=== PATIENT | male | born 1965 | race Hispanic/Latino ===

== ENCOUNTER 2020-02-18 09:20 | Inpatient (IN) | payer OTHER ==
[~2020-02-18] VITALS: Ht 165.1 cm; Wt 83.5 kg
[2020-02-18] MEDS ORDERED: CEFTRIAXONE SOD 1 GM/NS 50 ML 50 ML IV ONE (10:30)
[2020-02-18 10:40] LABS: BASOPHILS % 0.2 % (0.0-1.0); HEMATOCRIT 40.9 % (38.2-49.6); HEMOGLOBIN 13.7 g/dL (14.0-18.0); LYMPHOCYTES # (AUTO) 1.1 (1.0-3.2); LYMPHOCYTES % 6.4 % (18.0-39.1); MEAN CORPUSCULAR HGB CONC 33.5 g/dL (31-35); MEAN CORPUSCULAR VOLUME 89.5 fL (81-99); MONOCYTES # (AUTO) 0.8 (0.2-0.8); MONOCYTES % 4.9 % (4.4-11.3); NEUTROPHILS # (AUTO) 14.4 (2.1-6.9); NEUTROPHILS % 87.4 % (38.7-80.0); PLATELET COUNT 267 x10e3/uL (140-360); RED BLOOD COUNT 4.57 x10e6/uL (4.3-5.7); RED CELL DISTRIBUTION WIDTH 11.9 % (11.7-14.4)
[2020-02-18] MEDS ORDERED: AZITHROMYCIN 500MG/NS 250 ML 250 ML IV STA (10:42)
[2020-02-18 11:40] LABS: ALANINE AMINOTRANSFERASE 56 IU/L (0-55); ALBUMIN 3.5 g/dL (3.5-5.0); ALBUMIN/GLOBULIN RATIO 0.9 (0.8-2.0); ALKALINE PHOSPHATASE 77 IU/L (40-150); ANION GAP 16.3 mmol/L (8-16); BLOOD UREA NITROGEN 17 mg/dL (7-26); BUN/CREATININE RATIO 20 (6-25); CALCIUM 9.1 mg/dL (8.4-10.2); CARBON DIOXIDE 25 mmol/L (22-29); CHLORIDE 100 mmol/L (98-107); CREATINE KINASE 46 IU/L (30-200); CREATININE, SERUM 0.86 mg/dL (0.72-1.25); EST GLOMERULAR FILTRATION RATE > 60 ML/MIN (60-); GLUCOSE 116 mg/dL (74-118); POTASSIUM 4.3 mmol/L (3.5-5.1); SODIUM 137 mmol/L (136-145)
[2020-02-18 11:49] LABS: CREATINE KINASE MB < 1.00 ng/mL (0-4.3)
--- NOTE | 2020-02-18 13:10 | Emergency Department Note ---
History of Present Illnes History of Present Illness Chief Complaint: COVID PUI History of Present Illness This is a 54 year old male arrived to the ED with complaints of cough shortness of breath, states he tested positive for Covid 19. Chief Complaint Comment PATIENT IN FROM HOME WITH COMPLAINTS OF COUGH, SHORTNESS OF BREATH, CHEST PAIN, FEVER, AND CHILLS X 1 WEEK; PATIENT TACHYPNEIC, FEBRILE, HYPOXIC, AND ONLY ABLE TO SPEAK IN ONE WORD ANSWERS. PATIENT IMMEDIATELY MOVED TO ROOM 10 Historian: Patient Arrival Mode: Car Onset (how long ago): day(s) Severity: mild Onset quality: gradual Duration (how long): day(s) Timing of current episode: constant Progression: worsening Chronicity: new Context: Reports recent illness Past Medical/Family History Physician Review I have reviewed the patient's past medical and family history. Any updates have been documented here. Past Medical History Recent Fever: Yes Clinical Suspicion of Infectio: Yes New/Unexplained Change in Ment: No Past Medical History: Hyperlipedemia Other Surgery: UNABLE TO ASSESS Social History Smoking Cessation: Never Smoker Counseling Performed: No Alcohol Use: Occasional Any Illegal Drug Use: No TB Exposure/Symptoms: No Physically hurt or threatened: No Family History Family history of heart diseas: No Other Last Tetanus: UNKNOWN Any Pre-Existing Lines (PICC,: No Is patient up to date on immun: Yes Last Flu: last year Last Pneumovax: none Review of Systems Review of Systems Constitutional: Reports as per HPI, Reports chills, Reports fever, Reports malaise EENTM: Reports no symptoms Cardiovascular: Reports no symptoms Respiratory: Reports no symptoms, Reports as per HPI, Reports chest congestion, Reports cough, Reports pain with cough, Reports dyspnea, Reports dyspnea on exertion Gastrointestinal: Reports no symptoms Genitourinary: Reports no symptoms Musculoskeletal: Reports no symptoms Integumentary: Reports no symptoms Neurological: Reports no symptoms Psychological: Reports no symptoms Endocrine: Reports no symptoms Hematological/Lymphatic: Reports no symptoms Review of other systems: All other systems negative Physical Exam Related Data Allergies: Coded Allergies: No Known Allergies (Unverified , 02/18/20) Triage Vital Signs Vital Signs Date Time Temp Pulse Resp B/P (MAP) Pulse Ox O2 Delivery O2 Flow Rate FiO2 02/18/20 09:20 99.5 103 40 147/92 83 02/18/20 09:20 4.0 Vital signs reviewed: Yes Physical Exam CONSTITUTIONAL Constitutional: Present well-nourished, Present ill appearing HENT HENT: Present normocephalic, Present atraumatic, Present oropharynx clear/moist, Present nose normal HENT L/R: Present left ext ear normal, Present right ext ear normal EYES Eyes: Reports PERRL, Reports conjunctivae normal NECK Neck: Present ROM normal PULMONARY Pulmonary: Present respiratory distress CARDIOVASCULAR Cardiovascular: Present regular rhythm, Present heart sounds normal, Present capillary refill normal, Present normal rate GASTROINTESTINAL Abdominal: Present soft, Present nontender, Present bowel sounds normal GENITOURINARY Genitourinary: Present exam deferred SKIN Skin: Present warm, Present dry MUSCULOSKELETAL Musculoskeletal: Present ROM normal NEUROLOGICAL Neurological: Present alert, Present oriented x 3, Present no gross motor or sensory deficits PSYCHOLOGICAL Psychological: Present mood/affect normal, Present judgement normal Results Laboratory Result Diagram: 02/18/20 0951 02/18/20 0951 Laboratory Laboratory Tests Test 02/18/20 09:51 White Blood Count 16.45 x10e3/uL (4.8-10.8) Red Blood Count 4.57 x10e6/uL (4.3-5.7) Hemoglobin 13.7 g/dL (14.0-18.0) Hematocrit 40.9 % (38.2-49.6) Mean Corpuscular Volume 89.5 fL (81-99) Mean Corpuscular Hemoglobin 30.0 pg (28-32) Mean Corpuscular Hemoglobin Concent 33.5 g/dL (31-35) Red Cell Distribution Width 11.9 % (11.7-14.4) Platelet Count 267 x10e3/uL (140-360) Neutrophils (%) (Auto) 87.4 % (38.7-80.0) Lymphocytes (%) (Auto) 6.4 % (18.0-39.1) Monocytes (%) (Auto) 4.9 % (4.4-11.3) Eosinophils (%) (Auto) 0.0 % (0.0-6.0) Basophils (%) (Auto) 0.2 % (0.0-1.0) Neutrophils # (Auto) 14.4 (2.1-6.9) Lymphocytes # (Auto) 1.1 (1.0-3.2) Monocytes # (Auto) 0.8 (0.2-0.8) Eosinophils # (Auto) 0.0 (0.0-0.4) Basophils # (Auto) 0.0 (0.0-0.1) Absolute Immature Granulocyte (auto 0.18 x10e3/uL (0-0.1) Sodium Level 137 mmol/L (136-145) Potassium Level 4.3 mmol/L (3.5-5.1) Chloride Level 100 mmol/L (98-107) Carbon Dioxide Level 25 mmol/L (22-29) Anion Gap 16.3 mmol/L (8-16) Blood Urea Nitrogen 17 mg/dL (7-26) Creatinine 0.86 mg/dL (0.72-1.25) Estimat Glomerular Filtration Rate > 60 ML/MIN (60-) BUN/Creatinine Ratio 20 (6-25) Glucose Level 116 mg/dL (74-118) Lactic Acid Level 3.5 mmol/L (0.5-2.0) Calcium Level 9.1 mg/dL (8.4-10.2) Total Bilirubin 0.4 mg/dL (0.2-1.2) Aspartate Amino Transf (AST/SGOT) 24 IU/L (5-34) Alanine Aminotransferase (ALT/SGPT) 56 IU/L (0-55) Alkaline Phosphatase 77 IU/L (40-150) Creatine Kinase 46 IU/L (30-200) Creatine Kinase MB < 1.00 ng/mL (0-4.3) Troponin I < 0.05 ng/mL (0.0-0.40) Total Protein 7.6 g/dL (6.5-8.1) Albumin 3.5 g/dL (3.5-5.0) Globulin 4.1 g/dL (2.3-3.5) Albumin/Globulin Ratio 0.9 (0.8-2.0) Lab results reviewed: Yes Imaging Imaging results reviewed: Yes Impressions IMPRESSION: Patchy bilateral lower lung predominant airspace and interstitial opacities concerning for multifocal pneumonia. Critical Care Time Total Critical Care Time (min): 65 Critical care time exclusive o: separately billable procedures Critcal care necessary due to: respiratory failure Assessment & Plan Medical Decision Making MDM 54-year-old arrived to the ED with complaints of shortness of breath and cough, patient in no acute distress on arrival ill-appearing. Oxygen saturation 80% with marked shortness of breath on exertion, speaking only words. Patient placed on supplemental O2, high risk of decompensation given initial presentation. P atient clinically appears to be positive for Covid 19. Patient high risk of morbidity and mortality, spoke to patient's family length and informed them of findings. Patient's acute tachypnea on arrival he required immediate intervention, patient stabilized by myself, placed on supplemental O2 given his marked hypoxia, frequent re-evaluations done in the setting of his tachypnea Assessment & Plan Final Impression: (1) Acute respiratory disease due to COVID-19 virus Depart Disposition: ADMITTED Last Vital Signs Date Time Temp Pulse Resp B/P (MAP) Pulse Ox O2 Delivery O2 Flow Rate FiO2 02/18/20 10:37 72 25 147/93 100 02/18/20 09:20 4.0 02/18/20 09:20 99.5 Medications in the ED Ceftriaxone Sodium 50 ml @ 100 mls/hr ONCE ONCE IV Last administered on 02/18/20at 10:53; Admin Dose 100 MLS/HR; Start 02/18/20 at 10:30; Stop 02/18/20 at 10:59; Status DC Azithromycin 250 ml @ 250 mls/hr NOW STAT IV Last administered on 02/18/20at 10:53; Admin Dose 250 MLS/HR; Start 02/18/20 at 10:42; Stop 02/18/20 at 11:42; Status DC JAMIE DE LA ROSA DO Feb 18, 2020 13:10
--- NOTE | 2020-02-18 14:00 | Diagnostic Imaging Report ---
EXAMINATION: CHEST SINGLE (PORTABLE) INDICATION: Cough, shortness of breath, fever COMPARISON: None FINDINGS: LINES/TUBES:EKG leads overlie the chest. LUNGS:The lungs are moderately inflated. Patchy bilateral lower lung predominant airspace and interstitial opacities. PLEURA:No pleural effusion or pneumothorax. MEDIASTINUM:The cardiomediastinal silhouette appears normal in size and shape. BONES/SOFT TISSUES:No acute osseous injury. ABDOMEN:No free air under the diaphragm. IMPRESSION: Patchy bilateral lower lung predominant airspace and interstitial opacities concerning for multifocal pneumonia. Signed by: Katia Lo MD on 02/18/2020 1:57 PM
[2020-02-18] MEDS ORDERED: ONDANSETRON HCL INJ 2MG/ML 2ML 2 MG/ML VIAL IV PRN (17:00)
[2020-02-18] MEDS ORDERED: SODIUM CHLORIDE 0.9% 1000ML 1,000 ML IV ONE (17:00)
[2020-02-18] MEDS: DEXAMETHASONE SOD PHOS 10 MG/1 ML VIAL IV SCH (17:09)
[2020-02-18] MEDS: VANCOMYCIN 1GM/NS 250 ML 250 ML IV SCH (17:13)
[2020-02-18] MEDS: CEFEPIME 1GM/NS 0.9% 50 ML 50 ML IV SCH (18:16)
--- NOTE | 2020-02-18 18:31 | Consultation ---
DATE OF CONSULTATION: Pulmonary Critical Care Consultation CHIEF COMPLAINT: Worsening dyspnea and fevers. HISTORY OF PRESENT ILLNESS: The patient is a 54-year-old man. He reports testing positive for COVID twice at work. Once 11 days ago and once 5 or 6 days ago. He did have some malaise and fatigue, but suddenly started becoming worse about 3 days ago. He noticed worsening cough as well as worsening dyspnea and fevers. He subsequently came to the emergency department and was found to have an elevated white blood cell count as well as a temperature of 99.5. PAST MEDICAL HISTORY: 1. No prior asthma or COPD. 2. No prior heart disease. 3. No prior history of diabetes or kidney disease. ALLERGIES: THERE ARE NO KNOWN DRUG ALLERGIES. SOCIAL HISTORY: The patient is non-smoker or drinker. 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 FAMILY HISTORY: Noncontributory. REVIEW OF SYSTEMS: The patient notes malaise and fatigue for a week and a half to 2 weeks. He has fevers and worsening dyspnea for the past several days. He does not complain of headache. He has no neck pain. He is not having any chest pain. He does note a cough. He is not having any abdominal pain. He denies any nausea or vomiting. He has no leg edema. PHYSICAL EXAMINATION: VITAL SIGNS: The blood pressure is 147/93 and saturation is 100%, but occasionally drops into the low 90s, on 4 L nasal cannula. His respiratory rate is 30. HEENT: Shows no facial swelling or erythema. The oropharynx is normal. LYMPHATIC: Shows no submandibular, cervical, or supraclavicular adenopathy. CARDIAC: Reveals regular rate and rhythm with normal S1 and S2. LUNGS: Auscultation of lungs reveals rhonchi and crackles in the bases. There is no wheezing. ABDOMEN: Soft and nontender. There is no rebound or guarding. EXTREMITIES: Shows no leg edema or calf tenderness. There is no cyanosis or clubbing. SKIN: Shows no rashes. NEUROLOGICAL: Shows no focal abnormalities. RADIOGRAPHIC DATA: Shows bilateral patchy airspace disease, concerning for multifocal pneumonia. LABORATORY DATA: White blood cell count is 16.4 and the hemoglobin is 13.7. There is 87.4% neutrophils. Platelet count is 267. BUN to creatinine ratio is normal. The other electrolytes are within normal limits. The lactic acid is 3.5. Liver function tests are normal. IMPRESSION: 1. Bacterial pneumonia, superimposed on COVID-19 infection. 2. Viral pneumonia and COVID-19. 3. Dehydration. 4. Sepsis, present on admission. PLAN: 1. The patient should receive IV fluids for sepsis. 2. Begin vancomycin and cefepime for probable bacterial superinfection of COVID-19. 3. Dexamethasone. 4. Lovenox for DVT prophylaxis. 5. Oxygen. 6. Tylenol as needed. 7. ABG. Drew Everett MD [facility]/MODL /[id number]
--- NOTE | 2020-02-18 19:07 | NUR ---
Patient arrived to unit from ER via wheelchair in stable condition, no s/s of distress. Currently on 2L O2 NC. Oriented to room. Bed locked and in lowest position, side rails up x3, call light placed within reach. Will continue to monitor.
--- NOTE | 2020-02-18 19:40 | NUR ---
Called and obtained list of current medications.
[2020-02-18] MEDS ORDERED: DEXAMETHASONE4 MG PO (19:41)
[2020-02-18] MEDS ORDERED: AZITHROMYCIN500 MG PO (19:41)
[2020-02-18] MEDS ORDERED: HYDROXYCHLOROQ200 MG PO (19:41)
[2020-02-18] MEDS ORDERED: IVERMECTIN3 MG PO (19:41)
[2020-02-18] MEDS ORDERED: IBUPROFEN600 MG PO (19:41)
[2020-02-18] MEDS ORDERED: ZINC SULFATE220 M1 PO (19:41)
[2020-02-18 20:00] VITALS: BP 109/76
[2020-02-18] MEDS: ENOXAPARIN SOD INJ 60 MG/0.6 ML SYR SC SCH (20:26)
[2020-02-18] MEDS ORDERED: ENOXAPARIN SOD INJ 40 MG/0.4 ML SYR SC SCH (21:00)
[2020-02-18 21:29] VITALS: BP 109/76
[2020-02-18 21:35] VITALS: BP 109/76
--- NOTE | 2020-02-18 23:02 | NUR ---
Dr. Piper here to see patient. No new orders received at this time. Patient encouraged to increase PO fluid intake.
[2020-02-18] MEDS ORDERED: DEXTROSE 50% SYRINGE 50 ML IV PRN (23:15)
[2020-02-18] MEDS ORDERED: LOPERAMIDE HCL 2 MG CAP PO PRN ×2 (23:15)
[2020-02-18] MEDS ORDERED: HYDROCODONE/APAP 5MG-325MG TAB PO PRN (23:15)
--- NOTE | 2020-02-18 23:46 | History and Physical ---
CHIEF COMPLAINT: Cough, congestion and fever. HISTORY OF PRESENT ILLNESS: A 54-year-old male with no past medical history, presents to the ED with complaints of cough, congestion, and fever ongoing for the last one week. The patient reports he recently traveled to [place] for work, believes that he has picked up the antony virus there. Due to worsening shortness of breath and dyspnea on exertion the patient came into the ED here at [facility], found to be COVID-19 positive. The patient is currently doing well. He is on nasal cannula. He is has some mild cough. Denies any chest pain, palpitation, nausea, or vomiting. The patient is seen and evaluated at bedside in the COVID Unit. Currently, he is doing well with no other issues at this time. REVIEW OF SYSTEMS: Pertinent positive for cough, congestion and fever. The rest of 14-point review of systems have been reviewed with the patient and are negative. ALLERGIES: NO KNOWN DRUG ALLERGIES. HOME MEDICATIONS: He had dexamethasone, hydroxychloroquine, ibuprofen, ivermectin and zinc sulfate. He also had azithromycin. PAST MEDICAL HISTORY: Reports none. FAMILY HISTORY: Hypertension and diabetes. PAST SURGICAL HISTORY: Reports none. SOCIAL HISTORY: No drugs and no alcohol, does not smoke. He is . He works. PHYSICAL EXAMINATION: VITAL SIGNS: Temperature is 97.8, pulse 67, respiratory rate is 20, blood pressure 109/76, pulse ox 95%, he is on 2 L nasal cannula. LABORATORY DATA: Labs show white count 16, hemoglobin 13.7, hematocrit 41, platelets of 267,000. Chemistry sodium 137, potassium 4.3, chloride 100, bicarb 25, anion gap of 16, BUN 17, creatinine 0.86, glucose is 116. Lactic acid was 2. Calcium is 9.1. LFTs within normal range. Troponins were negative. CK was 46, albumin 3.5. Serologies; coronavirus PCR was positive. Microbiology, blood cultures no growth today. IMAGING STUDIES: Chest x-ray shows patchy bilateral lower lung predominant airspace interstitial opacities concerning for multifocal pneumonia. GENERAL: Not in acute distress, alert and oriented x3. Cooperative on examination. PULMONARY: Clear to auscultation bilaterally. No wheezing, rales, or rhonchi. No crackles appreciated. CARDIOVASCULAR: Positive S1, S2. No murmurs, rubs, or gallops. ABDOMEN: Soft, nondistended, nontender to palpation. Bowel sounds present. MUSCULOSKELETAL: Strength is 5/5 throughout. No evidence of muscle deficits on examination. No weakness appreciated. SKIN: Intact. Warm to touch. Good cap refill. PSYCHIATRIC: Normal affect and mood. EXTREMITIES: No edema. Good range of motion throughout. IMPRESSION: 1. COVID pneumonia. 2. Concerns for bacterial pneumonia superimposed with COVID-19 infection. 3. Dehydration. 4. Sepsis with leukocytosis likely secondary COVID-19 pneumonia. PLAN: At this time, I will try to minimize IV fluids. We encouraged oral hydration. I discussed this with the patient and the nursing staff to avoid worsening shortness of breath. We will continue with symptomatic treatment with oxygen. He has already received azithromycin at home. We will go ahead and just put him on IV antibiotics with cefepime and vancomycin. He is also on dexamethasone. Full-dose Lovenox initiated. Pulmonary and ID has been consulted. He is going to be on a heart healthy diet. I will also add insulin sliding scale for elevated glucose levels while on steroids. MD BOB Burleson/MODL /[id number]
[2020-02-19] VITALS (8 sets, daily range): BP systolic 121–141; BP diastolic 71–86
[2020-02-19] MEDS: GUAIFENESIN/CODEINE 10 ML CUP PO PRN (00:31)
--- NOTE | 2020-02-19 00:33 | NUR ---
Patient SOB upon ambulating to restroom. O2 increased, currently 93% on 4L. Urinal provided at bedside. Will continue to monitor.
[2020-02-19] MEDS ORDERED: SODIUM CHLORIDE 0.9% 250ML 250 ML ONE (03:47)
[2020-02-19] MEDS: CEFEPIME 1GM/NS 0.9% 50 ML 50 ML IV SCH ×2 (05:04→16:00)
[2020-02-19 05:32] LABS: BASOPHILS % 0.2 % (0.0-1.0); HEMATOCRIT 40.9 % (38.2-49.6); HEMOGLOBIN 13.3 g/dL (14.0-18.0); LYMPHOCYTES # (AUTO) 0.8 (1.0-3.2); LYMPHOCYTES % 8.1 % (18.0-39.1); MEAN CORPUSCULAR HGB CONC 32.5 g/dL (31-35); MEAN CORPUSCULAR VOLUME 92.3 fL (81-99); MONOCYTES # (AUTO) 0.5 (0.2-0.8); MONOCYTES % 4.8 % (4.4-11.3); NEUTROPHILS # (AUTO) 8.6 (2.1-6.9); NEUTROPHILS % 85.8 % (38.7-80.0); PLATELET COUNT 210 x10e3/uL (140-360); RED BLOOD COUNT 4.43 x10e6/uL (4.3-5.7)
[2020-02-19] MEDS: VANCOMYCIN 1GM/NS 250 ML 250 ML IV SCH ×2 (05:36→17:18)
[2020-02-19 05:54] LABS: ALANINE AMINOTRANSFERASE 139 IU/L (0-55); ALBUMIN/GLOBULIN RATIO 0.8 (0.8-2.0); ALKALINE PHOSPHATASE 82 IU/L (40-150); ANION GAP 13.5 mmol/L (8-16); BLOOD UREA NITROGEN 19 mg/dL (7-26); BUN/CREATININE RATIO 26 (6-25); CARBON DIOXIDE 24 mmol/L (22-29); CHLORIDE 101 mmol/L (98-107); CREATININE, SERUM 0.73 mg/dL (0.72-1.25); EST GLOMERULAR FILTRATION RATE > 60 ML/MIN (60-); GLUCOSE 134 mg/dL (74-118); POTASSIUM 4.5 mmol/L (3.5-5.1); SODIUM 134 mmol/L (136-145)
--- NOTE | 2020-02-19 07:51 | Diagnostic Imaging Report ---
Examination: Single AP view of the chest. COMPARISON: Portable chest 02/18/2020 INDICATION: Respiratory failure IMPRESSION: 1. Lines and Tubes: None 2. Lungs are well-inflated. Slight interval improvement in bilateral lower lobe and left midlung interstitial and airspace opacities. No consolidation or effusion. 3. Cardiomediastinal silhouette is normal. Pulmonary vasculature is normal. 4. No acute bony abnormalities. Signed by: Dr. Luis Lai M.D. on 02/19/2020 7:48 AM
--- NOTE | 2020-02-19 07:56 | NUR ---
PATIENT IS AWAKE, ALERT, AND IN STABLE CONDITION WITH NO S/S OF RESPIRATORY DISTRESS. NO PAIN VOICED. O2 APPLIED AT 3L NC. TELEMETRY APPLIED. CALL LIGHT IS WITHIN REACH, PATIENT INSTRUCTED TO CALL FOR ASSISTANCE NEEDED.
[2020-02-19] MEDS: ENOXAPARIN SOD INJ 60 MG/0.6 ML SYR SC SCH (08:57)
[2020-02-19] MEDS: DEXAMETHASONE SOD PHOS 10 MG/1 ML VIAL IV SCH (09:35)
[2020-02-19] MEDS ORDERED: REMDESIVIR 200MG/NS 100ML 200 MG IV ONE (14:00)
--- NOTE | 2020-02-19 17:56 | Progress Note ---
DATE: SUBJECTIVE: The patient still has some dyspnea. He has some tachypnea, but is saturating well on 4 L of oxygen. Saturations are in the low 90s. PHYSICAL EXAMINATION: VITAL SIGNS: Blood pressure is 125/77 and his pulse is 71. His respiratory rate is 24, but when he walks to the bathroom he becomes tachypneic. He is not having any fevers. HEENT: No facial swelling or erythema. CARDIAC: Regular rate and rhythm with normal S1 and S2. LUNGS: Auscultation of the lungs shows crackles in both lung chavarria. ABDOMEN: Soft, nontender. There is no rebound or guarding. EXTREMITIES: No leg edema or calf tenderness. There is no cyanosis or clubbing. SKIN: No rashes. NEUROLOGICAL: No focal abnormalities. LABORATORY DATA: White blood cell count is 10 and hemoglobin is 13.3. The platelet count is 210,000. The BUN to creatinine ratio is normal. The other electrolytes within normal limits. Albumin is 3. RADIOGRAPHIC DATA: Chest x-ray shows bilateral lower lobe in infiltrates as well as left midlung interstitial opacities. IMPRESSION: 1. COVID-19 and viral pneumonia. 2. Superimposed bacterial pneumonia. 3. Dehydration. 4. Sepsis present on admission. PLAN: 1. Continue current antibiotics. 2. Dexamethasone. 3. Oxygen. 4. Lovenox. 5. Tylenol as needed. Drew Everett MD [facility]/MODL /[id number]
--- NOTE | 2020-02-19 19:04 | NUR ---
PATIENT IS IN STABLE CONDITION WITH NO S/S OF RESPIRATORY DISTRESS. NO PAIN VOICED. O2 APPLIED AT 4L NC. TELEMETRY APPLIED. CALL LIGHT IS WITHIN REACH, PATIENT INSTRUCTED TO CALL FOR ASSISTANCE NEEDED. SHIFT REPORT GIVEN TO ONCOMING NURSE.
--- NOTE | 2020-02-19 19:46 | Consultation ---
DATE OF CONSULTATION: REASON FOR CONSULTATION: Pneumonia and COVID-19. HISTORY OF PRESENT ILLNESS: This patient, who is a 54-year-old male, apparently has been sick for 2 weeks. He was first diagnosed at work about he was sick for few days, went to work, was diagnosed with COVID-19. He was given Ivermectin, and he was also given azithromycin. He was tested again. Apparently, his family is also sick. The patient was okay, but he has shortness of breath and cough and fever for the last 4 days, so he came here. PAST MEDICAL HISTORY: He denies. PAST SURGICAL HISTORY: He denies. ALLERGIES: NKA. SOCIAL HISTORY: There is no smoking, drug abuse, or alcohol abuse. PHYSICAL EXAMINATION: He is currently alert and oriented. While I saw him, he is on 3 L, but he was still short of breath, we have to up more. I spoke with Dr. Everett. He was apparently more short of breath yesterday, but he got better today. LABORATORY DATA: Reviewed. His white count yesterday was 16.4, hemoglobin 13, and hematocrit 40. His sodium 137, potassium 4.3, creatinine 0.86. Lactic acid 3.5. His blood cultures are still pending. His chest x-ray showed bilateral lower lobe infiltrate with airspace opacity. PHYSICAL EXAMINATION: GENERAL: He is currently alert, short of breath. VITAL SIGNS: Stable. Afebrile. HEENT: He is not icteric. NECK: Supple. CHEST: Few crackles bilateral. COR: S1, S2. ABDOMEN: Soft. IMPRESSION: COVID-19. He has been sick for more than 14 days, it is too late to use remdesivir. He was getting better, now is getting worse, I am concerned that is superimposed bacterial pneumonia. Agree with cefepime, agree with vancomycin. Concerned about component of congestive heart failure. Agree with oxygen. Agree with steroid. At present time, he is probably in the phase process. Vitamin C, vitamin D, on zinc supplement, Lovenox 40 mg subcu q.12 hours. Obtain echocardiogram and BNP. We will follow. MD JAKY Osman/HARPAL /[id number]
[2020-02-19] MEDS: BENZONATATE 100 MG CAP PO PRN (22:00)
[2020-02-20] VITALS (8 sets, daily range): BP systolic 125–162; BP diastolic 80–99
[2020-02-20] MEDS: ZOLPIDEM TARTRATE 5 MG TAB PO PRN (00:30)
--- NOTE | 2020-02-20 00:57 | Progress Note ---
DATE: 02/19/2020 Medicine Progress Note SUBJECTIVE: The patient is requiring increased oxygen today. No overnight events. He stated he is doing well. He does get short of breath with ambulation. PHYSICAL EXAMINATION: VITAL SIGNS: Temperature is 98.9, pulse 72, respiratory rate 24, blood pressure 135/78, and pulse ox 98%. He is on 3 L nasal cannula. GENERAL: In no acute distress. Alert and oriented x3. Cooperative on examination. PULMONARY: Clear to auscultation bilaterally. No wheezing, rales, or rhonchi. No crackles appreciated. CARDIOVASCULAR: Positive S1 and S2. No murmurs, rubs, or gallops. GI: Abdomen is soft nondistended and nontender palpation. Bowel sounds present. MUSCULOSKELETAL: Strength is 5/5 throughout. No evidence of any muscle deficits on examination. SKIN: Intact, warm to touch. Good cap refill. PSYCHIATRIC: Normal affect and mood. EXTREMITIES: No edema. Good range of motion throughout. LABORATORY DATA: Show CBC stable. Chemistry was stable. MICROBIOLOGY: Blood culture, no growth. IMAGING STUDIES: Chest x-ray this morning shows bilateral lower lobe and left midlung interstitial airspace opacities. IMPRESSION: 1. COVID pneumonia. 2. Concerns for bacterial pneumonia superimposed with acute COVID-19 infection. 3. Dehydration. 4. Sepsis with leukocytosis secondary COVID-19 pneumonia. PLAN: At this time, I will encourage oral hydration and avoid IV fluids. Continue with IV antibiotic therapy. Symptomatic treatment with oxygen. Pain control. He is on dexamethasone as well. He is on full-dose Lovenox. ID and Pulmonary are following. He is currently on nasal cannula and is very short of breath with ambulation. The patient will be here several days until he improves. MD BOB Burleson/MODL /[id number]
[2020-02-20] MEDS: ACETAMINOPHEN 325 MG TAB PO PRN ×2 (05:00→21:30)
[2020-02-20] MEDS: CEFEPIME 1GM/NS 0.9% 50 ML 50 ML IV SCH ×2 (05:00→17:40)
[2020-02-20] MEDS: BENZONATATE 100 MG CAP PO PRN ×3 (05:00→21:30)
[2020-02-20 06:23] LABS: BASOPHILS % 0.2 % (0.0-1.0); EOSINOPHILS % 0.1 % (0.0-6.0); HEMATOCRIT 43.2 % (38.2-49.6); HEMOGLOBIN 14.4 g/dL (14.0-18.0); LYMPHOCYTES # (AUTO) 2.1 (1.0-3.2); MEAN CORPUSCULAR HEMOGLOBIN 30.3 pg (28-32); MEAN CORPUSCULAR HGB CONC 33.3 g/dL (31-35); MEAN CORPUSCULAR VOLUME 90.9 fL (81-99); MONOCYTES # (AUTO) 0.6 (0.2-0.8); MONOCYTES % 4.8 % (4.4-11.3); NEUTROPHILS # (AUTO) 10.4 (2.1-6.9); PLATELET COUNT 225 x10e3/uL (140-360); RED BLOOD COUNT 4.75 x10e6/uL (4.3-5.7); RED CELL DISTRIBUTION WIDTH 11.9 % (11.7-14.4)
[2020-02-20 06:52] LABS: ALANINE AMINOTRANSFERASE 221 IU/L (0-55); ALBUMIN 3.1 g/dL (3.5-5.0); ALBUMIN/GLOBULIN RATIO 0.7 (0.8-2.0); ALKALINE PHOSPHATASE 98 IU/L (40-150); ANION GAP 14.3 mmol/L (8-16); BLOOD UREA NITROGEN 18 mg/dL (7-26); BUN/CREATININE RATIO 24 (6-25); CALCIUM 9.3 mg/dL (8.4-10.2); CARBON DIOXIDE 24 mmol/L (22-29); CHLORIDE 100 mmol/L (98-107); CREATININE, SERUM 0.76 mg/dL (0.72-1.25); EST GLOMERULAR FILTRATION RATE > 60 ML/MIN (60-); GLUCOSE 79 mg/dL (74-118); POTASSIUM 4.3 mmol/L (3.5-5.1); SODIUM 134 mmol/L (136-145)
--- NOTE | 2020-02-20 07:41 | Diagnostic Imaging Report ---
EXAMINATION: CHEST SINGLE (PORTABLE) INDICATION: pneumonia COMPARISON: 02/19/2020. FINDINGS: LINES/TUBES:EKG leads overlie the chest. LUNGS:The lungs are moderately inflated. Worsened patchy bilateral lower lung predominant airspace and interstitial opacities. PLEURA:No pleural effusion or pneumothorax. MEDIASTINUM:The cardiomediastinal silhouette appears normal in size and shape. BONES/SOFT TISSUES:No acute osseous injury. ABDOMEN:No free air under the diaphragm. IMPRESSION: Worsened patchy bilateral lower lung predominant airspace and interstitial opacities concerning for multifocal pneumonia. Signed by: Celestine Trujillo MD on 02/20/2020 7:37 AM
--- NOTE | 2020-02-20 07:55 | NUR ---
ASSUMED CARE. AAOX3. ACYANOTIC. RESTING IN BED. NO DISTRESS NOTED. BED LOW AND LOCKED. CALL LIGHT IN REACH. SIDE RAILS UP X2.
[2020-02-20] MEDS: DEXAMETHASONE PHOS 4MG/ML 5ML MULTIDOSE VIAL IV SCH (08:49)
[2020-02-20] MEDS: ENOXAPARIN SOD INJ 40 MG/0.4 ML SYR SC SCH (08:49)
[2020-02-20] MEDS: VANCOMYCIN 1GM/NS 250 ML 250 ML IV SCH (08:49)
--- NOTE | 2020-02-20 12:35 | Progress Note ---
DATE: Pulmonary Critical Care Progress Note SUBJECTIVE: The patient reports some improvement. He remains on 4 L and is saturating in the high 90s. With some movements or walking, his respiratory rate climbs into the 30-40 range. He is not complaining of chest pain. He has no nausea or vomiting. PHYSICAL EXAMINATION: VITAL SIGNS: The blood pressure is 125/80 and saturation is 97%. HEENT: Shows no facial swelling or erythema. CARDIAC: Reveals regular rate and rhythm with a normal S1 and S2. LUNGS: Auscultation of lungs reveals crackles at the bases. There is no wheezing. ABDOMEN: Soft and nontender. There is no rebound or guarding. EXTREMITIES: Shows no leg edema or calf tenderness. There is no cyanosis or clubbing. SKIN: Shows no rashes. NEUROLOGICAL: Shows no focal abnormalities. LABORATORY DATA: White blood cell count is 13.2 and the hemoglobin is 14.4. The platelet count is 225. BUN to creatinine ratio is normal. The other electrolytes within normal limits. Albumin is 3.1. RADIOGRAPHIC DATA: The patient has some worsening bilateral infiltrates. IMPRESSION: 1. Acute respiratory failure. 2. Viral pneumonia and COVID-19. 3. Superimposed bacterial pneumonia. 4. Sepsis, present on admission. PLAN: 1. Continue current antibiotics. 2. Continue dexamethasone. 3. Repeat laboratory values tomorrow. 4. Continue oxygen. Drwe Everett MD [facility]/MODL /[id number]
[2020-02-20] MEDS ORDERED: REMDESIVIR 100MG/NS 100ML 100 MG IV SCH (14:00)
[2020-02-20] MEDS: VANCOMYCIN HCL 1.25 GM in SODIUM CHLORIDE 0.9% 250ML 250 ML IV SCH (15:19)
[2020-02-20] MEDS: GUAIFENESIN/CODEINE 10 ML CUP PO PRN ×2 (15:36→21:30)
--- NOTE | 2020-02-20 18:21 | Progress Note ---
DATE: 02/20/2020 Medicine Progress Note SUBJECTIVE: The patient is still short of breath. He is requiring 4 L nasal cannula. The patient is short of breath with talking. He does get shortness of breath with ambulation as well. PHYSICAL EXAMINATION: VITAL SIGNS: Temperature is 98.1, pulse 82, respiratory rate is 19, blood pressure 131/84, and pulse ox 92% on 4 L nasal cannula. GENERAL: Not in acute distress. Alert and oriented x3. Cooperative on examination. PULMONARY: Clear to auscultation bilaterally. He is on 4 L nasal cannula. Mild crackles appreciated. CARDIOVASCULAR: Positive S1 and S2. No murmurs, rubs, or gallops appreciated. ABDOMEN: Soft, nondistended, and nontender to palpation. Bowel sounds present. MUSCULOSKELETAL: He is moving all extremities well. NEUROLOGIC: Alert and oriented x3. SKIN: Intact. Warm to touch. Good cap refill. PSYCHIATRIC: Normal affect and mood. EXTREMITIES: No edema. Good range of motion throughout. LABORATORY FINDINGS: Show white count 13, hemoglobin 14, hematocrit is 43, and platelets of 225. Chemistry; sodium 134, potassium 4.3, chloride 100, bicarb 24, anion gap of 14, BUN is 18, and creatinine is 0.76. AST 111, ALT 221, and alkaline phosphatase 98. Albumin 3.1. MICROBIOLOGY: Blood cultures, no growth to date. IMAGING: Chest x-ray still shows worsening patchy bilateral lower lung predominant airspace and interstitial opacities, concerning for multifocal pneumonia. IMPRESSION: 1. COVID pneumonia with underlying shortness of breath. 2. Concerns for bacterial pneumonia, superimposed with acute COVID-19 infection. 3. Dehydration. 4. Sepsis with leukocytosis secondary to COVID-19 pneumonia. PLAN: At this time, his labs seemed to be stable. Still encouraged oral hydration and avoid IV fluids. He is on increased oxygen at 4 L nasal cannula. Continue with IV antibiotics. He is on full dose Lovenox. Continue with dexamethasone daily. We will continue to monitor closely. Discussed plan of care with nursing staff and Infectious Disease physician. MD BOB Burleson/MODL /[id number]
[2020-02-21] VITALS (15 sets, daily range): BP systolic 106–173; BP diastolic 62–100
[2020-02-21] MEDS: ZOLPIDEM TARTRATE 5 MG TAB PO PRN (00:27)
[2020-02-21] MEDS: VANCOMYCIN HCL 1.25 GM in SODIUM CHLORIDE 0.9% 250ML 250 ML IV SCH ×2 (01:38→13:04)
[2020-02-21] MEDS: GUAIFENESIN/CODEINE 10 ML CUP PO PRN (01:39)
[2020-02-21] MEDS: CEFEPIME 1GM/NS 0.9% 50 ML 50 ML IV SCH ×2 (05:00→16:42)
[2020-02-21 05:52] LABS: BASOPHILS % 0.1 % (0.0-1.0); EOSINOPHILS % 0.2 % (0.0-6.0); HEMATOCRIT 40.1 % (38.2-49.6); HEMOGLOBIN 13.4 g/dL (14.0-18.0); LYMPHOCYTES # (AUTO) 1.6 (1.0-3.2); LYMPHOCYTES % 10.9 % (18.0-39.1); MEAN CORPUSCULAR HEMOGLOBIN 30.1 pg (28-32); MEAN CORPUSCULAR HGB CONC 33.4 g/dL (31-35); MEAN CORPUSCULAR VOLUME 90.1 fL (81-99); MONOCYTES # (AUTO) 0.6 (0.2-0.8); NEUTROPHILS # (AUTO) 12.5 (2.1-6.9); NEUTROPHILS % 83.7 % (38.7-80.0); PLATELET COUNT 262 x10e3/uL (140-360); RED BLOOD COUNT 4.45 x10e6/uL (4.3-5.7); RED CELL DISTRIBUTION WIDTH 11.9 % (11.7-14.4)
[2020-02-21] MEDS: BENZONATATE 100 MG CAP PO PRN ×2 (05:54→08:07)
--- NOTE | 2020-02-21 06:24 | NUR ---
Pt asleep in bed, easily aroused. SOB with activity noted, No other s/sx of distress noted. Bed low and locked personal items in reach. Will report off to on coming shift nurse
[2020-02-21 06:35] LABS: ALANINE AMINOTRANSFERASE 310 IU/L (0-55); ALBUMIN 2.8 g/dL (3.5-5.0); ALBUMIN/GLOBULIN RATIO 0.7 (0.8-2.0); ALKALINE PHOSPHATASE 133 IU/L (40-150); ANION GAP 12.3 mmol/L (8-16); BLOOD UREA NITROGEN 17 mg/dL (7-26); BUN/CREATININE RATIO 22 (6-25); CALCIUM 8.8 mg/dL (8.4-10.2); CARBON DIOXIDE 24 mmol/L (22-29); CHLORIDE 103 mmol/L (98-107); CREATININE, SERUM 0.76 mg/dL (0.72-1.25); EST GLOMERULAR FILTRATION RATE > 60 ML/MIN (60-); GLUCOSE 91 mg/dL (74-118); POTASSIUM 4.3 mmol/L (3.5-5.1); SODIUM 135 mmol/L (136-145)
[2020-02-21] MEDS: DEXAMETHASONE PHOS 4MG/ML 5ML MULTIDOSE VIAL IV SCH (08:07)
[2020-02-21] MEDS: ENOXAPARIN SOD INJ 40 MG/0.4 ML SYR SC SCH ×2 (08:07→21:52)
--- NOTE | 2020-02-21 09:05 | NUR ---
RESPIRATORY THERAPIST CURRENTLY AT BEDSIDE PREPARING TO INITIATE HIGH FLOW NASAL CANNULA.
--- NOTE | 2020-02-21 09:22 | NUR ---
PATIENT CURRENTLY ON 15L HIGH FLOW NASAL CANNULA WITH O2 SAT AT 93 PERCENT. HOB ELEVATED TO HIGH BAJWA'S POSITION. DR. SANCHEZ NOTIFIED AND CAME TO BEDSIDE OF PATIENT. DR. SANCHEZ ORDERED FOR PATIENT TRANSFER TO ICU. ROPEMAN NOTIFIED.
--- NOTE | 2020-02-21 10:08 | Progress Note ---
DATE: Pulmonary Critical Care Progress Note SUBJECTIVE: The patient had more desaturations early this morning. They are decreased to 98% and had to be switched to a high-flow nasal cannula. His respiratory rate has increased as has his heart rate. PHYSICAL EXAMINATION: VITAL SIGNS: The blood pressure is 126/80 and the saturation is 80% on 4 L. The pulse is 110. HEENT: Shows no facial swelling or erythema. CARDIAC: Reveals regular rate and rhythm with normal S1 and S2. LUNGS: Auscultation of lungs reveals crackles in both lung chavarria. ABDOMEN: Soft and nontender. There is no rebound or guarding. EXTREMITIES: Shows no leg edema or calf tenderness. There is no cyanosis or clubbing. SKIN: Shows no rashes. NEUROLOGICAL: Shows no focal abnormalities. LABORATORY DATA: The BUN to creatinine ratio is normal. The other electrolytes within normal limits. AST is 310 and the ALT is 105. Albumin is 2.8. IMPRESSION: 1. Acute respiratory failure with worsening tachypnea and decreasing oxygen saturations. 2. Viral pneumonia and COVID-19 infection. 3. Bacterial pneumonia with sepsis, present on admission. PLAN: 1. Place the patient on high-flow oxygen and transfer to intensive care unit. 2. Continue dexamethasone. 3. Continue Lovenox at 0.5 mg/kg twice daily. 4. Continue current antibiotics. 5. Judicious use of IV fluids. 6. Case discussed with Respiratory, nursing, administration, and the patient. Greater than 35 minutes in direct critical care time. Drew Everett MD [facility]/MODL /[id number]
--- NOTE | 2020-02-21 10:27 | NUR ---
FAMILY, RAJAT (DAUGHTER) NOTIFIED OF PENDING TRANSFER TO ICU.
--- NOTE | 2020-02-21 10:33 | NUR ---
REPORT RECEIVED BY ANDREW Rivera RN (ICU NURSE)
[2020-02-21] MEDS ORDERED: DEXTROSE 50% SYRINGE 50 ML IV PRN ×2 (13:30→13:45)
[2020-02-21] MEDS ORDERED: DEXMEDETOMIDINE HCL 200 MCG in SODIUM CHLORIDE 0.9% 50ML 48 ML IV PRN (14:00)
[2020-02-21] MEDS ORDERED: DEXMEDETOMIDINE 200MCG/NS 50ML 50 ML IV PRN (14:00)
--- NOTE | 2020-02-21 14:19 | Progress Note ---
DATE: 02/21/2020 Medicine Progress Note SUBJECTIVE: The patient is requiring a significant amount of oxygen. He is very tachypneic and short of breath. Transferred to the ICU. Pulmonary Critical Care and ID notified and involved. PHYSICAL EXAMINATION: VITAL SIGNS: Temperature is 100.5, pulse is 99, respiratory rate is 35, blood pressure 140/84, and pulse ox is on 92% on high-flow oxygen 40 L. GENERAL: He is tachypneic on examination, on high-flow oxygen. Alert, awake, and oriented. CARDIOVASCULAR: Positive S1 and S2. No murmurs, rubs, or gallops appreciated. PULMONARY: He is tachypneic on exam. There are some crackles appreciated. ABDOMEN: Soft, nondistended, and nontender to palpation. Bowel sounds present. MUSCULOSKELETAL: Strength is 5/5 throughout. NEUROLOGIC: Alert, awake, and oriented on examination. SKIN: Intact. Warm to touch. Good cap refill. PSYCHIATRIC: Normal affect and mood. EXTREMITIES: No edema. Good range of motion throughout. LABORATORY DATA: White count 14, hemoglobin 13, hematocrit is 40, and platelets of 262. Chemistry; sodium 135, potassium 4.3, chloride 103, bicarb 24, anion gap of 12, BUN is 17, creatinine is 0.76, glucose is 162, and calcium 8.8. Total bilirubin 0.5, AST 105, ALT 310, and alkaline phosphatase 133. Blood cultures, no growth to date. IMAGING STUDIES: Chest x-ray shows worsening patchy bilateral lower lung predominant airspace and interstitial opacity, concerning for multifocal pneumonia. IMPRESSION: 1. COVID pneumonia with underlying shortness of breath. 2. Concerns for bacterial pneumonia superimposed with acute COVID-19 infection. 3. Dehydration. 4. Sepsis with leukocytosis secondary to COVID-19 pneumonia. 5. Elevated transaminases. PLAN: At this time, the patient is very tachypneic on examination, transferred to the ICU. He is currently on high-flow oxygen. Discussed with the consultants. For now, we are going to continue with dexamethasone. I will leave it up to ID about the remdesivir or the plasma. Continue with full dose Lovenox. We will continue to monitor the patient very closely in the ICU. I will add an insulin sliding scale. I discussed the plan of care with the ICU and the consultants. As for his LFTs, I am going to get repeat labs in the morning. He is currently just receiving Tylenol, but NSAIDs are contraindicated in coronavirus. I will have to just monitor his LFTs very closely. MD BOB Burleson/HARPAL /[id number]
--- NOTE | 2020-02-21 14:40 | NUR ---
patient transferred to icu for continued monitoring. initiated vapatherm therapy with good results. starting precedex gtt with current therapy as well. educated patient to stay in bed to conserve energy/oxygen demand as much as possible. pt verbalized understanding. may need continued reminder
[2020-02-21] MEDS ORDERED: SODIUM CHLORIDE 0.9% 250ML 250 ML ONE (16:43)
[2020-02-21 16:48] LABS: ABG HCO3 24 mmol/L (22-26); ABG PCO2 33 mmHg (35-45); ABG PH 7.47 (7.35-7.45); ABG PO2 60 mmHg (80-105)
--- NOTE | 2020-02-21 17:09 | Diagnostic Imaging Report ---
EXAMINATION: CHEST SINGLE (PORTABLE) INDICATION: Viral pneumonia. COMPARISON: Chest radiograph 02/20/2020. FINDINGS: TUBES and LINES: None. LUNGS: Hypoinflated lungs. Slightly increased bilateral interstitial and consolidative opacities. PLEURA: No pleural effusion or pneumothorax. HEART AND MEDIASTINUM: The cardiomediastinal silhouette is unremarkable. BONES AND SOFT TISSUES: No acute osseous lesion. Soft tissues are unremarkable. UPPER ABDOMEN: No free air under the diaphragm. IMPRESSION: Slightly increased bilateral interstitial and airspace opacities, compatible with multifocal pneumonia, possibly with superimposed pulmonary edema. Signed by: Dr. Papo Montanez MD on 02/21/2020 5:06 PM
[2020-02-21] MEDS: INSULIN REGULAR, HUMAN 100 UNIT/1 ML 3ML VIAL SQ SCH ×2 (17:23→21:00)
[2020-02-21] MEDS: DEXMEDETOMIDINE 200MCG/NS 50ML 50 ML IV PRN (21:50)
[2020-02-22] VITALS (22 sets, daily range): BP systolic 104–166; BP diastolic 66–90
[2020-02-22] MEDS: VANCOMYCIN HCL 1.25 GM in SODIUM CHLORIDE 0.9% 250ML 250 ML IV SCH ×2 (00:41→14:28)
[2020-02-22] MEDS: CEFEPIME 1GM/NS 0.9% 50 ML 50 ML IV SCH ×2 (04:13→17:05)
--- NOTE | 2020-02-22 04:57 | NUR ---
Patient remained hemodynamically stable throughout the night. Was able to rest comfortably with Precedex at 0.4 mcg/kg/hr. Proned at 02/20. Significant improvement in work of breathing, oxygenation and respiratory rate when proned. Changed position every two hours (sat up to drink fluids, use urinal). Vapatherm at 40L, 100% FiO2. SR, BP stable. 2 PIVS Broad spectrum antibiotics. Skin intact.
[2020-02-22 05:07] LABS: BASOPHILS % 0.2 % (0.0-1.0); EOSINOPHILS # (AUTO) 0.1 (0.0-0.4); EOSINOPHILS % 0.4 % (0.0-6.0); HEMATOCRIT 38.1 % (38.2-49.6); HEMOGLOBIN 12.9 g/dL (14.0-18.0); LYMPHOCYTES # (AUTO) 1.1 (1.0-3.2); LYMPHOCYTES % 9.1 % (18.0-39.1); MEAN CORPUSCULAR HEMOGLOBIN 30.4 pg (28-32); MEAN CORPUSCULAR HGB CONC 33.9 g/dL (31-35); MEAN CORPUSCULAR VOLUME 89.9 fL (81-99); MONOCYTES # (AUTO) 0.4 (0.2-0.8); MONOCYTES % 3.5 % (4.4-11.3); NEUTROPHILS # (AUTO) 10.7 (2.1-6.9); NEUTROPHILS % 85.8 % (38.7-80.0); PLATELET COUNT 282 x10e3/uL (140-360); RED BLOOD COUNT 4.24 x10e6/uL (4.3-5.7); RED CELL DISTRIBUTION WIDTH 11.7 % (11.7-14.4)
[2020-02-22 05:29] LABS: ALANINE AMINOTRANSFERASE 192 IU/L (0-55); ALBUMIN 2.6 g/dL (3.5-5.0); ALBUMIN/GLOBULIN RATIO 0.6 (0.8-2.0); ALKALINE PHOSPHATASE 104 IU/L (40-150); ANION GAP 11.9 mmol/L (8-16); BLOOD UREA NITROGEN 19 mg/dL (7-26); BUN/CREATININE RATIO 26 (6-25); CALCIUM 8.6 mg/dL (8.4-10.2); CARBON DIOXIDE 23 mmol/L (22-29); CHLORIDE 101 mmol/L (98-107); CREATININE, SERUM 0.73 mg/dL (0.72-1.25); EST GLOMERULAR FILTRATION RATE > 60 ML/MIN (60-); GLUCOSE 165 mg/dL (74-118); POTASSIUM 3.9 mmol/L (3.5-5.1); SODIUM 132 mmol/L (136-145)
[2020-02-22] MEDS: DEXAMETHASONE PHOS 4MG/ML 5ML MULTIDOSE VIAL IV SCH (07:56)
[2020-02-22] MEDS: INSULIN REGULAR, HUMAN 100 UNIT/1 ML 3ML VIAL SQ SCH ×5 (07:56→19:49)
[2020-02-22] MEDS: ENOXAPARIN SOD INJ 40 MG/0.4 ML SYR SC SCH ×2 (07:56→19:49)
[2020-02-22] MEDS: DEXMEDETOMIDINE 200MCG/NS 50ML 50 ML IV PRN ×3 (10:28→23:07)
[2020-02-22] MEDS ORDERED: SODIUM CHLORIDE 0.9% 250ML 250 ML ONE (14:28)
--- NOTE | 2020-02-22 15:23 | Progress Note ---
DATE: 02/22/2020 Medicine Progress Note SUBJECTIVE: The patient is on high-flow oxygen 100%, 40 L. He does get short of breath upon movement. He is stable. He is still in the ICU. Discussed plan of care with nursing staff. PHYSICAL EXAMINATION: VITAL SIGNS: Temperature is 98.9, pulse 84, respiratory rate is 24, blood pressure is 131/76, and pulse ox 99% on 40 L of FiO2. GENERAL: In no acute distress, alert and oriented x3, cooperative on examination. HEENT: Head is normocephalic, atraumatic. Eyes, pupils are equal, round, and reactive to light bilaterally. Extraocular movements are intact bilaterally. Throat; no evidence of erythema or exudates in the posterior pharynx. Has poor dentition. NECK: Supple. Good range of motion throughout. PULMONARY: Clear to auscultation bilaterally. No wheezing, rales, or rhonchi. No crackles appreciated. CARDIOVASCULAR: Positive S1, S2. No murmurs, rubs, or gallops. ABDOMEN: Soft, nondistended, nontender to palpation. Bowel sounds present. MUSCULOSKELETAL: Strength is 5/5 throughout. No evidence of any muscle deficits on examination. No evidence of any muscle deficits on examination. No weakness appreciated. NEUROLOGIC: Cranial nerves II through XII are grossly intact. No evidence of any neurological deficits on exam. SKIN: Intact. Warm to touch. Good cap refill. PSYCHIATRIC: Normal affect and mood. EXTREMITIES: No edema. Good range of motion throughout. LABORATORY DATA: Labs show white count 12, hemoglobin 12.9, hematocrit 38, and platelets of 282. Chemistry, sodium 132, potassium 3.9, chloride 101, bicarb 23, anion gap of 11, BUN is 19, creatinine 0.73, and glucose 165. AST 41, ALT 192, calcium 8.6, alkaline phosphatase 104, albumin is 2.6. Microbiology and blood cultures, no growth. IMAGING STUDIES: None today. We will get a chest x-ray in the morning. IMPRESSION: 1. COVID pneumonia with underlying shortness of breath, now on high-flow oxygen. 2. Concerns for superimposed bacterial pneumonia. 3. Dehydration. 4. Sepsis with leukocytosis and COVID-19 pneumonia. 5. Elevated transaminases, improved. PLAN: At this time, he is currently in the ICU. He is on high-flow oxygen. He is still on steroids, dexamethasone. In terms of remdesivir that is up to ID including plasma. He is on full-dose Lovenox. He is still also on IV antibiotics. LFTs down trending. An ICU attending also available on this case. We will continue to monitor very closely in ICU. Discussed plan of care with nursing staff. MD BOB Burleson/HARPAL /[id number]
--- NOTE | 2020-02-22 17:03 | Progress Note ---
DATE: SUBJECTIVE: This is a 54-year-old gentleman. The patient is in intensive care unit, on oxygen, hemodynamically stable. Precedex 0.4 mcg/kg/h, prone. He is still on Vapotherm at 40 L 100%. Not on the ventilator, seems to be comfortable, but weak. LABORATORY DATA: His white count 12.4 and hemoglobin 12.9. Sodium 132, potassium 3.9, and creatinine 0.73. CURRENT MEDICATIONS: He is currently on insulin, dexamethasone, Lovenox, cefepime, and vancomycin. PHYSICAL EXAMINATION: GENERAL: Alert, comfortable. VITAL SIGNS: Stable as mentioned above. This is day #4 . Urmila Encarnacion MD [facility]/MODL /[id number]
--- NOTE | 2020-02-22 18:44 | Progress Note ---
DATE: SUBJECTIVE: The patient the remains on Vapotherm with 40 L and 100%. He appears more comfortable and his respiratory rate is in the high 20s. He is saturating 99%. PHYSICAL EXAMINATION: VITAL SIGNS: The patient is afebrile. The blood pressure is 131/76 and saturation is 99%. HEENT: No facial swelling or erythema. CARDIAC: Regular rate and rhythm with normal S1, S2. LUNGS: Auscultation of lungs reveals crackles at the bases. There is no wheezing. ABDOMEN: Soft, nontender. There is no rebound or guarding. EXTREMITIES: No leg edema or calf tenderness. There is no cyanosis or clubbing. SKIN: No rashes. NEUROLOGICAL: No focal abnormalities. LABORATORY DATA: The white blood cell count is 12.4 and hemoglobin is 12.9. The platelet count is 282. The BUN to creatinine ratio is normal. The other electrolytes are within normal limits. RADIOGRAPHIC DATA: Chest x-ray shows bilateral infiltrates. IMPRESSION: 1. Acute respiratory failure. 2. Viral pneumonia and coronavirus disease-19 infection. PLAN: 1. Continue Vapotherm for now. 2. Continue antibiotics and dexamethasone. 3. Repeat chest x-ray and blood test tomorrow. Drew Everett MD [facility]/HARPAL /[id number]
[2020-02-23] VITALS (24 sets, daily range): BP systolic 102–153; BP diastolic 58–96
[2020-02-23 01:04] LABS: ALANINE AMINOTRANSFERASE 188 IU/L (0-55); ALBUMIN 2.5 g/dL (3.5-5.0); ALBUMIN/GLOBULIN RATIO 0.5 (0.8-2.0); ALKALINE PHOSPHATASE 120 IU/L (40-150); ANION GAP 16.3 mmol/L (8-16); BLOOD UREA NITROGEN 20 mg/dL (7-26); BUN/CREATININE RATIO 25 (6-25); CALCIUM 8.1 mg/dL (8.4-10.2); CARBON DIOXIDE 18 mmol/L (22-29); CHLORIDE 103 mmol/L (98-107); EST GLOMERULAR FILTRATION RATE > 60 ML/MIN (60-); GLUCOSE 124 mg/dL (74-118); SODIUM 131 mmol/L (136-145)
[2020-02-23 01:20] LABS: POTASSIUM 6.3 mmol/L (3.5-5.1)
[2020-02-23] MEDS: VANCOMYCIN HCL 1.25 GM in SODIUM CHLORIDE 0.9% 250ML 250 ML IV SCH ×3 (01:54→23:09)
[2020-02-23] MEDS: DEXMEDETOMIDINE 200MCG/NS 50ML 50 ML IV PRN ×3 (03:39→16:48)
[2020-02-23] MEDS: CEFEPIME 1GM/NS 0.9% 50 ML 50 ML IV SCH ×2 (04:09→16:52)
[2020-02-23] MEDS: BENZONATATE 100 MG CAP PO PRN (04:14)
[2020-02-23] MEDS: GUAIFENESIN/CODEINE 10 ML CUP PO PRN (04:36)
[2020-02-23 04:58] LABS: BASOPHILS % 0.1 % (0.0-1.0); EOSINOPHILS # (AUTO) 0.1 (0.0-0.4); EOSINOPHILS % 0.5 % (0.0-6.0); HEMATOCRIT 37.8 % (38.2-49.6); HEMOGLOBIN 12.8 g/dL (14.0-18.0); LYMPHOCYTES # (AUTO) 0.9 (1.0-3.2); LYMPHOCYTES % 6.6 % (18.0-39.1); MEAN CORPUSCULAR HEMOGLOBIN 30.6 pg (28-32); MEAN CORPUSCULAR HGB CONC 33.9 g/dL (31-35); MEAN CORPUSCULAR VOLUME 90.4 fL (81-99); MONOCYTES # (AUTO) 0.3 (0.2-0.8); MONOCYTES % 2.4 % (4.4-11.3); NEUTROPHILS # (AUTO) 12.2 (2.1-6.9); NEUTROPHILS % 89.6 % (38.7-80.0); PLATELET COUNT 272 x10e3/uL (140-360); RED BLOOD COUNT 4.18 x10e6/uL (4.3-5.7)
[2020-02-23 05:15] LABS: ANION GAP 13.2 mmol/L (8-16); BLOOD UREA NITROGEN 17 mg/dL (7-26); BUN/CREATININE RATIO 22 (6-25); CALCIUM 8.6 mg/dL (8.4-10.2); CARBON DIOXIDE 22 mmol/L (22-29); CHLORIDE 101 mmol/L (98-107); CREATININE, SERUM 0.76 mg/dL (0.72-1.25); EST GLOMERULAR FILTRATION RATE > 60 ML/MIN (60-); GLUCOSE 103 mg/dL (74-118); SODIUM 132 mmol/L (136-145)
[2020-02-23 05:16] LABS: POTASSIUM 4.2 mmol/L (3.5-5.1)
--- NOTE | 2020-02-23 06:12 | NUR ---
Patient started to desaturate (SpO2 75%, RR 40s) around 1999 on 02/21. Positional changes and deep breathing did not help much. Patient was proned at 2029. He quickly went back up to SpO2 >96, RR 20-30. He remained in that position the entire night, off loading pressure, sitting up every 1-2 hrs. He persistently dropped sats every time while not proned. SR, BP stable. 40L/100% Vapatherm. Coughing bothering him tonight. meds administered. Fluids encouraged, voiding. CHG bath done. Lines: 2PIVs
[2020-02-23] MEDS: INSULIN REGULAR, HUMAN 100 UNIT/1 ML 3ML VIAL SQ SCH ×4 (07:30→21:00)
[2020-02-23] MEDS: ENOXAPARIN SOD INJ 40 MG/0.4 ML SYR SC SCH ×2 (08:15→20:11)
[2020-02-23] MEDS: DEXAMETHASONE PHOS 4MG/ML 5ML MULTIDOSE VIAL IV SCH (08:22)
[2020-02-23] MEDS ORDERED: DEXAMETHASONE SOD PHOS INJ 4 MG/ML VIAL ONE (08:23)
[2020-02-23] MEDS: ACETAMINOPHEN 325 MG TAB PO PRN (11:54)
--- NOTE | 2020-02-23 11:54 | Progress Note ---
DATE: SUBJECTIVE: The patient is seen and evaluated. Available labs and notes reviewed. Discussed with Dr. Encarnacion. Discussed with the nurse. The patient seems to be alert and oriented x3, remains with some shortness of breath on exertion and T-max of a 100, ate a little bit, remains off pressors. No diarrhea. On non-rebreather. LABORATORY STUDIES: White count of 13.65, hemoglobin 12.8, and platelet 272. Sodium 132, potassium 4.2, and creatinine 0.76. Vancomycin trough 10.1. Serology: Coronavirus disease-19 detected on 02/18/2020. MICROBIOLOGY: Blood culture negative. RADIOLOGY STUDIES: No new radiology studies available. MEDICATION LIST: The patient remains on dexamethasone, cefepime, and vancomycin IV. PHYSICAL EXAMINATION: VITAL SIGNS: Temperature, T-max of 100, pulse 74, respirations 26, and blood pressure 144/81. GENERAL: Alert and oriented, no acute distress, on non-rebreather. LUNGS: Decreased breath sounds. ABDOMEN: Soft, nontender. HEENT: Moist. No pale. No JVD. ASSESSMENT AND PLAN: 1. Coronavirus disease-19 positive. 2. Respiratory failure-resolved, extubated. 3. Temperature maximum of 100-continue to monitor. 4. Diabetes. Continue with vancomycin IV, cefepime, and dexamethasone as planned. Vancomycin trough as mentioned above. Please refer to chart for more information. Dictated by Celestine Elizondo PA-C (Al) Urmila Encarnacion MD /MODL /[id number]
--- NOTE | 2020-02-23 15:01 | NUR ---
Nutrition Screen Note RD Recommendation for Physician: - Continue current diet Plan of Care: RD following, monitoring for tolerance and adequacy Nutrition reason for involvement: Early LOS Primary Diagnose(s): acute respiratory distress due to COVID-19 PMH: no pertinent hx Ht: 65 in Wt: 167 lb BMI: 27.8 kg/m2 IBW: [address] Assessment: (02/22) 54 YOM admitted for acute respiratory distress due to COVID-19. Pt evaluated today for LOS. Unable to enter pt's room due to current isolation precautions. No poor intake or wt loss reported per admit notes. Pt with 100% intake per chart. LBM 02/17, no GI distress reported by RN. Skin intact. Chart reviewed. Labs and meds reviewed. Will continue to monitor. Current Diet: Cardiac Malnutrition Evaluation (02/23/20) The patient does not meet criteria for a specified degree of malnutrition at this time. Will re-evaluate at follow-up as appropriate. Unable to assess per current isolation precautions. Diet Education Needs Assessment: Diet education not indicated. Diet tolerance: tolerating po Nutrition Care Level: low Signed: Trish Barclay RD, LD, [facility]
--- NOTE | 2020-02-23 15:14 | Diagnostic Imaging Report ---
EXAM: CHEST SINGLE (PORTABLE) DATE: 02/23/2020 2:39 PM INDICATION: Respiratory distress COMPARISON: 02/21/2020 FINDINGS: The trachea is midline. The lungs are moderately inflated. Again identified are diffusely increased interstitial and airspace opacities bilaterally which appear slightly more prominent than the prior examination. There is no evidence for pneumothorax or significant pleural effusion. The cardiomediastinal silhouette is stable in appearance. No acute osseous abnormalities identified. IMPRESSION: Diffusely increased interstitial and airspace opacities identified bilaterally, slightly more prominent than the prior examination concerning for a multifocal infectious process. Signed by: Dr. Isidoro Tracy MD on 02/23/2020 3:11 PM
--- NOTE | 2020-02-23 17:15 | Progress Note ---
DATE: 02/23/2020 Medicine Progress Note SUBJECTIVE: The patient is still in ICU. Still requiring significant amount of oxygen. He is on a non-rebreather. He is stable. He did have some underlying atypical chest pain. PHYSICAL EXAMINATION: VITAL SIGNS: Temperature is 100, pulse 83, respiratory rate is 24, blood pressure 139/74, and pulse ox 97% on non-rebreather. GENERAL: Not in acute distress. Alert and oriented x3. Cooperative on examination. HEENT: Head is normocephalic and atraumatic. Eyes; pupils are equal, round, and reactive to light bilaterally. Extraocular movements are intact bilaterally. Throat; no evidence of erythema or exudates in the posterior pharynx. Has poor dentition. NECK: Supple. Good range of motion throughout. PULMONARY: Clear to auscultation bilaterally. No wheezing, no rales, no rhonchi, no crackles appreciated. CARDIOVASCULAR: Positive S1 and S2. No murmurs, rubs, or gallops appreciated. ABDOMEN: Soft, nondistended, and nontender to palpation. Bowel sounds present. MUSCULOSKELETAL: Strength is 5/5 throughout. No evidence of muscle deficits on examination with compression. NEUROLOGIC: Cranial nerves II through XII grossly intact. No evidence of any neurological deficits on exam. SKIN: Intact. Warm to touch. Good capillary refill. PSYCHIATRIC: Normal affect and mood. EXTREMITIES: No edema. Good range of motion throughout. LABORATORY DATA: White count 13, hemoglobin 12, hematocrit 35 and platelets of 272. Chemistry; sodium 132, potassium 4.2, chloride 101, bicarb 27, BUN 17, creatinine is 0.76, glucose 103, and calcium is 8.6. Blood cultures, no growth to date. IMAGING STUDIES: None. IMPRESSION: 1. Coronavirus disease pneumonia, resolving shortness of breath, now on high-flow non-rebreather, concerning superimposed bacterial pneumonia. 2. Dehydration. 3. Sepsis with leukocytosis secondary to coronavirus disease-19 pneumonia. 4. Elevated transaminases, improved. 5. Atypical chest pain. PLAN: At this time, trend troponins. Monitor very closely. Chest pain likely to be atypical in nature due to . Discussed with nursing staff. In the event, he has any other issues, please call me, I am on cellphone. We can discuss this case in terms of his chest pain as well as other issues. He verbalized understanding. Continue with steroids and dexamethasone. We will get a.m. labs. He is on full-dose Lovenox. Continue to monitor very closely. MD BOB Burleson/MODSyed /[id number]
--- NOTE | 2020-02-23 19:11 | Progress Note ---
DATE: SUBJECTIVE: The patient is still having fevers to 100.8. He is on a Vapotherm with a non-rebreather, superimposed on it. He is now saturating 96% and his respiratory rate is high 20s. He has no lymphadenopathy. OBJECTIVE: CARDIAC: Reveals regular rate and rhythm with normal S1 and S2. LUNGS: Auscultation of lungs reveals crackles at the bases. There is no wheezing. ABDOMEN: Soft and nontender. There is no rebound or guarding. EXTREMITIES: Shows no leg edema or calf tenderness. There is no cyanosis or clubbing. SKIN: Shows no rashes. NEUROLOGICAL: Shows no focal abnormalities. IMPRESSION: 1. Acute respiratory failure. 2. Viral pneumonia and COVID-19 infection. PLAN: 1. Continue Vapotherm. 2. Place in the prone position. 3. Continue dexamethasone and antibiotics. 4. Continue to monitor blood tests. MD TEDOORA Newton/HARPAL /[id number]
[2020-02-24] VITALS (22 sets, daily range): BP systolic 92–174; BP diastolic 53–96
[2020-02-24] MEDS: GUAIFENESIN/CODEINE 10 ML CUP PO PRN ×3 (00:59→21:00)
[2020-02-24] MEDS: DEXMEDETOMIDINE 200MCG/NS 50ML 50 ML IV PRN ×5 (01:22→19:58)
[2020-02-24] MEDS: CEFEPIME 1GM/NS 0.9% 50 ML 50 ML IV SCH ×2 (04:11→16:32)
[2020-02-24] MEDS: ACETAMINOPHEN 325 MG TAB PO PRN ×2 (04:11→16:31)
[2020-02-24 05:40] LABS: BASOPHILS % 0.1 % (0.0-1.0); EOSINOPHILS # (AUTO) 0.1 (0.0-0.4); EOSINOPHILS % 0.5 % (0.0-6.0); HEMATOCRIT 41.3 % (38.2-49.6); HEMOGLOBIN 13.6 g/dL (14.0-18.0); LYMPHOCYTES # (AUTO) 1.3 (1.0-3.2); LYMPHOCYTES % 8.6 % (18.0-39.1); MEAN CORPUSCULAR HEMOGLOBIN 30.2 pg (28-32); MEAN CORPUSCULAR HGB CONC 32.9 g/dL (31-35); MEAN CORPUSCULAR VOLUME 91.8 fL (81-99); MONOCYTES # (AUTO) 0.3 (0.2-0.8); MONOCYTES % 1.8 % (4.4-11.3); NEUTROPHILS # (AUTO) 12.9 (2.1-6.9); NEUTROPHILS % 88.3 % (38.7-80.0); PLATELET COUNT 320 x10e3/uL (140-360); RED CELL DISTRIBUTION WIDTH 11.8 % (11.7-14.4)
--- NOTE | 2020-02-24 06:04 | NUR ---
Patient proned on non-rebreather and vapatherm at 1999 on 02/22. RR 23-30 and excellent oxygen saturation in this position. He, however, has little reserve, becomes hypoxic and tachypneic to 40-50 RR. with any position changes and/or when non-rebreather is removed. T max 102.7. Came down with Tylenol and cool bed bath. NSR, BP ok, no chest pain, 2 troponins negative protein shakes X2 given. BG WNL. Voids spontaneously. Vanc and Cefepime on board. 2 20G PIVs. Skin is intact. CHG bath, repositioned at least every two hours, no skin breakdown.
[2020-02-24 06:16] LABS: ALANINE AMINOTRANSFERASE 141 IU/L (0-55); ALBUMIN 2.5 g/dL (3.5-5.0); ALBUMIN/GLOBULIN RATIO 0.5 (0.8-2.0); ALKALINE PHOSPHATASE 127 IU/L (40-150); ANION GAP 16.7 mmol/L (8-16); CALCIUM 9.5 mg/dL (8.4-10.2); CARBON DIOXIDE 23 mmol/L (22-29); CHLORIDE 101 mmol/L (98-107); CREATININE, SERUM 0.84 mg/dL (0.72-1.25); EST GLOMERULAR FILTRATION RATE > 60 ML/MIN (60-); GLUCOSE 127 mg/dL (74-118); POTASSIUM 4.7 mmol/L (3.5-5.1); SODIUM 136 mmol/L (136-145)
[2020-02-24 06:28] LABS: BLOOD UREA NITROGEN 18 mg/dL (7-26); BUN/CREATININE RATIO 21 (6-25)
[2020-02-24] MEDS: INSULIN REGULAR, HUMAN 100 UNIT/1 ML 3ML VIAL SQ SCH ×4 (07:30→21:00)
--- NOTE | 2020-02-24 08:36 | Diagnostic Imaging Report ---
EXAMINATION: CHEST SINGLE (PORTABLE) INDICATION: ^resp failure ^[id number] ^[id number]. COMPARISON: 02/23/2020 FINDINGS: AP view TUBES and LINES: None. LUNGS: Diffuse bilateral consolidative opacities are not significantly changed. PLEURA: No significant pleural effusion or pneumothorax. HEART AND MEDIASTINUM: The cardiomediastinal silhouette is stable. There is pneumomediastinum. There BONES AND SOFT TISSUES: No acute osseous lesion. Soft tissues are unremarkable. UPPER ABDOMEN: No free air under the diaphragm. IMPRESSION: No interval change of multifocal pneumonia. Pneumomediastinum. Signed by: Franco Lowery MD on 02/24/2020 8:33 AM
[2020-02-24] MEDS: DEXAMETHASONE PHOS 4MG/ML 5ML MULTIDOSE VIAL IV SCH (09:32)
[2020-02-24] MEDS: ENOXAPARIN SOD INJ 40 MG/0.4 ML SYR SC SCH ×2 (09:32→19:55)
[2020-02-24] MEDS ORDERED: FUROSEMIDE INJ 10 MG/ML 4 ML VIAL ONE (10:54)
[2020-02-24] MEDS ORDERED: ALBUMIN 25% 12.5GM 0.25 GM/ML BTL IV SCH (11:00)
[2020-02-24] MEDS ORDERED: FUROSEMIDE INJ 10 MG/ML 2 ML VIAL IV SCH (11:00)
--- NOTE | 2020-02-24 11:53 | Progress Note ---
DATE: Pulmonary Critical Care progress Note SUBJECTIVE: The patient remains on a Vapotherm at 40 L with 100% FiO2. When he is prone, his sats are in the high 90s. When he is supine, his saturations fall in to the low 90s. He has intermittently used a non-rebreather over the Vapotherm. He reports that his symptoms are similar. He still has some visible tachypnea. He has some cough. PHYSICAL EXAMINATION: VITAL SIGNS: The patient is afebrile. The blood pressure is 198/63, saturation is 94%, and the pulse is 92. HEENT: Shows no facial swelling or erythema. CARDIAC: Reveals regular rate and rhythm with normal S1, S2. LUNGS: Auscultation of lungs reveals crackles at the bases. There is no wheezing. ABDOMEN: Soft and nontender. There is no rebound or guarding. EXTREMITIES: Shows no leg edema or calf tenderness. There is no cyanosis or clubbing. LABORATORY DATA: White blood cell count is 14.6 and the hemoglobin is 13.6. The platelet count is 320. The BUN to creatinine ratio is 18 to 0.84. The other electrolytes within normal limits. Albumin is 2.4. RADIOGRAPHIC DATA: Chest x-ray shows small area along the heart border on the left side, which may represent a small pneumothorax versus pneumomediastinum. IMPRESSION: 1. Acute respiratory failure. 2. Viral pneumonia and COVID-19 infection. 3. Small left pneumothorax. PLAN: 1. Continue Vapotherm. If the patient worsens, he will require mechanical ventilation. 2. Repeat chest x-ray later this afternoon to follow the small pneumothorax. 3. Continue dexamethasone and antibiotics. 4. Continue to monitor blood tests. 5. Low-dose Lasix. 6. Case was discussed with daughter, the patient, nursing staff, Respiratory, Infectious Disease, and administration. Greater than 35 minutes in direct critical care time apart from any procedures performed. Drew Everett MD [facility]/HARPAL /[id number]
[2020-02-24] MEDS ORDERED: SODIUM CHLORIDE 0.9% 250ML 250 ML ONE (13:29)
[2020-02-24] MEDS: VANCOMYCIN HCL 1.25 GM in SODIUM CHLORIDE 0.9% 250ML 250 ML IV SCH (14:23)
--- NOTE | 2020-02-24 14:44 | Progress Note ---
DATE: SUBJECTIVE: The patient is seen and evaluated. Available labs and notes reviewed. Discussed with the nurse. REVIEW OF SYSTEMS: The patient states that he is doing better. Clinically remains with shortness of breath. No diarrhea. Appetite seems to be okay. He is trying to eat lunch. OBJECTIVE: VITAL SIGNS: Temperature 99.7, pulse 87, respiration 34, blood pressure 98/65. GENERAL: Alert and oriented. He seems to be short of breath on non-rebreather and a high-flow. The patient is able to take off a nonrebreather and takes small bites for lunch, but get short of breath easily. CV: S1 and S2. CHEST: Equal expansion. Decreased breath sounds. ABDOMEN: Soft, nontender. HEENT: Moist. No pallor. No JVD. EXTREMITIES: No significant edema. Very weak. MEDICATIONS: Medication list reviewed. From ID point of view, patient is on vancomycin IV, cefepime, dexamethasone, Lovenox. LABORATORY STUDIES: White count of 14.64, hemoglobin 13.6, platelet 320. Sodium 136, potassium 4.7, creatinine 0.84. Toxicology; vancomycin trough was 10.1. SEROLOGIES: Coronavirus PCR detected on 02/18/2020. MICROBIOLOGY: Blood culture negative for 5 days on 02/18/2020. RADIOLOGY STUDIES: Chest x-ray from today showed pneumomediastinum with no interval change and multifocal pneumonia. ASSESSMENT AND PLAN: 1. Coronavirus disease - 19, positive. 2. Respiratory failure. The patient is extubated. Correction to the notes from yesterday, the patient was never intubated. The patient remains on high-flow and non-rebreather. Pulmonology note reviewed. The patient has a small left pneumothorax. Plan to follow up with a chest x-ray again later on today to follow up on that small pneumothorax. Continue with antibiotics and dexamethasone, small dose of Lasix was given by Pulmonology at 20 mg. Continue to monitor the patient clinically and follow with the labs. Dictated by Celestine Elizondo PA-C (Al) Urmila Encarnacion MD /MODL /[id number]
--- NOTE | 2020-02-24 15:06 | Diagnostic Imaging Report ---
EXAMINATION: CHEST SINGLE (PORTABLE) INDICATION: ^left pneumothorax ^[id number] ^1440. COMPARISON: 02/23/2020 FINDINGS: AP view TUBES and LINES: None. LUNGS: Diffuse bilateral consolidative opacities are not significantly changed. PLEURA: No significant pleural effusion or pneumothorax. HEART AND MEDIASTINUM: The cardiomediastinal silhouette is stable. Improvement of pneumomediastinum BONES AND SOFT TISSUES: No acute osseous lesion. Soft tissues are unremarkable. UPPER ABDOMEN: No free air under the diaphragm. IMPRESSION: Interval improvement of pneumomediastinum. Unchanged bilateral consolidative airspace opacities compatible with pneumonia. Signed by: Katia Lo MD on 02/24/2020 3:03 PM
--- NOTE | 2020-02-24 15:39 | Progress Note ---
DATE: 02/24/2020 Medicine Progress Note SUBJECTIVE: The patient is on non-rebreather, still in the ICU. He does desaturate with movement, but he is doing well and he is with no other issues. PHYSICAL EXAMINATION: VITAL SIGNS: Temperature 99.7, pulse 87, respiratory rate is 34, blood pressure is 98/65, pulse ox 92% on 40 L FiO2 with a non-rebreather and nasal cannula. GENERAL: Not in acute distress. He is on non-rebreather high-flow oxygen. CARDIOVASCULAR: Positive S1 and S2. No murmurs, rubs, or gallops appreciated. ABDOMEN: Soft, nondistended, and nontender to palpation. Bowel sounds present. MUSCULOSKELETAL: Strength is 5/5 throughout. SKIN: Intact. Warm to touch. Good cap refill. PSYCHIATRIC: Normal affect and mood. EXTREMITIES: No edema. Good range of motion throughout. LABORATORY DATA: White count 14, hemoglobin 13, hematocrit 41, and platelets of 320. Chemistry; sodium 136, potassium 4.7, chloride 101, bicarb 23, anion gap of 16, BUN is 18, creatinine 0.84, glucose 127, total bilirubin 0.7, AST 41, ALT 141, alkaline phosphatase 127. Troponins were negative. Albumin was 2.7. IMAGING STUDIES: Chest x-ray shows no interval change of the multifocal pneumonia. IMPRESSION: 1. Coronavirus pneumonia, now on a non-rebreather on high-flow oxygen. 2. Small left apical pneumothorax ? 3. Sepsis with leukocytosis, secondary to COVID-19 pneumonia. 4. Atypical chest pain. PLAN: Continue with non-rebreather and high-flow oxygen. At some point, he may need intubation if he does not improve. As for the left apical pneumothorax, Pulmonary is aware of this. Repeat chest x-ray from later this afternoon. Continue with steroids, full-dose Lovenox, antibiotics. Continue following with Pulmonary and ID services. I greatly appreciate them. We will continue same plan of care and monitor closely. MD BOB Burleson/HARPAL /[id number]
[2020-02-24] MEDS: BENZONATATE 100 MG CAP PO PRN (21:00)
[2020-02-25] VITALS (24 sets, daily range): BP systolic 93–159; BP diastolic 58–93
[2020-02-25] MEDS: VANCOMYCIN HCL 1.25 GM in SODIUM CHLORIDE 0.9% 250ML 250 ML IV SCH ×2 (00:49→13:25)
[2020-02-25] MEDS: DEXMEDETOMIDINE 200MCG/NS 50ML 50 ML IV PRN ×5 (00:50→20:56)
--- NOTE | 2020-02-25 04:10 | NUR ---
03:45 patient's O2Sat dropped to low 80% (good waveform) after repositioning on 100% Vapotherm. After about 5 minutes of sats not coming back up, a non-rebreather was added. .
[2020-02-25] MEDS: CEFEPIME 1GM/NS 0.9% 50 ML 50 ML IV SCH ×2 (04:32→17:20)
[2020-02-25 05:06] LABS: BASOPHILS % 0.1 % (0.0-1.0); EOSINOPHILS % 0.1 % (0.0-6.0); HEMATOCRIT 39.9 % (38.2-49.6); LYMPHOCYTES # (AUTO) 1.2 (1.0-3.2); LYMPHOCYTES % 8.6 % (18.0-39.1); MEAN CORPUSCULAR HEMOGLOBIN 29.8 pg (28-32); MEAN CORPUSCULAR HGB CONC 32.6 g/dL (31-35); MEAN CORPUSCULAR VOLUME 91.5 fL (81-99); MONOCYTES # (AUTO) 0.2 (0.2-0.8); MONOCYTES % 1.2 % (4.4-11.3); NEUTROPHILS # (AUTO) 12.4 (2.1-6.9); NEUTROPHILS % 89.4 % (38.7-80.0); PLATELET COUNT 304 x10e3/uL (140-360); RED BLOOD COUNT 4.36 x10e6/uL (4.3-5.7); RED CELL DISTRIBUTION WIDTH 11.8 % (11.7-14.4)
[2020-02-25 05:31] LABS: ALANINE AMINOTRANSFERASE 97 IU/L (0-55); ALBUMIN 2.7 g/dL (3.5-5.0); ALBUMIN/GLOBULIN RATIO 0.5 (0.8-2.0); ALKALINE PHOSPHATASE 122 IU/L (40-150); ANION GAP 16.1 mmol/L (8-16); BLOOD UREA NITROGEN 17 mg/dL (7-26); BUN/CREATININE RATIO 22 (6-25); CALCIUM 9.8 mg/dL (8.4-10.2); CARBON DIOXIDE 23 mmol/L (22-29); CHLORIDE 102 mmol/L (98-107); CREATININE, SERUM 0.79 mg/dL (0.72-1.25); EST GLOMERULAR FILTRATION RATE > 60 ML/MIN (60-); GLUCOSE 109 mg/dL (74-118); POTASSIUM 4.1 mmol/L (3.5-5.1); SODIUM 137 mmol/L (136-145)
[2020-02-25] MEDS: DEXAMETHASONE PHOS 4MG/ML 5ML MULTIDOSE VIAL IV SCH (08:29)
--- NOTE | 2020-02-25 08:43 | Progress Note ---
DATE: Pulmonary Critical Care Progress Note SUBJECTIVE: The patient has been prone most of the night. His respiratory rate is decreased and his oxygenation has improved in the prone position. He is now 100% on a Vapotherm at 40 L with 100% FiO2. His respiratory rate is decreased to 26. The patient also complains of being thirsty. PHYSICAL EXAMINATION: VITAL SIGNS: The patient is afebrile. T-max yesterday was 100.8. The blood pressure is 138/91, saturation is 100%. He is on Vapotherm as noted above. HEENT: Shows no facial swelling or erythema. CARDIAC: Reveals regular rate and rhythm with normal S1 and S2. LUNGS: Auscultation of lungs reveals rhonchorous breath sounds bilaterally. There is no wheezing. ABDOMEN: Soft and nontender. There is no rebound or guarding. EXTREMITIES: Shows no leg edema or calf tenderness. There is no cyanosis or clubbing. SKIN: Shows no rashes. NEUROLOGICAL: Shows no focal abnormalities. LABORATORY DATA: White blood cell count is 13.9, hemoglobin is 13 and the platelet count is 304. BUN to creatinine ratio is normal. Other electrolytes are within normal limits. Total protein is 7.8 and albumin is 2.7. RADIOGRAPHIC DATA: Chest x-ray shows bilateral airspace opacities. IMPRESSION: 1. Acute respiratory failure. 2. Viral pneumonia and COVID-19 infection. PLAN: 1. Continue Vapotherm. 2. Continue Lovenox. 3. Continue current antibiotics. 4. Complete the course of Decadron. 5. Daughter is scheduled to visit today. 6. Case discussed with nursing, Respiratory, administration, Infectious Disease, and family. Greater than 35 minutes in direct critical care time. Drew Everett MD [facility]/MODL /[id number]
[2020-02-25] MEDS: INSULIN REGULAR, HUMAN 100 UNIT/1 ML 3ML VIAL SQ SCH ×4 (09:11→19:15)
[2020-02-25] MEDS: ENOXAPARIN SOD INJ 40 MG/0.4 ML SYR SC SCH ×2 (09:16→20:21)
--- NOTE | 2020-02-25 10:34 | Diagnostic Imaging Report ---
EXAMINATION: CHEST SINGLE (PORTABLE) INDICATION: ^viral pneumonia. COMPARISON: Chest radiograph 02/24/2020 FINDINGS: AP view TUBES and LINES: None. LUNGS: Diffuse bilateral consolidative opacities are not significantly changed. PLEURA: No significant pleural effusion or pneumothorax. HEART AND MEDIASTINUM: The cardiomediastinal silhouette is stable. BONES AND SOFT TISSUES: No acute osseous lesion. Soft tissues are unremarkable. UPPER ABDOMEN: No free air under the diaphragm. IMPRESSION: Unchanged bilateral consolidative airspace opacities compatible with pneumonia. Signed by: Katia Lo MD on 02/25/2020 10:31 AM
[2020-02-25] MEDS: ACETAMINOPHEN 325 MG TAB PO PRN (12:41)
--- NOTE | 2020-02-25 15:49 | Progress Note ---
DATE: 02/25/2020 Medicine Progress Note BODY AFTER ALLERGIES: SUBJECTIVE: The patient is on Vapotherm 100%. He is also on a non-rebreather. He is having difficulty swallowing today. Speech therapy has been consulted. He is not on any fluids, looks dehydrated, but he is requiring significant amount of oxygen. We will try to minimize intubation in this patient if we can, but he is doing a little better today compared to yesterday. PHYSICAL EXAMINATION: VITAL SIGNS: Temperature is 98, pulse 100, respiratory rate is 25, blood pressure 129/72, pulse ox 94%. He is on Vapotherm as well as non-rebreather. GENERAL: He is awake, alert, and oriented on examination, looks clinically dehydrated. PULMONARY: He is on a Vapotherm non-rebreather. He is tachypneic on exam, but he is doing well. CARDIOVASCULAR: Positive S1 and S2. No murmurs, rubs, or gallops appreciated. ABDOMEN: Soft, nondistended, and nontender to palpation. Bowel sounds present. MUSCULOSKELETAL: Strength is 5/5 throughout. No evidence of any muscle deficits on examination. No weakness appreciated. NEUROLOGICAL: Cranial nerves 2 through 12 grossly intact. No evidence of any neurological deficits on exam. SKIN: Intact. Warm to touch. Good cap refill. PSYCHIATRIC: Normal affect and mood. EXTREMITIES: No edema. Good range of motion throughout. LABORATORY DATA: Labs show white count 13.9, hemoglobin 13, hematocrit 39, platelets of 304. Chemistry; sodium 137, potassium 4.1, chloride 102, bicarb 23, anion gap of 16, BUN 17, creatinine 0.79, point of care glucose 126, albumin 2.7. MICROBIOLOGY: Negative. IMAGING STUDIES: Chest x-ray, unchanged bilateral consolidative airspace opacities compatible with pneumonia. IMPRESSION: 1. Coronavirus pneumonia on Vapotherm and non-rebreather. 2. Left apical pneumothorax-not present on recent chest x-ray. 3. Sepsis with leukocytosis secondary to COVID-19 pneumonia. 4. Atypical chest pain. PLAN: At this time, he is on Vapotherm, non-rebreather. He is doing well at the current moment and we were trying to minimize intubation if needs so. The apical pneumothorax, now resolved. Pulmonary is following and aware of this issue. As per his nutrition, speech therapy has been consulted. He has been having difficulty swallowing. We are going to have evaluation of his swallowing. Discuss with Pulmonary Critical Care about IV PPN. Continue with steroids, full-dose Lovenox and antibiotics. Pulmonary and ID are following. We will continue same plan of care and monitor very closely. Discussed plan of care with nursing staff. MD BOB Burleson/HARPAL /[id number]
[2020-02-25] MEDS ORDERED: MAGNESIUM HYDROXIDE 30 ML UDC PO ONE (18:58)
--- NOTE | 2020-02-25 19:19 | NUR ---
Pt on vapotherm 40L 100%. Pt coughing and desaturating while sipping on water. Dr. Syed melendrez informed of s/s of aspiration swallow study ordered, npo diet and holman catheter. Pt failed swallow study. Orders given for consent for picc line and TPN to start tonight once picc line placed and verified.
[2020-02-25] MEDS ORDERED: CENTRAL TPN FORMULA 1 BAG IV SCH (20:00)
--- NOTE | 2020-02-25 21:27 | Diagnostic Imaging Report ---
EXAMINATION: CHEST XRAY LINE PLACEMENT INDICATION: RUE PICC line placement COMPARISON: Chest radiograph 02/25/2020 FINDINGS: AP view TUBES and LINES: Interval placement of right upper extremity PICC with distal tip projected on the cavoatrial junction. LUNGS: Redemonstration of diffuse bilateral consolidative opacities are not significantly changed. PLEURA: No significant pleural effusion or pneumothorax. HEART AND MEDIASTINUM: The cardiomediastinal silhouette is stable. BONES AND SOFT TISSUES: No acute osseous lesion. Soft tissues are unremarkable. UPPER ABDOMEN: No free air under the diaphragm. Hyperdensity projected on the left upper quadrant suggestive of contrast. IMPRESSION: Interval placement of right upper extremity PICC with distal tip projected on the cavoatrial junction. Otherwise no significant change. Signed by: Dr. Raymundo Hutchison M.D. on 02/25/2020 9:23 PM
--- NOTE | 2020-02-25 21:36 | Progress Note ---
DATE: SUBJECTIVE: Mr. Smith remains in intensive care unit. He is on Vapotherm 100% non-rebreather, difficulty swallowing today and probably aspirated, remained n.p.o. TPN is going to be started. PHYSICAL EXAMINATION: GENERAL: He is still in the intensive care unit. VITAL SIGNS: Stable. HEENT: Not icteric. NECK: Supple. CHEST: Few crackles bilateral. COR: S1 and S2. ABDOMEN: Soft. Speech Therapy evaluated the patient, he is aspirating. His chest x-ray showed bilateral airspace opacities. IMPRESSION: COVID-19, upper respiratory failure, concerned about aspiration. He is currently on vancomycin, dexamethasone, insulin, Lovenox, cefepime. PLAN: To continue antibiotic for 5 days. Follow vancomycin level. Aspiration precaution. We will follow. MD JAKY Osman/MODL /[id number]
[2020-02-26] VITALS (24 sets, daily range): BP systolic 106–147; BP diastolic 58–80
[2020-02-26] MEDS: DEXMEDETOMIDINE 200MCG/NS 50ML 50 ML IV PRN ×3 (02:03→10:18)
[2020-02-26] MEDS: ACETAMINOPHEN 325 MG SUPP PR PRN ×5 (02:05→11:18)
[2020-02-26] MEDS: VANCOMYCIN HCL 1.25 GM in SODIUM CHLORIDE 0.9% 250ML 250 ML IV SCH ×2 (03:27→14:07)
--- NOTE | 2020-02-26 04:26 | NUR ---
Pt had PICC placed to [facility], Xray performed and placement verified. Per Dr. Everett, ok to use. TPN started this shift as ordered. Directly after PICC placement, pt desaturated to 78%, pt recovered to 88% with reports of SOB. RT and MD notified. Per Dr. Everett, pt to be proned. MD states he would like to avoid intubation if pt tolerates. Pt proned and O2 improved. Pt educated regarding positioning. Pt able to turn self with minimal assistance. Pt remains NPO at this time. Pt febrile, Tmax 101.9. Rectal acetaminophen administered and ice packs applied. Current temp 101.1. Will continue to monitor and note all changes.
[2020-02-26] MEDS: CEFEPIME 1GM/NS 0.9% 50 ML 50 ML IV SCH ×2 (05:25→18:41)
[2020-02-26 05:42] LABS: BASOPHILS % 0.1 % (0.0-1.0); EOSINOPHILS % 0.3 % (0.0-6.0); HEMOGLOBIN 11.8 g/dL (14.0-18.0); LYMPHOCYTES # (AUTO) 0.7 (1.0-3.2); LYMPHOCYTES % 4.8 % (18.0-39.1); MEAN CORPUSCULAR HEMOGLOBIN 30.6 pg (28-32); MEAN CORPUSCULAR HGB CONC 33.7 g/dL (31-35); MEAN CORPUSCULAR VOLUME 90.7 fL (81-99); MONOCYTES # (AUTO) 0.1 (0.2-0.8); MONOCYTES % 0.8 % (4.4-11.3); NEUTROPHILS # (AUTO) 13.1 (2.1-6.9); NEUTROPHILS % 93.5 % (38.7-80.0); PLATELET COUNT 301 x10e3/uL (140-360); RED BLOOD COUNT 3.86 x10e6/uL (4.3-5.7); RED CELL DISTRIBUTION WIDTH 11.9 % (11.7-14.4)
[2020-02-26] MEDS: INSULIN REGULAR, HUMAN 100 UNIT/1 ML 3ML VIAL SQ SCH ×4 (06:00→18:42)
[2020-02-26 06:06] LABS: ALANINE AMINOTRANSFERASE 59 IU/L (0-55); ALBUMIN 2.2 g/dL (3.5-5.0); ALBUMIN/GLOBULIN RATIO 0.5 (0.8-2.0); ALKALINE PHOSPHATASE 98 IU/L (40-150); ANION GAP 13.3 mmol/L (8-16); BLOOD UREA NITROGEN 20 mg/dL (7-26); BUN/CREATININE RATIO 27 (6-25); CARBON DIOXIDE 25 mmol/L (22-29); CHLORIDE 103 mmol/L (98-107); CREATININE, SERUM 0.73 mg/dL (0.72-1.25); EST GLOMERULAR FILTRATION RATE > 60 ML/MIN (60-); GLUCOSE 135 mg/dL (74-118); POTASSIUM 4.3 mmol/L (3.5-5.1); SODIUM 137 mmol/L (136-145)
[2020-02-26] MEDS: ENOXAPARIN SOD INJ 40 MG/0.4 ML SYR SC SCH ×2 (08:11→20:17)
[2020-02-26] MEDS ORDERED: ACETAMINOPHEN 650 MG SUPP PR PRN (12:45)
--- NOTE | 2020-02-26 12:51 | NUR ---
ST Note: EMR reviewed. Discussed case with YUKI Briceño. Per report and notes, pt with O2 sats low 90's and at risk for re-intubation at this time. Will defer dysphagia therapy for today and will f/u as indicated.
--- NOTE | 2020-02-26 13:18 | NUR ---
Pt intubated by Syed Everett without complications. Total of 8mg versed was given along with etomidate 20mg, succinylcholine 120mg, versed drip started.
--- NOTE | 2020-02-26 13:24 | Progress Note ---
DATE: 02/26/2020 Medicine Progress Note SUBJECTIVE: The patient was very tachypneic, short of breath and was desatting in the low 80s when I came to evaluate him. The patient is doing better after we proned the patient. His oxygen saturation was in the low 90s. He is still very tachypneic on exam. I spoke with the RT and the nursing staff. I have also spoke with the patient's daughter, Brian and updated her about the current findings. He may at some point need to be intubated if he continues at this route. She understands that she will pass this information to her mother. PHYSICAL EXAMINATION: CURRENT VITAL SIGNS: Temperature is 101.9, pulse 89, respiratory rate was in the 30s. He was saturating low 90s right now. He is on a non-rebreather and a Vapotherm, oxygen flow was 40 L, FiO2 of 100%. GENERAL: He is tachypneic. He is awake and alert. He is oriented. He is now proned. PULMONARY: Tachypneic. Crackles appreciated. He is working to breath. No wheezing. CARDIOVASCULAR: Positive S1 and S2. No murmurs, rubs, or gallops appreciated. ABDOMEN: Soft, nondistended, and nontender to palpation. Bowel sounds present. MUSCULOSKELETAL: The patient is very weak on examination. NEUROLOGIC: He is alert, awake, and he is oriented on exam. SKIN: Intact. Warm to touch. Good cap refill. PSYCHIATRIC: Normal affect and mood. EXTREMITIES: No edema appreciated. LABORATORY DATA: White count 14, hemoglobin 11, hematocrit is 35, and platelets of 301. Chemistry; sodium 137, potassium 4.3, chloride 103, bicarb 25, anion gap of 13, BUN is 20, creatinine is 0.73, glucose 135, and calcium 9. Total bilirubin 0.6. LFTs; AST 25, ALT 59, and alkaline phosphatase 98. Total protein is 7. IMPRESSION: 1. Coronavirus pneumonia, on Vapotherm and non-rebreather. 2. Left apical pneumothorax, not present on recent chest x-ray. 3. Sepsis with leukocytosis secondary to COVID-19 pneumonia. 4. Fever, concerns for aspiration and also COVID-19. 5. Atypical chest pain. PLAN: At this time, the patient was saturating in the low 80s when I came to evaluate him. Discussed this with the nursing staff. The patient is now proned. He is still on non-rebreather and Vapotherm, and he is now saturating in the low 90s. He is still very tachypneic though on examination. I talked to the daughterBrian by phone and I told her that at some point if it continues at the same route, he will likely need to be intubated. As for his fever, he is still on IV antibiotics in the event if he was aspiration, but it could be all secondary to the COVID-19 pneumonia. He is given rectal Tylenol at this moment. He did fail his swallow evaluation yesterday. He is on IV TPN for nutrition. Full dose Lovenox as well. Once again, I updated the daughter, Brian and we will continue to update her throughout the day in the event he does get intubated. Overall, prognosis is very guarded at this moment. He will continue in ICU and monitor him very closely. Discussed plan of care with nursing staff. MD BOB Burleson/HARPAL /[id number]
[2020-02-26] MEDS ORDERED: VECURONIUM BROMIDE FOR INJ 20 MG VIAL ONE (13:35)
[2020-02-26] MEDS ORDERED: MIDAZOLAM HCL 5MG/ML 10ML VIAL 100 ML IV ONE (13:36)
--- NOTE | 2020-02-26 14:04 | Operative Report ---
DATE OF PROCEDURE: SURGEON: Drew Everett MD PROCEDURE: Endotracheal intubation with GlideScope. PREOPERATIVE DIAGNOSIS: Respiratory failure. POSTOPERATIVE DIAGNOSIS: Respiratory failure. CONSENT: Consent was obtained from the patient. MEDICATIONS: Versed 2 mg, etomidate 20 mg, and succinylcholine 120 mg. DESCRIPTION OF PROCEDURE: The patient was placed in a supine position. He was desaturating on a Vapotherm into the height to mid 80s. An Ambu bag was used with an oral airway and a PEEP valve to ventilate him. We were able to bring his saturations into the high 80s. A 4-0 Mac blade was then used to visualize the glottis. An 8.0 tube was passed on the first attempt. There were equal breath sounds bilaterally. There was good CO2 return. The patient desaturated shortly after being intubated into the high 70s. An Ambu bag was used to ventilate him and improve the saturations into the low 90s. He was placed on a ventilator. COMPLICATIONS: None. ESTIMATED BLOOD LOSS: None. Drew Everett MD [facility]/MODL /[id number]
[2020-02-26] MEDS: DEXAMETHASONE PHOS 4MG/ML 5ML MULTIDOSE VIAL IV SCH (14:06)
[2020-02-26] MEDS ORDERED: ACETAMINOPHEN 1000 MG/100 ML IV SCH (14:15)
[2020-02-26 14:33] LABS: ABG HCO3 26 mmol/L (22-26); ABG PCO2 70 mmHg (35-45); ABG PH 7.18 (7.35-7.45); ABG PO2 125 mmHg (80-105)
--- NOTE | 2020-02-26 14:41 | Diagnostic Imaging Report ---
EXAMINATION: CHEST SINGLE (PORTABLE) INDICATION: ^resp failure ^[id number] ^1020 COMPARISON: Chest radiograph 02/25/2020 FINDINGS: AP view TUBES and LINES: Interval intubation with endotracheal tube 2 cm above the briseida at the level of the lower trachea. Right PICC with tip overlying the cavoatrial junction, unchanged. Infradiaphragmatic NG/OG tube, new since prior exam. LUNGS: Lungs are well inflated. Persistent bilateral multifocal consolidations. PLEURA: No pleural effusion or pneumothorax. HEART AND MEDIASTINUM: The cardiomediastinal silhouette is unremarkable.. BONES AND SOFT TISSUES: No acute osseous lesion. Soft tissues are unremarkable. UPPER ABDOMEN: No free air under the diaphragm. IMPRESSION: Interval intubation with endotracheal tube 2 cm above the briseida. New infradiaphragmatic NG/OG tube. Unchanged bilateral multifocal pneumonia. Signed by: Dr. Vickie Wolff M.D. on 02/26/2020 2:38 PM
--- NOTE | 2020-02-26 14:53 | Diagnostic Imaging Report ---
EXAM: Abdomen 1 Views INDICATION: ^TUBE PLACEMENT ^[id number] ^1353 COMPARISON: Chest radiograph 02/25/2020 FINDINGS: Lines/tubes: NG/OG tube with tip overlying the distal gastric body Retained contrast within the ascending colon. of stool in the colon. No dilated loops of small bowel. No renal calculi. No abnormal soft tissue masses. Mild degenerative changes in the lumbar spine and pelvis. Partially visualized multifocal consolidations in the lung bases. IMPRESSION: NG/OG tube with tip overlying the distal gastric body near the duodenum. Signed by: Dr. Vickie Wolff M.D. on 02/26/2020 2:50 PM
[2020-02-26] MEDS: ALBUTEROL/IPRATROPIUM 3 ML NEB NEB PRN (15:00)
[2020-02-26 17:21] LABS: ABG HCO3 26 mmol/L (22-26); ABG PCO2 65 mmHg (35-45); ABG PH 7.21 (7.35-7.45); ABG PO2 81 mmHg (80-105)
[2020-02-26] MEDS ORDERED: SODIUM CHLORIDE 0.9% 1000ML 1,000 ML ONE (17:24)
[2020-02-26] MEDS: ROCURONIUM BROMIDE 250 MG in SODIUM CHLORIDE 0.9% 250ML 225 ML IV SCH (18:41)
[2020-02-26] MEDS ORDERED: CENTRAL TPN FORMULA 1 BAG IV SCH (20:00)
--- NOTE | 2020-02-26 20:05 | Operative Report ---
DATE OF PROCEDURE: SURGEON: Drew Everett MD PROCEDURE: Arterial line placement under ultrasound guidance. PREOPERATIVE DIAGNOSIS: Viral pneumonia. POSTOPERATIVE DIAGNOSIS: Viral pneumonia. CONSENT: Consent was obtained from the daughter. ANESTHESIA: A 1% lidocaine for local anesthesia. The patient was on a Versed drip. DESCRIPTION OF PROCEDURE: The left wrist was prepped sterilely. The ultrasound machine was then used to locate the radial artery. The radial artery was cannulated under direct visualization with a 20-gauge needle. A wire was passed through the needle and a 20-gauge catheter was passed over the wire by this by the Seldinger technique. There was a good arterial waveform. COMPLICATIONS: None. ESTIMATED BLOOD LOSS: None. Drew Everett MD H/MODL /[id number]
--- NOTE | 2020-02-26 20:11 | Progress Note ---
DATE: Pulmonary Critical Care progress Note SUBJECTIVE: The patient had worsening desaturations, on Vapotherm today. He was increased tachypnea. He required intubation with subsequent mechanical ventilation. He is currently on a PRVC mode of ventilation. He is on 10 mg of Versed and will be starting rocuronium. PHYSICAL EXAMINATION: VITAL SIGNS: The patient is febrile to 102. Blood pressure is 160/60 and the heart rate is 110. HEENT: Shows no facial swelling or erythema. There is an oral endotracheal tube as well as an orogastric tube. There is a PICC line in place. The patient also has a left radial arterial line. CARDIAC: Reveals regular rate and rhythm with normal S1, S2. LUNGS: Auscultation of lungs reveals crackles at the bases. There is no wheezing. ABDOMEN: Soft, nontender. There is no rebound or guarding. EXTREMITIES: Shows no leg edema or calf tenderness. There is no cyanosis or clubbing. SKIN: Shows no rashes. NEUROLOGICAL: Shows the patient to be sedated. LABORATORY DATA: White blood cell count is 14 and hemoglobin is 11.8. The platelet count is 301. BUN to creatinine ratio is 20 to 0.73, and the other electrolytes are within normal limits. The albumin is 2.2. RADIOGRAPHIC DATA: Chest x-ray shows bilateral pulmonary infiltrates. IMPRESSION: 1. COVID-19 and viral pneumonia. 2. Respiratory failure. 3. Recurrent aspiration pneumonitis. 4. Moderate protein-calorie malnutrition. PLAN: 1. Continue PRVC of mode of ventilation and repeat ABG. 2. Continue Versed and rocuronium. 3. Enteral feedings. 4. Lovenox. 5. Continue Decadron. 6. Continue current antibiotics. Case was discussed with daughter, Dr. Piper, Dr. Encarnacion, nursing, and Respiratory. Drew Everett MD [facility]/MODL /[id number]
[2020-02-26 20:18] LABS: ABG PH 7.15 (7.35-7.45)
[2020-02-26 20:19] LABS: ABG HCO3 27 mmol/L (22-26); ABG PCO2 78 mmHg (35-45); ABG PO2 117 mmHg (80-105)
[2020-02-26 23:24] LABS: ABG PCO2 69 mmHg (35-45); ABG PH 7.18 (7.35-7.45)
[2020-02-26 23:27] LABS: ABG HCO3 26 mmol/L (22-26); ABG PO2 108 mmHg (80-105)
[2020-02-27] VITALS (15 sets, daily range): BP systolic 113–137; BP diastolic 59–72
[2020-02-27] MEDS: INSULIN REGULAR, HUMAN 100 UNIT/1 ML 3ML VIAL SQ SCH ×6 (00:12→23:38)
[2020-02-27] MEDS: MIDAZOLAM HCL 5MG/ML 10ML VIAL 100 ML IV PRN ×4 (00:48→20:04)
[2020-02-27] MEDS: VANCOMYCIN HCL 1.25 GM in SODIUM CHLORIDE 0.9% 250ML 250 ML IV SCH ×2 (01:15→14:18)
[2020-02-27] MEDS: ROCURONIUM BROMIDE 250 MG in SODIUM CHLORIDE 0.9% 250ML 225 ML IV SCH (03:00)
[2020-02-27 03:52] LABS: ABG HCO3 27 mmol/L (22-26); ABG PCO2 61 mmHg (35-45); ABG PH 7.27 (7.35-7.45); ABG PO2 106 mmHg (80-105)
[2020-02-27] MEDS: CEFEPIME 1GM/NS 0.9% 50 ML 50 ML IV SCH ×2 (05:08→16:52)
[2020-02-27 06:43] LABS: ALANINE AMINOTRANSFERASE 58 IU/L (0-55); ALBUMIN 1.8 g/dL (3.5-5.0); ALBUMIN/GLOBULIN RATIO 0.4 (0.8-2.0); ALKALINE PHOSPHATASE 114 IU/L (40-150); ANION GAP 11.5 mmol/L (8-16); BLOOD UREA NITROGEN 16 mg/dL (7-26); BUN/CREATININE RATIO 24 (6-25); CALCIUM 8.4 mg/dL (8.4-10.2); CARBON DIOXIDE 25 mmol/L (22-29); CHLORIDE 106 mmol/L (98-107); CREATININE, SERUM 0.67 mg/dL (0.72-1.25); EST GLOMERULAR FILTRATION RATE > 60 ML/MIN (60-); GLUCOSE 174 mg/dL (74-118); POTASSIUM 4.5 mmol/L (3.5-5.1); SODIUM 138 mmol/L (136-145)
[2020-02-27 07:24] LABS: ABG HCO3 28 mmol/L (22-26); ABG PCO2 60 mmHg (35-45); ABG PH 7.28 (7.35-7.45); ABG PO2 85 mmHg (80-105)
[2020-02-27] MEDS ORDERED: CENTRAL TPN FORMULA 1 BAG IV SCH ×2 (09:00→20:00)
--- NOTE | 2020-02-27 09:13 | Progress Note ---
DATE: SUBJECTIVE: The patient required endotracheal intubation yesterday. He had some initial hypercapnia that has improved with an increase in the minute ventilation. He remains on PRVC at a rate of 32 with a tidal volume of 400 and a PEEP of 12. His FiO2 is set at 85%. His peak airway pressure is 33 and his mean airway pressure is 20. His saturations are 96%. The patient is still on low dose rocuronium as well as Versed 8 mg. He is now receiving enteral feedings and he is being weaned from TPN. PHYSICAL EXAMINATION: VITAL SIGNS: The patient's T-max is 100.2. The blood pressure is 130/61 and saturation is 96% on the above settings. GENERAL: He is on Versed at 8 mg as well as low dose rocuronium. He is receiving enteral feedings, but is still on low dose TPN as well, which is being weaned. There is an oral endotracheal tube. He has a left arterial A-line as well as a PICC line. He is not having any nausea or vomiting. He has an arterial line in the left radial artery as well as a PICC line. CARDIAC: Reveals regular rate and rhythm with normal S1 and S2. LUNGS: Auscultation of lungs reveals crackles at the bases. There is no wheezing. ABDOMEN: Soft and nontender. There is no rebound or guarding. EXTREMITIES: Shows minimal leg edema. There is no calf tenderness. NEUROLOGIC: Shows the patient to be sedated. LABORATORY DATA: The BUN to creatinine ratio is 20 to 0.73. Glucose is 135. The albumin is 2.2. White blood cell count is 14.03 and the hemoglobin is 11.8. The platelet count is 301. Last blood gas is 7.28, 60, 85, and 28. RADIOGRAPHIC DATA: Chest x-ray shows continued bilateral infiltrates. IMPRESSION: 1. Acute respiratory failure. 2. COVID-19 and viral pneumonia. 3. Recurrent aspiration pneumonia. 4. Moderate protein-calorie malnutrition. PLAN: 1. Continue current ventilation and repeat ABG. 2. Continue Versed and rocuronium. 3. Advance enteral feedings and wean TPN. 4. Continue Lovenox. 5. Complete current antibiotics. 6. Continue Decadron. 7. Discussed with Dr. Buckley and Dr. Verduzco regarding the patient's potential for transfer to [facility] and possible ECMO. 8. Case discussed with Dr. Encarnacion and Dr. Piper as well as nursing and Respiratory. Case also discussed with family. Greater than 35 minutes in direct critical care time apart from any procedures performed. MD TEODORA Newton/HARPAL /[id number]
[2020-02-27] MEDS: DEXAMETHASONE PHOS 4MG/ML 5ML MULTIDOSE VIAL IV SCH (09:23)
[2020-02-27] MEDS: ENOXAPARIN SOD INJ 40 MG/0.4 ML SYR SC SCH ×2 (09:24→20:00)
[2020-02-27] MEDS: ALBUTEROL/IPRATROPIUM 3 ML NEB NEB PRN (11:50)
--- NOTE | 2020-02-27 15:54 | Progress Note ---
DATE: 02/27/2020 Medicine Progress Note SUBJECTIVE: The patient got intubated yesterday. He is on a mechanical ventilator. His oxygen requirement is increased. His blood pressure is stable. Discussed plan of care with nursing staff. PHYSICAL EXAMINATION: VITAL SIGNS: Temperature is 101.1, pulse 109, respiratory rate is 32, his blood pressure is 133/61, and he is 94% on a mechanical ventilator. GENERAL: Intubated and sedated. PULMONARY: Intubated and sedated. CARDIOVASCULAR: Positive S1 and S2. No murmurs, rubs, or gallops appreciated. ABDOMEN: Soft, nondistended, and nontender to palpation. Bowel sounds present. MUSCULOSKELETAL: Unable to assess. He is sedated. NEUROLOGIC: Sedated. SKIN: Intact. Warm to touch. Good cap refill. EXTREMITIES: Very trace edema appreciated. LABORATORY DATA: Show white count 14, hemoglobin 11, hematocrit is 35, and platelets of 301. Chemistry; sodium 138, potassium 4.5, chloride 106, bicarb 25, anion gap of 11, BUN is 16, and creatinine is 0.67. Blood cultures, no growth to date. IMAGING STUDIES: Abdominal x-ray shows the NG tube overlying the distal gastric body near the duodenum. Chest x-ray pending. IMPRESSION: 1. Acute respiratory failure, now intubated and sedated secondary to COVID-19 pneumonia. 2. Small left apical pneumothorax-seems to be resolved. 3. Sepsis with leukocytosis secondary to COVID-19 pneumonia. 4. Fevers, concern for aspiration, possible COVID-19. 5. Atypical chest pain. PLAN: At this time, he is intubated and sedated. He is being managed by Pulmonary Critical Care. Get a.m. labs. We are going to wean off TPN and start OG tube feeds. He is on full dose anticoagulation. Continue with antibiotics. Follow with ID recommendations as well as Pulmonary Critical Care. I discussed the plan of care with the ICU nurse. His overall prognosis is very guarded at this time. He is very sick individual in critical condition. MD BOB Burleson/HARPAL /[id number]
[2020-02-27 16:48] LABS: ABG HCO3 26 mmol/L (22-26); ABG PCO2 52 mmHg (35-45); ABG PH 7.32 (7.35-7.45); ABG PO2 83 mmHg (80-105)
[2020-02-27] MEDS: ASCORBIC ACID 500 MG TAB PO SCH (16:52)
--- NOTE | 2020-02-27 18:00 | Consultation ---
DATE OF CONSULTATION: 02/26/2020 REASON FOR CONSULTATION: Respiratory insufficiency, COVID-19; requested by Dr. Raymundo Everett. HISTORY OF PRESENT ILLNESS: I saw and evaluated the patient on February 26, 2020. He is a 54-year-old man, who has been in the hospital since February 17. He became short of breath and sick at work and came to the emergency room. He was admitted to the hospital, where he has been observed for several weeks. Initially, his chest x-ray had bilateral infiltrates. These have progressed to nearly whiteout of the lungs. He has not had a chest CT scan. He was initially given ivermectin and azithromycin. Despite treatment, his pulmonary status deteriorated. He is now intubated in the ICU. His FiO2 is at 100% and his O2 saturation 93%. Chest x-ray shows diffuse infiltrates bilaterally of both lungs. He has a low-grade fever of 101. He is on Lovenox subcu. There is no prior history of smoke. No diabetes. PAST MEDICAL HISTORY: Negative. PAST SURGICAL HISTORY: Negative. ALLERGIES: NONE KNOWN. MEDICATIONS: See MAR. SOCIAL HISTORY: Negative for smoking, alcohol, or drug use. He was employed prior to this event. FAMILY HISTORY: Negative for pulmonary disease or early CAD. REVIEW OF SYSTEMS: Unobtainable because of pulmonary status and intubation. PHYSICAL EXAMINATION: GENERAL: Well-developed, well-nourished man, who was in the ICU, intubated and sedated. VITAL SIGNS: Temperature is 101. Pulse is 105. Blood pressure is 130/70. NECK: Supple. Nontender. No JVD. CARDIAC: Shows a tachycardiac, regular rhythm. No rub or murmur. LUNGS: Have coarse ventilator sounds bilaterally. ABDOMEN: Hypoactive bowel sounds. No palpable masses. No fluid wave. BACK: No CVA tenderness. No muscular spasm. EXTREMITIES: No cyanosis, clubbing, or edema. VASCULAR: Carotids, radials, and femorals 2+/2+ bilaterally. SKIN: No rashes or nonhealing ulcers. MUSCULOSKELETAL: Full range of motion at all joints. No joint swelling. NEUROLOGIC: Cranial nerves II through XII intact. Sensation intact to light touch and pinprick bilaterally. Strength 5/5 in all expanding extremities. LYMPHATIC: Negative for cervical, clavicular, femoral adenopathy. LABORATORY: Chest x-ray as above. White count 14.3, hemoglobin 11.8, hematocrit 35.0, and platelet count 301,000. Sodium 138, potassium 4.5, BUN 16, creatinine 0.67. Liver function tests are normal. ABG; shows pH 7.27, pCO2 of 61, and PO2 of 106. IMPRESSION: Severe pulmonary insufficiency, secondary to COVID-19. We will discuss with other teams. ECMO to be considered. Missael Buckley MD [facility]/MODL /[id number]
[2020-02-28] VITALS (18 sets, daily range): BP systolic 110–175; BP diastolic 57–74
[2020-02-28] MEDS ORDERED: VANCOMYCIN 1GM/NS 250 ML 250 ML IV SCH (02:00)
[2020-02-28] MEDS: VANCOMYCIN HCL 1.25 GM in SODIUM CHLORIDE 0.9% 250ML 250 ML IV SCH ×2 (02:34→14:02)
[2020-02-28] MEDS: FENTANYL 2000MCG/NS 250 250 ML IV PRN ×2 (02:41→10:41)
[2020-02-28] MEDS: CEFEPIME 1GM/NS 0.9% 50 ML 50 ML IV SCH ×2 (05:00→17:45)
[2020-02-28] MEDS: INSULIN REGULAR, HUMAN 100 UNIT/1 ML 3ML VIAL SQ SCH ×3 (06:00→17:46)
[2020-02-28 06:20] LABS: BASOPHILS % 0.2 % (0.0-1.0); EOSINOPHILS % 0.1 % (0.0-6.0); HEMATOCRIT 34.8 % (38.2-49.6); HEMOGLOBIN 10.8 g/dL (14.0-18.0); LYMPHOCYTES # (AUTO) 0.5 (1.0-3.2); LYMPHOCYTES % 3.7 % (18.0-39.1); MEAN CORPUSCULAR HEMOGLOBIN 29.8 pg (28-32); MEAN CORPUSCULAR VOLUME 95.9 fL (81-99); MONOCYTES # (AUTO) 0.2 (0.2-0.8); MONOCYTES % 1.6 % (4.4-11.3); NEUTROPHILS # (AUTO) 11.9 (2.1-6.9); NEUTROPHILS % 93.4 % (38.7-80.0); PLATELET COUNT 260 x10e3/uL (140-360); RED BLOOD COUNT 3.63 x10e6/uL (4.3-5.7); RED CELL DISTRIBUTION WIDTH 12.1 % (11.7-14.4)
[2020-02-28 06:31] LABS: ALANINE AMINOTRANSFERASE 166 IU/L (0-55); ALBUMIN 1.7 g/dL (3.5-5.0); ALBUMIN/GLOBULIN RATIO 0.4 (0.8-2.0); ALKALINE PHOSPHATASE 115 IU/L (40-150); ANION GAP 9.6 mmol/L (8-16); BLOOD UREA NITROGEN 16 mg/dL (7-26); BUN/CREATININE RATIO 26 (6-25); CALCIUM 8.2 mg/dL (8.4-10.2); CARBON DIOXIDE 31 mmol/L (22-29); CHLORIDE 105 mmol/L (98-107); CREATININE, SERUM 0.61 mg/dL (0.72-1.25); EST GLOMERULAR FILTRATION RATE > 60 ML/MIN (60-); GLUCOSE 122 mg/dL (74-118); POTASSIUM 4.6 mmol/L (3.5-5.1); SODIUM 141 mmol/L (136-145)
[2020-02-28] MEDS ORDERED: SODIUM CHLORIDE 0.9% 250ML 250 ML ONE (06:35)
[2020-02-28] MEDS ORDERED: ROCURONIUM BROMIDE IV ONE (06:35)
--- NOTE | 2020-02-28 06:43 | NUR ---
Pt proned per Dr. Everett. Pt noted with Hypertension (Systolic 160-170's) MD notified. Per MD, fentanyl gtt to be initiated. Fentanyl gtt started as ordered. Titrated to comfort. No s/s of pain or discomfort at this time. Pt continues to be proned without complications. WIll continue to monitor and note all changes.
[2020-02-28] MEDS: MIDAZOLAM HCL 5MG/ML 10ML VIAL 100 ML IV PRN (08:05)
[2020-02-28 08:08] LABS: ABG HCO3 35 mmol/L (22-26); ABG PCO2 78 mmHg (35-45); ABG PH 7.26 (7.35-7.45); ABG PO2 110 mmHg (80-105)
[2020-02-28] MEDS: DEXAMETHASONE PHOS 4MG/ML 5ML MULTIDOSE VIAL IV SCH (09:32)
[2020-02-28] MEDS: ASCORBIC ACID 500 MG TAB PO SCH ×2 (09:33→17:45)
[2020-02-28 10:15] LABS: LYMPHOCYTES % (MANUAL) 4 % (19-48); MONOCYTES % (MANUAL) 1 % (3.4-9.0); NEUTROPHILS % (MANUAL) 95 % (40-74); PLATELET ESTIMATE ADEQUATE; PLATELET MORPHOLOGY COMMENT NORMAL; RBC MORPHOLOGY COMMENT NORMAL
[2020-02-28 10:41] LABS: ABG HCO3 33 mmol/L (22-26); ABG PCO2 63 mmHg (35-45); ABG PH 7.33 (7.35-7.45); ABG PO2 114 mmHg (80-105)
[2020-02-28] MEDS: ROCURONIUM BROMIDE 250 MG in SODIUM CHLORIDE 0.9% 250ML 225 ML IV SCH (13:51)
[2020-02-28] MEDS ORDERED: CENTRAL TPN FORMULA 1 BAG IV SCH ×2 (14:15→20:00)
--- NOTE | 2020-02-28 15:27 | Progress Note ---
DATE: 02/28/2020 Medicine Progress Note SUBJECTIVE: Intubated and sedated on a mechanical ventilator on sedation. No overnight events. PHYSICAL EXAMINATION: VITAL SIGNS: Temperature is 100.3, pulse 93, respiratory rate is 32, blood pressure is 143/69, and pulse ox 98% on mechanical ventilator. GENERAL: Intubated and sedated. PULMONARY: Intubated and sedated. CARDIOVASCULAR: Positive S1, S2. No murmurs, rubs, or gallops. ABDOMEN: Soft, nontender to palpation. Bowel sounds present. MUSCULOSKELETAL: Unable to assess, intubated and sedated. NEUROLOGIC: Intubated and sedated. SKIN: Intact, warm to touch. Good cap refill. EXTREMITIES: No edema appreciated. LABORATORY DATA: White count 12.7, hemoglobin 10.8, hematocrit 35, and platelets of 260. Chemistry; sodium 141, potassium 4.3, chloride 105, bicarb 21. Anion gap of 9.6, BUN 16, creatinine 0.61, glucose is 122. IMAGING: We have bilateral upper extremity venous Doppler noted to have an acute partially occlusive vein thromboses in the right cephalic vein. There is a superficial venous thrombosis in the right cephalic vein. Left upper extremity seems to be negative for any clot. IMPRESSION: 1. Acute respiratory failure, intubated and sedated secondary to COVID-19 pneumonia. 2. Small left apical pneumothorax, seems to be resolved. 3. Sepsis with leukocytosis, secondary to COVID-19 pneumonia. 4. Fevers, multifactorial from aspiration and COVID-19. 5. Atypical chest pain. 6. Right upper extremity superficial thromboses. PLAN: At this time, the patient continues to be intubated and sedated. On IV TPN for nutrition. Pulmonary Critical Care consulted and following accordingly. CV surgery is also consulted. If the patient does not improve, he may need ECMO. Continue with IV TPN for nutrition. Get a.m. labs. His overall prognosis is very guarded. The patient is very ill, currently in the ICU. MD BOB Burleson/BARBARAL /[id number]
--- NOTE | 2020-02-28 16:32 | Progress Note ---
DATE: SUBJECTIVE: The patient is still in the prone position. He is weaning off TPN and he is receiving enteral feedings. He remains on Versed drip as well as fentanyl and rocuronium. He is on a PRVC mode of ventilation at a rate of 32 with a tidal volume of 380 and PEEP of 12. His FiO2 is set at 70%. OBJECTIVE: HEENT: Shows no facial swelling or erythema. CARDIAC: Reveals regular rate and rhythm. Normal S1, S2. LUNGS: Auscultation of lungs reveals crackles at the bases. There is no wheezing. ABDOMEN: Soft and nontender. There is no rebound or guarding. EXTREMITIES: Shows no leg edema or calf tenderness. There is no cyanosis or clubbing. SKIN: Shows no rashes. NEUROLOGICAL: Shows no focal abnormalities. LABORATORY DATA: White blood cell count is 12.7 and hemoglobin is 10.8, platelet count is 260. The BUN to creatinine ratio is 16 to 0.61. The glucose is 124, ALT is 166, and the albumin is 1.7. ABGs 7.33, 63, 114, and 33. IMPRESSION: 1. Acute respiratory failure. 2. COVID-19 and viral pneumonia. 3. Recurrent aspiration pneumonia. 4. Moderate protein-calorie malnutrition. PLAN: 1. Continue current mode of ventilation. 2. Continue Versed, fentanyl, and rocuronium. 3. Continue enteral feedings. 4. Continue Lovenox. 5. Complete Decadron. 6. Complete antibiotics. 7. Case discussed with nursing, Respiratory, Infectious Disease, and family. 8. Greater than 35 minutes in direct critical care time. Drew Everett MD [facility]/MODL /[id number]
[2020-02-28] MEDS: CHOLECALCIFEROL 400 UNIT TAB PO SCH (17:45)
--- NOTE | 2020-02-28 19:58 | Diagnostic Imaging Report ---
EXAMINATION: CHEST SINGLE (PORTABLE) INDICATION: ^resp failure ^[id number] ^[id number] COMPARISON: 02/27/2020 FINDINGS: AP view TUBES and LINES: Unchanged endotracheal tube, right upper extremity PICC, and nasogastric tube. LUNGS: Unchanged diffuse severe pulmonary airspace disease. PLEURA: Questionable small bilateral pleural effusions. No definite pneumothorax. HEART AND MEDIASTINUM: Normal heart size. Interval development of pneumomediastinum. BONES AND SOFT TISSUES: No acute osseous lesion. Interval development of prominent subcutaneous emphysema at the base of the neck. UPPER ABDOMEN: No free air under the diaphragm. IMPRESSION: 1. Unchanged severe pulmonary airspace disease consistent with viral pneumonia and ARDS. 2. Interval development of pneumomediastinum and subcutaneous emphysema of the base of the neck. Barotrauma is suspected. Signed by: Ney Piña MD on 02/28/2020 7:55 PM
--- NOTE | 2020-02-28 20:39 | NUR ---
ABG drawn as ordered. Results reported to Dr. Everett. No new orders at this time. Will continue to monitor and note all changes.
[2020-02-28 21:27] LABS: ABG HCO3 35 mmol/L (22-26); ABG PCO2 59 mmHg (35-45); ABG PH 7.38 (7.35-7.45); ABG PO2 75 mmHg (80-105)
[2020-02-29] VITALS (26 sets, daily range): BP systolic 103–199; BP diastolic 50–87
[2020-02-29] MEDS: INSULIN REGULAR, HUMAN 100 UNIT/1 ML 3ML VIAL SQ SCH ×4 (00:54→18:00)
[2020-02-29] MEDS: VANCOMYCIN HCL 1.25 GM in SODIUM CHLORIDE 0.9% 250ML 250 ML IV SCH ×2 (02:14→13:59)
[2020-02-29] MEDS ORDERED: SODIUM CHLORIDE 0.9% 250ML 250 ML ONE (04:22)
[2020-02-29] MEDS: CEFEPIME 1GM/NS 0.9% 50 ML 50 ML IV SCH ×2 (04:33→17:30)
[2020-02-29] MEDS: MIDAZOLAM HCL 5MG/ML 10ML VIAL 100 ML IV PRN ×4 (04:34→23:45)
[2020-02-29] MEDS: FENTANYL 2000MCG/NS 250 250 ML IV PRN ×2 (04:35→17:33)
[2020-02-29 04:56] LABS: BASOPHILS % 0.2 % (0.0-1.0); EOSINOPHILS # (AUTO) 0.1 (0.0-0.4); EOSINOPHILS % 0.4 % (0.0-6.0); HEMATOCRIT 31.7 % (38.2-49.6); LYMPHOCYTES # (AUTO) 0.7 (1.0-3.2); LYMPHOCYTES % 5.7 % (18.0-39.1); MEAN CORPUSCULAR HEMOGLOBIN 30.1 pg (28-32); MEAN CORPUSCULAR HGB CONC 31.5 g/dL (31-35); MEAN CORPUSCULAR VOLUME 95.5 fL (81-99); MONOCYTES # (AUTO) 0.2 (0.2-0.8); MONOCYTES % 1.8 % (4.4-11.3); NEUTROPHILS # (AUTO) 11.8 (2.1-6.9); PLATELET COUNT 254 x10e3/uL (140-360); RED BLOOD COUNT 3.32 x10e6/uL (4.3-5.7)
[2020-02-29 05:11] LABS: ALANINE AMINOTRANSFERASE 120 IU/L (0-55); ALBUMIN 1.7 g/dL (3.5-5.0); ALBUMIN/GLOBULIN RATIO 0.4 (0.8-2.0); ALKALINE PHOSPHATASE 117 IU/L (40-150); ANION GAP 12.7 mmol/L (8-16); BLOOD UREA NITROGEN 21 mg/dL (7-26); BUN/CREATININE RATIO 32 (6-25); CALCIUM 8.5 mg/dL (8.4-10.2); CARBON DIOXIDE 32 mmol/L (22-29); CHLORIDE 99 mmol/L (98-107); CREATININE, SERUM 0.66 mg/dL (0.72-1.25); EST GLOMERULAR FILTRATION RATE > 60 ML/MIN (60-); GLUCOSE 147 mg/dL (74-118); POTASSIUM 4.7 mmol/L (3.5-5.1); SODIUM 139 mmol/L (136-145)
--- NOTE | 2020-02-29 06:35 | Diagnostic Imaging Report ---
EXAMINATION: CHEST SINGLE (PORTABLE) INDICATION: ^resp failure COMPARISON: None FINDINGS: AP view TUBES and LINES: Unchanged endotracheal tube, nasogastric tube, and right upper extremity PICC. LUNGS: Unchanged diffuse pulmonary airspace disease. PLEURA: No pleural effusion or pneumothorax. HEART AND MEDIASTINUM: The cardiomediastinal silhouette is unremarkable. Probable pneumomediastinum is unchanged. BONES AND SOFT TISSUES: No acute osseous lesion. Unchanged neck subcutaneous emphysema. UPPER ABDOMEN: No free air under the diaphragm. IMPRESSION: Stable exam. Unchanged severe pulmonary airspace disease consistent with viral pneumonia and ARDS. Subcutaneous emphysema and probable pneumomediastinum is again suspicious for barotrauma. Signed by: Ney Piña MD on 02/29/2020 6:32 AM
[2020-02-29] MEDS: ASCORBIC ACID 500 MG TAB PO SCH ×2 (08:47→17:30)
[2020-02-29] MEDS: ZINC SULFATE 220 MG CAP PO SCH (08:47)
[2020-02-29] MEDS: CHOLECALCIFEROL 400 UNIT TAB PO SCH ×2 (08:47→17:30)
[2020-02-29] MEDS: ACETAMINOPHEN 325 MG/10 ML UDC NG PRN (08:48)
[2020-02-29] MEDS: DEXAMETHASONE PHOS 4MG/ML 5ML MULTIDOSE VIAL IV SCH (10:00)
[2020-02-29 11:18] LABS: ABG HCO3 33 mmol/L (22-26); ABG PCO2 48 mmHg (35-45); ABG PH 7.45 (7.35-7.45); ABG PO2 43 mmHg (80-105)
[2020-02-29] MEDS ORDERED: ENOXAPARIN INJ 80 MG/0.8 ML SYR SC ONE (13:15)
--- NOTE | 2020-02-29 13:41 | Progress Note ---
DATE: 02/29/2020 Medicine Progress Note SUBJECTIVE: The patient is still intubated. Still requiring a significant amount of oxygen. No overnight events. PHYSICAL EXAMINATION: VITAL SIGNS: Temperature is 100.1, pulse 100, respiratory rate is 31, blood pressure 133/60, and pulse ox 92% on a mechanical ventilator. GENERAL: Intubated and sedated. CARDIOVASCULAR: Positive S1 and S2. No murmurs, rubs, or gallops appreciated. ABDOMEN: Soft, nondistended, and nontender to palpation. Bowel sounds present. MUSCULOSKELETAL: Unable to assess. NEUROLOGIC: Unable to assess. SKIN: Intact. Warm to touch. Good cap refill. EXTREMITIES: No edema. Good range of motion throughout. LABORATORY DATA: Show white count 12.9, hemoglobin 10, hematocrit 31, and platelets of 254. Chemistry; sodium 139, potassium 4.7, chloride 99, bicarb 32, anion gap of 12, BUN is 21, creatinine is 0.66, and glucose is 147. LFTs are noted. Blood cultures, no growth to date. IMAGING STUDIES: Chest x-ray shows evidence of ARDS and viral pneumonia. Shows evidence of subcutaneous emphysema and probable pneumomediastinum, is again suspicious for barotrauma. IMPRESSION: 1. Acute respiratory failure on a mechanical ventilator secondary to COVID-19 pneumonia. 2. Small left apical pneumothorax with concerns of pneumomediastinum. 3. Sepsis with leukocytosis secondary to COVID-19 pneumonia. 4. Fevers, multifactorial, aspiration, COVID-19. 5. Atypical chest pain. 6. Right upper extremity superficial thromboses. PLAN: At this time, continues to be on mechanical ventilator. He is on OG tube feeds for nutrition. Continue with steroids. ID and Pulmonary are following. CV Surgery also consulted for possible underlying ECMO if needed. We will continue to monitor very closely. MD BOB Burleson/MODL /[id number]
[2020-02-29] MEDS: ROCURONIUM BROMIDE 250 MG in SODIUM CHLORIDE 0.9% 250ML 225 ML IV SCH ×2 (14:57→22:45)
--- NOTE | 2020-02-29 15:22 | Progress Note ---
DATE: SUBJECTIVE: The patient was placed back in the supine position late last night. He had some desaturations early this morning and his PEEP was increased to 16. His FiO2 was increased to 90%. His rocuronium was held and he is now not synchronized well with the ventilator. He is continued on Versed at 8 mg as well as fentanyl. PHYSICAL EXAMINATION: VITAL SIGNS: The patient is afebrile. The blood pressure is 138/66, saturation is 95%. He is on a PRVC mode of ventilation at a rate of 32 with a tidal volume of 400. His FiO2 is set at 90%. His PEEP is set at 16. HEENT: No facial swelling or erythema. He has an oral endotracheal tube in place. He has an A-line in place as well as a PICC line. CARDIAC: Regular rate and rhythm with normal S1, S2. LUNGS: Auscultation of lungs reveals rhonchorous breath sounds bilaterally. There is no wheezing. ABDOMEN: Soft, nontender. There is no rebound or guarding. EXTREMITIES: No leg edema or calf tenderness. There is no cyanosis or clubbing. SKIN: No rashes. NEUROLOGICAL: No focal abnormalities. LABORATORY DATA: White blood cell count is 12.9, hemoglobin is 10, and the platelet count is 254,000. The BUN to creatinine ratio is 21 to 0.66. Other electrolytes are within normal limits. Albumin is 1.7. RADIOGRAPHIC DATA: Chest x-ray shows bilateral airspace disease consistent with ARDS. IMPRESSION: 1. Acute respiratory failure. 2. coronavirus disease-19 viral pneumonia. 3. Recurrent aspiration pneumonia. 4. Moderate protein-calorie malnutrition. PLAN: 1. Continue ventilation and repeat ABG. 2. Restart rocuronium and continue Versed along with fentanyl. 3. Plan to place patient in the prone position tonight. 4. Continue Lovenox. 5. Decadron. 6. Complete antibiotics. 7. Case discussed with Internal Medicine, Infectious Disease, Respiratory, nursing, and family. Greater than 35 minutes in direct critical care time. Drew Evreett MD [facility]/MODL /[id number]
--- NOTE | 2020-02-29 18:40 | Diagnostic Imaging Report ---
EXAMINATION: CHEST SINGLE (PORTABLE) INDICATION: ^R/O Pnuemothorax ^[id number] ^[id number] COMPARISON: 02/29/2020 FINDINGS: AP view TUBES and LINES: Stable endotracheal tube, nasogastric tube, and right PICC. LUNGS: Lungs are well inflated. Diffuse bilateral airspace opacities. PLEURA: No significant pleural effusion or pneumothorax. HEART AND MEDIASTINUM: The cardiomediastinal silhouette is unremarkable. BONES AND SOFT TISSUES: No acute osseous lesion. Soft tissues are unremarkable. UPPER ABDOMEN: No free air under the diaphragm. IMPRESSION: No significant interval change from prior exam. No visible pneumothorax. Signed by: Dr. Gerardo Leyva MD on 02/29/2020 6:37 PM
[2020-02-29 19:39] LABS: ABG HCO3 38 mmol/L (22-26); ABG PCO2 88 mmHg (35-45); ABG PH 7.23 (7.35-7.45); ABG PO2 96 mmHg (80-105)
[2020-03-01] VITALS (25 sets, daily range): BP systolic 97–167; BP diastolic 51–81
[2020-03-01] MEDS ORDERED: ALTEPLASE RECOMBINANT 2 MG/2 ML VIAL IV PRN (00:45)
[2020-03-01] MEDS: FENTANYL 2000MCG/NS 250 250 ML IV PRN ×3 (02:17→18:30)
[2020-03-01] MEDS: VANCOMYCIN HCL 1.25 GM in SODIUM CHLORIDE 0.9% 250ML 250 ML IV SCH (03:16)
[2020-03-01] MEDS: ENOXAPARIN INJ 80 MG/0.8 ML SYR SC SCH ×3 (03:16→20:00)
[2020-03-01] MEDS: MIDAZOLAM HCL 5MG/ML 10ML VIAL 100 ML IV PRN ×4 (04:30→20:10)
[2020-03-01] MEDS: ROCURONIUM BROMIDE 250 MG in SODIUM CHLORIDE 0.9% 250ML 225 ML IV SCH ×3 (05:25→18:30)
[2020-03-01] MEDS: INSULIN REGULAR, HUMAN 100 UNIT/1 ML 3ML VIAL SQ SCH ×4 (06:00→18:00)
[2020-03-01] MEDS: CEFEPIME 1GM/NS 0.9% 50 ML 50 ML IV SCH ×2 (06:09→18:00)
[2020-03-01 06:32] LABS: BASOPHILS % 0.2 % (0.0-1.0); EOSINOPHILS # (AUTO) 0.1 (0.0-0.4); EOSINOPHILS % 1.3 % (0.0-6.0); HEMATOCRIT 33.5 % (38.2-49.6); HEMOGLOBIN 10.2 g/dL (14.0-18.0); LYMPHOCYTES # (AUTO) 0.6 (1.0-3.2); LYMPHOCYTES % 6.3 % (18.0-39.1); MEAN CORPUSCULAR HEMOGLOBIN 29.9 pg (28-32); MEAN CORPUSCULAR HGB CONC 30.4 g/dL (31-35); MEAN CORPUSCULAR VOLUME 98.2 fL (81-99); MONOCYTES # (AUTO) 0.2 (0.2-0.8); MONOCYTES % 1.7 % (4.4-11.3); NEUTROPHILS # (AUTO) 9.1 (2.1-6.9); NEUTROPHILS % 88.6 % (38.7-80.0); PLATELET COUNT 232 x10e3/uL (140-360); RED BLOOD COUNT 3.41 x10e6/uL (4.3-5.7); RED CELL DISTRIBUTION WIDTH 12.1 % (11.7-14.4)
[2020-03-01 06:56] LABS: ALANINE AMINOTRANSFERASE 115 IU/L (0-55); ALBUMIN 1.7 g/dL (3.5-5.0); ALBUMIN/GLOBULIN RATIO 0.4 (0.8-2.0); ALKALINE PHOSPHATASE 114 IU/L (40-150); ANION GAP 9.5 mmol/L (8-16); BLOOD UREA NITROGEN 16 mg/dL (7-26); BUN/CREATININE RATIO 28 (6-25); CALCIUM 8.2 mg/dL (8.4-10.2); CARBON DIOXIDE 37 mmol/L (22-29); CHLORIDE 96 mmol/L (98-107); CREATININE, SERUM 0.58 mg/dL (0.72-1.25); EST GLOMERULAR FILTRATION RATE > 60 ML/MIN (60-); GLUCOSE 102 mg/dL (74-118); POTASSIUM 4.5 mmol/L (3.5-5.1); SODIUM 138 mmol/L (136-145)
[2020-03-01] MEDS ORDERED: METHYLPREDNISOLONE SOD SUCC 125 MG/2ML VIAL IV SCH (08:30)
--- NOTE | 2020-03-01 08:44 | Progress Note ---
DATE: Pulmonary Critical Care Progress Note SUBJECTIVE: The patient is now in the prone position. He is on a PRVC at a rate of 32 with a tidal volume of 400 and a PEEP of 14. His FiO2 is set at 60%. His peak airway pressure is 36 and his mean airway pressure is 23. He is on rocuronium at 0.01 as well as Versed at 8 mg and fentanyl at 250 mcg. PHYSICAL EXAMINATION: VITAL SIGNS: The blood pressure is 161/73, saturation is 98%. HEENT: Shows no facial swelling or erythema. There is an oral endotracheal tube. There is a PICC line in place. There is an arterial line in place. CARDIAC: Reveals regular rate and rhythm with normal S1, S2. LUNGS: Auscultation of lungs reveals rhonchorous breath sounds bilaterally. There is no wheezing. ABDOMEN: Soft and nontender. There is no rebound or guarding. EXTREMITIES: Shows no leg edema or calf tenderness. There is no cyanosis or clubbing. SKIN: Shows no rashes. NEUROLOGICAL: Shows no focal abnormalities. The patient is sedated and paralyzed. LABORATORY DATA: White blood cell count is 10.2 and hemoglobin is 10.2. The platelet count is 232,000. The NMD-qx-joyptzttrk ratio is 16 to 0.58. Other electrolytes are within normal limits and the albumin is 1.7. RADIOGRAPHIC DATA: Chest x-ray shows bilateral infiltrates. IMPRESSION: 1. Acute respiratory failure. 2. COVID-19 infection and viral pneumonia. 3. Recurrent aspiration pneumonia. 4. Moderate protein-calorie malnutrition. PLAN: 1. Repeat ABG in 2 hours. Adjust ventilator as tolerated. 2. Extra dose of Solu-Medrol to reduce airway inflammation and bronchospasm. 3. Continue current antibiotics. 4. Continue enteral feedings. 5. Continue to use prone position as much as possible. 6. Lasix with albumin. 7. Case discussed with nightshift nursing, dayshift nursing, Respiratory, Internal Medicine, Infectious Disease, and family. Greater than 35 minutes in direct critical care time. Drew Everett MD [facility]/HARPAL /[id number]
[2020-03-01] MEDS ORDERED: FUROSEMIDE INJ 10 MG/ML 4 ML VIAL IV ONE (08:45)
[2020-03-01] MEDS: ASCORBIC ACID 500 MG TAB PO SCH ×2 (08:54→18:00)
[2020-03-01] MEDS: DEXAMETHASONE PHOS 4MG/ML 5ML MULTIDOSE VIAL IV SCH (08:54)
[2020-03-01] MEDS: CHOLECALCIFEROL 400 UNIT TAB PO SCH ×2 (08:54→18:00)
[2020-03-01] MEDS: ZINC SULFATE 220 MG CAP PO SCH (09:00)
[2020-03-01 09:34] LABS: ABG HCO3 39 mmol/L (22-26); ABG PCO2 88 mmHg (35-45); ABG PH 7.26 (7.35-7.45); ABG PO2 117 mmHg (80-105)
[2020-03-01] MEDS: ALBUMIN 25% 25GM 100ML 100 ML IV SCH ×2 (10:01→18:56)
[2020-03-01 10:07] LABS: ABG HCO3 43 mmol/L (22-26); ABG PCO2 76 mmHg (35-45); ABG PH 7.36 (7.35-7.45); ABG PO2 70 mmHg (80-105)
--- NOTE | 2020-03-01 10:41 | NUR ---
Nutrition Intervention Note RD Recommendation(s) for Physician: - Recommend changing TF to Vital AF with goal of 55 ml/hr (1584 kcal and 99 gm protein) to better meet needs on vent. - Water flushes and fluid management per MD Plan of Care: RD following, TF rec's, monitoring for tolerance and adequacy Reason for Nutrition Involvement: f/u, vent , TF Primary Diagnose(s): acute respiratory distress due to COVID-19 PMH: no pertinent hx RD Assessment: 03/01: Pt now intubated, sedated, and paralyzed. No pressors. Pt requiring proning, TF off currently per digital production manager. Pt assessed and TF rec's provided. Pt may continue TF while being proned by being placed in reverse Trendelenburg position. TF rec's provided. (02/22) 54 YOM admitted for acute respiratory distress due to COVID-19. Pt evaluated today for LOS. Unable to enter pt's room due to current isolation precautions. No poor intake or wt loss reported per admit notes. Pt with 100% intake per chart. LBM 02/17, no GI distress reported by RN. Skin intact. Chart reviewed. Labs and meds reviewed. Will continue to monitor. GI: no BM documented Skin: intact Labs: 03/01: Na 138, K 4.5, BUN 16, Cr 0.58, gluc 102, POC Gluc 128-162 Meds: solumedrol, zofran, vit D3, vit C, decadron, zinc sulfate, abx IV/Drips: Rocuronium, Versed, Fentanyl Ht: 65 in Wt: 167 lb BMI: 27.8 kg/m2 IBW: 136 lb Estimated Nutritional Needs: Calories: 1028-3084 (20-25 kcal/kg/d) Weight used: CBW Protein: 87-134 (1.3-2 g/kg/d) Weight used: CBW Diet Adequacy: Not meeting calorie needs, Not meeting protein needs Current Diet: TF: Glucerna 1.2 at 50 ml/hr- not infusing per chart Malnutrition Evaluation (02/23/20) The patient does not meet criteria for a specified degree of malnutrition at this time. Will re-evaluate at follow-up as appropriate. Unable to assess per current isolation precautions. Diet Education Needs Assessment: Diet education not indicated. Nutrition Care Level: Moderate Nutrition Diagnosis: Inadequate energy and protein intake related to intubation as evidenced by requiring EN. Goal: Patient will meet 75-100% of estimated needs by follow up Progress: N/A Interventions: Tube feeding - Composition, Rate, Route Monitoring/Evaluation: Total energy intake, Total protein intake, Formula/Solution, Weight change Signed: Trish Barclay RD, LD, [facility]
--- NOTE | 2020-03-01 12:49 | NUR ---
ST Note: Pt remains intubated. Pt will require repeat modified barium swallow study to objectively re-assess swallow safety now that he has been intubated >2 days. Will f/u as indicated.
[2020-03-01] MEDS ORDERED: ALBUMIN 25% 25GM 100ML 0.25 GM/ML BTL IV SCH (14:00)
--- NOTE | 2020-03-01 15:02 | Progress Note ---
DATE: 03/01/2020 Medicine Progress Note SUBJECTIVE: The patient is still intubated. He is on FiO2 of 60% and PEEP of 14. His oxygen requirement did decrease. I reviewed the chest x-ray findings with Pulmonary. He is recommending a CT chest, which we will order. PHYSICAL EXAMINATION: VITAL SIGNS: Temperature is 98.9, pulse 94, respiratory rate is 32, blood pressure is 130/66, and pulse ox 95%. He is on a mechanical ventilator. His FiO2 60% and PEEP of 14. GENERAL: Intubated and sedated. PULMONARY: Intubated and sedated. CARDIOVASCULAR: Positive S1 and S2. No murmurs, rubs, or gallops appreciated. ABDOMEN: Soft, nondistended, and nontender to palpation. Bowel sounds present. MUSCULOSKELETAL: Unable to assess. NEUROLOGIC: Unable to assess. SKIN: Intact. Warm to touch. Good cap refill. EXTREMITIES: He does have some evidence of trace to 1+ pedal edema. LABORATORY DATA: White count 10.2, hemoglobin 10.2, hematocrit is 33.5, and platelets of 232. Sodium 138, potassium 4.5, chloride 96, bicarb 37, anion gap of 9.5, BUN 16, creatinine is 0.58, and glucose is 102. LFTs shows total bilirubin was 0.3, AST 39, ALT 115, and alkaline phosphatase 114. Albumin 1.7. Blood cultures, no growth. IMAGING STUDIES: This is a chest x-ray from yesterday shows no visible pneumothorax. IMPRESSION: 1. Acute respiratory failure, on mechanical ventilator secondary to COVID-19 pneumonia. 2. Small left apical pneumothorax with concerns of pneumomediastinum-seems to be resolved. 3. Sepsis with leukocytosis secondary to COVID-19 pneumonia. 4. Fevers, multifactorial, likely COVID-19. 5. Atypical chest pain. 6. Right upper extremity superficial thromboses. PLAN: At this time, he is still intubated and sedated. He is on FiO2 of 60% and PEEP of 14. I spoke with Pulmonary. He would like to get a chest CT to evaluate if there is any evidence of pneumothorax or any pneumomediastinum. I will defer that to Pulmonary. Continue with Decadron, antibiotics as per ID. I spoke with Pulmonary about the ECMO possibility, but there are no beds and there is no ability to transfer the patient to the [facility] as the [facility] is completely full capacity. We will just continue to monitor him very closely and he has improved by decreasing his oxygen requirement over the last day or so. He is on full dose Lovenox for superficial thromboses. He is on TPN, which we will continue to renew. MD BOB Burleson/HARPAL /[id number]
--- NOTE | 2020-03-01 16:44 | Diagnostic Imaging Report ---
EXAMINATION: CHEST SINGLE (PORTABLE) INDICATION: Respiratory failure COMPARISON: Chest radiograph of 02/29/2020 FINDINGS: LINES/TUBES:Support lines and tubes unchanged. LUNGS:The lungs are moderately inflated. Unchanged bilateral diffuse hazy airspace opacities. PLEURA:No pleural effusion or pneumothorax. MEDIASTINUM:The cardiomediastinal silhouette appears unchanged in size and shape. BONES/SOFT TISSUES:No acute osseous injury. ABDOMEN:No free air under the diaphragm. IMPRESSION: No pneumothorax. Unchanged bilateral airspace opacities consistent with known pneumonia. Signed by: Katia Lo MD on 03/01/2020 4:41 PM
--- NOTE | 2020-03-01 16:50 | NUR ---
Chest X Ray results reported to Dr Everett. Vent settings and ABG reported at this time as well. Per , can hold off on CT Scan
--- NOTE | 2020-03-01 17:14 | NUR ---
Dr Encarnacion called regarding Vancomycin. Per MD, discontinue vancomycin and vancomycin trough at this time.
[2020-03-01] MEDS ORDERED: MIDAZOLAM HCL 5MG/ML 10ML VIAL 100 ML IV ONE (20:10)
[2020-03-01 20:55] LABS: ABG PCO2 63 mmHg (35-45); ABG PH 7.42 (7.35-7.45); ABG PO2 94 mmHg (80-105)
[2020-03-01 20:56] LABS: ABG HCO3 40 mmol/L (22-26)
--- NOTE | 2020-03-01 23:43 | Consultation ---
DATE OF CONSULTATION: 03/01/2020 REASON FOR CONSULTATION: Respiratory insufficiency, COVID-19; requested by Dr. Raymundo Everett. [employer] WRECKING [employer]VAGING: Dr. Freddy Piper. SUBJECTIVE: The patient seen in the ICU in the prone position. PRVC at a rate of 32, tidal volume 300. PT is 14. FiO2 is at 60%. O2 saturation is 93%. Peak airway pressure 36. The patient is on vecuronium and Versed. Relatively stable over the last 24 hours. REVIEW OF SYSTEMS: Unobtainable because the patient is intubated and sedated. PHYSICAL EXAMINATION: GENERAL: Intubated and sedated. VITAL SIGNS: Blood pressure 140/70. O2 saturation 95%. HEENT: Oral endotracheal tube in place. NECK: Supple. Nontender. CARDIAC: Regular rate and rhythm. Normal S1, S2. No rub. LUNGS: Coarse ventilator sounds bilaterally. ABDOMEN: Hypoactive bowel sounds. BACK: No CVA tenderness. No muscular spasm. EXTREMITIES: No cyanosis, clubbing, or edema. Both lower extremities are well perfused. NEUROLOGIC: The patient is sedated and intubated. LABORATORIES: WBC 10.2. Hemoglobin 10.2. Platelet 232,000. BUN 16, creatinine 0.5. Albumin 1.7. Chest x-ray shows bilateral pulmonary infiltrates. IMPRESSION: Severe respiratory insufficiency secondary to coronavirus disease-2019. Chest x-ray and O2 support remained fairly stable over the last 12-24 hours. We will follow. MD ANDREWS HinojosaL/MODL /[id number]
[2020-03-02] VITALS (21 sets, daily range): BP systolic 114–191; BP diastolic 51–85
[2020-03-02] MEDS: ROCURONIUM BROMIDE 250 MG in SODIUM CHLORIDE 0.9% 250ML 225 ML IV SCH ×2 (00:48→09:00)
[2020-03-02] MEDS: INSULIN REGULAR, HUMAN 100 UNIT/1 ML 3ML VIAL SQ SCH ×4 (00:50→18:00)
[2020-03-02] MEDS: MIDAZOLAM HCL 5MG/ML 10ML VIAL 100 ML IV PRN ×3 (01:22→22:50)
[2020-03-02] MEDS: FENTANYL 2000MCG/NS 250 250 ML IV PRN ×3 (02:57→21:27)
[2020-03-02] MEDS: CEFEPIME 1GM/NS 0.9% 50 ML 50 ML IV SCH ×2 (05:45→20:33)
[2020-03-02] MEDS: ALBUTEROL/IPRATROPIUM 3 ML NEB NEB SCH ×3 (07:00→22:00)
[2020-03-02 07:13] LABS: BASOPHILS % 0.1 % (0.0-1.0); EOSINOPHILS # (AUTO) 0.2 (0.0-0.4); EOSINOPHILS % 2.9 % (0.0-6.0); HEMATOCRIT 27.7 % (38.2-49.6); HEMOGLOBIN 8.5 g/dL (14.0-18.0); LYMPHOCYTES # (AUTO) 0.8 (1.0-3.2); MEAN CORPUSCULAR HEMOGLOBIN 29.6 pg (28-32); MEAN CORPUSCULAR HGB CONC 30.7 g/dL (31-35); MEAN CORPUSCULAR VOLUME 96.5 fL (81-99); MONOCYTES # (AUTO) 0.1 (0.2-0.8); MONOCYTES % 1.9 % (4.4-11.3); NEUTROPHILS # (AUTO) 5.6 (2.1-6.9); NEUTROPHILS % 81.3 % (38.7-80.0); PLATELET COUNT 230 x10e3/uL (140-360); RED BLOOD COUNT 2.87 x10e6/uL (4.3-5.7)
[2020-03-02 07:32] LABS: ALANINE AMINOTRANSFERASE 81 IU/L (0-55); ALBUMIN 2.2 g/dL (3.5-5.0); ALBUMIN/GLOBULIN RATIO 0.6 (0.8-2.0); ALKALINE PHOSPHATASE 82 IU/L (40-150); ANION GAP 9.2 mmol/L (8-16); BLOOD UREA NITROGEN 19 mg/dL (7-26); BUN/CREATININE RATIO 31 (6-25); CARBON DIOXIDE 38 mmol/L (22-29); CHLORIDE 96 mmol/L (98-107); CREATININE, SERUM 0.62 mg/dL (0.72-1.25); EST GLOMERULAR FILTRATION RATE > 60 ML/MIN (60-); GLUCOSE 100 mg/dL (74-118); POTASSIUM 4.2 mmol/L (3.5-5.1); SODIUM 139 mmol/L (136-145)
[2020-03-02 07:35] LABS: ABG HCO3 40 mmol/L (22-26); ABG PCO2 61 mmHg (35-45); ABG PH 7.42 (7.35-7.45); ABG PO2 66 mmHg (80-105)
--- NOTE | 2020-03-02 08:50 | Diagnostic Imaging Report ---
EXAMINATION: CHEST SINGLE (PORTABLE) INDICATION: Respiratory failure COMPARISON: Multiple prior chest radiographs, most recently of 03/01/2020 FINDINGS: LINES/TUBES:Support lines and tubes unchanged. LUNGS:Low lungs are moderately inflated. Unchanged bilateral diffuse hazy opacities. PLEURA:No pleural effusion or pneumothorax. MEDIASTINUM:The cardiomediastinal silhouette appears unchanged in size and shape. BONES/SOFT TISSUES:No acute osseous injury. ABDOMEN:No free air under the diaphragm. IMPRESSION: No significant interval change. Signed by: Katia Lo MD on 03/02/2020 8:47 AM
[2020-03-02] MEDS: ZINC SULFATE 220 MG CAP PO SCH (09:00)
[2020-03-02] MEDS: ENOXAPARIN INJ 80 MG/0.8 ML SYR SC SCH ×2 (09:00→21:24)
[2020-03-02] MEDS: CHOLECALCIFEROL 400 UNIT TAB PO SCH ×2 (09:00→18:25)
[2020-03-02] MEDS: DEXAMETHASONE PHOS 4MG/ML 5ML MULTIDOSE VIAL IV SCH (09:00)
[2020-03-02] MEDS: ASCORBIC ACID 500 MG TAB PO SCH ×2 (09:00→17:00)
--- NOTE | 2020-03-02 09:35 | Progress Note ---
DATE: Pulmonary Critical Care progress Note SUBJECTIVE: The patient is currently in the supine position. He is on a PRVC mode of ventilation with a rate of 32 and a tidal volume of 400. His PEEP is set at 12 and his FiO2 is set at 65%. He remains on rocuronium at 0.08 as well as Versed at 8 mg and fentanyl at 250 mcg. The patient is receiving enteral feedings. PHYSICAL EXAMINATION: VITAL SIGNS: The patient is afebrile. The blood pressure is 140/60, saturation is 93%. HEENT: No facial swelling or erythema. CARDIAC: Regular rate and rhythm with normal S1, S2. There is an oral endotracheal tube. There is a PICC line in place. The site looks clean. There is no drainage. The patient has an arterial line. CARDIAC: Regular rate and rhythm with normal S1, S2. LUNGS: Auscultation of lungs reveals crackles at the bases. There is no wheezing. ABDOMEN: Soft, nontender. There is no rebound or guarding. EXTREMITIES: No leg edema or calf tenderness. There is no cyanosis or clubbing. SKIN: No rashes. NEUROLOGICAL: No focal abnormalities. The patient is sedated. LABORATORY DATA: BUN to creatinine ratio is 19 to 0.62. Other electrolytes are within normal limits. The albumin is 2.2. White blood cell count is 6.9, hemoglobin is 8.5, and the platelet count is 230. Most recent blood gases 7.42, 61, 66, and 40. IMPRESSION: 1. Acute respiratory failure. 2. Coronavirus disease-19 infection and viral pneumonia. 3. Anemia, unspecified. 4. Recurrent aspiration. 5. Moderate protein-calorie malnutrition. 6. Possible pneumomediastinum on chest radiograph that has resolved. PLAN: 1. Continue to adjust ventilator as needed. 2. Place the patient in prone position later this afternoon. 3. Begin nebulizers and budesonide to treat underlying bronchospasm. 4. Continue current antibiotics. 5. Continue enteral feedings. 6. Case discussed with nightshift nursing, dayshift nursing, Respiratory, daughter, Internal Medicine and administration. Greater than 35 minutes in direct critical care time. Drew Everett MD [facility]/MODL /[id number]
[2020-03-02] MEDS: BUDESONIDE 0.25 MG/2 ML NEB NEB SCH ×2 (11:45→21:30)
[2020-03-02] MEDS: ALBUMIN 25% 25GM 100ML 100 ML IV SCH ×2 (13:25→18:25)
[2020-03-02] MEDS ORDERED: ALBUMIN 25% 25GM 100ML 0.25 GM/ML BTL IV SCH (14:00)
[2020-03-02] MEDS ORDERED: SUCCINYLCHOLINE CHLORIDE 20 MG/ML 10ML VIAL ONE (14:48)
[2020-03-02] MEDS ORDERED: WATER STERILE 10 ML VIAL ONE (14:48)
[2020-03-02] MEDS ORDERED: ETOMIDATE 2 MG/ML 10 ML INJ IV ONE (14:48)
[2020-03-02] MEDS ORDERED: MIDAZOLAM HCL 2 MG/2 ML VIAL ONE (14:48)
--- NOTE | 2020-03-02 14:51 | NUR ---
ST Note: Pt remains intubated. Will f/u as indicated.
--- NOTE | 2020-03-02 15:31 | Progress Note ---
DATE: 03/02/2020 SUBJECTIVE: The patient is still intubated and sedated. He is on FiO2 of 60%. He is saturating well. PHYSICAL EXAMINATION: VITAL SIGNS: Temperature is 99, pulse is 116, respiratory rate is 32. His last blood pressure was 191/72, but he was in the process of getting his sedation started again and now his blood pressure was normal systolic in the 140s when I evaluated him. He is on a mechanical ventilator. GENERAL: Intubated and sedated. PULMONARY: Intubated and sedated. CARDIOVASCULAR: Positive S1, S2. No murmurs, rubs, or gallops. GI: Abdomen is soft, nondistended, nontender to palpation. Bowel sounds present. MUSCULOSKELETAL: Unable to assess. NEUROLOGIC: Unable to assess. SKIN: Intact and warm to touch. Good cap refill. EXTREMITIES: Shows evidence of maybe trace edema. LABORATORY DATA: White count 6.8, hemoglobin 8.5, hematocrit 27, platelets of 230,000. Chemistry; sodium 139, potassium 4.2, chloride 96, bicarb 38, anion gap of 9.2, BUN is 19, creatinine is 0.62, albumin 2.2. ABG; pH is 7.42, PO2 is 66, bicarbonate of 40, FiO2 60, oxygen saturation 92. MICROBIOLOGY: Blood cultures, no growth to date. IMAGING STUDIES: Chest x-ray shows no significant interval change. There is still some haziness. No evidence of pneumothorax noted. IMPRESSION: 1. Acute respiratory failure on a mechanical ventilator secondary to COVID-19 pneumonia. 2. Small left apical pneumothorax, concern for pneumomediastinum-resolved, discussed case with Dr. Everett Pulmonary. 3. Sepsis with leukocytosis secondary to COVID-19 pneumonia. 4. Fevers, multifactorial secondary to COVID-19. 5. Atypical chest pain. 6. Right upper extremity superficial thromboses. PLAN: At this time, he is still intubated and sedated. He is on FiO2 of 60%. He is otherwise still at baseline with no changes. Pulmonary is following. I did speak with Pulmonary yesterday about this questionable pneumomediastinum and which he reviewed with the radiologist. His repeat chest x-ray shows no evidence of any pneumothorax, so it seems like it has been resolved according to Pulmonary, we would continue to monitor very closely. Continue with TPN for now. He is on full-dose Lovenox. Get a.m. labs. Otherwise, we will continue same plan of care and monitor very closely. MD BOB Burleson/BARBARAL /[id number]
--- NOTE | 2020-03-02 16:31 | Progress Note ---
DATE: SUBJECTIVE: Mr. Smith remains in intensive care unit. The patient was intubated. His rate is 32, PEEP of 12, FiO2 65%. He remains on rocuronium and Versed. PHYSICAL EXAMINATION: HEENT: Normocephalic. NECK: Supple. CHEST: Few crackles bilateral. HEART: S1 and S2. ABDOMEN: Soft. Bowel sounds present. No tenderness. EXTREMITIES: No edema. SKIN: No rash. LABORATORY DATA: Reviewed. White count 6.9, hemoglobin 8.5. IMPRESSION: Respiratory failure, COVID-19, anemia, aspiration, protein calorie malnutrition, pneumomediastinum on chest x-ray resolved. Currently, on insulin, albumin, Lovenox 1 mg/kg q.12. He is on cefepime to finish 5 days. Continue supportive care as ordered. Discussed with medical team. MD JAKY Osman/MODL /[id number]
[2020-03-03] VITALS (21 sets, daily range): BP systolic 119–154; BP diastolic 51–75
[2020-03-03] MEDS: ROCURONIUM BROMIDE 250 MG in SODIUM CHLORIDE 0.9% 250ML 225 ML IV SCH ×3 (02:00→17:00)
[2020-03-03] MEDS: ALBUMIN 25% 25GM 100ML 100 ML IV SCH (02:26)
[2020-03-03] MEDS: PROPOFOL IV EMULSION 10MG/ML 100 ML IV PRN ×4 (02:28→22:00)
[2020-03-03 04:56] LABS: ABG HCO3 37 mmol/L (22-26); ABG PCO2 56 mmHg (35-45); ABG PH 7.44 (7.35-7.45); ABG PO2 74 mmHg (80-105)
[2020-03-03 05:48] LABS: BASOPHILS % 0.3 % (0.0-1.0); EOSINOPHILS # (AUTO) 0.2 (0.0-0.4); EOSINOPHILS % 1.6 % (0.0-6.0); HEMATOCRIT 28.8 % (38.2-49.6); HEMOGLOBIN 8.9 g/dL (14.0-18.0); LYMPHOCYTES # (AUTO) 0.7 (1.0-3.2); LYMPHOCYTES % 7.6 % (18.0-39.1); MEAN CORPUSCULAR HEMOGLOBIN 30.4 pg (28-32); MEAN CORPUSCULAR HGB CONC 30.9 g/dL (31-35); MEAN CORPUSCULAR VOLUME 98.3 fL (81-99); MONOCYTES # (AUTO) 0.2 (0.2-0.8); MONOCYTES % 2.4 % (4.4-11.3); NEUTROPHILS # (AUTO) 7.7 (2.1-6.9); NEUTROPHILS % 83.1 % (38.7-80.0); PLATELET COUNT 270 x10e3/uL (140-360); RED BLOOD COUNT 2.93 x10e6/uL (4.3-5.7); RED CELL DISTRIBUTION WIDTH 12.1 % (11.7-14.4)
[2020-03-03] MEDS: INSULIN REGULAR, HUMAN 100 UNIT/1 ML 3ML VIAL SQ SCH ×4 (06:00→19:50)
[2020-03-03] MEDS: ALBUTEROL/IPRATROPIUM 3 ML NEB NEB SCH ×3 (06:00→22:30)
[2020-03-03] MEDS: CEFEPIME 1GM/NS 0.9% 50 ML 50 ML IV SCH ×2 (06:04→19:39)
[2020-03-03] MEDS: FENTANYL 2000MCG/NS 250 250 ML IV PRN ×3 (06:07→19:35)
[2020-03-03] MEDS: MIDAZOLAM HCL 5MG/ML 10ML VIAL 100 ML IV PRN ×2 (06:08→22:00)
[2020-03-03 06:36] LABS: ALANINE AMINOTRANSFERASE 88 IU/L (0-55); ALBUMIN 3.3 g/dL (3.5-5.0); ALBUMIN/GLOBULIN RATIO 0.9 (0.8-2.0); ALKALINE PHOSPHATASE 90 IU/L (40-150); BLOOD UREA NITROGEN 15 mg/dL (7-26); BUN/CREATININE RATIO 24 (6-25); CALCIUM 8.1 mg/dL (8.4-10.2); CARBON DIOXIDE 35 mmol/L (22-29); CHLORIDE 97 mmol/L (98-107); CREATININE, SERUM 0.62 mg/dL (0.72-1.25); EST GLOMERULAR FILTRATION RATE > 60 ML/MIN (60-); GLUCOSE 73 mg/dL (74-118); SODIUM 140 mmol/L (136-145)
--- NOTE | 2020-03-03 08:13 | Diagnostic Imaging Report ---
Examination: Single AP view of the chest. COMPARISON: Multiple prior chest radiographs most recently 03/02/2020 INDICATION: Rule out pneumothorax DISCUSSION: Endotracheal tube, enteric tube, and right upper extremity PICC are unchanged in position relative to prior. The lungs remain reasonably well inflated with stable diffuse hazy opacities with a lower and middle lung zone predominance. No pleural effusion or pneumothorax. Stable cardiomediastinal contour. No acute osseous abnormality. Right supraclavicular subcutaneous gas versus artifact, unchanged. IMPRESSION: Stable appearance of support lines and tubes. No pneumothorax per clinical query. Stable confluent bilateral hazy airspace opacities compatible with multifocal pneumonia. Signed by: Dr. Mauricio Melendrez M.D. on 03/03/2020 8:10 AM
[2020-03-03] MEDS ORDERED: LACTATED RINGER'S 500 ML INJ ONE (08:30)
[2020-03-03] MEDS: ZINC SULFATE 220 MG CAP PO SCH (09:00)
[2020-03-03] MEDS: DEXAMETHASONE PHOS 4MG/ML 5ML MULTIDOSE VIAL IV SCH (09:30)
--- NOTE | 2020-03-03 09:30 | Progress Note ---
DATE: Pulmonary and Critical Care Progress Note SUBJECTIVE: The patient had more trouble with oxygenation last night after being transferred to the [facility] ICU. His FiO2 was increased. He was placed in the prone position. He also had a stat chest x-ray early this morning that showed no pneumo. PHYSICAL EXAMINATION: VITAL SIGNS: The blood pressure is 126/51, pulse is 97. The patient is on a PRVC mode of ventilation at a rate of 34 with a tidal volume of 360. His PEEP is set at 14 and his FiO2 is set at 75%. His saturations are in the low 90s. His peak airway pressure is 36 and his mean airway pressure is 21. His plateau pressure is 32. HEENT: Shows no facial swelling or erythema. There is an oral endotracheal tube in place. There is a PICC line in place. The patient also has a radial arterial line. CARDIAC: Reveals regular rate and rhythm with normal S1 and S2. LUNGS: Auscultation of lungs reveals crackles and rhonchi at the bases. There is no wheezing. ABDOMEN: Soft, nontender. There is no rebound or guarding. EXTREMITIES: Shows no leg edema or calf tenderness. There is no cyanosis or clubbing. SKIN: Shows no rashes. NEUROLOGICAL: Shows the patient to be sedated. He is on rocuronium at 0.08 as well as Versed 8 mg and fentanyl at 250 mcg. LABORATORY DATA: White blood cell count is 9.3 and hemoglobin is 8.9. The platelet count is 270. The BUN to creatinine ratio is normal. The carbon dioxide is 35 and the other electrolytes are within normal limits. The albumin is 3.3. RADIOGRAPHIC DATA: Shows continued bilateral infiltrates. IMPRESSION: 1. Acute respiratory failure. 2. Coronavirus disease-2019 infection and viral pneumonia. 3. Superimposed bacterial aspiration pneumonia. 4. Anemia, unspecified. 5. Moderate protein-calorie malnutrition. PLAN: 1. Continue current ventilator settings and repeat ABG. 2. Continue current antibiotics. 3. Enteral feedings. 4. Bronchodilators. 5. Continue Lovenox. 6. Complete course of Decadron. 7. Continue to control blood sugars. 8. Case discussed with nightshift nursing, dayshift nursing, Respiratory, Internal Medicine, Infectious Disease, family, and administration. Greater than 35 minutes in direct critical care time. MD TEODORA Newton/HARPAL /[id number]
[2020-03-03] MEDS: CHOLECALCIFEROL 400 UNIT TAB PO SCH ×2 (10:14→19:49)
[2020-03-03] MEDS: ASCORBIC ACID 500 MG TAB PO SCH ×2 (10:14→19:44)
[2020-03-03] MEDS: ENOXAPARIN INJ 80 MG/0.8 ML SYR SC SCH ×2 (10:15→21:00)
[2020-03-03 12:37] LABS: ABG HCO3 41 mmol/L (22-26); ABG PCO2 86 mmHg (35-45); ABG PH 7.28 (7.35-7.45); ABG PO2 86 mmHg (80-105)
--- NOTE | 2020-03-03 13:41 | Progress Note ---
DATE: 03/03/2020 Medicine Progress Note SUBJECTIVE: The patient last night had desatted when he was in the process of being prone. He is currently doing much better now. He is saturating very well. Discussed plan of care with nursing staff. PHYSICAL EXAMINATION: VITAL SIGNS: Temperature is 98.1, pulse 88, respiratory rate is 19, blood pressure 125/57, and pulse ox 94%. He is on a mechanical ventilator. GENERAL: Intubated and sedated. PULMONARY: Intubated and sedated. CARDIOVASCULAR: Positive S1 and S2. No murmurs, rubs, or gallops appreciated. ABDOMEN: Soft, nondistended, and nontender to palpation. Bowel sounds present. MUSCULOSKELETAL: Unable to assess. NEUROLOGIC: Unable to assess. SKIN: Intact. Warm to touch. Good cap refill. LABORATORY FINDINGS: White count 9.3, hemoglobin 8.9, hematocrit is 28, and platelets of 270. Chemistry; sodium 140, potassium 4, chloride 97, bicarb 35, anion gap of 12, BUN is 15, creatinine is 0.62, glucose is 73, and calcium is 8.1. AST 56, ALT 88, and alkaline phosphatase 90. Total protein 7 and albumin 3.3. MICROBIOLOGY: Blood cultures no growth. IMAGING STUDIES: Chest x-ray, no pneumothorax. Stable appearance bilateral hazy airspace opacities compatible with multifocal pneumonia. IMPRESSION: 1. Acute respiratory failure, on a mechanical ventilator secondary to COVID-19 pneumonia. 2. Small left apical pneumothorax-resolved. 3. Sepsis with leukocytosis secondary to COVID-19 pneumonia. 4. Fevers. 5. Atypical chest pain. 6. Right upper extremity superficial thromboses. PLAN: At this time, the patient is currently in the COVID unit. He did desaturate last night, but now he is improved. He is doing much better. We will continue with tube feeds. Continue with full dose anticoagulation. Continue with steroids and antibiotics. ID and Pulmonary following. Get a.m. labs. MD BOB Burleson/MODL /[id number]
[2020-03-03] MEDS ORDERED: ALBUTEROL/IPRATROPIUM 3 ML NEB ONE (14:12)
[2020-03-04] VITALS (20 sets, daily range): BP systolic 88–173; BP diastolic 51–95
[2020-03-04] MEDS: INSULIN REGULAR, HUMAN 100 UNIT/1 ML 3ML VIAL SQ SCH ×4 (00:19→18:52)
[2020-03-04] MEDS: ROCURONIUM BROMIDE 250 MG in SODIUM CHLORIDE 0.9% 250ML 225 ML IV SCH ×2 (01:12→09:06)
[2020-03-04] MEDS: FENTANYL 2000MCG/NS 250 250 ML IV PRN ×2 (02:15→09:04)
[2020-03-04] MEDS: MIDAZOLAM HCL 5MG/ML 10ML VIAL 100 ML IV PRN (03:58)
[2020-03-04 05:14] LABS: BASOPHILS % 0.4 % (0.0-1.0); EOSINOPHILS # (AUTO) 0.4 (0.0-0.4); EOSINOPHILS % 4.6 % (0.0-6.0); HEMATOCRIT 32.4 % (38.2-49.6); HEMOGLOBIN 9.7 g/dL (14.0-18.0); LYMPHOCYTES # (AUTO) 1.2 (1.0-3.2); MEAN CORPUSCULAR HEMOGLOBIN 29.8 pg (28-32); MEAN CORPUSCULAR HGB CONC 29.9 g/dL (31-35); MEAN CORPUSCULAR VOLUME 99.4 fL (81-99); MONOCYTES # (AUTO) 0.2 (0.2-0.8); MONOCYTES % 2.9 % (4.4-11.3); NEUTROPHILS # (AUTO) 5.6 (2.1-6.9); NEUTROPHILS % 70.8 % (38.7-80.0); PLATELET COUNT 316 x10e3/uL (140-360); RED BLOOD COUNT 3.26 x10e6/uL (4.3-5.7)
[2020-03-04] MEDS: PROPOFOL IV EMULSION 10MG/ML 100 ML IV PRN (05:29)
[2020-03-04 05:31] LABS: ALBUMIN 2.7 g/dL (3.5-5.0); BILIRUBIN,DIRECT 0.5 mg/dL (0.0-0.5)
[2020-03-04 05:53] LABS: ALANINE AMINOTRANSFERASE 165 IU/L (0-55); ALBUMIN 2.7 g/dL (3.5-5.0); ALBUMIN/GLOBULIN RATIO 0.7 (0.8-2.0); ALKALINE PHOSPHATASE 113 IU/L (40-150); ANION GAP 12.1 mmol/L (8-16); BLOOD UREA NITROGEN 12 mg/dL (7-26); BUN/CREATININE RATIO 22 (6-25); CALCIUM 8.1 mg/dL (8.4-10.2); CARBON DIOXIDE 39 mmol/L (22-29); CHLORIDE 95 mmol/L (98-107); CREATININE, SERUM 0.55 mg/dL (0.72-1.25); EST GLOMERULAR FILTRATION RATE > 60 ML/MIN (60-); GLUCOSE 88 mg/dL (74-118); POTASSIUM 4.1 mmol/L (3.5-5.1); SODIUM 142 mmol/L (136-145)
[2020-03-04] MEDS: CEFEPIME 1GM/NS 0.9% 50 ML 50 ML IV SCH ×2 (06:23→16:00)
[2020-03-04] MEDS: ALBUTEROL/IPRATROPIUM 3 ML NEB NEB SCH ×3 (07:23→22:50)
[2020-03-04] MEDS: CHOLECALCIFEROL 400 UNIT TAB PO SCH ×2 (10:23→18:33)
[2020-03-04] MEDS: ASCORBIC ACID 500 MG TAB PO SCH ×2 (10:23→18:33)
[2020-03-04] MEDS: ZINC SULFATE 220 MG CAP PO SCH (10:24)
[2020-03-04] MEDS: ENOXAPARIN INJ 80 MG/0.8 ML SYR SC SCH ×2 (10:24→21:40)
[2020-03-04] MEDS ORDERED: PROPOFOL IV EMULSION 10 MG/ML 50 ML VIAL IV ONE (12:00)
--- NOTE | 2020-03-04 12:15 | Progress Note ---
DATE: Pulmonary Critical Care Progress Note SUBJECTIVE: The patient has been in the prone position overnight. He remains on a mechanical ventilator with a PRVC at a rate of 34 and a tidal volume of 360. His PEEP is set at 16 and FiO2 is set at 70%. He is saturating in the low 90s. His I's and O's are positive over the past several days. He has no fevers. PHYSICAL EXAMINATION: VITAL SIGNS: The blood pressure is 165/84 and his saturation is in the low 90s. He is on the above-mentioned ventilator settings. His heart rate is 123. HEENT: Shows no facial swelling or erythema. There is an oral endotracheal tube. There is a nasogastric tube. CARDIAC: Reveals tachycardia with a normal S1 and S2. LUNGS: Auscultation of lungs reveals rhonchorous breath sounds bilaterally. There is no wheezing. ABDOMEN: Soft and nontender. There is no rebound or guarding. EXTREMITIES: Shows no leg edema or calf tenderness. There is no cyanosis or clubbing. SKIN: Shows no rashes. NEUROLOGICAL: Shows the patient to be sedated and paralyzed. LABORATORY DATA: White blood cell count is 7.89 and hemoglobin is 9.7. The platelet count is 316. The BUN to creatinine ratio is 12 to 0.55. Other electrolytes are within normal limits. The albumin is 2.7. Blood gas is 7.237 with a CO2 of 102 and a PO2 of 77. The bicarbonate is 43.5. RADIOGRAPHIC DATA: Chest x-ray shows bilateral infiltrates. IMPRESSION: 1. [id number] respiratory failure. 2. COVID-19 infection and viral pneumonia. 3. Anemia, unspecified. 4. Moderate protein-calorie malnutrition. PLAN: 1. Tidal volume was increased to 380 in order to correct the hypercapnia. Repeat ABG is pending. 2. Stat chest x-ray. 3. The patient will be moved from the prone position back to the supine position. 4. Continue Decadron and bronchodilators. 5. Continue Lovenox. 6. Gentle diuresis. 7. Evaluation for tracheostomy. 8. Case discussed with overnight cashier nursing, day shift nursing, Respiratory, administration, and family. Greater than 35 minutes in direct critical care time apart from any procedures performed. MD TEODORA Newton/HARPAL /[id number]
[2020-03-04 12:59] LABS: ABG PH 7.24 (7.35-7.45)
[2020-03-04 13:00] LABS: ABG HCO3 44 mmol/L (22-26); ABG PCO2 102 mmHg (35-45); ABG PO2 77 mmHg (80-105)
--- NOTE | 2020-03-04 13:25 | Progress Note ---
DATE: 03/04/2020 Medicine Progress Note SUBJECTIVE: The patient is still intubated. Bicarb is elevated. Vent settings have been adjusted by Pulmonary. No changes overnight. PHYSICAL EXAMINATION: VITAL SIGNS: Stable when I evaluated him. Temperature is 98.9. He had a T-max 100.9 this morning. Pulse is 106 and respiratory rate is 34. He is on a mechanical ventilator. Blood pressure 165/84 and saturating 91% on mechanical ventilator. GENERAL: Intubated and sedated. PULMONARY: Intubated and sedated. CARDIOVASCULAR: Positive S1 and S2. No murmurs, rubs, or gallops appreciated. Heart rate is elevated. ABDOMEN: Soft, nondistended, and nontender to palpation. MUSCULOSKELETAL: Unable to assess. He is sedated. NEUROLOGIC: Sedated. SKIN: Intact. Warm to touch. Good cap refill. EXTREMITIES: He does have some trace edema. LABORATORY DATA: White count 7.8, hemoglobin 9.7, hematocrit is 32, and platelets 316. Chemistry; sodium 143, potassium 4.1, chloride 95, bicarb 39, anion gap of 12, BUN is 12, creatinine is 0.55, glucose is 88, and calcium is 8.1. AST 98, ALT 165, and alkaline phosphatase 113. Total protein 6.8 and albumin 2.7. Blood cultures, no growth to date. IMPRESSION: 1. Acute respiratory failure on a mechanical ventilator secondary to COVID-19 pneumonia. 2. Small left apical pneumothorax-resolved. 3. Sepsis with leukocytosis secondary to COVID-19 pneumonia. 4. Fevers. 5. Atypical chest pain. 6. Right upper extremity superficial thromboses. PLAN: At this time, the patient is currently in the COVID unit. He is still intubated. Vent settings have been adjusted due to the elevated bicarbonate level. We will continue with steroids, antibiotics, full dose anticoagulation therapy. Follow with ID and Pulmonary. The patient is very sick. He is in critical state. We will continue with same plan of care and monitor very closely. Get morning labs. MD BOB Burleson/BARBARAL /[id number]
[2020-03-04] MEDS ORDERED: ALBUMIN 25% 25GM 100ML 0.25 GM/ML BTL IV SCH (14:00)
[2020-03-04] MEDS ORDERED: FUROSEMIDE INJ 10 MG/ML 4 ML VIAL IV ONE (14:15)
[2020-03-04] MEDS ORDERED: MIDAZOLAM HCL 2 MG/2 ML VIAL ONE (14:49)
[2020-03-04] MEDS: DEXAMETHASONE PHOS 4MG/ML 6 MG in SODIUM CHLORIDE 0.9% 50ML 50 ML IV SCH (15:15)
[2020-03-04] MEDS: ALBUMIN 25% 12.5GM 50ML 100 ML IV SCH ×2 (15:16→21:41)
--- NOTE | 2020-03-04 16:02 | Diagnostic Imaging Report ---
X-ray chest AP portable Comparison: 03/03/2020 History: Respiratory failure Findings: The endotracheal tube is just above the thoracic inlet and needs to be advanced approximately 2.5 cm. The nasogastric tube and right arm PICC line are unchanged. Bilateral diffuse pulmonary opacities show slight improvement. No other acute changes. Impression: Advanced endotracheal tube approximately 2.5 cm. Signed by: Alvaro Noyola MD on 03/04/2020 3:59 PM
--- NOTE | 2020-03-04 17:41 | NUR ---
Nutrition Intervention Note RD Recommendation(s) for Physician: - Recommend changing TF to Vital AF with goal of 55 ml/hr to better meet nutritional needs (provides 1584 kcal and 99 gm protein) - Water flushes and fluid management per MD Plan of Care: RD following, TF rec's, monitoring for tolerance and adequacy Reason for Nutrition Involvement: follow up Primary Diagnose(s): acute respiratory distress due to COVID-19 PMH: no pertinent hx RD Assessment: 03/04: Follow up. Pt remains intubated. Per MD note, pt was prone overnight. Tube feed rate of Glucerna 1.2 was at 50 mL/hr this morning and propofol is not infusing per chart. Recommendations provided. Will continue to monitor. 03/01: Pt now intubated, sedated, and paralyzed. No pressors. Pt requiring proning, TF off currently per drafter plumbing. Pt assessed and TF rec's provided. Pt may continue TF while being proned by being placed in reverse Trendelenburg position. TF rec's provided. (02/22) 54 YOM admitted for acute respiratory distress due to COVID-19. Pt evaluated today for LOS. Unable to enter pt's room due to current isolation precautions. No poor intake or wt loss reported per admit notes. Pt with 100% intake per chart. LBM 02/17, no GI distress reported by RN. Skin intact. Chart reviewed. Labs and meds reviewed. Will continue to monitor. GI: no BM documented, soft, non-tender abdomen Skin: intact Labs: 03/04: Na 142, K 4.1, BUN 12, Cr 0.55, Glu 88, Ca 8.1, AST 98, ALT 165 03/01: Na 138, K 4.5, BUN 16, Cr 0.58, gluc 102, POC Gluc 128-162 Meds: zinc sulfate, vitamin D, vitamin C, rocuronium, fentanyl, propofol, insulin, lasix, dexmethasone, Imodium, zofran Ht: 65 in Wt: 162 lbs (03/04) 167 lb (02/21) BMI: 27.8 kg/m2 (Weight used: 167 lbs) IBW: 136 lb Estimated Nutritional Needs: Calories: 9610-1331 (20-25 kcal/kg/d) Weight used: 167 lbs Protein: 87-134 (1.3-2 g/kg/d) Weight used: 167 lbs Diet Adequacy: meeting calorie needs, Not meeting protein needs Current Diet: TF: Glucerna 1.2 at 50 ml/hr (provides 1440 kcal, 72 g protein) Malnutrition Evaluation (02/23/20) The patient does not meet criteria for a specified degree of malnutrition at this time. Will re-evaluate at follow-up as appropriate. Unable to assess per current isolation precautions. Diet Education Needs Assessment: Diet education not indicated. Nutrition Care Level: Moderate Nutrition Diagnosis: Inadequate energy and protein intake related to intubation as evidenced by requiring EN. Goal: Patient will meet 75-100% of estimated needs by follow up Progress: progressing Interventions: Tube feeding - Composition, Rate, Route Monitoring/Evaluation: Total energy intake, Total protein intake, Formula/Solution, Weight change Signed: Shweta Aguilera RD, LD
[2020-03-04] MEDS ORDERED: FUROSEMIDE INJ 10 MG/ML 4 ML VIAL ONE (18:33)
--- NOTE | 2020-03-04 18:39 | Diagnostic Imaging Report ---
EXAM: Abdomen 1 Views INDICATION: Acute respiratory distress COMPARISON: Multiple prior chest radiographs dating back to 02/25/2020. FINDINGS: The examination is severely limited due to motion artifact and underpenetration. Lines/tubes: There is a nasogastric tube in place, however, its tip is not well visualized. Retained contrast within the colon. Nonobstructive bowel gas pattern. . Mild degenerative changes in the lumbar spine and pelvis. IMPRESSION: 1. Nasogastric tube in place with tip that is not well visualized. 2. Nonobstructive bowel gas pattern with contrast material in the colon. Signed by: Nestor Corrales MD on 03/04/2020 6:36 PM
--- NOTE | 2020-03-04 18:44 | Diagnostic Imaging Report ---
EXAMINATION: CHEST SINGLE (NOT PORTABLE) INDICATION: NG PLACEMENT CHEST TUBE PLACEMENT COMPARISON: Same day radiographs. FINDINGS: TUBES and LINES: There is an endotracheal tube which terminates approximately 3 cm above the briseida. There is a left chest tube in place. There is a nasogastric tube which terminates within the expected location of gastric fundus. LUNGS/PLEURA: Re-demonstration of multifocal airspace opacification. No interval changes. PLEURA: No pleural effusion or pneumothorax. HEART AND MEDIASTINUM: No interval changes. BONES AND SOFT TISSUES: No interval changes. UPPER ABDOMEN: No free air under the diaphragm. IMPRESSION: 1. Interval advancement of nasogastric tube which now terminates within the expected location of gastric fundus. Support devices as above. 2. No interval changes in radiographic appearance of the chest. Signed by: Nestor Corrales MD on 03/04/2020 6:41 PM
--- NOTE | 2020-03-04 19:31 | Operative Report ---
DATE OF PROCEDURE: SURGEON: Drew Everett MD PROCEDURE: Surgical chest tube placement. PREOPERATIVE DIAGNOSIS: Tension pneumothorax. POSTOPERATIVE DIAGNOSIS: Tension pneumothorax. CONSENT: Consent was deemed emergent due to hemodynamic instability. PROCEDURE IN DETAIL: The patient was desaturating into the low 40s. He was also tachycardic. Breath sounds are decreased on the left side. The chest appeared asymmetric and was difficult to bag the patient, raising a concern for left pneumothorax. The 2nd intercostal space was prepped sterilely with Betadine. A 16-gauge needle was used to puncture the parietal pleura and enter the pleural cavity. There was an air leak. The patient was subsequently re-prepped in the left lateral chest wall in the mid axillary line until 6th intercostal space. A 3 cm incision was made. Hemostats were used to dissect down to the prior pleura. The parietal pleura was punctured with a hemostat. A 28-[place]an tube was placed through the 6th intercostal space into the pleural cavity. There was good air return. The patient was hooked up to a Pleur-evac and there was an air leak with some serosanguineous drainage. COMPLICATIONS: None. ESTIMATED BLOOD LOSS: None. Drew Everett MD LMH/MODL /[id number]
--- NOTE | 2020-03-04 20:07 | NUR ---
patient ett cuff leak determined and was exchanged by dr. blandon and staff at bedside. desating: bagged patient. did not loose pulse. no acls meds given. chest tube placed to left lateral side chest emergently. stable now.
--- NOTE | 2020-03-04 20:12 | NUR ---
patient supined today this afternoon. right forehead with swollen area noted and skin abraison. left and right knees with skin abraisons noted. order for wound consult placed.
--- NOTE | 2020-03-04 20:14 | NUR ---
tolerating tube feeds well. no residuals noted.
--- NOTE | 2020-03-04 20:16 | NUR ---
consult for dr. campbell called to office. left message with answering service. no return call needed. to eval for tracheostomy placement
[2020-03-04 20:43] LABS: ABG HCO3 45 mmol/L (22-26); ABG PCO2 100 mmHg (35-45); ABG PH 7.26 (7.35-7.45); ABG PO2 89 mmHg (80-105)
[2020-03-05] VITALS (23 sets, daily range): BP systolic 108–178; BP diastolic 15–98
--- NOTE | 2020-03-05 01:05 | Diagnostic Imaging Report ---
EXAMINATION: CHEST SINGLE (PORTABLE) INDICATION: Desaturation COMPARISON: Left chest x-ray 03/04/2020 FINDINGS: TUBES and LINES: ET tube tip 3.37 m above briseida. Enteric tube tip in the left upper abdomen. Percutaneous left chest pleural tube tip in the left mid chest. Right upper extremity PICC tip in the low SVC. LUNGS: Extensive haziness in the right lung. New left lung near complete collapse. PLEURA: New large left pneumothorax. HEART AND MEDIASTINUM: Rightward deviation of the mediastinum. The cardiomediastinal silhouette is unremarkable. BONES AND SOFT TISSUES: No acute osseous lesion. Increased left chest subcutaneous changes of emphysema UPPER ABDOMEN: No free air under the diaphragm. IMPRESSION: New large left pneumothorax with findings concerning for tension pneumothorax in spite of left chest tube. Extensive airspace disease in the right lung. Findings discussed with ICU nurse Jose who confirmed the ICU physician is aware at 12:50 AM on 03/05/[address] Pacheco via telephone Signed by: Graeme Pacheco DO on 03/05/2020 1:02 AM
[2020-03-05] MEDS: PROPOFOL IV EMULSION 10MG/ML 100 ML IV PRN ×2 (03:35→15:25)
--- NOTE | 2020-03-05 03:37 | Diagnostic Imaging Report ---
EXAMINATION: CHEST SINGLE (PORTABLE) INDICATION: Status post chest tube placement COMPARISON: Chest x-ray 03/05/2020 12:04 AM FINDINGS: TUBES and LINES: New left pleural percutaneous tube, the other left cutaneous pleural tube is unchanged.. ET tube tip 3.3 cm above briseida. Enteric tube tip in the left upper abdomen. Right upper extremity PICC tip in the low SVC.. LUNGS: Reexpansion of the left lung. Extensive airspace disease PLEURA: Minimal residual left pneumothorax. HEART AND MEDIASTINUM: The cardiomediastinal silhouette is unremarkable. BONES AND SOFT TISSUES: No acute osseous lesion. Left chest subcutaneous emphysema. Degenerative changes. UPPER ABDOMEN: No free air under the diaphragm. Radiopaque contrast in the splenic flexure of the colon. IMPRESSION: Reexpansion of the left lung status post additional left chest tube placement with small residual left pneumothorax.. Extensive airspace disease/pneumonia. Signed by: Graeme Pacheco DO on 03/05/2020 3:33 AM
[2020-03-05 04:33] LABS: ABG HCO3 45 mmol/L (22-26); ABG PCO2 95 mmHg (35-45); ABG PH 7.28 (7.35-7.45); ABG PO2 72 mmHg (80-105)
[2020-03-05] MEDS: MIDAZOLAM HCL 5MG/ML 10ML VIAL 100 ML IV PRN ×4 (04:40→21:15)
[2020-03-05] MEDS: CEFEPIME 1GM/NS 0.9% 50 ML 50 ML IV SCH ×2 (05:37→17:00)
[2020-03-05] MEDS: FENTANYL 2000MCG/NS 250 250 ML IV PRN ×3 (05:39→19:45)
[2020-03-05 05:52] LABS: BASOPHILS % 0.3 % (0.0-1.0); EOSINOPHILS % 0.3 % (0.0-6.0); HEMATOCRIT 27.1 % (38.2-49.6); HEMOGLOBIN 8.2 g/dL (14.0-18.0); LYMPHOCYTES # (AUTO) 0.4 (1.0-3.2); LYMPHOCYTES % 6.5 % (18.0-39.1); MEAN CORPUSCULAR HEMOGLOBIN 31.3 pg (28-32); MEAN CORPUSCULAR HGB CONC 30.3 g/dL (31-35); MEAN CORPUSCULAR VOLUME 103.4 fL (81-99); MONOCYTES # (AUTO) 0.1 (0.2-0.8); MONOCYTES % 2.1 % (4.4-11.3); NEUTROPHILS # (AUTO) 5.9 (2.1-6.9); NEUTROPHILS % 86.1 % (38.7-80.0); PLATELET COUNT 260 x10e3/uL (140-360); RED BLOOD COUNT 2.62 x10e6/uL (4.3-5.7); RED CELL DISTRIBUTION WIDTH 12.4 % (11.7-14.4)
[2020-03-05] MEDS: ALBUTEROL/IPRATROPIUM 3 ML NEB NEB SCH ×2 (06:00→15:00)
[2020-03-05 06:22] LABS: BLOOD UREA NITROGEN 17 mg/dL (7-26); BUN/CREATININE RATIO 25 (6-25); CALCIUM 8.6 mg/dL (8.4-10.2); CHLORIDE 94 mmol/L (98-107); CREATININE, SERUM 0.68 mg/dL (0.72-1.25); EST GLOMERULAR FILTRATION RATE > 60 ML/MIN (60-); GLUCOSE 118 mg/dL (74-118); SODIUM 142 mmol/L (136-145)
[2020-03-05] MEDS: INSULIN REGULAR, HUMAN 100 UNIT/1 ML 3ML VIAL SQ SCH ×4 (06:37→18:39)
[2020-03-05 06:45] LABS: CARBON DIOXIDE 43 mmol/L (22-29)
[2020-03-05] MEDS: ROCURONIUM BROMIDE 250 MG in SODIUM CHLORIDE 0.9% 250ML 225 ML IV SCH ×5 (07:14→20:50)
--- NOTE | 2020-03-05 09:04 | Operative Report ---
DATE OF PROCEDURE: SURGEON: Drew Everett MD PROCEDURE: Surgical chest tube placement. PREOPERATIVE DIAGNOSIS: Pneumothorax. POSTOPERATIVE DIAGNOSIS: Pneumothorax. CONSENT: Consent was deemed emergent due to hemodynamic instability. ANESTHESIA: The patient was on Versed and fentanyl at the time of the procedure. 1% lidocaine was used for local anesthesia. PROCEDURE IN DETAIL: The nursing staff notified because of decreasing saturations into the low 80s as well as increased airway pressures. Stat portable chest x-ray showed a recurrent pneumo on the left side despite the chest tube in the thoracic cavity. A left lateral thorax was prepped sterilely with chlorhexidine. Sterile drapes, sterile gloves, as well as sterile mask were used. An incision was made at the 7th intercostal space in the mid axillary line just inferior to the existing chest tube. Hemostat was used to dissect down to the parietal pleura. Hemostat was then placed through the parietal pleura. There was a noticeable air leak. The palpation revealed some underlying lung tissue. A 24-[place] Islander chest tube was then placed through the intercostal space. It was connected to a Pleur-evac with good air leak and some drainage. ESTIMATED BLOOD LOSS: None. COMPLICATIONS: None. Drew Everett MD LMH/MODL /[id number]
[2020-03-05 09:14] LABS: ABG HCO3 45 mmol/L (22-26); ABG PCO2 85 mmHg (35-45); ABG PH 7.33 (7.35-7.45); ABG PO2 95 mmHg (80-105)
[2020-03-05] MEDS: ZINC SULFATE 220 MG CAP PO SCH (09:21)
[2020-03-05] MEDS: ENOXAPARIN INJ 80 MG/0.8 ML SYR SC SCH (09:21)
[2020-03-05] MEDS: CHOLECALCIFEROL 400 UNIT TAB PO SCH ×2 (09:21→17:00)
[2020-03-05] MEDS: ASCORBIC ACID 500 MG TAB PO SCH ×2 (09:21→17:00)
--- NOTE | 2020-03-05 09:34 | Progress Note ---
DATE: Pulmonary Critical Care Progress Note SUBJECTIVE: The patient required a chest tube yesterday and the second chest tube early this morning because of persistent left pneumothorax. The patient is currently on rocuronium as well as Versed and fentanyl. He is on a PRVC mode ventilation, rate of 34 with a tidal volume of 380 and a PEEP of 16. His FiO2 is set at 100%. OBJECTIVE: HEENT: Shows no facial swelling or erythema. LYMPHATIC: Shows no submandibular, cervical, or supraclavicular adenopathy. CARDIAC: Reveals regular rate and rhythm with normal S1, S2. LUNGS: Auscultation of lungs reveals crackles at the bases. There is some subcutaneous emphysema on the left side. Both chest tubes are in good position and there are air leaks in the chamber of the Pleur-evac. The patient also has a PICC line in place as well as an arterial line. CARDIAC: Reveals regular rate and rhythm. Normal S1, S2. LUNGS: Auscultation of lungs shows decreased breath sounds at the bases. ABDOMEN: Soft and nontender. There is no rebound or guarding. EXTREMITIES: Shows no leg edema or calf tenderness. There is no cyanosis or clubbing. SKIN: Shows no rashes. NEUROLOGIC: Shows the patient to be sedated. LABORATORY DATA: White blood cell count is 6.8, hemoglobin is 8.2, and platelet count is 260. The BUN to creatinine ratio is normal. The carbon dioxide is 43. ABG shows pH of 7.33 with CO2 of 84.5, PO2 of 95, and bicarbonate of 44.8. RADIOGRAPHIC DATA: Shows re-expansion of the left lung with two chest tubes in place. There is bilateral airspace disease. The PIC is in good position. The ET tube is in good position. IMPRESSION: 1. Acute respiratory failure. 2. Left pneumothorax. 3. COVID-19 and viral pneumonia. 4. Anemia, unspecified. 5. Moderate protein-calorie malnutrition. PLAN: 1. Decrease tidal volume to 370 mL and continue PEEP at 16. Repeat ABG later today. 2. Continue both chest tubes to suction. 3. Thoracic Surgery consultation. 4. Continue bronchodilators. 5. Continue Lovenox. 6. Complete Decadron. 7. Consider chest CT if the patient is stable enough for transport. Case discussed with nightshift nursing, dayshift nursing, Respiratory, daughter, Thoracic Surgery, and Infectious Disease. Greater than 35 minutes in direct critical care time apart from any procedures performed. MD TEODORA Newton/HARPAL /[id number]
--- NOTE | 2020-03-05 09:59 | Diagnostic Imaging Report ---
EXAMINATION: CHEST SINGLE (PORTABLE) INDICATION: resp failure COMPARISON: Multiple prior chest x-ray examinations most recent dated 03/05/2020. FINDINGS: AP view TUBES and LINES: Left pleural percutaneous tube, the other left cutaneous pleural tube is unchanged.. ET tube tip 5.5 cm above briseida. Enteric tube tip in the left upper abdomen. Right upper extremity PICC tip in the low SVC.. LUNGS/PLEURA: Lungs are well inflated. There are persistent bilateral patchy opacities could represent multifocal pneumonia or ARDS.. There is no pleural effusion or pneumothorax. HEART AND MEDIASTINUM: The cardiomediastinal silhouette is unremarkable. BONES AND SOFT TISSUES: No acute osseous lesion. Soft tissues are unremarkable. UPPER ABDOMEN: No free air under the diaphragm. IMPRESSION: Persistent bilateral patchy opacities could represent multifocal pneumonia or ARDS. Signed by: Celestine Trujillo MD on 03/05/2020 9:56 AM
--- NOTE | 2020-03-05 13:50 | Progress Note ---
DATE: 03/05/2020 Medicine Progress Note SUBJECTIVE: The patient is not doing very well at all today. Yesterday, he had a cuff leak. He had to be bagged, had to be reintubated. He also developed pneumothorax as well. He now has [address] He is being managed by Pulmonary Critical Care. Overall, patient is in very critical condition, very ill. PHYSICAL EXAMINATION: VITAL SIGNS: Temperature is 97.2, pulse 87, respiratory rate is 34, blood pressure 143/75, pulse ox 92% on mechanical ventilator. He is on 100% FiO2. LABORATORY DATA: White count is 6.8, hemoglobin is 8.2, hematocrit 27, platelets of 260. Chemistry; sodium 142, potassium 5, chloride 94, bicarb 43, anion gap of 10, BUN is 17, creatinine 0.68, glucose is 118, calcium is 8.6. IMAGING STUDIES: His chest x-ray is consistent with bilateral patchy opacities, multifocal pneumonia, ARDS picture. PHYSICAL EXAMINATION: GENERAL: He is intubated and sedated. PULMONARY: He has [address] He is intubated, sedated. CARDIOVASCULAR: Positive S1, S2. No murmurs, rubs, or gallops appreciated. ABDOMEN: Soft, nondistended, nontender to palpation. Bowel sounds present. MUSCULOSKELETAL: Unable to assess. He is intubated and sedated. NEUROLOGICAL: Intubated and sedated. SKIN: He has a soft tissue swelling in the frontal aspect of his forehead. He has some bruising noted on his bilateral lower extremity feet. EXTREMITIES: He does have some edema. IMPRESSION: 1. Acute respiratory failure on mechanical ventilator secondary to coronavirus disease-19 pneumonia. 2. Pneumothorax, status post [address] 3. Sepsis with leukocytosis secondary to coronavirus disease-19 pneumonia. 4. Atypical chest pain. 5. Right upper extremity superficial thromboses. PLAN: At this time, the patient is very ill. He had to have [address] due to underlying pneumothorax, which was placed by Pulmonary. At this time, the patient is in very critical condition. The daughter has been updated, critical care attending as well as the nursing staff. We will continue with steroids, antibiotics, full-dose anticoagulation. His bicarbonate is elevated, but is being adjusted accordingly with the vent. Continue with tube feeds. Family will need to consider code status change as this patient is very ill. We will get morning labs. Monitor very closely. Appreciate Pulmonary and Critical Care assistance on this case. MD BOB Burleson/HARPAL /[id number]
[2020-03-05] MEDS: DEXAMETHASONE PHOS 4MG/ML 6 MG in SODIUM CHLORIDE 0.9% 50ML 50 ML IV SCH (15:24)
--- NOTE | 2020-03-05 18:14 | Diagnostic Imaging Report ---
EXAMINATION: CHEST SINGLE (PORTABLE) INDICATION: ^pneumothorax ^[id number] ^[id number] COMPARISON: Multiple prior chest x-ray examinations most recent dated 03/05/2020 at 6:53 AM.. FINDINGS: AP view TUBES and LINES: Left pleural percutaneous tube, the other left cutaneous pleural tube is unchanged.. ET tube tip 5.5 cm above briseida. Enteric tube tip in the left upper abdomen. Right upper extremity PICC tip in the low SVC.. LUNGS/PLEURA: There are persistent bilateral patchy opacities could represent multifocal pneumonia or ARDS.. There is new left apical moderate pneumothorax. There is new obscuration of the left costophrenic angle which could be due to atelectasis and/or effusion. HEART AND MEDIASTINUM: The cardiomediastinal silhouette is unremarkable. BONES AND SOFT TISSUES: No acute osseous lesion. Soft tissues are unremarkable. UPPER ABDOMEN: No free air under the diaphragm. IMPRESSION: Persistent bilateral patchy opacities could represent multifocal pneumonia or ARDS. New moderate size left apical pneumothorax. New obscuration of the left costophrenic angle which could be due to atelectasis and/or effusion. . Signed by: Celestine Trujillo MD on 03/05/2020 6:11 PM
--- NOTE | 2020-03-05 19:11 | Progress Note ---
DATE: 03/05/2020 REASON FOR PROGRESS NOTE: Respiratory insufficiency, COVID-19; requested by Dr. Raymundo Everett. SUBJECTIVE: The patient is stable in the COVID-19 unit. He required a chest tube yesterday for pneumothorax and a 2nd chest tube early this morning for the same reason. Currently, the chest tubes are in place and had air leaks. OBJECTIVE: VITAL SIGNS: Ventilatory rate 34 with tidal volume 380 with PEEP 16. FiO2 95% with O2 saturation 99%. NECK: Supple. Nontender. There is some crepitus on the left base of neck. CHEST: Coarse ventilator sounds bilaterally. There is some crepitus along the left chest wall. This is not tense. CARDIAC: Shows a regular rate and rhythm. Normal S1 and S2. No rub or murmur. ABDOMEN: Hypoactive bowel sounds. Soft, nontender. EXTREMITIES: No cyanosis, clubbing, or edema. No rashes. NEUROLOGIC: The patient is intubated and sedated. LABORATORY DATA: Chest x-ray is reviewed. The left lung is fully expanded. There is subcutaneous air along the left chest wall, but this is not marked. The right lung is fully expanded. Hemoglobin 8.2, white count 6.8. ABG shows pCO2 of 84.5 with PO2 of 95. PH 7.33. REVIEW OF SYSTEMS: Unobtainable because the patient is intubated and sedated. IMPRESSION: A critically ill patient with coronavirus disease-19. He is currently clinically stable. Chest tubes have air leaks and are draining. I agree with current management. Missael Buckley MD GVL/MODL /[id number]
[2020-03-05 22:08] LABS: ABG HCO3 46 mmol/L (22-26); ABG PCO2 91 mmHg (35-45); ABG PH 7.31 (7.35-7.45); ABG PO2 81 mmHg (80-105)
--- NOTE | 2020-03-05 22:17 | Diagnostic Imaging Report ---
EXAMINATION: CHEST SINGLE (PORTABLE) INDICATION: Chest tube COMPARISON: Chest x-ray 03/05/2020 5:53 PM FINDINGS: TUBES and LINES: ET tube tip 6.2 cm above briseida. Right upper extremity PICC, tip in the superior cavoatrial junction. Enteric tube tip in the left upper abdomen. 2 left chest tubes unchanged. LUNGS: Diffuse airspace disease with increased coarseness of airspace opacities. PLEURA: No pleural effusion or pneumothorax. HEART AND MEDIASTINUM: The cardiomediastinal silhouette is unremarkable. BONES AND SOFT TISSUES: No acute osseous lesion. Decreased left chest wall subcutaneous emphysema. UPPER ABDOMEN: No free air under the diaphragm. Radiopaque contrast in the splenic flexure of the colon. IMPRESSION: ET tube tip has retracted slightly, now 6.2 cm above briseida, consider 2 cm advancement. Otherwise stable support apparatus with 2 left percutaneous pleural tubes. No radiographically evident pneumothorax. Diffuse airspace disease/infection. Signed by: Graeme Pacheco DO on 03/05/2020 10:14 PM
--- NOTE | 2020-03-05 22:41 | Progress Note ---
DATE: ADDENDUM: Today, the daughter, later this evening, she wanted her father to be transferred to [facility]. The patient is very unstable for transfer. Minimal movement allows the patient to become very hypoxic and he gets very desaturated. At this time, I spoke with Pulmonary and Critical Care, Dr. Everett and he agrees that the patient should not be transferred at this time. Once the patient is more stable, we will be happy to follow the family's wishes. At this time, transporting this patient at the current moment will increase the risk of coding him. He is very unstable for transfer at this time. I have discussed this with the fabrication supervisor and the floor nurse taking care of the patient as well as Pulmonary and Critical Care doctor. They were reiterate this to the family later this evening. At this time, we will continue same plan of care. Monitor him very closely. Overall stay very critical and very poor prognosis. MD BOB Burleson/HARPAL /[id number]
[2020-03-06] VITALS (21 sets, daily range): BP systolic 95–210; BP diastolic 55–98
[2020-03-06] MEDS: ALBUTEROL/IPRATROPIUM 3 ML NEB NEB SCH ×4 (00:15→22:30)
[2020-03-06] MEDS: MIDAZOLAM HCL 5MG/ML 10ML VIAL 100 ML IV PRN ×3 (00:25→16:52)
[2020-03-06] MEDS: INSULIN REGULAR, HUMAN 100 UNIT/1 ML 3ML VIAL SQ SCH ×4 (00:45→16:55)
[2020-03-06] MEDS: FENTANYL 2000MCG/NS 250 250 ML IV PRN ×3 (02:10→18:40)
--- NOTE | 2020-03-06 03:07 | Diagnostic Imaging Report ---
EXAMINATION: CHEST SINGLE (PORTABLE) INDICATION: Pneumothorax, chest tube placement COMPARISON: Chest x-ray 03/05/2020 FINDINGS: TUBES and LINES: ET tube tip 6.2 cm above briseida. Right upper extremity PICC, tip in the superior cavoatrial junction. Enteric tube tip in the left upper abdomen. 2 left chest tubes unchanged. LUNGS: Diffuse airspace disease with increased coarseness of airspace opacities. Lungs are clear. No consolidations. PLEURA: No pleural effusion or pneumothorax. HEART AND MEDIASTINUM: The cardiomediastinal silhouette is unremarkable. BONES AND SOFT TISSUES: No acute osseous lesion. Decreased left chest wall subcutaneous emphysema. UPPER ABDOMEN: No free air under the diaphragm. Radiopaque contrast in the splenic flexure of the colon. IMPRESSION: ET tube tip 6.2 cm above briseida, consider 2 cm advancement. Otherwise stable support apparatus with 2 left percutaneous pleural tubes. No radiographically evident pneumothorax. Diffuse airspace disease/infection. Signed by: Graeme Pacheco DO on 03/06/2020 3:04 AM
[2020-03-06] MEDS: CEFEPIME 1GM/NS 0.9% 50 ML 50 ML IV SCH ×2 (05:30→16:54)
[2020-03-06 05:55] LABS: BASOPHILS % 0.4 % (0.0-1.0); EOSINOPHILS % 0.1 % (0.0-6.0); HEMATOCRIT 26.4 % (38.2-49.6); HEMOGLOBIN 8.1 g/dL (14.0-18.0); LYMPHOCYTES # (AUTO) 0.3 (1.0-3.2); LYMPHOCYTES % 4.9 % (18.0-39.1); MEAN CORPUSCULAR HEMOGLOBIN 31.8 pg (28-32); MEAN CORPUSCULAR HGB CONC 30.7 g/dL (31-35); MEAN CORPUSCULAR VOLUME 103.5 fL (81-99); MONOCYTES # (AUTO) 0.2 (0.2-0.8); MONOCYTES % 2.9 % (4.4-11.3); NEUTROPHILS % 86.8 % (38.7-80.0); PLATELET COUNT 328 x10e3/uL (140-360); RED BLOOD COUNT 2.55 x10e6/uL (4.3-5.7); RED CELL DISTRIBUTION WIDTH 12.3 % (11.7-14.4)
[2020-03-06 06:10] LABS: INR 0.99; PROTHROMBIN TIME 13.7 seconds (11.9-14.5)
[2020-03-06 06:11] LABS: PARTIAL THROMBOPLASTIN TIME 34.8 seconds (23.8-35.5)
[2020-03-06 06:13] LABS: ALANINE AMINOTRANSFERASE 139 IU/L (0-55); ALBUMIN 2.8 g/dL (3.5-5.0); ALBUMIN/GLOBULIN RATIO 0.7 (0.8-2.0); ALKALINE PHOSPHATASE 88 IU/L (40-150); ANION GAP 11.9 mmol/L (8-16); BLOOD UREA NITROGEN 16 mg/dL (7-26); BUN/CREATININE RATIO 27 (6-25); CALCIUM 8.4 mg/dL (8.4-10.2); CHLORIDE 90 mmol/L (98-107); EST GLOMERULAR FILTRATION RATE > 60 ML/MIN (60-); GLUCOSE 168 mg/dL (74-118); POTASSIUM 4.9 mmol/L (3.5-5.1); SODIUM 141 mmol/L (136-145)
[2020-03-06 06:19] LABS: CARBON DIOXIDE 44 mmol/L (22-29)
[2020-03-06 06:38] LABS: PHOSPHORUS 2.2 MG/DL (2.3-4.7)
--- NOTE | 2020-03-06 08:35 | Diagnostic Imaging Report ---
Examination: Single AP view of the chest. COMPARISON: 03/06/2020 INDICATION: Pneumonia DISCUSSION: Lines/tubes: Endotracheal tube, enteric tube, right PICC line, and left chest tube are stable. Lungs: Stable multifocal ground glass and airspace consolidations. Pleura: There is no pleural effusion or pneumothorax. Heart and mediastinum: The heart and the mediastinum are unremarkable. Bones and soft tissues: No acute bony abnormalities. IMPRESSION: Stable multifocal groundglass and airspace consolidations. Signed by: Dr. Cain Figueroa M.D. on 03/06/2020 8:32 AM
[2020-03-06] MEDS: ZINC SULFATE 220 MG CAP PO SCH (09:00)
[2020-03-06] MEDS: ASCORBIC ACID 500 MG TAB PO SCH ×2 (09:18→16:54)
[2020-03-06] MEDS: CHOLECALCIFEROL 400 UNIT TAB PO SCH ×2 (09:18→16:54)
[2020-03-06] MEDS: PROPOFOL IV EMULSION 10MG/ML 100 ML IV PRN ×2 (09:19→09:21)
[2020-03-06 09:31] LABS: ABG HCO3 44 mmol/L (22-26); ABG PCO2 85 mmHg (35-45); ABG PH 7.32 (7.35-7.45); ABG PO2 86 mmHg (80-105)
--- NOTE | 2020-03-06 13:54 | Progress Note ---
DATE: Pulmonary Progress Note SUBJECTIVE: The patient had a recurrent apical left pneumothorax last night and required re-adjustment of his chest tubes. The chest x-ray subsequently showed resolution of pneumothorax. There is no air leak in either chest tubes. The patient remains on a PRVC mode of ventilation at a rate of 34 with a tidal volume of 360 and a PEEP of 14. The FiO2 is set at 85%. The patient remains sedated on Versed and fentanyl. He is also on rocuronium. OBJECTIVE: VITAL SIGNS: The patient is afebrile. The blood pressure is 164/71. His respiratory rate is 34 with the ventilator. Saturation is 94% on the settings noted above. There is no facial swelling or erythema. There is an oral endotracheal tube in place. There is a PICC line. There is an arterial line. There are 2 chest tubes on the left side. There is no air leak. CARDIAC: Reveals regular rate and rhythm with normal S1 and S2. LUNGS: Auscultation of lungs reveals rhonchus breath sounds bilaterally. There is no wheezing. ABDOMEN: Soft, nontender. There is no rebound or guarding. EXTREMITIES: Shows no leg edema or calf tenderness. There is no cyanosis or clubbing. SKIN: Shows no rashes. NEUROLOGICAL: Shows no focal abnormalities. LABORATORY DATA: BUN to creatinine ratio is normal. The other electrolytes are within normal limits. Albumin is 2.8. The white blood cell count is 6.9, hemoglobin is 8.1. The platelet count is 328. RADIOGRAPHIC DATA: Chest x-ray shows bilateral infiltrates with two chest tubes in place and resolution of the pneumothorax. ABGs 7.32, 85, 86 and 44. ASSESSMENT: 1. Acute respiratory failure. 2. Left pneumothorax. 3. Coronavirus disease-19 and viral pneumonia. 4. Anemia, unspecified. 5. Moderate protein-calorie malnutrition. PLAN: 1. Continue current ventilator settings and repeat ABG later today. 2. Continue chest tubes to suction. 3. Restart Lovenox. 4. Complete Decadron. 5. Continue Versed and fentanyl and try and wean rocuronium as tolerated. Case discussed with nightshift nursing, dayshift nursing, Respiratory, Internal Medicine, and Thoracic Surgery. Greater than 35 minutes in direct critical care time apart from any procedures performed. MD TEODORA Newton/BARBARAL /[id number]
--- NOTE | 2020-03-06 13:54 | Progress Note ---
DATE: 03/06/2020 Medicine Progress Note SUBJECTIVE: The patient down to 90% FiO2. Still has a chest tubes. No overnight events. Discussed with the nurse about overnight. PHYSICAL EXAMINATION: VITAL SIGNS: Temperature is 98.4, pulse 89, respiratory rate is 34, blood pressure 124/55, and pulse ox 95% on a mechanical ventilator. GENERAL: Intubated and sedated. PULMONARY: Intubated and sedated, on mechanical ventilator 90% FiO2. CARDIOVASCULAR: Positive S1 and S2. No murmurs, rubs, or gallops appreciated. ABDOMEN: Soft, nondistended, and nontender to palpation. Bowel sounds present. MUSCULOSKELETAL: Unable to assess. NEUROLOGIC: Intubated and sedated. SKIN: Intact. Warm to touch. Good cap refill. EXTREMITIES: No edema appreciated. LABORATORY DATA: Show white count 6.9, hemoglobin 8.1, hematocrit is 26, and platelets of 328. Sodium 141, potassium 4.9, chloride 90, bicarb 44, anion gap of 11, BUN is 16, creatinine is 0.6, and glucose is 168. Magnesium 2. AST 38 and ALT 139. Albumin 2.8. IMAGING STUDIES: Chest x-ray, stable multifocal ground-glass opacity, airspace consolidation. IMPRESSION: 1. Acute respiratory failure secondary to COVID-19 pneumonia, intubated and sedated. 2. Spontaneous pneumothorax with [address] 3. Sepsis with leukocytosis secondary to coronavirus. 4. Right upper extremity superficial thromboses. PLAN: At this time, I spent a significant period of time talking to the patient's daughter, Yazmin by phone with Mahnaz, the nurse and Shavonne, a health kitchen supervisor present throughout the entire conversation, which I discussed with her at this time, her father is not stable to be transferred to [facility]. She had questions in terms of nitric oxide, which we do not provide at this facility. I have also talked with her about the overall current state and how he is doing. I discussed with her that he is still in very critical condition. I advised her due to his current state, transporting him will potentially cause more harm and that he will probably get more hypoxic. The patient with minimal movement gets very hypoxic and his oxygen saturation drops tremendously. At this time, she seems to have agreed with the plan of care. I have talked to her about everything that has been going on and I answered all of her questions at bedside. At this time, we will continue to monitor him closely. If his oxygen requirement improves and he is more stable, I talked with her that at some point we will talk about transfer. She is still happy to do so at a later date, but at this time due to his instability, it was advised not to do any kind of transporting. She agreed with plan of care. We will get morning labs. Full dose anticoagulation. Pulmonary Critical Care and ID are following. He will continue to be full code for now. I will try to talk to Yazmin tomorrow as well and update her on a daily basis. Yazmin by phone verbalized understanding with nurse, Mahnaz and health kitchen supervisor Shavonne present throughout the entire conversation. MD BOB Burleson/HARPAL /[id number]
[2020-03-06] MEDS: DEXAMETHASONE PHOS 4MG/ML 6 MG in SODIUM CHLORIDE 0.9% 50ML 50 ML IV SCH (14:00)
[2020-03-06 20:11] LABS: ABG HCO3 49 mmol/L (22-26); ABG PCO2 93 mmHg (35-45); ABG PH 7.33 (7.35-7.45); ABG PO2 65 mmHg (80-105)
[2020-03-06] MEDS: ENOXAPARIN INJ 80 MG/0.8 ML SYR SC SCH (20:16)
[2020-03-06] MEDS: ROCURONIUM BROMIDE 250 MG in SODIUM CHLORIDE 0.9% 250ML 225 ML IV SCH (20:17)
--- NOTE | 2020-03-06 22:55 | Diagnostic Imaging Report ---
EXAMINATION: CHEST SINGLE (PORTABLE) INDICATION: Respiratory failure COMPARISON: Chest x-ray 03/06/2020 16 a.m. FINDINGS: TUBES and LINES: The endotracheal tube, right IJ PICC, enteric tube, and dual left pleural drains unchanged.. LUNGS: Normal lung volumes. Extensive airspace opacities. PLEURA: No radiographically apparent in the pneumothorax or pleural effusion. HEART AND MEDIASTINUM: The cardiomediastinal silhouette is unremarkable. BONES AND SOFT TISSUES: No acute osseous lesion. Soft tissues are unremarkable. UPPER ABDOMEN: No free air under the diaphragm. IMPRESSION: No radiographically apparent in the pneumothorax. Lines and tubes unchanged. Extensive pneumonia. Signed by: Graeme Pacheco DO on 03/06/2020 10:52 PM
[2020-03-07] VITALS (22 sets, daily range): BP systolic 103–193; BP diastolic 47–85
[2020-03-07] MEDS: MIDAZOLAM HCL 5MG/ML 10ML VIAL 100 ML IV PRN ×4 (00:30→20:47)
[2020-03-07] MEDS: INSULIN REGULAR, HUMAN 100 UNIT/1 ML 3ML VIAL SQ SCH ×4 (00:45→18:00)
[2020-03-07] MEDS: PROPOFOL IV EMULSION 10MG/ML 100 ML IV PRN (02:18)
[2020-03-07] MEDS: ROCURONIUM BROMIDE 250 MG in SODIUM CHLORIDE 0.9% 250ML 225 ML IV SCH ×3 (03:30→21:34)
[2020-03-07] MEDS: CEFEPIME 1GM/NS 0.9% 50 ML 50 ML IV SCH ×2 (04:31→17:00)
[2020-03-07] MEDS: FENTANYL 2000MCG/NS 250 250 ML IV PRN ×2 (05:10→22:02)
[2020-03-07 05:44] LABS: BASOPHILS % 0.2 % (0.0-1.0); EOSINOPHILS % 0.3 % (0.0-6.0); HEMATOCRIT 23.3 % (38.2-49.6); LYMPHOCYTES # (AUTO) 0.4 (1.0-3.2); LYMPHOCYTES % 6.9 % (18.0-39.1); MEAN CORPUSCULAR HEMOGLOBIN 29.7 pg (28-32); MEAN CORPUSCULAR VOLUME 98.7 fL (81-99); MONOCYTES # (AUTO) 0.2 (0.2-0.8); MONOCYTES % 3.4 % (4.4-11.3); NEUTROPHILS # (AUTO) 5.3 (2.1-6.9); NEUTROPHILS % 84.9 % (38.7-80.0); PLATELET COUNT 357 x10e3/uL (140-360); RED BLOOD COUNT 2.36 x10e6/uL (4.3-5.7); RED CELL DISTRIBUTION WIDTH 12.3 % (11.7-14.4)
[2020-03-07 06:07] LABS: ALANINE AMINOTRANSFERASE 91 IU/L (0-55); ALBUMIN 2.3 g/dL (3.5-5.0); ALBUMIN/GLOBULIN RATIO 0.6 (0.8-2.0); ALKALINE PHOSPHATASE 76 IU/L (40-150); ANION GAP 9.6 mmol/L (8-16); BLOOD UREA NITROGEN 16 mg/dL (7-26); BUN/CREATININE RATIO 28 (6-25); CALCIUM 7.8 mg/dL (8.4-10.2); CHLORIDE 90 mmol/L (98-107); CREATININE, SERUM 0.58 mg/dL (0.72-1.25); EST GLOMERULAR FILTRATION RATE > 60 ML/MIN (60-); GLUCOSE 137 mg/dL (74-118); POTASSIUM 4.6 mmol/L (3.5-5.1); SODIUM 138 mmol/L (136-145)
[2020-03-07 06:11] LABS: CARBON DIOXIDE 43 mmol/L (22-29)
[2020-03-07] MEDS: ALBUTEROL/IPRATROPIUM 3 ML NEB NEB SCH ×3 (07:20→22:10)
[2020-03-07] MEDS ORDERED: ALBUTEROL/IPRATROPIUM 3 ML NEB ONE (08:28)
[2020-03-07] MEDS: ZINC SULFATE 220 MG CAP PO SCH (08:41)
[2020-03-07] MEDS: CHOLECALCIFEROL 400 UNIT TAB PO SCH ×2 (08:41→17:00)
[2020-03-07] MEDS: ASCORBIC ACID 500 MG TAB PO SCH ×2 (08:41→17:00)
[2020-03-07] MEDS: ENOXAPARIN INJ 80 MG/0.8 ML SYR SC SCH ×2 (08:41→22:10)
--- NOTE | 2020-03-07 08:46 | Diagnostic Imaging Report ---
EXAMINATION: CHEST SINGLE (PORTABLE) INDICATION: Respiratory failure COMPARISON: Multiple prior chest radiographs most recently 03/06/2020 FINDINGS: LINES/TUBES:Endotracheal tube terminates 5 cm above the briseida. Enteric tube terminates in the stomach. Right PICC line terminates in the superior vena cava. 2 left chest tubes in unchanged position. LUNGS:The lungs are moderately inflated. Unchanged bilateral diffuse patchy airspace opacities. PLEURA:No pleural effusion or pneumothorax. MEDIASTINUM:The cardiomediastinal silhouette appears unchanged in size and shape. BONES/SOFT TISSUES:No acute osseous injury. ABDOMEN:No free air under the diaphragm. IMPRESSION: No significant interval change. Signed by: Katia Lo MD on 03/07/2020 8:43 AM
[2020-03-07] MEDS ORDERED: SODIUM CHLORIDE 0.9% 250ML 250 ML IV ONE (10:15)
--- NOTE | 2020-03-07 10:23 | NUR ---
WOUND CARE CONSULTATION RE LEFT KNEE WOUND. 3X3CM DTI TO RIGHT KNEE WITH SMALL BLISTERS. NO S/S OF INFECTION. UNABLE TO FULLY ASSESS PT AT THIS TIME DUE TO PT'S CONDITION. WBC: 6.25 ALB: 2.3 COVID-19: POSITIVE BLOOD CX: NEGATIVE NURSING TO CONTINUE TO MONITOR DAILY. Addendum: 03/07/20 at 1631 by Danielle Serna RN Amended: Links added.
--- NOTE | 2020-03-07 10:53 | Progress Note ---
DATE: Pulmonary Critical Care Progress Note SUBJECTIVE: The patient is still on a PRVC mode of ventilation. He is set at a rate of 34 with a tidal volume of 380. His FiO2 is set at 75%. His PEEP is set at 14. He remains on fentanyl, Versed, and rocuronium. He has [address] on the left side. There is no air leak. PHYSICAL EXAMINATION: VITAL SIGNS: The blood pressure is 130/47 and saturation is 96%. HEENT: Shows no facial swelling or erythema. LYMPHATIC: Shows no submandibular, cervical, or supraclavicular adenopathy. CARDIOVASCULAR: The patient has a regular rate and rhythm with normal S1 and S2. There are no murmurs or rubs. LUNGS: Auscultation of lungs reveals crackles at the bases. There is no wheezing. ABDOMEN: Soft and nontender. There is no rebound or guarding. EXTREMITIES: Shows no leg edema or calf tenderness. No cyanosis or clubbing. SKIN: Shows no rashes. NEUROLOGIC: Shows the patient to be sedated. LABORATORY DATA: White blood cell count is 6.2 and the hemoglobin is 7. The platelet count is 357. The BUN to creatinine ratio is 16 to 0.58. Albumin is 2.3. BUN to creatinine ratio is normal. Carbon dioxide is 23. RADIOGRAPHIC DATA: Chest x-ray shows continued bilateral infiltrates. Chest tubes are in good position. There is no apparent pneumothorax. The ET tube is in good position. IMPRESSION: 1. Acute respiratory failure. 2. Left-sided pneumothorax. 3. Anemia secondary to [id number]-[id number] blood loss. 4. Viral pneumonia and COVID-19 infection. 5. Moderate protein-calorie malnutrition. PLAN: 1. The patient received one unit of packed red blood cells today. 2. Continue current ventilator settings and monitor ABGs. 3. COVID, complete Decadron. 4. Restart Lovenox. 5. Continue Versed, fentanyl, and rocuronium. 6. Complete antibiotics. 7. Case discussed with manager night nursing, day shift nursing, Internal Medicine, Respiratory, and administration. Greater than 35 minutes in direct critical care time apart from any procedures performed. Drew Everett MD [facility]/MODL /[id number]
[2020-03-07 11:01] LABS: ABG PCO2 78 mmHg (35-45); ABG PH 7.38 (7.35-7.45)
[2020-03-07 11:02] LABS: ABG HCO3 46 mmol/L (22-26); ABG PO2 65 mmHg (80-105)
[2020-03-07] MEDS ORDERED: MIDAZOLAM HCL 5MG/ML 10ML VIAL 100 ML IV ONE (12:36)
[2020-03-07] MEDS ORDERED: FENTANYL 2000MCG/NS 250 250 ML ONE (12:36)
[2020-03-07] MEDS: DEXAMETHASONE PHOS 4MG/ML 6 MG in SODIUM CHLORIDE 0.9% 50ML 50 ML IV SCH (14:00)
--- NOTE | 2020-03-07 15:33 | Progress Note ---
DATE: 03/07/2020 REASON FOR PROGRESS NOTE: Respiratory insufficiency, COVID-19; requested by Dr. Raymundo Everett. SUBJECTIVE: The patient is stable in the COVID-19 unit. Chest tubes are in place and functioning well. There were some clots within it. Air leak is present. OBJECTIVE: VITAL SIGNS: Ventilatory rate at 34 with tidal volume 390. PEEP of 16. FiO2 75% with O2 saturation 95%. NECK: Supple, nontender. Minimal crepitus. CHEST: Coarse ventilator sounds bilaterally. Some crepitus along the left chest wall, that is not prominent. CARDIAC: Regular rate and rhythm. Normal S1, S2. No rub or murmur. ABDOMEN: Hypoactive bowel sounds. Soft, nontender. EXTREMITIES: No cyanosis, clubbing, or edema. No rashes. NEUROLOGIC: The patient is intubated and sedated. LABORATORY DATA: White count 6.25, hemoglobin 7.0, hematocrit 23.3, and platelet count 357,000. Sodium 138, potassium 4.6, creatinine 0.58. Blood gas shows pH 7.38, pCO2 of 78, and PO2 of 65. O2 saturation 98%. IMPRESSION: Clinically stable with some improvement in FiO2. We will follow. MD CHINMAY Hinojosa/MODL /[id number]
--- NOTE | 2020-03-07 16:09 | Progress Note ---
DATE: 03/07/2020 Medicine Progress Note. SUBJECTIVE: The patient still very ill, in critical condition. He is on FiO2 of 75%. I spoke with the nursing staff, Elaina about overnight events. Daughter did talk with Elaina today and was updated. OBJECTIVE: VITAL SIGNS: Temperature 98, pulse 88 respiratory rate 16, blood pressure is 130/46, he is 92%, he is on a mechanical ventilator. GENERAL: Intubated and sedated. PULMONARY: Intubated and sedated. CARDIOVASCULAR: Positive S1, S2. No murmurs, rubs, or gallops appreciated. ABDOMEN: Soft, nondistended, nontender to palpation. Bowel sounds present. MUSCULOSKELETAL: Unable to assess. He is sedated. NEUROLOGICAL: He is sedated. SKIN: Intact. Warm to touch. Good cap refill. EXTREMITIES: Trace edema appropriated. LABORATORY DATA: Labs show white count is 6.2, hemoglobin 7, hematocrit is 23, platelets 357. Chemistry, sodium 138, potassium 4.6, chloride 90, bicarb is 43, anion gap is 11.6, BUN 16, creatinine is 0.58, glucose is 137, calcium 7.8, total protein 6, AST 22, ALT 91, alkaline phosphatase 76. DIAGNOSTIC STUDIES: Lower extremity venous Doppler ordered. Chest x-ray, no significant change. IMPRESSION: 1. Acute respiratory failure secondary to COVID 19 pneumonia, intubated and sedated. 2. Spontaneous pneumothorax with two chest tubes in place. 3. Sepsis with leukocytosis secondary to Coronavirus. 4. Right upper extremity superficial thromboses. 5. Anemia. PLAN: At this time, the patient is receiving blood transfusion. We will continue with antibiotics steroids, vitamins. Continue following with Pulmonary Critical Care and ID recommendations. He is receiving a blood transfusion today. Event already spoke with the nurse today. I spoke with Elaina about the plan of care and verbalized understanding. Otherwise, continue same plan of care. Overall prognosis is very poor. MD BOB Burleson/MODL /[id number]
[2020-03-07 17:44] LABS: HEMATOCRIT 25.9 % (38.2-49.6)
--- NOTE | 2020-03-07 18:55 | Consultation ---
DATE OF CONSULTATION: 03/07/2020 CHIEF COMPLAINT: COVID-19 pneumonia. HISTORY OF PRESENT ILLNESS: The patient is a 54-year-old male who was in good health until recently when he developed fever, cough and shortness of breath and tested positive for COVID-19 at work. The patient was subsequently admitted and placed on oxygenation and eventually respiratory support on a ventilator. Consultation requested for tracheostomy tube. PAST MEDICAL HISTORY: No prior history of lung disease. SOCIAL HISTORY: The patient has does not smoke or drink. REVIEW OF SYSTEMS: Unobtainable. ALLERGIES: HE HAS NO DRUG ALLERGY. PHYSICAL EXAMINATION: VITAL SIGNS: Afebrile. Blood pressure 190/85, pulse 88. He is intubated on ventilators, sedated. LUNGS: Bilateral coarse rhonchi. HEART: Regular rate and rhythm. ABDOMEN: Soft. EXTREMITIES: No cyanosis or edema. LABORATORY DATA: White cell count 6, hemoglobin of 7, and platelet count of 357. Creatinine of 0.6. Albumin 2.3. INR of 0.99. Blood gas is pH 7.4, pCO2 of 78, and PO2 of 65. Chest x-ray, bilateral infiltrates. ASSESSMENT: Coronavirus disease-19 pneumonia who is respiratory dependent on the ventilator. Planned tracheostomy placement for continue management of expected long hospitalization. Mauricio Torres MD [facility]/MODL /[id number]
--- NOTE | 2020-03-07 22:34 | NUR ---
ABG results read to Dr. Everett. No new orders received.
[2020-03-07 22:48] LABS: ABG PCO2 89 mmHg (35-45); ABG PH 7.32 (7.35-7.45); ABG PO2 87 mmHg (80-105)
[2020-03-07 22:49] LABS: ABG HCO3 45 mmol/L (22-26)
[2020-03-07 22:50] LABS: ABG PCO2 84 mmHg (35-45); ABG PH 7.34 (7.35-7.45); ABG PO2 84 mmHg (80-105)
[2020-03-07 22:51] LABS: ABG HCO3 45 mmol/L (22-26)
[2020-03-08] VITALS (18 sets, daily range): BP systolic 90–193; BP diastolic 57–83
[2020-03-08] MEDS: INSULIN REGULAR, HUMAN 100 UNIT/1 ML 3ML VIAL SQ SCH ×4 (00:08→16:23)
[2020-03-08] MEDS: MIDAZOLAM HCL 5MG/ML 10ML VIAL 100 ML IV PRN (02:31)
[2020-03-08] MEDS: ROCURONIUM BROMIDE 250 MG in SODIUM CHLORIDE 0.9% 250ML 225 ML IV SCH ×2 (03:54→22:56)
[2020-03-08 05:38] LABS: BASOPHILS % 0.6 % (0.0-1.0); EOSINOPHILS % 0.3 % (0.0-6.0); HEMATOCRIT 25.9 % (38.2-49.6); LYMPHOCYTES # (AUTO) 0.4 (1.0-3.2); LYMPHOCYTES % 5.8 % (18.0-39.1); MEAN CORPUSCULAR HGB CONC 30.9 g/dL (31-35); MEAN CORPUSCULAR VOLUME 100.4 fL (81-99); MONOCYTES # (AUTO) 0.2 (0.2-0.8); MONOCYTES % 3.1 % (4.4-11.3); NEUTROPHILS # (AUTO) 5.9 (2.1-6.9); PLATELET COUNT 341 x10e3/uL (140-360); RED BLOOD COUNT 2.58 x10e6/uL (4.3-5.7); RED CELL DISTRIBUTION WIDTH 12.9 % (11.7-14.4)
[2020-03-08] MEDS: CEFEPIME 1GM/NS 0.9% 50 ML 50 ML IV SCH ×2 (05:56→16:47)
[2020-03-08 06:09] LABS: ALANINE AMINOTRANSFERASE 72 IU/L (0-55); ALBUMIN 2.2 g/dL (3.5-5.0); ALBUMIN/GLOBULIN RATIO 0.6 (0.8-2.0); ALKALINE PHOSPHATASE 77 IU/L (40-150); BLOOD UREA NITROGEN 14 mg/dL (7-26); BUN/CREATININE RATIO 23 (6-25); CALCIUM 8.1 mg/dL (8.4-10.2); CHLORIDE 93 mmol/L (98-107); EST GLOMERULAR FILTRATION RATE > 60 ML/MIN (60-); GLUCOSE 167 mg/dL (74-118); SODIUM 141 mmol/L (136-145)
[2020-03-08 06:27] LABS: CARBON DIOXIDE 41 mmol/L (22-29)
[2020-03-08] MEDS ORDERED: ALBUTEROL/IPRATROPIUM 3 ML NEB ONE ×2 (06:44→13:47)
[2020-03-08 07:50] LABS: BAND NEUTROPHILS % (MANUAL) 2 %; EOSINOPHILS % (MANUAL) 2 % (0-7); LYMPHOCYTES % (MANUAL) 3 % (19-48); MONOCYTES % (MANUAL) 2 % (3.4-9.0); MYELOCYTES % (MANUAL) 10 % (0-0); NEUTROPHILS % (MANUAL) 81 % (40-74); PLATELET ESTIMATE ADEQUATE; PLATELET MORPHOLOGY COMMENT NORMAL; RBC MORPHOLOGY COMMENT NORMAL
[2020-03-08] MEDS: ALBUTEROL/IPRATROPIUM 3 ML NEB NEB SCH ×3 (07:55→20:30)
--- NOTE | 2020-03-08 08:30 | Diagnostic Imaging Report ---
Examination: Single AP view of the chest. COMPARISON: Portable chest 03/07/2020 INDICATION: Intubation, pneumonia IMPRESSION: 1. Lines and Tubes: Supporting lines and tubes are unchanged. 2. No interval change in diffuse bilateral interstitial and alveolar opacities consistent with multifocal pneumonia. No effusion. No pneumothorax. 3. Cardiomediastinal silhouette is stable. Pulmonary vasculature is obscured. 4. No acute bony abnormalities. Signed by: Dr. Luis Lai M.D. on 03/08/2020 8:26 AM
--- NOTE | 2020-03-08 09:12 | Progress Note ---
DATE: Pulmonary Critical Care Progress Note The patient remains on the ventilator with a PRVC mode of 34, with a tidal volume of 370 and a PEEP of 14. The FiO2 is set at 90%. The patient remains on Versed, fentanyl and rocuronium. PHYSICAL EXAMINATION: VITAL SIGNS: Saturation is 95% on the above settings. Blood pressure is 131/60 and the pulse is 81. Temperature is 97.6. HEENT: Shows no facial swelling or erythema. CARDIAC: Reveals a regular rate and rhythm with normal S1 and S2. There are no murmurs or rubs. LUNGS: Auscultation of lungs reveals crackles at both bases. There is no wheezing. ABDOMEN: Soft and nontender. There is no rebound or guarding. EXTREMITIES: Shows no leg edema or calf tenderness. There is no cyanosis or clubbing. SKIN: Shows no rashes. NEUROLOGICAL: Shows the patient to be sedated. LABORATORY DATA: White blood cell count is 7.05 and hemoglobin is 8. The platelet count is 341. The BUN to creatinine ratio is 14 to 0.6 and the albumin is 2.2. RADIOGRAPHIC DATA: Chest x-ray shows bilateral infiltrates and no recurrent pneumothorax. IMPRESSION: 1. Acute respiratory failure. 2. COVID-19 and viral pneumonia. 3. Left-sided pneumothorax. 4. Anemia secondary to acute on chronic blood loss. 5. Moderate protein-calorie malnutrition. PLAN: 1. Continue current ventilator settings and monitor ABGs. 2. Evaluation for tracheostomy. 3. Discussed removal of 1st chest tube with thoracic surgery. 4. Continue Lovenox. 5. Continue Versed, fentanyl and rocuronium. 6. Complete antibiotics. 7. Case discussed with the nightshift nursing, dayshift nursing, the patient's daughter, Respiratory, Infectious Disease and administration. Greater than 35 minutes in direct critical care time apart from any procedures performed. Drew Everett MD [facility]/BARBARAL /[id number]
[2020-03-08] MEDS: CHOLECALCIFEROL 400 UNIT TAB PO SCH ×2 (10:01→16:47)
[2020-03-08] MEDS: ENOXAPARIN INJ 80 MG/0.8 ML SYR SC SCH ×2 (10:01→20:52)
[2020-03-08] MEDS: ASCORBIC ACID 500 MG TAB PO SCH ×2 (10:01→16:47)
[2020-03-08] MEDS: ZINC SULFATE 220 MG CAP PO SCH (10:01)
[2020-03-08] MEDS ORDERED: MIDAZOLAM HCL 5MG/ML 10ML VIAL 100 ML BAG IV ONE (10:23)
[2020-03-08 10:48] LABS: ABG HCO3 46 mmol/L (22-26); ABG PCO2 93 mmHg (35-45); ABG PO2 80 mmHg (80-105)
[2020-03-08] MEDS ORDERED: DEXAMETHASONE SOD PHOS INJ 4 MG/ML VIAL IV SCH (14:00)
--- NOTE | 2020-03-08 15:11 | NUR ---
Nutrition Intervention Note RD Recommendation(s) for Physician: - Recommend changing TF to Vital AF with goal of 55 ml/hr to better meet nutritional needs (provides 1584 kcal and 99 gm protein) - Water flushes and fluid management per MD - BG and insulin management per MD - Propofol providing 177 lipid kcal/day Plan of Care: RD following, TF rec's, monitoring for tolerance and adequacy Reason for Nutrition Involvement: follow up Primary Diagnose(s): acute respiratory distress due to COVID-19 PMH: no pertinent hx RD Assessment: 03/08: Follow up. Pt remains intubated, paralyzed on Rocuronium, and sedated on Propofol as well as Versed and Fentanyl. Pt with chest tubes x 2 due to pneumothorax. Possible trach placement per MD notes. TF at 50 ml/hr per after school program teacher. No recent BM documented. Chart reviewed. Current TF rec's remain appropriate. Will continue to monitor. 03/04: Follow up. Pt remains intubated. Per MD note, pt was prone overnight. Tube feed rate of Glucerna 1.2 was at 50 mL/hr this morning and propofol is not infusing per chart. Recommendations provided. Will continue to monitor. 03/01: Pt now intubated, sedated, and paralyzed. No pressors. Pt requiring proning, TF off currently per after school program teacher. Pt assessed and TF rec's provided. Pt may continue TF while being proned by being placed in reverse Trendelenburg position. TF rec's provided. (02/22) 54 YOM admitted for acute respiratory distress due to COVID-19. Pt evaluated today for LOS. Unable to enter pt's room due to current isolation precautions. No poor intake or wt loss reported per admit notes. Pt with 100% intake per chart. LBM 02/17, no GI distress reported by RN. Skin intact. Chart reviewed. Labs and meds reviewed. Will continue to monitor. GI: no BM documented, soft, non-tender abdomen Skin: +chest tube sites Labs: 03/08: Na 141, K 5, BUN 14, Cr 0.6, Gluc 167, POC GLuc 114-211 03/04: Na 142, K 4.1, BUN 12, Cr 0.55, Glu 88, Ca 8.1, AST 98, ALT 165 03/01: Na 138, K 4.5, BUN 16, Cr 0.58, gluc 102, POC Gluc 128-162 Meds: insulin, abx, vitamin D, vitamin C, zofran, Zn SO4, decadron IVF/Drips: Propofol at 6.7 ml/hr (177 lipid kcal/day), Rocuronium drip, Fentanyl drip, Versed drip Ht: 65 in Wt: 167.5 lb (03/08) 162 lbs (03/04) 167 lb (02/21) BMI: 27.8 kg/m2 (Weight used: 167 lbs) IBW: 136 lb Estimated Nutritional Needs: Calories: 2445-4118 (20-25 kcal/kg/d) Weight used: 167 lbs Protein: 87-134 (1.3-2 g/kg/d) Weight used: 167 lbs Diet Adequacy: meeting calorie needs, meeting protein needs (100% kcal and 82% protein) Current Diet: TF: Glucerna 1.2 at 50 ml/hr (provides 1440 kcal, 72 g protein) Malnutrition Evaluation (02/23/20) The patient does not meet criteria for a specified degree of malnutrition at this time. Will re-evaluate at follow-up as appropriate. Unable to assess per current isolation precautions. Diet Education Needs Assessment: Diet education not indicated. Nutrition Care Level: Moderate Nutrition Diagnosis: Inadequate energy and protein intake related to intubation as evidenced by requiring EN. Goal: Patient will meet 75-100% of estimated needs by follow up Progress: progressing Interventions: Tube feeding - Composition, Rate, Route Monitoring/Evaluation: Total energy intake, Total protein intake, Formula/Solution, Weight change Signed: Trish Barclay RD, LD, CNSC
--- NOTE | 2020-03-08 15:14 | Progress Note ---
DATE: 03/08/2020 Medicine Progress Note SUBJECTIVE: The patient is still intubated. He is on FiO2 of 80%. No change overnight. Chest tube according to the nursing staff will be removed today by Pulmonary. PHYSICAL EXAMINATION: VITAL SIGNS: Temperature is 98.4, pulse 82, respiratory rate 34, blood pressure 134/64, pulse ox 97% on mechanical ventilator. GENERAL: Intubated and sedated. CARDIOVASCULAR: Positive S1, S2. No murmurs, rubs, or gallops. PULMONARY: Intubated and sedated. ABDOMEN: Soft, nondistended, nontender to palpation. MUSCULOSKELETAL: Unable to assess. NEUROLOGIC: Unable to assess. He is on sedation. SKIN: Intact. Warm to touch. EXTREMITIES: No edema appreciated. LABORATORY DATA: glucose 167. Right lower extremity arterial Doppler; normal. Chest x-ray still shows multifocal pneumonia. White count 7, hemoglobin 8, hematocrit 25, platelets of 341. Chemistry; sodium 141, potassium 5, chloride 93, bicarb 41, anion gap of 12, BUN 14, creatinine 0.6. IMPRESSION: 1. Acute respiratory failure secondary to COVID-19 pneumonia, intubated and sedated. 2. Spontaneous pneumothorax with two chest tubes in place. 3. Sepsis with leukocytosis secondary to coronavirus. 4. Right upper extremity superficial thromboses on full-dose anticoagulation. 5. Anemia. PLAN: At this time, the patient's hemoglobin count is much improved at 8. Continue with steroids, antibiotics, vitamins, being managed by ID. As per Pulmonary Critical Care, he is managing the entire critical care case. Chest tube will be removed later today according to the nursing staff. I will defer tracheostomy to the champagne maker whenever he thinks is appropriate. Overall, the patient is very ill, very sick and his prognosis seems to be very grim at this moment. We will continue same plan of care. Monitor closely. MD BOB Burleson/MODL /[id number]
--- NOTE | 2020-03-08 15:33 | Diagnostic Imaging Report ---
EXAMINATION: CHEST SINGLE (PORTABLE) INDICATION: ^resp failure COMPARISON: 02/26/2020, 02/25/2020 FINDINGS: AP view TUBES and LINES: Interval intubation. The tip of the endotracheal tube projects 3 cm above the briseida. Interval placement of a nasogastric tube. Interval placement of a right upper extremity PICC with tip in the SVC. LUNGS: Increased diffuse pulmonary airspace disease. PLEURA: No pleural effusion or pneumothorax. HEART AND MEDIASTINUM: The cardiomediastinal silhouette is unchanged. BONES AND SOFT TISSUES: No acute osseous lesion. Soft tissues are unremarkable. UPPER ABDOMEN: No free air under the diaphragm. IMPRESSION: Interval increase in diffuse pulmonary airspace disease suggestive of viral pneumonia. Interval placement of life support lines and tubes. Signed by: Ney Piña MD on 02/27/2020 7:00 AM
--- NOTE | 2020-03-08 15:57 | Diagnostic Imaging Report ---
EXAMINATION: CHEST SINGLE (PORTABLE) INDICATION: Respiratory failure COMPARISON: Chest radiograph 03/08/2020 FINDINGS: LINES/TUBES:Support lines and tubes unchanged. LUNGS:The lungs are moderately inflated. Unchanged multifocal bilateral airspace opacities. PLEURA:No pleural effusion or pneumothorax. MEDIASTINUM:The cardiomediastinal silhouette appears unchanged in size and shape. BONES/SOFT TISSUES:No acute osseous injury. ABDOMEN:No free air under the diaphragm. IMPRESSION: No significant interval change. Signed by: Katia Lo MD on 03/08/2020 3:53 PM
--- NOTE | 2020-03-08 17:25 | Progress Note ---
DATE: SUBJECTIVE: Mr. Smith remains in intensive care unit, intubated. He is on PRVC mode of 34 with a tidal volume of 370, PEEP of 14, FiO2 of 90%. He remains on Versed, fentanyl and rocuronium. PHYSICAL EXAMINATION: HEENT: Normocephalic. CHEST: Few crackles. HEART: S1 and S2. No S3, S4, or murmurs. ABDOMEN: Soft. LABORATORY DATA: His white count is 7, hemoglobin 8, platelet 221, BUN 14, creatinine 0.6. IMPRESSION: Respiratory failure, COVID-19, left-sided pneumothorax, anemia, moderate protein calorie malnutrition. Agree with evaluation for trach. The patient is on Lovenox. He remains on cefepime for aspiration pneumonia, this is day #19. From Infectious Disease point of view, we can proceed with tracheostomy. There is no need to repeat PCR. He does not even have positive PCR. At the present time, it does not mean he has full virus. It could be just partial virus. At the present time, there is no indication that this patient after being in the hospital for 19 days has been sick for more than three weeks and is still infectious even with a positive PCR. At any rate, the patient could proceed with tracheostomy to take the proper cautious infectious modality of being in a negative pressure room and fully isolation with N95 mask and eye covers, gowns and gloves, which is standard for surgery. Discussed with all medical team. Can proceed with trach from Infectious Disease point of view. Discussed with all medical team. MD JAKY Osman/HARPAL /[id number]
--- NOTE | 2020-03-08 19:48 | NUR ---
ETT 7.5 23CM AT LIP PRVC 34, FIO2 80%, TV 380, PEEP 14 ROCURONIUM .008 MCG/KG/MIN OR 34.9ML/HR VERSED 10MG/HR OR 20ML/HR PROPOFOL 60MCG/KG/MIN OR 17ML/HR FENTANYL 250MCG/HR OR 31.3ML/HR LR KVO BLACKBURN TO GRAVITY DARK YELLOW SEDIMENT LNGT GLUCERNA 10ML/HR LEFT CHEST TUBE TO WATER SEAL COMPLETED BY DR. Raymundo SANCHEZ AT THIS TIME. SECOND CHEST TUBE REMOVED BY DR. Raymundo SANCHEZ AT THIS TIME. CHEST XRAY COMPLETED AND AWAITING RESULTS. Addendum: 03/08/20 at 2003 by Mere Reese RN RIGHT PICC TLC DRESSING CHANGE DATE 03/03/20
--- NOTE | 2020-03-08 20:49 | Diagnostic Imaging Report ---
EXAMINATION: CHEST SINGLE (PORTABLE) INDICATION: POST 1 CHEST TUBE REMOVAL (SECOND CHEST TUBE REMAINS IN) COMPARISON: Multiple chest x-rays including most recent on 03/07/2020 FINDINGS: TUBES and LINES: Endotracheal tube which terminates approximately 6 cm above the briseida. Enteric tube which courses below the diaphragm and beyond the [id number]. There has been interval removal of one of the 2 left chest tubes. LUNGS: No interval changes in multifocal airspace opacities. PLEURA: No pleural effusion or pneumothorax. HEART AND MEDIASTINUM: The cardiomediastinal silhouette appears unchanged in size and shape. BONES AND SOFT TISSUES: No acute osseous lesion. Soft tissues are unremarkable. UPPER ABDOMEN: No free air under the diaphragm. IMPRESSION: 1. No significant interval change in the radiographic appearance of the lungs. 2. Interval removal of one of the 2 left chest tubes. Support devices as above. Signed by: Nestor Corrales MD on 03/08/2020 8:45 PM
[2020-03-08 21:09] LABS: ABG HCO3 47 mmol/L (22-26); ABG PCO2 88 mmHg (35-45); ABG PH 7.33 (7.35-7.45); ABG PO2 82 mmHg (80-105)
[2020-03-08] MEDS: PROPOFOL IV EMULSION 10MG/ML 100 ML IV PRN (22:57)
[2020-03-08] MEDS: FENTANYL 2000MCG/NS 250 250 ML IV PRN (22:58)
[2020-03-09] VITALS (26 sets, daily range): BP systolic 105–193; BP diastolic 61–93
[2020-03-09 04:48] LABS: BASOPHILS # (AUTO) 0.1 (0.0-0.1); BASOPHILS % 0.6 % (0.0-1.0); EOSINOPHILS # (AUTO) 0.2 (0.0-0.4); EOSINOPHILS % 1.6 % (0.0-6.0); HEMATOCRIT 29.8 % (38.2-49.6); LYMPHOCYTES # (AUTO) 1.5 (1.0-3.2); LYMPHOCYTES % 14.9 % (18.0-39.1); MEAN CORPUSCULAR HEMOGLOBIN 29.8 pg (28-32); MEAN CORPUSCULAR HGB CONC 30.2 g/dL (31-35); MEAN CORPUSCULAR VOLUME 98.7 fL (81-99); MONOCYTES # (AUTO) 0.3 (0.2-0.8); MONOCYTES % 2.7 % (4.4-11.3); NEUTROPHILS # (AUTO) 7.3 (2.1-6.9); PLATELET COUNT 397 x10e3/uL (140-360); RED BLOOD COUNT 3.02 x10e6/uL (4.3-5.7); RED CELL DISTRIBUTION WIDTH 12.9 % (11.7-14.4)
[2020-03-09] MEDS: CEFEPIME 1GM/NS 0.9% 50 ML 50 ML IV SCH ×3 (05:03→18:35)
[2020-03-09 05:11] LABS: ALANINE AMINOTRANSFERASE 77 IU/L (0-55); ALBUMIN 2.3 g/dL (3.5-5.0); ALBUMIN/GLOBULIN RATIO 0.5 (0.8-2.0); ALKALINE PHOSPHATASE 77 IU/L (40-150); ANION GAP 9.2 mmol/L (8-16); BLOOD UREA NITROGEN 12 mg/dL (7-26); BUN/CREATININE RATIO 22 (6-25); CALCIUM 8.2 mg/dL (8.4-10.2); CHLORIDE 89 mmol/L (98-107); CREATININE, SERUM 0.55 mg/dL (0.72-1.25); EST GLOMERULAR FILTRATION RATE > 60 ML/MIN (60-); GLUCOSE 97 mg/dL (74-118); POTASSIUM 4.2 mmol/L (3.5-5.1); SODIUM 137 mmol/L (136-145)
[2020-03-09 05:36] LABS: CARBON DIOXIDE 43 mmol/L (22-29)
[2020-03-09] MEDS: INSULIN REGULAR, HUMAN 100 UNIT/1 ML 3ML VIAL SQ SCH ×4 (06:00→18:32)
[2020-03-09] MEDS: PROPOFOL IV EMULSION 10MG/ML 100 ML IV PRN ×3 (06:29→20:00)
[2020-03-09] MEDS: ALBUTEROL/IPRATROPIUM 3 ML NEB NEB SCH ×3 (07:00→22:00)
[2020-03-09] MEDS: FENTANYL 2000MCG/NS 250 250 ML IV PRN ×2 (07:01→22:55)
[2020-03-09 07:54] LABS: LYMPHOCYTES % (MANUAL) 14 % (19-48); MONOCYTES % (MANUAL) 6 % (3.4-9.0); MYELOCYTES % (MANUAL) 4 % (0-0); NEUTROPHILS % (MANUAL) 75 % (40-74); NUCLEATED RED BLOOD CELLS 1
[2020-03-09 07:55] LABS: PLATELET ESTIMATE SLIGHTLY INCREASED; PLATELET MORPHOLOGY COMMENT NORMAL; RBC MORPHOLOGY COMMENT NORMAL
--- NOTE | 2020-03-09 08:30 | Diagnostic Imaging Report ---
EXAMINATION: CHEST SINGLE (PORTABLE) INDICATION: Respiratory failure COMPARISON: Chest radiograph of 03/08/2020 FINDINGS: LINES/TUBES:Endotracheal tube terminates approximately 4 cm above the briseida. Right PICC line and NG tube appear unchanged. Single left chest tube remains in place. EKG leads overlie the chest. LUNGS:The lungs are moderately inflated. Unchanged bilateral airspace opacities. PLEURA:No pleural effusion or pneumothorax. MEDIASTINUM:The cardiomediastinal silhouette appears normal in size and shape. BONES/SOFT TISSUES:No acute osseous injury. ABDOMEN:No free air under the diaphragm. IMPRESSION: No significant interval change. Signed by: Katia Lo MD on 03/09/2020 8:26 AM
[2020-03-09] MEDS: ROCURONIUM BROMIDE 250 MG in SODIUM CHLORIDE 0.9% 250ML 225 ML IV SCH ×4 (08:50→23:45)
[2020-03-09] MEDS: ASCORBIC ACID 500 MG TAB PO SCH ×2 (09:11→17:55)
[2020-03-09] MEDS: CHOLECALCIFEROL 400 UNIT TAB PO SCH ×2 (09:11→17:55)
[2020-03-09] MEDS: ZINC SULFATE 220 MG CAP PO SCH (09:12)
[2020-03-09] MEDS: ENOXAPARIN INJ 80 MG/0.8 ML SYR SC SCH (09:12)
[2020-03-09 10:01] LABS: ABG HCO3 45 mmol/L (22-26); ABG PCO2 91 mmHg (35-45); ABG PH 7.31 (7.35-7.45); ABG PO2 61 mmHg (80-105)
[2020-03-09] MEDS: MIDAZOLAM HCL 5MG/ML 10ML VIAL 100 ML IV PRN ×3 (10:45→21:50)
--- NOTE | 2020-03-09 14:49 | Progress Note ---
DATE: Pulmonary Critical Care Progress Note SUBJECTIVE: The patient's family has opted for tracheostomy. His chest tube was removed yesterday. He has some fevers. PHYSICAL EXAMINATION: VITAL SIGNS: The blood pressure is 136/70, saturation is 97%, and the pulse is 106. The patient is on a PRVC at a rate of 34 with a tidal volume of 380 and FiO2 of 75%. His PEEP is set at 14. HEENT: Shows no facial swelling or erythema. CARDIAC: Reveals regular rate and rhythm with normal S1 and S2. LUNGS: Auscultation of lungs reveals rhonchorous breath sounds bilaterally. There is no wheezing. ABDOMEN: Soft and nontender. There is no rebound or guarding. EXTREMITIES: Shows no leg edema or calf tenderness. There is no cyanosis or clubbing. SKIN: Shows no rashes. NEUROLOGICAL: Shows no focal abnormalities. LABORATORY DATA: White blood cell count is 10 and the hemoglobin is 9. Platelet count is 397. BUN to creatinine ratio is normal. The carbon dioxide is 43 and the albumin is 2.3. RADIOGRAPHIC DATA: Chest x-ray shows bilateral infiltrates. One chest tube has been removed. IMPRESSION: 1. Acute respiratory failure. 2. COVID-19 and viral pneumonia. 3. Left-sided pneumothorax. 4. Anemia secondary to acute and chronic blood loss. 5. Fevers. 6. Protein-calorie malnutrition. PLAN: 1. Continue current ventilator settings and monitor ABGs. 2. Tracheostomy. 3. Remove second chest tube when feasible. 4. Lovenox is currently on hold because of pending trach. 5. Continue Versed, fentanyl, and rocuronium. 6. Stop cefepime because of possible drug fever at the recommendation of Infectious Disease. 7. Await blood cultures. 8. Repeat venous duplex of upper extremities. 9. Case discussed with shift supervisor film processing nursing, day shift nursing, Respiratory, Infectious Disease, and Internal Medicine. Greater than 35 minutes in direct critical care time apart from any procedures performed. Drew Everett MD [facility]/MODL /[id number]
--- NOTE | 2020-03-09 16:09 | Progress Note ---
DATE: 03/09/2020 Medicine Progress Note SUBJECTIVE: The patient is still intubated. His oxygen requirement 75% FiO2. Daughter consented to tracheostomy. No overnight events. Still has two chest tubes. OBJECTIVE: VITAL SIGNS: Temperature is T-max 101.3, current temperature 100.7, pulse is 106, respiratory rate is 34, blood pressure 136/70, pulse ox 97%. He is on a mechanical ventilator, FiO2 75%. GENERAL: Intubated and sedated. PULMONARY: Intubated and sedated. CARDIOVASCULAR: Positive S1, S2. No murmurs, rubs, gallops. ABDOMEN: Soft, nondistended, tender to palpation. Bowel sounds present. MUSCULOSKELETAL: Intubated and sedated. NEUROLOGIC: Intubated not sedated. SKIN: Intact, warm to touch. Good cap refill. EXTREMITIES: Trace edema appreciated. LABORATORY DATA: White count 10, hemoglobin 9, hematocrit 29, and platelets 397. Chemistry; sodium 137, potassium 4.2, chloride 89, bicarb 43, anion gap 9.2, BUN 12, creatinine is 0.55, glucose 97, and calcium 8.2. IMAGING STUDIES: Chest x-ray, no change. IMPRESSION: 1. Acute respiratory failure, secondary to COVID-19 pneumonia, intubated and sedated. 2. Spontaneous pneumothorax with two chest tubes in place. 3. Sepsis with leukocytosis, secondary to Coronavirus. 4. Right upper extremity superficial thrombosis on full-dose anticoagulation. 5. Anemia. PLAN: At this time, the daughter agreed and consented to a tracheostomy. Continue with steroids, antibiotics, vitamins, being managed by ID. Pulmonary Critical Care is managing the Critical Care case. I do appreciate all consultants on this case. Chest tube still in place. Get a.m. labs. Prognosis is very poor. He is very sick. MD BOB Burleson/BARBARAL /[id number]
[2020-03-09] MEDS: ACETAMINOPHEN 325 MG TAB PO PRN (17:57)
--- NOTE | 2020-03-09 18:38 | NUR ---
per ID dr. gardner discontinue cefepime iv order
--- NOTE | 2020-03-09 20:25 | Progress Note ---
DATE: 03/09/2020 REASON FOR PROGRESS NOTE: Respiratory insufficiency, COVID-19; requested by Dr. Raymundo Everett. SUBJECTIVE: The patient is clinically stable. Currently on FiO2 of 75% with PEEP 14. PRVC at 34. O2 saturation 97%. One chest tube in place. Low-grade fevers. PHYSICAL EXAMINATION: VITAL SIGNS: Blood pressure 130/70. O2 saturation 97%. Pulse 110. HEENT: No facial swelling or erythema. CARDIAC: Regular rate and rhythm. Normal S1, S2. No S3, S4. LUNGS: Coarse ventilator sounds bilaterally. No wheezing. ABDOMEN: Soft. Nontender. Hypoactive bowel sounds. EXTREMITIES: No cyanosis or clubbing. SKIN: No rashes. LABORATORY DATA: White blood cell count 10, hemoglobin 9, platelet count is 397,000. INR is 0.99 with PT 13.7. Sodium 137, potassium 4.2, creatinine 0.55. Chest x-ray shows bilateral pulmonary infiltrates, no pneumothorax. Chest tube is well positioned. IMPRESSION: Likely stable with some improvement with FiO2. Tracheostomy consent has been given. Missael Buckley MD [facility]/MODL /[id number]
[2020-03-09 20:59] LABS: ABG HCO3 45 mmol/L (22-26); ABG PCO2 94 mmHg (35-45); ABG PH 7.29 (7.35-7.45); ABG PO2 62 mmHg (80-105)
[2020-03-10] VITALS (27 sets, daily range): BP systolic 101–167; BP diastolic 56–88
[2020-03-10] MEDS: INSULIN REGULAR, HUMAN 100 UNIT/1 ML 3ML VIAL SQ SCH ×4 (00:30→18:00)
[2020-03-10] MEDS: MIDAZOLAM HCL 5MG/ML 10ML VIAL 100 ML IV PRN (03:14)
[2020-03-10] MEDS: ACETAMINOPHEN 325 MG TAB PO PRN ×2 (04:45→20:00)
[2020-03-10] MEDS ORDERED: PHENOBARBITAL SOD 65 MG/ML VIAL IV ONE (05:30)
[2020-03-10] MEDS ORDERED: LORAZEPAM INJ 2 MG/ML VIAL ONE (05:37)
[2020-03-10] MEDS ORDERED: LORAZEPAM INJ 2 MG/ML VIAL IV PRN (06:00)
[2020-03-10] MEDS: FENTANYL 2000MCG/NS 250 250 ML IV PRN (06:05)
[2020-03-10] MEDS: ROCURONIUM BROMIDE 250 MG in SODIUM CHLORIDE 0.9% 250ML 225 ML IV SCH (06:15)
[2020-03-10 06:22] LABS: BASOPHILS # (AUTO) 0.1 (0.0-0.1); BASOPHILS % 0.6 % (0.0-1.0); EOSINOPHILS # (AUTO) 0.2 (0.0-0.4); EOSINOPHILS % 1.8 % (0.0-6.0); HEMATOCRIT 25.9 % (38.2-49.6); HEMOGLOBIN 7.9 g/dL (14.0-18.0); LYMPHOCYTES # (AUTO) 1.1 (1.0-3.2); MEAN CORPUSCULAR HEMOGLOBIN 30.7 pg (28-32); MEAN CORPUSCULAR HGB CONC 30.5 g/dL (31-35); MEAN CORPUSCULAR VOLUME 100.8 fL (81-99); MONOCYTES # (AUTO) 0.3 (0.2-0.8); MONOCYTES % 3.6 % (4.4-11.3); NEUTROPHILS # (AUTO) 7.2 (2.1-6.9); PLATELET COUNT 366 x10e3/uL (140-360); RED BLOOD COUNT 2.57 x10e6/uL (4.3-5.7); RED CELL DISTRIBUTION WIDTH 13.2 % (11.7-14.4)
[2020-03-10 06:57] LABS: ALANINE AMINOTRANSFERASE 59 IU/L (0-55); ALBUMIN 1.9 g/dL (3.5-5.0); ALBUMIN/GLOBULIN RATIO 0.4 (0.8-2.0); ALKALINE PHOSPHATASE 73 IU/L (40-150); ANION GAP 9.4 mmol/L (8-16); BLOOD UREA NITROGEN 9 mg/dL (7-26); BUN/CREATININE RATIO 17 (6-25); CHLORIDE 88 mmol/L (98-107); CREATININE, SERUM 0.52 mg/dL (0.72-1.25); EST GLOMERULAR FILTRATION RATE > 60 ML/MIN (60-); GLUCOSE 95 mg/dL (74-118); POTASSIUM 4.4 mmol/L (3.5-5.1); SODIUM 136 mmol/L (136-145)
[2020-03-10 06:59] LABS: CARBON DIOXIDE 43 mmol/L (22-29)
[2020-03-10] MEDS ORDERED: PHENOBARBITAL SOD IV ONE (07:00)
[2020-03-10] MEDS ORDERED: SODIUM CHLORIDE 0.9% IV ONE (07:00)
--- NOTE | 2020-03-10 07:59 | Diagnostic Imaging Report ---
Examination: Single AP view of the chest. COMPARISON: Portable chest 03/09/2020 INDICATION: Intubated, respiratory failure IMPRESSION: 1. Lines and Tubes: Endotracheal tube distal tip projecting approximately 7 cm above the briseida, above the thoracic inlet. Other supporting lines and tubes are unchanged. 2. No interval change in diffuse bilateral interstitial and alveolar opacities consistent with multifocal pneumonia. 3. Cardiomediastinal silhouette is normal. Pulmonary vasculature is obscured. 4. No acute bony abnormalities. Signed by: Dr. Luis Lai M.D. on 03/10/2020 7:55 AM
[2020-03-10] MEDS: CHOLECALCIFEROL 400 UNIT TAB PO SCH ×2 (09:43→18:06)
[2020-03-10] MEDS: ZINC SULFATE 220 MG CAP PO SCH (09:43)
[2020-03-10] MEDS: ASCORBIC ACID 500 MG TAB PO SCH ×2 (09:43→18:06)
--- NOTE | 2020-03-10 09:57 | Progress Note ---
DATE: Pulmonary Critical Care Progress Note. SUBJECTIVE: The patient is afebrile this morning, T-max was 100.7. He remains on a PRVC at a rate of 34 with a tidal volume of 380. His FiO2 is set at 75%. His PEEP is set at 14. His peak airway pressure is 37 and his mean airway pressure is 24. He still has a chest tube in place on the left side. There was some serosanguineous drainage. The patient is scheduled for tracheostomy today. He remains on Versed and fentanyl. PHYSICAL EXAMINATION: VITAL SIGNS: Blood pressure is 122/73, saturation is 95%, pulse is 97. HEENT: Shows no facial swelling or erythema. CARDIAC: Reveals regular rate and rhythm with normal S1, S2. LUNGS: Auscultation of lungs reveals rhonchorous breath sounds bilaterally. There is no wheezing. ABDOMEN: Soft and nontender. There is no rebound or guarding. EXTREMITIES: Shows no leg edema or calf tenderness. There is no cyanosis or clubbing. SKIN: Shows no rashes. NEUROLOGICAL: Shows the patient to be sedated and paralyzed. LABORATORY DATA: White blood cell count is 9.38 and hemoglobin is 7.9. The platelet count is 336. The BUN to creatinine ratio is 9 to 0.52. The albumin is 1.8. RADIOGRAPHIC DATA: Chest x-ray shows bilateral infiltrates. There is no recurrent pneumothorax. There is a chest tube in place. IMPRESSION: 1. Acute respiratory failure. 2. COVID-19 and viral pneumonia. 3. Left-sided pneumothorax. 4. Deep vein thrombosis of the upper extremity. 5. Anemia. PLAN: 1. Continue current vent settings and repeat ABG. 2. Continue Versed and fentanyl. 3. Await culture results. 4. Continue to monitor hemoglobin and transfuse if required. 5. Lovenox is on hold for pending tracheostomy. Tracheostomy cannot be done today, we will need intravenous heparin. 6. Case discussed with nightshift nursing, dayshift nursing, Respiratory, Internal Medicine, and Infectious Disease. 7. Greater than 35 minutes in direct critical care time. MD TEODORA Newton/HARPAL /[id number]
--- NOTE | 2020-03-10 10:48 | Progress Note ---
DATE: SUBJECTIVE: The patient is seen and evaluated. Discussed with the nurse. The patient remains in COVID ICU. Vent support at 75% with a PEEP of 14, respiration 32, tidal volume at 380. Saturation was between 91 to 93 during my visit. The patient remains with chest tube and edema lower extremities. The patient is also on fentanyl, Versed, propofol, and rocuronium. PHYSICAL EXAMINATION: VITAL SIGNS: Temperature 98.9 with a T-max of 100.7 last night, pulse 91, respiration 30, and blood pressure 101/61. GENERAL: Vent support with chest tube. CV: S1 and S2. CHEST: Equal expansion. Decreased breath sounds. ABDOMEN: Soft. HEENT: Moist. EXTREMITIES: With edema. MEDICATIONS: Reviewed, on vitamin D, zinc sulfate, vitamin C, rocuronium, and fentanyl. The patient is status post dexamethasone and cefepime. LABORATORY STUDIES: White count 9.38, hemoglobin 7.9, and platelet 366. Sodium 136, potassium 4.4, and creatinine 0.52. COVID-19 positive on 02/17. MICROBIOLOGY: Blood culture pending. Previous blood cultures 02/17, was negative. IMAGING: Chest x-ray was done, showed no interval change in diffuse bilateral interstitial and alveolar opacity consistent with multifocal pneumonia. Venous Doppler of lower extremities done. ASSESSMENT AND PLAN: 1. Fever, improved. Cefepime stopped after approximately having it for 10 days. Concern was antibiotic causing the fever. Blood cultures pending. White counts remain within normal limit. COVID-19 pneumonia. 2. Concern superimposed bacterial pneumonia, status post antibiotics. 3. Respiratory failure. 4. Pneumothorax. 5. Tracheostomy. Consent has been given. Lovenox is on hold for tracheostomy. 6. Upper extremity deep venous thrombosis. 7. Anemia. 8. Continue with medication as above. Hold the Lovenox for tracheostomy. Please refer to chart for more information. Dictated by Celestine Pulliam) KIERA Elizondo Urmila Encarnacion MD /MODL /[id number]
[2020-03-10] MEDS ORDERED: MIDAZOLAM HCL 5MG/ML 10ML VIAL 100 ML BAG IV ONE (11:37)
[2020-03-10] MEDS ORDERED: FENTANYL 2,000 MCG/250 ML BAG ONE (11:49)
[2020-03-10] MEDS ORDERED: PROPOFOL IV EMULSION 10 MG/ML 50 ML VIAL IV ONE (11:51)
--- NOTE | 2020-03-10 13:11 | Diagnostic Imaging Report ---
EXAM: MODIFIED BA. SWALLOW DATE: 02/25/2020 1:24 PM. Please note the examination was performed on 02/25/2020 but request for interpretation was made on 03/10/2020. INDICATION: Dysphagia Fluoroscopy Time: 1.8 min. Reference Air Kerma (Ka, r): 7.81 mGy. FINDINGS/IMPRESSION: Modified barium swallow was performed by the speech pathologist. A radiologist was not present for the examination. An intraprocedural vertebral report was not requested. Provided images demonstrate demonstrate no evidence for subglottic tracheal aspiration. Please refer to speech pathology notes for further details. Signed by: Dr. Isidoro Tracy MD on 03/10/2020 1:08 PM
--- NOTE | 2020-03-10 14:30 | Progress Note ---
DATE: 03/10/2020 Medicine Progress Note SUBJECTIVE: The patient is scheduled for tracheostomy tomorrow. The patient is still at his baseline with no change. He has one chest tube in place. PHYSICAL EXAMINATION: VITAL SIGNS: Temperature is 99.8, pulse 91, respiratory rate 34, blood pressure 108/62. He is saturating 94%. He is on a mechanical ventilator, FiO2 of 75%. GENERAL: Intubated and sedated. CARDIOVASCULAR: Positive S1, S2. No murmurs, rubs, or gallops appreciated. PULMONARY: Intubated and sedated. ABDOMEN: Soft, nondistended, nontender to palpation. Bowel sounds present. MUSCULOSKELETAL: Unable to assess, intubated and sedated. NEUROLOGIC: Intubated and sedated. SKIN: Intact, warm to touch. Good cap refill. PSYCHIATRIC: Intubated. LABORATORY DATA: Labs show white count 9, hemoglobin 7.9, hematocrit is 25.9, his platelets are 366. His chemistry; sodium 136, potassium 4.4, chloride 88, bicarb 43, anion gap of 9.4, BUN 9, creatinine is 0.52. Repeat blood cultures are pending. DIAGNOSTIC STUDIES: Chest x-ray this morning still shows similar findings with no changes. IMPRESSION: 1. Acute respiratory failure, secondary to COVID-19 pneumonia, intubated and sedated. 2. Spontaneous pneumothorax with one chest tube in place. 3. Sepsis with leukocytosis, secondary to Coronavirus. 4. Right upper extremity venous thromboses, on full-dose anticoagulation. 5. Anemia. PLAN: At this time, he is scheduled for tracheostomy tomorrow according to the nursing staff. Continue with steroids, antibiotics, vitamins are being managed by ID. Pulmonary Critical Care is managing the entire case including the vent settings. Overall, prognosis is very grim, but the patient is relatively doing okay. We will get repeat labs in the morning. Otherwise, continue same plan of care with no changes. MD BOB Burleson/MODL /[id number]
--- NOTE | 2020-03-10 17:41 | Progress Note ---
DATE: 03/10/2020 REASON FOR PROGRESS NOTE: Respiratory insufficiency, COVID-19. REQUESTED BY: Dr. Raymundo Everett. SUBJECTIVE: Intubated and sedated in the ICU. Currently, FiO2 is at 75% with O2 saturation 92%. PEEP is 14. Peak airway pressure 37. PRVC 34 with TD 360. One chest tube is in place and there is no air leak, low-grade fevers. REVIEW OF SYSTEMS: Unobtainable because the patient is intubated and sedated. PHYSICAL EXAMINATION: VITAL SIGNS: Blood pressure 120/73. O2 saturation is 93%. Pulse 100. HEENT: No facial swelling or erythema. CARDIAC: Regular rate and rhythm. Normal S1, S2. No rub or murmur. LUNGS: Coarse ventilator sounds bilaterally. No wheeze. ABDOMEN: Soft, benign. Hypoactive bowel sounds. EXTREMITIES: No cyanosis, clubbing, or edema. IMAGING DATA: Chest x-ray is reviewed and has bilateral pulmonary infiltrates. There is no evidence of pneumothorax. LABORATORY DATA: WBC 9.3. Hemoglobin 7.9, hematocrit 25.9, and platelet count 366. INR 0.99 with PT 13.7, sodium 136, potassium 4.4, and creatinine 0.52. IMPRESSION: Critically ill. Fairly stable over the last 24 hours. Chest tube function appropriate. Missael Buckley MD [facility]/MODL /[id number]
[2020-03-10] MEDS ORDERED: SODIUM CHLORIDE 0.9% 1000ML 1,000 ML ONE (18:23)
[2020-03-10] MEDS ORDERED: ALBUTEROL/IPRATROPIUM 3 ML NEB NEB PRN (19:30)
[2020-03-10 19:39] LABS: ABG HCO3 45 mmol/L (22-26); ABG PCO2 91 mmHg (35-45); ABG PH 7.31 (7.35-7.45); ABG PO2 63 mmHg (80-105)
[2020-03-10 20:37] LABS: ABG PCO2 90 mmHg (35-45); ABG PH 7.31 (7.35-7.45); ABG PO2 89 mmHg (80-105)
[2020-03-10 20:38] LABS: ABG HCO3 46 mmol/L (22-26)
[2020-03-11] VITALS (25 sets, daily range): BP systolic 107–179; BP diastolic 42–83
[2020-03-11] MEDS: FENTANYL 2000MCG/NS 250 250 ML IV PRN
[2020-03-11] MEDS: MIDAZOLAM HCL 5MG/ML 10ML VIAL 100 ML IV PRN ×2 (00:42→06:30)
--- NOTE | 2020-03-11 01:23 | Diagnostic Imaging Report ---
Examination: Single AP view of the chest. COMPARISON: Portable chest 03/10/2020 and 03/09/2020 INDICATION: Pneumonia, COVID IMPRESSION: 1. Lines and Tubes: Endotracheal tube has distal tip projecting 5.6 cm above the briseida, at the level of the thoracic inlet. Other supporting lines and tubes are unchanged. 2. No interval change in diffuse bilateral interstitial and alveolar opacities consistent with multifocal pneumonia. No pneumothorax is identified. 3. Cardiomediastinal silhouette is normal. Pulmonary vasculature is normal. 4. No acute bony abnormalities. Signed by: Dr. Luis Lai M.D. on 03/11/2020 1:19 AM
[2020-03-11] MEDS: ROCURONIUM BROMIDE 250 MG in SODIUM CHLORIDE 0.9% 250ML 225 ML IV SCH ×2 (04:51→20:19)
[2020-03-11 05:52] LABS: BASOPHILS % 0.3 % (0.0-1.0); EOSINOPHILS # (AUTO) 0.2 (0.0-0.4); EOSINOPHILS % 1.6 % (0.0-6.0); HEMATOCRIT 25.5 % (38.2-49.6); HEMOGLOBIN 7.6 g/dL (14.0-18.0); LYMPHOCYTES # (AUTO) 0.8 (1.0-3.2); LYMPHOCYTES % 8.6 % (18.0-39.1); MEAN CORPUSCULAR HEMOGLOBIN 29.7 pg (28-32); MEAN CORPUSCULAR HGB CONC 29.8 g/dL (31-35); MEAN CORPUSCULAR VOLUME 99.6 fL (81-99); MONOCYTES # (AUTO) 0.3 (0.2-0.8); MONOCYTES % 3.2 % (4.4-11.3); NEUTROPHILS # (AUTO) 7.5 (2.1-6.9); NEUTROPHILS % 81.3 % (38.7-80.0); PLATELET COUNT 394 x10e3/uL (140-360); RED BLOOD COUNT 2.56 x10e6/uL (4.3-5.7); RED CELL DISTRIBUTION WIDTH 13.2 % (11.7-14.4)
[2020-03-11] MEDS: INSULIN REGULAR, HUMAN 100 UNIT/1 ML 3ML VIAL SQ SCH ×4 (06:00→18:00)
[2020-03-11 06:03] LABS: ALANINE AMINOTRANSFERASE 45 IU/L (0-55); ALBUMIN 1.8 g/dL (3.5-5.0); ALBUMIN/GLOBULIN RATIO 0.4 (0.8-2.0); ALKALINE PHOSPHATASE 72 IU/L (40-150); ANION GAP 8.1 mmol/L (8-16); BLOOD UREA NITROGEN 9 mg/dL (7-26); BUN/CREATININE RATIO 19 (6-25); CALCIUM 7.9 mg/dL (8.4-10.2); CHLORIDE 90 mmol/L (98-107); CREATININE, SERUM 0.47 mg/dL (0.72-1.25); EST GLOMERULAR FILTRATION RATE > 60 ML/MIN (60-); GLUCOSE 64 mg/dL (74-118); POTASSIUM 4.1 mmol/L (3.5-5.1); SODIUM 137 mmol/L (136-145)
[2020-03-11 06:06] LABS: CARBON DIOXIDE 43 mmol/L (22-29)
[2020-03-11] MEDS: CHOLECALCIFEROL 400 UNIT TAB PO SCH ×2 (09:00→17:29)
[2020-03-11] MEDS: ZINC SULFATE 220 MG CAP PO SCH (09:00)
[2020-03-11] MEDS: ASCORBIC ACID 500 MG TAB PO SCH ×2 (09:00→17:29)
[2020-03-11 09:39] LABS: ABG HCO3 46 mmol/L (22-26); ABG PCO2 93 mmHg (35-45); ABG PO2 63 mmHg (80-105)
--- NOTE | 2020-03-11 11:10 | Progress Note ---
DATE: Pulmonary Critical Care Progress Note SUBJECTIVE: The patient still has a temperature of 100.5. He remains on PRVC mode of ventilation at a rate of 34 and tidal volume of 370. FiO2 is set at 80%. PEEP is set at 14. PHYSICAL EXAMINATION: HEENT: Shows no facial swelling or erythema. There is an oral endotracheal tube in place. There is a PICC line in place in the right arm. There is a chest tube in place on the left side. ABDOMEN: Soft and nontender. There is no rebound or guarding. EXTREMITIES: Shows no leg edema or calf tenderness. There is no cyanosis or clubbing. SKIN: Shows no rashes. NEUROLOGICAL: Shows no focal abnormalities. LABORATORY DATA: White blood cell count is 9.2 and the hemoglobin is 7.6. The platelet count is 394. BUN to creatinine ratio is 9 to 0.47 and other electrolytes are within normal limits. The albumin is 1.8. IMPRESSION: 1. Acute respiratory failure. 2. COVID-19 and viral pneumonia. 3. Left-sided pneumothorax. 4. Deep vein thrombosis of the upper extremity in the cephalic vein. 5. Anemia. PLAN: 1. The patient is scheduled for tracheostomy today. 2. Continue Versed, fentanyl, and rocuronium. 3. Continue to monitor blood counts and transfuse as needed. 4. Continue to monitor temperature and blood cultures. Infectious Disease is following. 5. Case discussed with retail shift manager nursing, day shift nursing, Infectious Disease, General Surgery, and daughter. Greater than 35 minutes in direct critical care time. MD TEODORA Newton/HARPAL /[id number]
--- NOTE | 2020-03-11 13:35 | NUR ---
LTAC EVAL ORDERED PT BEING TRACHED TODAY CM CALLED AND SPOKE WITH PT'S DAUGHTER EVA EDWARDS AT [phone] CONSENT OBTAINED FOR SEGUNDOTHA WAGNER CALLED AND NOTIFIED JANET FERNANDEZ OF CONSULT FAXED CLINICALS TO [phone] CONFIRMATION REC'D
--- NOTE | 2020-03-11 14:26 | Progress Note ---
DATE: 03/11/2020 Medicine Progress Note SUBJECTIVE: The patient is going to undergo today a tracheostomy by Surgery. He is still requiring significant amount of oxygen. PHYSICAL EXAMINATION: VITAL SIGNS: Temperature is 99.6, pulse 96, respiratory rate is 34, blood pressure is 129/63. He is 94% on a mechanical ventilator. GENERAL: Intubated and sedated. PULMONARY: Intubated and sedated. CARDIOVASCULAR: Positive S1, S2. No murmurs, rubs, or gallops appreciated. ABDOMEN: Soft, nondistended, nontender to palpation. Bowel sounds present. MUSCULOSKELETAL: Intubated and sedated. SKIN: Intact, warm to touch. Good cap refill. EXTREMITIES: No edema. Good range of motion throughout. LABORATORY DATA: CBC reviewed, white count 9.1, hemoglobin 7.6, hematocrit 25, platelets of 394. Chemistry; sodium 137, potassium 4.1, chloride 90, bicarb 43, anion gap of 8.1, BUN is 9, creatinine is 0.47, calcium is 7.9. Repeat coronavirus pending. Blood cultures, no growth to date. IMAGING STUDIES: Chest x-ray this morning shows still no change. IMPRESSION: 1. Acute respiratory failure secondary to coronavirus disease-19 pneumonia, intubated and sedated. 2. Spontaneous pneumothorax with one chest tube in place. 3. Sepsis with leukocytosis secondary to coronavirus. 4. Right upper extremity thromboses on full-dose anticoagulation. 5. Anemia. PLAN: At this time, he is scheduled for tracheostomy later today. He still at baseline with no change. Continue with steroids, antibiotics, vitamins per ID. He is on sedation, on ventilator, being managed by Pulmonary Critical care. Overall prognosis seems to be very grim, but we will continue to monitor. Continue same plan of care with no changes at this time. Scheduled for tracheostomy later today. MD BOB Burleson/HARPAL /[id number]
[2020-03-11] MEDS ORDERED: LACTATED RINGER'S 1,000 ML ONE (14:27)
--- NOTE | 2020-03-11 16:01 | NUR ---
Nutrition Intervention Note RD Recommendation(s) for Physician: - Recommend Vital AF with goal of 55 ml/hr to better meet nutritional needs (provides 1584 kcal and 99 gm protein) - Water flushes and fluid management per MD Plan of Care: RD following, TF rec's, monitoring for tolerance and adequacy Reason for Nutrition Involvement: follow up Primary Diagnose(s): acute respiratory distress due to COVID-19 PMH: no pertinent hx RD Assessment: 03/11: Follow up. Pt remains intubated. Pt is scheduled to receive a tracheostomy today. Per documentation, tube feed is currently off. Recommend resuming tube feeding when medically appropriate. Current tube feed recommendation remain appropriate. Will continue to monitor. 03/08: Follow up. Pt remains intubated, paralyzed on Rocuronium, and sedated on Propofol as well as Versed and Fentanyl. Pt with chest tubes x 2 due to pneumothorax. Possible trach placement per MD notes. TF at 50 ml/hr per staple processing machine operator. No recent BM documented. Chart reviewed. Current TF rec's remain appropriate. Will continue to monitor. 03/04: Follow up. Pt remains intubated. Per MD note, pt was prone overnight. Tube feed rate of Glucerna 1.2 was at 50 mL/hr this morning and propofol is not infusing per chart. Recommendations provided. Will continue to monitor. 03/01: Pt now intubated, sedated, and paralyzed. No pressors. Pt requiring proning, TF off currently per staple processing machine operator. Pt assessed and TF rec's provided. Pt may continue TF while being proned by being placed in reverse Trendelenburg position. TF rec's provided. (02/22) 54 YOM admitted for acute respiratory distress due to COVID-19. Pt evaluated today for LOS. Unable to enter pt's room due to current isolation precautions. No poor intake or wt loss reported per admit notes. Pt with 100% intake per chart. LBM 02/17, no GI distress reported by RN. Skin intact. Chart reviewed. Labs and meds reviewed. Will continue to monitor. GI: no BM documented, soft, non-tender abdomen Skin: right knee wound Labs: 03/11: Na 137, K 4.1, BUN 9, Cr 0.47, Glu 64, Ca 7.9 03/08: Na 141, K 5, BUN 14, Cr 0.6, Gluc 167, POC GLuc 114-211 03/04: Na 142, K 4.1, BUN 12, Cr 0.55, Glu 88, Ca 8.1, AST 98, ALT 165 03/01: Na 138, K 4.5, BUN 16, Cr 0.58, gluc 102, POC Gluc 128-162 Meds: rocuronium, fentanyl, vitamin D, vitamin C, zinc sulfate, insulin, Imodium, zofran Ht: 65 in Wt: 151 lbs (151 lbs) 167.5 lb (03/08) 162 lbs (03/04) 167 lb (02/21) BMI: 27.8 kg/m2 (Weight used: 167 lbs) IBW: 136 lb Estimated Nutritional Needs: Calories: 4573-7935 (20-25 kcal/kg/d) Weight used: 167 lbs Protein: 87-134 (1.3-2 g/kg/d) Weight used: 167 lbs Diet Adequacy: tube feed is off at this time Current Diet: TF: NPO Malnutrition Evaluation (02/23/20) The patient does not meet criteria for a specified degree of malnutrition at this time. Will re-evaluate at follow-up as appropriate. Unable to assess per current isolation precautions. Diet Education Needs Assessment: Diet education not indicated. Nutrition Care Level: Moderate Nutrition Diagnosis: Inadequate energy and protein intake related to intubation as evidenced by requiring EN. Goal: Patient will meet 75-100% of estimated needs by follow up Progress: Tube feeding is off at this time Interventions: Tube feeding - Composition, Rate, Route Monitoring/Evaluation: Total energy intake, Total protein intake, Formula/Solution, Weight change Signed: Shweta Aguilera RD, LD
[2020-03-11] MEDS ORDERED: SODIUM CHLORIDE 0.9% 1000ML 1,000 ML ONE (16:16)
--- NOTE | 2020-03-11 16:17 | Progress Note ---
DATE: SUBJECTIVE: Mr. Smith remains in intensive care unit. He had a low fever of 100.5. He is on PRVC 34, tidal volume 370, FiO2 is 80, PEEP is 14. OBJECTIVE: HEENT: Normocephalic. NECK: Supple. CHEST: Crackles. HEART: S1 and S2. No S3, S4, or murmur. ABDOMEN: Soft. IMPRESSION: Respiratory failure, COVID-19, left-sided pneumothorax, deep venous thrombosis of upper extremities cephalic vein. Tracheostomy today. On Versed, fentanyl, and rocuronium. This is day #22. We will follow. MD JAKY Osman/MODL /[id number]
[2020-03-11] MEDS ORDERED: VECURONIUM BROMIDE FOR INJ 20 MG VIAL ONE (16:36)
[2020-03-11] MEDS ORDERED: MIDAZOLAM HCL 5MG/ML 10ML VIAL 100 ML IV ONE (16:38)
--- NOTE | 2020-03-11 17:26 | Diagnostic Imaging Report ---
EXAMINATION: CHEST SINGLE (PORTABLE) INDICATION: Decreasing O2 saturation. COMPARISON: Multiple prior chest x-rays including most recent done on the same day. FINDINGS: See impression. IMPRESSION: 1. TUBES and LINES: Interval placement of tracheostomy tube which terminates approximately 5.5 cm above the briseida. There is a nasogastric tube which courses below the diaphragm, beyond the [id number]. Right and left thoracostomy tubes. Right PICC which terminates at the cavoatrial junction. There has been interval removal of one of the left sided chest tube. 2. No significant interval change in diffuse bilateral interstitial and alveolar opacities consistent with multifocal pneumonia. No pneumothorax identified. Signed by: Nestor Corrales MD on 03/11/2020 5:23 PM
--- NOTE | 2020-03-11 17:58 | Operative Report ---
DATE OF PROCEDURE: SURGEON: Drew Everett MD PROCEDURE: Radial arterial line under ultrasound guidance. PREOPERATIVE DIAGNOSIS: Respiratory failure. POSTOPERATIVE DIAGNOSIS: Respiratory failure. CONSENT: Consent was obtained from the family. MEDICATIONS: The patient was on fentanyl and Versed at the time of the procedure. DESCRIPTION OF PROCEDURE: The right wrist was prepped sterilely with chlorhexidine. Sterile gloves and sterile drapes were used. An ultrasound machine was used to visualize the radial artery on the right side. A 20-gauge needle was used to cannulate the artery. A wire was passed through the needle and a catheter was passed over the wire by the Seldinger technique. There was good arterial blood return and a good arterial waveform. ESTIMATED BLOOD LOSS: None. COMPLICATIONS: None. Drew Everett MD [facility]/MODL /[id number]
--- NOTE | 2020-03-11 19:00 | NUR ---
RECEIVED REPORT FROM OFF-GOING RN. PATIENT HAD TRACHEOSTOMY PLACED TODAY AND SINCE RETURNING FROM OR HAS HAD LOWER SpO2. RN STATED THAT DR. Ramyundo SANCHEZ WAS AT BEDSIDE FOR OVER AN HOUR AFTER PATIENT'S RETURN. PT CURRENT SpO2 90% ON 100% FiO2, P 90, RR 34, BP 110/44. RT CALLED TO OBTAIN ABG SAMPLE PER DR. SANCHEZ ORDER.
--- NOTE | 2020-03-11 20:53 | Operative Report ---
DATE OF PROCEDURE: 03/11/2020 SURGEON: Mauricio Torres MD PREOPERATIVE DIAGNOSIS: COVID pneumonia. POSTOPERATIVE DIAGNOSIS: COVID pneumonia. OPERATIVE PROCEDURE: Tracheostomy. ANESTHESIA: General, Dr. Spears. INDICATION: The patient is a 54-year-old male with COVID viral pneumonia with bilateral infiltrates. The patient has been on ventilator for more than 3 weeks with minimal improvement. The patient is a candidate for a tracheostomy for further respiratory and ventilatory care. DESCRIPTION OF PROCEDURE: All precautions taken to minimize the risks to staff in the OR. The patient was transported to operating room and given general anesthesia in the supine position. The neck was extended on shoulder lift and prepped with alcohol and draped in sterile fashion. A collar incision was made one fingerbreadth above the suprasternal notch extending to skin, subcutaneous tissue, and platysma. Strap muscles in the midline. The thyroid isthmus was divided using the Harmonic Scalpel. This exposed anterior aspect of the trachea. Further dissection was carried out bilaterally to expose the lateral aspect of the trachea. We then used the cautery to make an incision into the trachea transversely between the 2nd and 3rd tracheal ring. The 3rd ring was further divided bilaterally to create an inferior flap. The tracheotomy was opened with ginner helper and a Shiley 8-Chinese tracheostomy tube was inserted and connected to ventilator, which registered good gas exchange. At this point, the tracheostomy tube was anchored to skin with 2-0 Prolene and ties. Hemostasis achieved. The patient was then transported back to ICU in guarded condition. BLOOD LOSS: Minimal. Mauricio Torres MD [facility]/MODL /[id number]
[2020-03-11] MEDS ORDERED: ENOXAPARIN SOD INJ 60 MG/0.6 ML SYR SC STA (21:00)
--- NOTE | 2020-03-11 22:13 | NUR ---
PATIENT'S SpO2 BEGAN GRADUALLY LOWERING AT 2039 WHEN IT WAS 90%. AT 2199 PATIENT'S SpO2 WAS 85%. RT AND DR. Raymundo SANCHEZ CALLED AT THIS TIME. DR. SANCHEZ ARRIVED AT BEDSIDE AT 2212.
--- NOTE | 2020-03-11 22:15 | NUR ---
DR. Raymundo SANCHEZ AT BEDSIDE ADJUSTING VENT SETTINGS TO ACHIEVE BETTER SpO2.
--- NOTE | 2020-03-11 22:48 | NUR ---
STAT PORTABLE CHEST X-RAY TAKEN PER DR. Raymundo SANCHEZ ORDER. HE IS STILL AT THE BEDSIDE AND ASSESSING THE PATIENT. PATIENT'S SpO2 80% AT THIS TIME. ORDER ALSO OBTAINED AND IMPLEMENTED FOR STAT DOSE OF LOVENOX 60 MG SQ.
--- NOTE | 2020-03-11 23:00 | NUR ---
DR. SANCHZE REVIEWED THE PATIENT'S CHEST X-RAYS AND SPOKE TO DR. QURESHI ABOUT PATIENT POSSIBLY NEEDING LONGER TRACH. DR. QURESHI WILL SEE THE PATIENT IN THE MORNING.
--- NOTE | 2020-03-11 23:30 | NUR ---
RECEIVED CALL FROM PATIENT'S DAUGHTER. UPDATED HER ON PATIENT'S STATUS AND GUARDED PROGNOSIS. PATIENT'S DAUGHTER REQUESTED TO BE UPDATED WITH ANY CRITICAL CHANGES OR PROCEDURES THAT NEED TO BE PERFORMED.
--- NOTE | 2020-03-11 23:32 | Diagnostic Imaging Report ---
Examination: Single AP view of the chest. COMPARISON: Portable chest 03/11/2020 INDICATION: Post tracheostomy IMPRESSION: 1. Lines and Tubes: Interval removal of previously visualized endotracheal tube and placement of tracheostomy tube, which projects at midline. Other supporting lines and tubes are unchanged. 2. No interval change in diffuse bilateral interstitial and alveolar opacities consistent with multifocal pneumonia. Signed by: Dr. Luis Lai M.D. on 03/11/2020 11:29 PM
[2020-03-12] VITALS (26 sets, daily range): BP systolic 122–195; BP diastolic 54–81
[2020-03-12] MEDS: FENTANYL 2000MCG/NS 250 250 ML IV PRN ×2 (00:10→20:30)
--- NOTE | 2020-03-12 00:20 | NUR ---
AT 0010 PATIENT'S SpO2 DROPPED TO 76%. RT CALLED TO BEDSIDE. DR. Raymundo SANCHEZ CALLED. ORDERS OBTAINED FOR CBC, CMP AND STAT EKG. ORDERS IMPLEMENTED AND RESULTS CALLED.
[2020-03-12 00:31] LABS: HEMATOCRIT 23.7 % (38.2-49.6); HEMOGLOBIN 7.2 g/dL (14.0-18.0); MEAN CORPUSCULAR HGB CONC 30.4 g/dL (31-35); MEAN CORPUSCULAR VOLUME 98.8 fL (81-99); PLATELET COUNT 388 x10e3/uL (140-360); RED CELL DISTRIBUTION WIDTH 13.1 % (11.7-14.4)
[2020-03-12 00:36] LABS: ABG HCO3 43 mmol/L (22-26); ABG PCO2 73 mmHg (35-45); ABG PH 7.38 (7.35-7.45); ABG PO2 57 mmHg (80-105)
[2020-03-12 00:46] LABS: ANISOCYTOSIS SLIGHT; EOSINOPHILS % (MANUAL) 2 % (0-7); LYMPHOCYTES % (MANUAL) 6 % (19-48); MONOCYTES % (MANUAL) 5 % (3.4-9.0); MYELOCYTES % (MANUAL) 4 % (0-0); NEUTROPHILS % (MANUAL) 83 % (40-74); PLATELET MORPHOLOGY COMMENT NORMAL; RBC MORPHOLOGY COMMENT NORMAL
[2020-03-12 00:47] LABS: PLATELET ESTIMATE SLIGHTLY INCREASED
[2020-03-12 00:50] LABS: ALANINE AMINOTRANSFERASE 37 IU/L (0-55); ALBUMIN 1.7 g/dL (3.5-5.0); ALBUMIN/GLOBULIN RATIO 0.4 (0.8-2.0); ALKALINE PHOSPHATASE 62 IU/L (40-150); ANION GAP 11.3 mmol/L (8-16); BLOOD UREA NITROGEN 9 mg/dL (7-26); BUN/CREATININE RATIO 19 (6-25); CALCIUM 7.6 mg/dL (8.4-10.2); CARBON DIOXIDE 38 mmol/L (22-29); CHLORIDE 90 mmol/L (98-107); CREATININE, SERUM 0.47 mg/dL (0.72-1.25); EST GLOMERULAR FILTRATION RATE > 60 ML/MIN (60-); GLUCOSE 70 mg/dL (74-118); POTASSIUM 4.3 mmol/L (3.5-5.1); SODIUM 135 mmol/L (136-145)
[2020-03-12] MEDS: MIDAZOLAM HCL 5MG/ML 10ML VIAL 100 ML IV PRN (01:30)
[2020-03-12] MEDS: ROCURONIUM BROMIDE 250 MG in SODIUM CHLORIDE 0.9% 250ML 225 ML IV SCH ×2 (03:27→21:12)
--- NOTE | 2020-03-12 04:00 | NUR ---
PATIENT'S SpO2 DECREASED FROM 84% TO 77%. DR. Raymundo SANCHEZ NOTIFIED, PEEP INCREASED TO 14.
[2020-03-12] MEDS: INSULIN REGULAR, HUMAN 100 UNIT/1 ML 3ML VIAL SQ SCH ×5 (06:00→23:10)
[2020-03-12 06:24] LABS: BASOPHILS % 0.5 % (0.0-1.0); EOSINOPHILS # (AUTO) 0.1 (0.0-0.4); EOSINOPHILS % 1.5 % (0.0-6.0); HEMATOCRIT 24.3 % (38.2-49.6); HEMOGLOBIN 7.1 g/dL (14.0-18.0); LYMPHOCYTES % 11.1 % (18.0-39.1); MEAN CORPUSCULAR HGB CONC 29.2 g/dL (31-35); MEAN CORPUSCULAR VOLUME 99.2 fL (81-99); MONOCYTES # (AUTO) 0.5 (0.2-0.8); MONOCYTES % 5.7 % (4.4-11.3); NEUTROPHILS # (AUTO) 6.7 (2.1-6.9); NEUTROPHILS % 76.5 % (38.7-80.0); PLATELET COUNT 440 x10e3/uL (140-360); RED BLOOD COUNT 2.45 x10e6/uL (4.3-5.7); RED CELL DISTRIBUTION WIDTH 13.2 % (11.7-14.4)
[2020-03-12 06:39] LABS: ALANINE AMINOTRANSFERASE 36 IU/L (0-55); ALBUMIN 1.8 g/dL (3.5-5.0); ALBUMIN/GLOBULIN RATIO 0.4 (0.8-2.0); ALKALINE PHOSPHATASE 66 IU/L (40-150); ANION GAP 11.2 mmol/L (8-16); BLOOD UREA NITROGEN 9 mg/dL (7-26); BUN/CREATININE RATIO 20 (6-25); CALCIUM 7.7 mg/dL (8.4-10.2); CARBON DIOXIDE 38 mmol/L (22-29); CHLORIDE 91 mmol/L (98-107); CREATININE, SERUM 0.46 mg/dL (0.72-1.25); EST GLOMERULAR FILTRATION RATE > 60 ML/MIN (60-); GLUCOSE 65 mg/dL (74-118); POTASSIUM 4.2 mmol/L (3.5-5.1); SODIUM 136 mmol/L (136-145)
--- NOTE | 2020-03-12 07:04 | NUR ---
RECEIVED CALL FROM DR. QURESHI FOR UPDATE ON PATIENT'S STATUS. PATIENT'S CURRENT SpO2 80%. DR. QURESHI STATED HE WILL SEE THE PATIENT THIS MORNING.
--- NOTE | 2020-03-12 07:05 | NUR ---
RECEIVED CALL FROM DR. Raymundo SANCHEZ. UPDATED HIM ON PATIENT'S STATUS AND CALL FROM DR. QURESHI. ORDER RECEIVED FOR PORTABLE CHEST X-RAY.
--- NOTE | 2020-03-12 07:15 | NUR ---
DR. LIU ROUNDING ON THE PATIENT. DR. LIU STATED THAT THE TRACH APPEARS TO BE FINE. THERE IS NO LEAK AND THE PATIENT IS RECEIVING ALMOST ALL OF HIS TIDAL VOLUMES.
[2020-03-12] MEDS ORDERED: VECURONIUM BROMIDE FOR INJ 20 MG VIAL ONE (07:32)
[2020-03-12] MEDS ORDERED: ENOXAPARIN SOD INJ 60 MG/0.6 ML SYR SC SCH (09:00)
[2020-03-12] MEDS: CHOLECALCIFEROL 400 UNIT TAB PO SCH ×2 (09:10→17:51)
[2020-03-12] MEDS: ZINC SULFATE 220 MG CAP PO SCH (09:10)
[2020-03-12] MEDS: ASCORBIC ACID 500 MG TAB PO SCH ×2 (09:10→17:51)
[2020-03-12 09:24] LABS: ABG HCO3 40 mmol/L (22-26); ABG PCO2 75 mmHg (35-45); ABG PH 7.34 (7.35-7.45); ABG PO2 50 mmHg (80-105)
--- NOTE | 2020-03-12 09:29 | Diagnostic Imaging Report ---
EXAMINATION: CHEST SINGLE (PORTABLE) INDICATION: RESP FAILURE COMPARISON: Multiple prior chest x-ray examinations most recent dated 03/11/2020 FINDINGS: AP view TUBES and LINES: Tracheostomy tube tube is in place. There is NG tube in place with distal tip in the stomach. There is left-sided chest tube in place. There is a left-sided PICC line with distal tip in SVC. LUNGS/PLEURA: Lungs are well inflated. There are bilateral patchy opacities could represent multifocal pneumonia,, unchanged.. There is no pleural effusion or pneumothorax. HEART AND MEDIASTINUM: The cardiomediastinal silhouette is obscured by adjacent opacities. BONES AND SOFT TISSUES: No acute osseous lesion. Soft tissues are unremarkable. UPPER ABDOMEN: No free air under the diaphragm. IMPRESSION: Bilateral patchy opacities compatible with multifocal pneumonia,, unchanged Signed by: Celestine Trujillo MD on 03/12/2020 9:26 AM
--- NOTE | 2020-03-12 10:50 | Progress Note ---
DATE: 03/12/2020 SUBJECTIVE: The patient is a 54-year-old male, who had tracheostomy done yesterday by Dr. Torres. The patient is currently in the ICU on the ventilator. There was concern that the patient's tracheostomy tube may not be positioned properly. The patient was seen at the bedside. The tracheostomy tube is in place. There is no air leak that is audible or apparent. There is no subcutaneous emphysema. The patient is receiving his full tidal volume with the ventilator. Chest x-ray reveals the tracheostomy tube to be in place. ASSESSMENT: The patient is status post tracheostomy. The tube appears to be adequate position with no leak. The patient apparently has had decreased O2 saturations. I do not think this is due to malposition of the tube or air leak. I discussed this with Dr. Everett. MD JOSE Calderon/BARBARAL /[id number]
[2020-03-12] MEDS ORDERED: METHYLPREDNISOLONE SOD SUCC 40 MG/ML VIAL 1ML IV ONE (11:00)
[2020-03-12 11:45] LABS: EOSINOPHILS % (MANUAL) 2 % (0-7); LYMPHOCYTES % (MANUAL) 13 % (19-48); MONOCYTES % (MANUAL) 5 % (3.4-9.0)
[2020-03-12 11:46] LABS: BAND NEUTROPHILS % (MANUAL) 6 %; NEUTROPHILS % (MANUAL) 72 % (40-74); PLATELET ESTIMATE SLIGHTLY INCREASED; PLATELET MORPHOLOGY COMMENT NORMAL
[2020-03-12 11:48] LABS: HYPOCHROMASIA F; LARGE PLATELETS FEW; RBC MORPHOLOGY COMMENT ABNORMAL
[2020-03-12 11:55] LABS: ABG HCO3 41 mmol/L (22-26); ABG PCO2 76 mmHg (35-45); ABG PH 7.35 (7.35-7.45); ABG PO2 60 mmHg (80-105)
--- NOTE | 2020-03-12 12:50 | Progress Note ---
DATE: SUBJECTIVE: The patient has a difficulty with saturations since yesterday afternoon. He had some airway pressures. His neck was extended. He was placed supine. His airway pressures improved. He also had suctioning. Chest x-ray showed no pneumothorax. He has continued to have low oxygen saturations. His PEEP was increased with minimal benefit. PHYSICAL EXAMINATION: VITAL SIGNS: The T-max is 100.5, and the blood pressure is 142/67. Saturation is 86% to 88%. HEENT: Shows no facial swelling or erythema. CARDIAC: Reveals a regular rate and rhythm with normal S1, S2. LUNGS: Auscultation of lungs reveals crackles at the bases. There is no wheezing. There is a tracheostomy tube suture in place. There is a right-sided PICC line. CARDIAC: Reveals regular rate and rhythm with tachycardia. ABDOMEN: Soft and nontender. There is no rebound or guarding. There is no leg edema or calf tenderness. There is no cyanosis or clubbing. SKIN: Shows no rashes. NEUROLOGICAL: Shows the patient to be sedated and paralyzed. LABORATORY DATA: White blood cell count is 8.7 and hemoglobin 7.1. The platelet count is 440. The BUN to creatinine ratio is normal. Other electrolytes are within normal limits and the albumin is 1.8. Blood gas is 7.34, 75, O2 is 50 and the CO2 is 40. The patient is currently on a PRVC mode of ventilation at a rate of 34 with a tidal volume of 370 and the FiO2 of 100%. His PEEP is set at 16. RADIOGRAPHIC DATA: Chest x-ray shows patchy bilateral infiltrates. There is no pneumothorax. IMPRESSION: 1. Acute respiratory failure. 2. Acute respiratory distress syndrome. 3. Viral pneumonia COVID-19 infection. 4. Left-sided pneumothorax that has resolved. 5. Anemia. 6. Superficial venous thrombosis in the upper extremity. 7. Fevers. PLAN: 1. Continue current ventilator settings and repeat ABG. 2. Solu-Medrol IV x1. 3. Continue Versed as well as fentanyl and rocuronium. 4. Continue Lovenox at 80 mg subcutaneous q.12. 5. Continue enteral feedings as tolerated. 6. Versed as needed. 7. Case discussed with surgery, transit department clerk nursing, dayshift nursing, Respiratory, Infectious Disease, and Internal Medicine. 8. Greater than 35 minutes in direct critical care time. This is apart from any procedures performed. MD TEODORA Newton/HARPAL /[id number]
--- NOTE | 2020-03-12 13:56 | Progress Note ---
DATE: 03/12/2020 Medicine Progress Note SUBJECTIVE: The patient had his trach performed yesterday by General Surgery. Today, initially he had some issues with his oxygenation. Of note, he had some oxygenations in the 80s overnight, but currently his oxygen saturation is 92% documented. PHYSICAL EXAMINATION: VITAL SIGNS: Temperature is 98.7, pulse 102, respiratory rate 34, blood pressure 136/66, pulse ox 92% on mechanical ventilator. His PEEP is 14, FiO2 100%. GENERAL: He has a tracheostomy now. He is on a mechanical ventilator. PULMONARY: He is on mechanical ventilator with tracheostomy. CARDIOVASCULAR: Positive S1 and S2. No murmurs, rubs, or gallops appreciated. ABDOMEN: Soft, nondistended, and nontender to palpation. Bowel sounds present. MUSCULOSKELETAL: Unable to assess. He is sedated. NEUROLOGIC: Unable to assess. He is sedated. SKIN: Intact. Warm to touch. Good cap refill. EXTREMITIES: No edema. Good range of motion throughout. LABORATORY DATA: Show white count 8.7, hemoglobin 7.1, hematocrit is 24, platelets of 440. Chemistry; sodium 136, potassium 4.2, chloride 91, bicarb 38, anion gap of 11, BUN 9, creatinine is 0.46, glucose is 73, calcium is 7.7. His ABG shows a pH of 7.35, pCO2 of 76, pO2 of 60, bicarbonate of 41, FiO2 of 100%. Blood cultures, no growth to-date. IMAGING STUDIES: Chest x-ray this morning still shows bilateral patchy opacities compatible with multifocal pneumonia, unchanged. IMPRESSION: 1. Acute respiratory failure secondary to coronavirus disease-2019 pneumonia, now has a tracheostomy on a mechanical ventilator. 2. Spontaneous pneumothorax with one chest tube still in place. 3. Sepsis with leukocytosis secondary to coronavirus. 4. Right upper extremity thromboses with full-dose anticoagulation. 5. Anemia. PLAN: At this time, the patient had difficulty with oxygen saturations overnight. His current oxygen saturation is 92%. The patient had a tracheostomy yesterday. It seems to be functioning well according to General surgery's note. Seems we are having some difficulty with oxygenation, which we will defer to Pulmonary/Critical Care. Continue with steroids, antibiotics, vitamins; all being managed by ID. He did receive an extra dose of Solu-Medrol this morning, which seems to have helped his oxygenation. His hemoglobin is low at 7.1. We will repeat hemoglobin level in the morning. May need blood transfusion, which will help his oxygenation as well. Otherwise, we will continue with same plan of care. As for Case Management, we are looking to placement for LTAC and otherwise, we will continue same plan of care. Monitor closely. MD BOB Burleson/HARPAL /[id number]
--- NOTE | 2020-03-12 16:46 | Progress Note ---
DATE: SUBJECTIVE: The patient underwent tracheostomy today, he has chest tube. The patient is currently on Lovenox, status post antibiotic. OBJECTIVE: VITAL SIGNS: The patient is still running with low fever. His T-max is 101. LABORATORY DATA: Cultures are negative. White count 8.7, hemoglobin 7.1. Chest x-ray is unchanged. IMPRESSION: Respiratory failure, pneumothorax. Right upper extremity DVT on full anticoagulation. This is day #23, concerned about pneumonia. I will put him back on meropenem and vancomycin. We will do that for 7 days. We will follow. MD JAKY Osman/HARPAL /[id number]
[2020-03-12] MEDS: ENOXAPARIN INJ 80 MG/0.8 ML SYR SC SCH (20:20)
[2020-03-12 21:13] LABS: ABG HCO3 39 mmol/L (22-26); ABG PCO2 80 mmHg (35-45); ABG PO2 62 mmHg (80-105)
[2020-03-12] MEDS: MIDAZOLAM HCL 50 MG in SODIUM CHLORIDE 0.9% 100 ML 90 ML IV PRN (21:16)
[2020-03-13] VITALS (24 sets, daily range): BP systolic 109–181; BP diastolic 56–85
[2020-03-13] MEDS: MIDAZOLAM HCL 50 MG in SODIUM CHLORIDE 0.9% 100 ML 90 ML IV PRN ×3 (02:18→23:26)
[2020-03-13] MEDS: ROCURONIUM BROMIDE 250 MG in SODIUM CHLORIDE 0.9% 250ML 225 ML IV SCH ×2 (03:24→19:55)
[2020-03-13] MEDS ORDERED: MIDAZOLAM HCL 5 MG/ML IV ONE (04:28)
--- NOTE | 2020-03-13 04:28 | NUR ---
No versed left in COVID ICU fridge, went to ICU to pull but greyed out in pyxis and unable to override. Mere Hayes RN overrode 2 bags of versed for Mr. Smith. Extra bag placed in fridge with pt label on it.
[2020-03-13] MEDS: INSULIN REGULAR, HUMAN 100 UNIT/1 ML 3ML VIAL SQ SCH ×3 (06:13→18:00)
[2020-03-13 06:32] LABS: BASOPHILS # (AUTO) 0.1 (0.0-0.1); BASOPHILS % 0.8 % (0.0-1.0); HEMATOCRIT 26.2 % (38.2-49.6); HEMOGLOBIN 7.7 g/dL (14.0-18.0); LYMPHOCYTES # (AUTO) 0.7 (1.0-3.2); LYMPHOCYTES % 8.4 % (18.0-39.1); MEAN CORPUSCULAR HEMOGLOBIN 29.5 pg (28-32); MEAN CORPUSCULAR HGB CONC 29.4 g/dL (31-35); MEAN CORPUSCULAR VOLUME 100.4 fL (81-99); MONOCYTES # (AUTO) 0.3 (0.2-0.8); MONOCYTES % 3.9 % (4.4-11.3); NEUTROPHILS # (AUTO) 6.2 (2.1-6.9); NEUTROPHILS % 77.3 % (38.7-80.0); PLATELET COUNT 521 x10e3/uL (140-360); RED BLOOD COUNT 2.61 x10e6/uL (4.3-5.7); RED CELL DISTRIBUTION WIDTH 13.5 % (11.7-14.4)
--- NOTE | 2020-03-13 06:44 | Diagnostic Imaging Report ---
Examination: Single AP view of the chest. COMPARISON: Portable chest 03/12/2020 INDICATION: Tracheostomy, COVID. IMPRESSION: 1. Lines and Tubes: Supporting lines and tubes are unchanged. 2. No interval change in diffuse bilateral airspace opacities consistent with multifocal pneumonia. 3. Cardiomediastinal silhouette is normal. Pulmonary vasculature is obscured. 4. No acute bony abnormalities. Signed by: Dr. Luis Lai M.D. on 03/13/2020 6:41 AM
[2020-03-13 06:56] LABS: ABG PH 7.26 (7.35-7.45)
[2020-03-13 06:57] LABS: ABG HCO3 39 mmol/L (22-26); ABG PCO2 87 mmHg (35-45); ABG PO2 62 mmHg (80-105)
[2020-03-13 07:18] LABS: ALANINE AMINOTRANSFERASE 44 IU/L (0-55); ALBUMIN 1.7 g/dL (3.5-5.0); ALBUMIN/GLOBULIN RATIO 0.4 (0.8-2.0); ALKALINE PHOSPHATASE 68 IU/L (40-150); ANION GAP 12.2 mmol/L (8-16); BLOOD UREA NITROGEN 11 mg/dL (7-26); BUN/CREATININE RATIO 20 (6-25); CALCIUM 7.6 mg/dL (8.4-10.2); CARBON DIOXIDE 37 mmol/L (22-29); CHLORIDE 93 mmol/L (98-107); CREATININE, SERUM 0.54 mg/dL (0.72-1.25); EST GLOMERULAR FILTRATION RATE > 60 ML/MIN (60-); GLUCOSE 129 mg/dL (74-118); POTASSIUM 4.2 mmol/L (3.5-5.1); SODIUM 138 mmol/L (136-145)
[2020-03-13 08:51] LABS: LYMPHOCYTES % (MANUAL) 6 % (19-48); MONOCYTES % (MANUAL) 2 % (3.4-9.0); MYELOCYTES % (MANUAL) 5 % (0-0); NEUTROPHILS % (MANUAL) 87 % (40-74); PLATELET ESTIMATE SLIGHTLY INCREASED; PLATELET MORPHOLOGY COMMENT NORMAL; RBC MORPHOLOGY COMMENT NORMAL
[2020-03-13] MEDS: CHOLECALCIFEROL 400 UNIT TAB PO SCH ×2 (09:07→18:28)
[2020-03-13] MEDS: ZINC SULFATE 220 MG CAP PO SCH (09:07)
[2020-03-13] MEDS: ENOXAPARIN INJ 80 MG/0.8 ML SYR SC SCH ×2 (09:07→20:28)
[2020-03-13] MEDS: ASCORBIC ACID 500 MG TAB PO SCH ×2 (09:07→18:28)
--- NOTE | 2020-03-13 12:05 | Progress Note ---
DATE: SUBJECTIVE: The patient remains on a PRVC mode of ventilation, rate of 34 with a tidal volume of 380. His FiO2 is set at 95% and his PEEP is set at 14. His peak airway pressure is on the low 40s. He remains on Versed and fentanyl. PHYSICAL EXAMINATION: VITAL SIGNS: The patient is afebrile. The blood pressure is 117/60, saturation is 95%. Pulse is 82. HEENT: Shows no facial swelling or erythema. There is an oral nasogastric tube in place. The patient also has a PICC line. There is a left-sided chest tube. The site looks clean. There is no drainage. CARDIAC: Reveals a regular rate and rhythm with normal S1, S2. LUNGS: Auscultation of lungs shows decreased breath sounds at the bases. There is no wheezing. ABDOMEN: Soft, nontender. There is no rebound or guarding. EXTREMITIES: Shows no leg edema or calf tenderness. There is no cyanosis or clubbing. SKIN: Shows no rashes. NEUROLOGICAL: Shows no focal abnormalities. The patient is sedated. LABORATORY DATA: White blood cell count is 7.9, hemoglobin 7.7, and platelet count is 521. The BUN to creatinine ratio is 11 to 0.5 and the other electrolytes are within normal limits. Albumin is 1.7. RADIOGRAPHIC DATA: Chest x-ray shows bilateral infiltrates. There is no pneumothorax. IMPRESSION: 1. Acute respiratory failure. 2. Left-sided pneumothorax has resolved. 3. Viral pneumonia and coronavirus disease-19 infection. 4. Anemia. 5. Superficial venous thrombosis. 6. Fevers. PLAN: 1. Continue current ventilator settings and monitor ABG. 2. Restart enteral feedings. 3. Continue Lovenox 80 mg subcutaneous q.12. 4. Versed and fentanyl along with rocuronium. Case discussed with nightshift nursing, dayshift nursing, Respiratory, Internal Medicine and Infectious Disease. Greater than 35 minutes in direct critical care time apart from any procedures performed. Drew Everett MD [facility]/MODL /[id number]
[2020-03-13] MEDS ORDERED: FUROSEMIDE INJ 10 MG/ML 2 ML VIAL IV ONE (13:00)
--- NOTE | 2020-03-13 13:00 | Progress Note ---
DATE: 03/13/2020 Medicine Progress Note SUBJECTIVE: The patient is still on the ventilator. He is on 100%. We are trying to wean him down the 90% according to the nursing staff. He has been given some albumin and some Lasix. PHYSICAL EXAMINATION: VITAL SIGNS: Temperature is 97.7, pulse 92, respiratory rate is 34, blood pressure last recorded was 181/85, prior to that was 117/59. He is on 95% pulse ox recorded. GENERAL: He has a tracheostomy on sedation on the ventilator. PULMONARY: Trach, vent, sedated. CARDIOVASCULAR: Positive S1 and S2. No murmurs, rubs, or gallops appreciated. ABDOMEN: Soft, nondistended, nontender to palpation. Bowel sounds present. MUSCULOSKELETAL: On sedation. NEUROLOGIC: On sedation. SKIN: Intact. Warm to touch. Good cap refill. EXTREMITIES: He does have some edema appreciated. LABORATORY DATA: Labs show white count 7.9, hemoglobin 7.7, hematocrit is 26, and platelets of 521. Chemistry; sodium 138, potassium 4.2, chloride 93, bicarb 37, anion gap of 12, BUN 11, creatinine is 0.54. MICROBIOLOGY: Repeat blood cultures no growth to date. IMAGING STUDIES: Chest x-ray this morning still shows no change. IMPRESSION: 1. Acute respiratory failure secondary to coronavirus disease 2019 pneumonia, now on tracheostomy, on a mechanical ventilator. 2. Spontaneous pneumothorax with [address] 3. Sepsis, leukocytosis secondary to coronavirus. 4. Right upper extremity thromboses, on full-dose anticoagulation. 5. Anemia. PLAN: At this time, he continues to be on the ventilator, on tracheostomy. He is saturating 95%. He is on 100% FiO2 according to the nurse, but working on weaning him down 90% FiO2. Continue with steroids, antibiotics, vitamins. ID and Pulmonary Critical Care following. Hemoglobin is better at 7.7. He is receiving albumin and Lasix. Overall prognosis seems to be very grim. He is hanging in there. He is still in critical condition. Overall plan is possibly transfer to LTAC at some point once Pulmonary Critical Care is ready for transfer. Blane Piper MD [facility]/MODL /[id number]
[2020-03-13] MEDS: ALBUMIN 25% 25GM 100ML 0.25 GM/ML BTL IV SCH ×2 (13:36→23:26)
[2020-03-13] MEDS: FENTANYL 2000MCG/NS 250 250 ML IV PRN (21:00)
[2020-03-13 21:12] LABS: ABG HCO3 43 mmol/L (22-26); ABG PCO2 82 mmHg (35-45); ABG PH 7.33 (7.35-7.45); ABG PO2 104 mmHg (80-105)
[2020-03-14] VITALS (23 sets, daily range): BP systolic 109–194; BP diastolic 54–89
[2020-03-14] MEDS: INSULIN REGULAR, HUMAN 100 UNIT/1 ML 3ML VIAL SQ SCH ×5 (00:26→23:53)
[2020-03-14] MEDS ORDERED: MAGNESIUM HYDROXIDE 30 ML UDC ONE (02:54)
[2020-03-14] MEDS ORDERED: ALBUMIN 25% 12.5GM 50ML 200 ML IV ONE (02:54)
[2020-03-14] MEDS ORDERED: MINERAL OIL 132 ML BTL PR ONE (02:54)
[2020-03-14 06:08] LABS: BASOPHILS # (AUTO) 0.1 (0.0-0.1); BASOPHILS % 0.6 % (0.0-1.0); EOSINOPHILS # (AUTO) 0.1 (0.0-0.4); EOSINOPHILS % 1.1 % (0.0-6.0); HEMATOCRIT 23.5 % (38.2-49.6); HEMOGLOBIN 7.3 g/dL (14.0-18.0); LYMPHOCYTES # (AUTO) 1.1 (1.0-3.2); LYMPHOCYTES % 12.6 % (18.0-39.1); MEAN CORPUSCULAR HEMOGLOBIN 32.2 pg (28-32); MEAN CORPUSCULAR HGB CONC 31.1 g/dL (31-35); MEAN CORPUSCULAR VOLUME 103.5 fL (81-99); MONOCYTES # (AUTO) 0.6 (0.2-0.8); MONOCYTES % 7.1 % (4.4-11.3); NEUTROPHILS # (AUTO) 5.9 (2.1-6.9); NEUTROPHILS % 70.3 % (38.7-80.0); PLATELET COUNT 501 x10e3/uL (140-360); RED BLOOD COUNT 2.27 x10e6/uL (4.3-5.7); RED CELL DISTRIBUTION WIDTH 14.4 % (11.7-14.4)
[2020-03-14] MEDS: ROCURONIUM BROMIDE 250 MG in SODIUM CHLORIDE 0.9% 250ML 225 ML IV SCH ×2 (06:26→21:00)
[2020-03-14] MEDS: MIDAZOLAM HCL 50 MG in SODIUM CHLORIDE 0.9% 100 ML 90 ML IV PRN ×2 (06:27→21:45)
[2020-03-14] MEDS: FENTANYL 2000MCG/NS 250 250 ML IV PRN (06:27)
--- NOTE | 2020-03-14 06:34 | Diagnostic Imaging Report ---
Examination: Single AP view of the chest. COMPARISON: Portable chest 03/13/2020 INDICATION: Tracheostomy, ventilated, COVID IMPRESSION: 1. Lines and Tubes: Supporting lines and tubes are unchanged. 2. No interval change in diffuse bilateral airspace opacities consistent with multifocal pneumonia. 3. Cardiomediastinal silhouette is normal. Pulmonary vasculature is obscured. 4. No acute bony abnormalities. Signed by: Dr. Luis Lai M.D. on 03/14/2020 6:30 AM
[2020-03-14 06:40] LABS: ALANINE AMINOTRANSFERASE 111 IU/L (0-55); ALBUMIN 2.5 g/dL (3.5-5.0); ALBUMIN/GLOBULIN RATIO 0.7 (0.8-2.0); ALKALINE PHOSPHATASE 72 IU/L (40-150); ANION GAP 10.6 mmol/L (8-16); BLOOD UREA NITROGEN 10 mg/dL (7-26); BUN/CREATININE RATIO 19 (6-25); CALCIUM 7.8 mg/dL (8.4-10.2); CHLORIDE 94 mmol/L (98-107); CREATININE, SERUM 0.53 mg/dL (0.72-1.25); EST GLOMERULAR FILTRATION RATE > 60 ML/MIN (60-); GLUCOSE 101 mg/dL (74-118); POTASSIUM 3.6 mmol/L (3.5-5.1); SODIUM 142 mmol/L (136-145)
[2020-03-14 06:43] LABS: CARBON DIOXIDE 41 mmol/L (22-29)
--- NOTE | 2020-03-14 06:51 | NUR ---
Notified Dr. Syed Everett of pt's HR elevated in 130s, BP SBP in 200s and having to increase fiO2 on vent, MD thinks it is just due to agitation and pt will calm down. Said it was ok to increase sedation over the max rate. Xray report and peak pressures, MVe, MVi read to MD. No new orders noted at this time, dayshift YUKI Delaney aware of situation.
[2020-03-14] MEDS: ACETAMINOPHEN 325 MG/10 ML UDC NG PRN (06:55)
--- NOTE | 2020-03-14 07:00 | NUR ---
late cortney seen and examined labs seen meds seen e patient is still on the ventilator. He is on 100%. We are trying to wean him down the 90% according to the nursing staff. He has been given some albumin and some Lasix. PHYSICAL EXAMINATION: VITAL SIGNS: Temperature is 97.7, pulse 92, respiratory rate is 34, blood pressure last recorded was 181/85, prior to that was 117/59. He is on 95% pulse ox recorded. GENERAL: He has a tracheostomy on sedation on the ventilator. PULMONARY: Trach, vent, sedated. CARDIOVASCULAR: Positive S1 and S2. No murmurs, rubs, or gallops appreciated. ABDOMEN: Soft, nondistended, nontender to palpation. Bowel sounds present. MUSCULOSKELETAL: On sedation. NEUROLOGIC: On sedation. SKIN: Intact. Warm to touch. Good cap refill. EXTREMITIES: He does have some edema appreciated. LABORATORY DATA: Labs show white count 7.9, hemoglobin 7.7, hematocrit is 26, and platelets of 521. Chemistry; sodium 138, potassium 4.2, chloride 93, bicarb 37, anion gap of 12, BUN 11, creatinine is 0.54. MICROBIOLOGY: Repeat blood cultures no growth to date. IMAGING STUDIES: Chest x-ray this morning still shows no change. IMPRESSION: 1. Acute respiratory failure secondary to coronavirus disease 2019 pneumonia, now on tracheostomy, on a mechanical ventilator. 2. Spontaneous pneumothorax with [address] 3. Sepsis, leukocytosis secondary to coronavirus. 4. Right upper extremity thromboses, on full-dose anticoagulation. continue as ordered discussed with medical team
--- NOTE | 2020-03-14 07:02 | NUR ---
infectious disease progress note Patient seen and examined chart reviewed Patient missed intensive care unit e patient is still on the ventilator. He is on 100%. We are trying to wean him down the 90% according to the nursing staff. He has been given some albumin and some Lasix. PHYSICAL EXAMINATION: VITAL SIGNS: Temperature is 97.7, pulse 92, respiratory rate is 34, blood pressure last recorded was 181/85, prior to that was 117/59. He is on 95% pulse ox recorded. GENERAL: He has a tracheostomy on sedation on the ventilator. PULMONARY: Trach, vent, sedated. CARDIOVASCULAR: Positive S1 and S2. No murmurs, rubs, or gallops appreciated. ABDOMEN: Soft, nondistended, nontender to palpation. Bowel sounds present. MUSCULOSKELETAL: On sedation. NEUROLOGIC: On sedation. SKIN: Intact. Warm to touch. Good cap refill. EXTREMITIES: He does have some edema appreciated. LABORATORY DATA: Labs show white count 7.9, hemoglobin 7.7, hematocrit is 26, and platelets of 521. Chemistry; sodium 138, potassium 4.2, chloride 93, bicarb 37, anion gap of 12, BUN 11, creatinine is 0.54. MICROBIOLOGY: Repeat blood cultures no growth to date. IMAGING STUDIES: Chest x-ray this morning still shows no change. IMPRESSION: 1. Acute respiratory failure secondary to coronavirus disease 2019 pneumonia, now on tracheostomy, on a mechanical ventilator. 2. Spontaneous pneumothorax with [address] 3. Sepsis, leukocytosis secondary to coronavirus. 4. Right upper extremity thromboses, on full-dose anticoagulation.
[2020-03-14 08:07] LABS: LYMPHOCYTES % (MANUAL) 10 % (19-48); MONOCYTES % (MANUAL) 6 % (3.4-9.0); MYELOCYTES % (MANUAL) 2 % (0-0); NEUTROPHILS % (MANUAL) 82 % (40-74); NUCLEATED RED BLOOD CELLS 2
[2020-03-14 08:08] LABS: PLATELET ESTIMATE SLIGHTLY INCREASED; POLYCHROMASIA FEW; RBC MORPHOLOGY COMMENT ABNORMAL
[2020-03-14 08:09] LABS: PLATELET MORPHOLOGY COMMENT RARE EDTA CLUMPING
[2020-03-14] MEDS: ASCORBIC ACID 500 MG TAB PO SCH ×2 (09:00→16:55)
[2020-03-14] MEDS: ENOXAPARIN INJ 80 MG/0.8 ML SYR SC SCH ×2 (09:00→20:46)
[2020-03-14] MEDS: CHOLECALCIFEROL 400 UNIT TAB PO SCH ×2 (09:00→16:55)
[2020-03-14] MEDS: ZINC SULFATE 220 MG CAP PO SCH (09:00)
--- NOTE | 2020-03-14 09:39 | NUR ---
Updated clinical faxed to Bruce at [phone].
[2020-03-14 10:38] LABS: ABG PH 7.32 (7.35-7.45)
[2020-03-14 10:39] LABS: ABG HCO3 42 mmol/L (22-26); ABG PCO2 85 mmHg (35-45); ABG PO2 62 mmHg (80-105)
[2020-03-14] MEDS ORDERED: FENTANYL 2,000 MCG/250 ML BAG ONE (10:41)
[2020-03-14] MEDS ORDERED: MIDAZOLAM HCL 5MG/ML 10ML VIAL 100 ML BAG IV ONE (10:44)
--- NOTE | 2020-03-14 11:18 | Progress Note ---
DATE: SUBJECTIVE: The patient remains on a PRVC mode of ventilation. He is set at 34 with a tidal volume of 370. His FiO2 is set at 100%. His PEEP is set at 14. He is receiving feedings at 20 mL an hour. He remains on Versed, rocuronium and fentanyl. PHYSICAL EXAMINATION: VITAL SIGNS: Blood pressure is 109/54, saturations 96%, and the pulse is 106. HEENT: Nasogastric tube. There is a tracheostomy in good position. The patient has a radial arterial line and PICC line in the right arm. HEENT: Shows no facial swelling or erythema. LYMPHATIC: Shows no submandibular, cervical, or supraclavicular adenopathy. CARDIAC: Reveals regular rate and rhythm. Normal S1, S2. LUNGS: Auscultation of lungs reveal crackles at the bases. There is no wheezing. ABDOMEN: Soft and nontender. There is no rebound or guarding. EXTREMITIES: Shows no leg edema or calf tenderness. There is no cyanosis or clubbing. SKIN: Shows no rashes. NEUROLOGIC: The patient to be sedated and paralyzed. LABORATORY DATA: White blood cell count is 8.33 and hemoglobin is 7.3. The platelet count is 501. BUN to creatinine ratio is normal. The carbon dioxide is 41. Albumin is 2.5. RADIOGRAPHIC DATA: Chest x-ray shows bilateral opacities with multifocal pneumonia. There are no acute abnormalities. IMPRESSION: 1. Acute respiratory failure. 2. Viral pneumonia and COVID-19 infection. 3. Left-sided pneumothorax that has resolved. 4. Anemia. 5. Superficial venous thrombosis. PLAN: 1. Continue current vent settings and monitor ABGs. 2. Continue enteral feedings and advance as tolerated. 3. Continue Lovenox 80 mg subcutaneous q.12. 4. Versed and fentanyl along with rocuronium. 5. Surgery to change tracheostomy today. 6. Remove chest tube. 7. Change PICC line to opposite side. 8. Case discussed with nightshift nursing, dayshift nursing, Respiratory, Infectious Disease and General Surgery. Greater than 35 minutes in direct critical care time. MD TEODORA Newton/HARPAL /[id number]
--- NOTE | 2020-03-14 11:27 | NUR ---
Insurance approved LTAC. Still pending administrative approval and bed.
--- NOTE | 2020-03-14 12:39 | Progress Note ---
DATE: 03/14/2020 Medicine Progress Note SUBJECTIVE: The patient is still on a mechanical ventilator. He is on 100%. Chest tube will remove tomorrow. PHYSICAL EXAMINATION: VITAL SIGNS: Temperature is 98.9, pulse 106, respiratory rate is 34, blood pressure 109/54, and pulse ox 96% on mechanical ventilator. GENERAL: He has tracheostomy, on sedation. Intubated and sedated. CARDIOVASCULAR: Positive S1 and S2. No murmurs, rubs, or gallops appreciated. ABDOMEN: Soft, nondistended, and nontender to palpation. Bowel sounds present. MUSCULOSKELETAL: Unable to assess. NEUROLOGIC: He is sedated. SKIN: Intact. Warm to touch. Good cap refill. EXTREMITIES: No edema appreciated. LABORATORY DATA: White count 8.3, hemoglobin 7.3, hematocrit is 23.5, and platelets of 501. Sodium 142, potassium 3.6, chloride 94, bicarb 41, anion gap of 10, BUN is 10, creatinine is 0.53, glucose is 101, and calcium is 7.8. AST 133 and ALT 111. MICROBIOLOGY: Blood cultures no growth to date. IMAGING STUDIES: Chest x-ray this morning still shows no change. IMPRESSION: 1. Acute respiratory failure secondary to coronavirus disease, COVID-19 pneumonia, now tracheostomy on a mechanical ventilator. 2. Spontaneous pneumothorax with one chest tube in place. 3. Sepsis and leukocytosis secondary to coronavirus. 4. Right upper extremity thromboses, on full-dose anticoagulation. 5. Anemia. PLAN: At this time, he is on 100% FiO2 on a mechanical ventilator. He is on a trach as well. He is saturating well. Chest tube per nurse will be removed tomorrow by Pulmonary. Continue with steroids, antibiotics, and vitamins. ID and Pulmonary Critical Care are following. Hemoglobin 7.3. We will monitor at this time. Hopefully, transfer sometime this week to LTAC if stable. MD BOB Burleson/MODL /[id number]
--- NOTE | 2020-03-14 13:05 | Diagnostic Imaging Report ---
EXAMINATION: CHEST XRAY LINE PLACEMENT INDICATION: Line placement COMPARISON: Chest radiograph of earlier the same day FINDINGS: LINES/TUBES:Left PICC line terminates in the superior vena cava. Additional lines and tubes unchanged. LUNGS:The lungs are moderately inflated. Unchanged bilateral multifocal airspace opacities. PLEURA:No pleural effusion or pneumothorax. MEDIASTINUM:The cardiomediastinal silhouette appears normal in size and shape. BONES/SOFT TISSUES:No acute osseous injury. ABDOMEN:No free air under the diaphragm. IMPRESSION: New left PICC line terminates in the superior vena cava. Otherwise, no significant interval change. Signed by: Katia Lo MD on 03/14/2020 1:02 PM
--- NOTE | 2020-03-14 15:35 | Progress Note ---
DATE: SUBJECTIVE: Mr. Smith remains in intensive care unit, day #25. OBJECTIVE: HEENT: He is not icteric. NECK: Supple. CHEST: Crackles. HEART: S1 and S2. No murmur. ABDOMEN: Soft. IMPRESSION: COVID-19, status post tracheostomy, now pneumothorax, but may be the chest tube will come out tomorrow. Continue as ordered. Discussed with the medical team. MD JAKY Osman/MODL /[id number]
[2020-03-14] MEDS ORDERED: MIDAZOLAM HCL 5MG/ML 10ML VIAL 100 ML IV ONE (20:22)
[2020-03-14] MEDS: HYDRALAZINE HCL 20 MG/ML VIAL IV PRN (21:51)
[2020-03-14 22:55] LABS: ABG HCO3 43 mmol/L (22-26); ABG PCO2 83 mmHg (35-45); ABG PH 7.32 (7.35-7.45); ABG PO2 71 mmHg (80-105)
[2020-03-15] VITALS (25 sets, daily range): BP systolic 117–176; BP diastolic 52–84
[2020-03-15] MEDS: FENTANYL 2000MCG/NS 250 250 ML IV PRN ×4 (00:59→17:09)
[2020-03-15] MEDS: MIDAZOLAM HCL 50 MG in SODIUM CHLORIDE 0.9% 100 ML 90 ML IV PRN ×4 (02:52→17:53)
--- NOTE | 2020-03-15 05:42 | Diagnostic Imaging Report ---
EXAMINATION: CHEST SINGLE (PORTABLE) INDICATION: Respiratory failure. COMPARISON: Chest radiograph 03/14/2020 FINDINGS: LINES/TUBES:Tracheostomy, enteric tube, and left arm PICC appear unchanged. Interval removal of right arm PICC. LUNGS:Decreasing aeration in the lungs. Increasing bilateral bilateral multifocal airspace opacities. PLEURA:Small bilateral pleural effusions. No pneumothorax. MEDIASTINUM:The cardiomediastinal silhouette appears normal in size and shape. BONES/SOFT TISSUES:No acute osseous injury. ABDOMEN:No free air under the diaphragm. IMPRESSION: Increasing bilateral airspace opacities, compatible with multifocal pneumonia, possibly with superimposed pulmonary edema. Small bilateral pleural effusions. Lines and tubes as above. Interval removal of right arm PICC. No pneumothorax. Signed by: Dr. Papo Montanez MD on 03/15/2020 5:38 AM
[2020-03-15] MEDS: INSULIN REGULAR, HUMAN 100 UNIT/1 ML 3ML VIAL SQ SCH ×3 (06:00→18:00)
[2020-03-15 06:41] LABS: BASOPHILS % 0.4 % (0.0-1.0); EOSINOPHILS % 0.4 % (0.0-6.0); HEMATOCRIT 25.6 % (38.2-49.6); HEMOGLOBIN 7.5 g/dL (14.0-18.0); LYMPHOCYTES # (AUTO) 0.8 (1.0-3.2); LYMPHOCYTES % 7.7 % (18.0-39.1); MEAN CORPUSCULAR HEMOGLOBIN 29.5 pg (28-32); MEAN CORPUSCULAR HGB CONC 29.3 g/dL (31-35); MEAN CORPUSCULAR VOLUME 100.8 fL (81-99); MONOCYTES # (AUTO) 0.6 (0.2-0.8); MONOCYTES % 5.7 % (4.4-11.3); NEUTROPHILS # (AUTO) 7.7 (2.1-6.9); NEUTROPHILS % 78.9 % (38.7-80.0); PLATELET COUNT 393 x10e3/uL (140-360); RED BLOOD COUNT 2.54 x10e6/uL (4.3-5.7); RED CELL DISTRIBUTION WIDTH 14.4 % (11.7-14.4)
[2020-03-15 07:05] LABS: ALANINE AMINOTRANSFERASE 174 IU/L (0-55); ALBUMIN 2.2 g/dL (3.5-5.0); ALBUMIN/GLOBULIN RATIO 0.6 (0.8-2.0); ALKALINE PHOSPHATASE 86 IU/L (40-150); ANION GAP 9.7 mmol/L (8-16); BLOOD UREA NITROGEN 7 mg/dL (7-26); BUN/CREATININE RATIO 16 (6-25); CALCIUM 7.6 mg/dL (8.4-10.2); CHLORIDE 94 mmol/L (98-107); CREATININE, SERUM 0.44 mg/dL (0.72-1.25); EST GLOMERULAR FILTRATION RATE > 60 ML/MIN (60-); GLUCOSE 117 mg/dL (74-118); POTASSIUM 3.7 mmol/L (3.5-5.1); SODIUM 142 mmol/L (136-145)
[2020-03-15 07:08] LABS: CARBON DIOXIDE 42 mmol/L (22-29)
[2020-03-15] MEDS: CHOLECALCIFEROL 400 UNIT TAB PO SCH ×2 (08:27→20:08)
[2020-03-15] MEDS: ASCORBIC ACID 500 MG TAB PO SCH ×2 (08:27→20:08)
[2020-03-15] MEDS: ENOXAPARIN INJ 80 MG/0.8 ML SYR SC SCH ×2 (08:27→20:08)
[2020-03-15] MEDS: ZINC SULFATE 220 MG CAP PO SCH (08:27)
[2020-03-15 09:08] LABS: ABG HCO3 42 mmol/L (22-26); ABG PCO2 82 mmHg (35-45); ABG PH 7.32 (7.35-7.45); ABG PO2 58 mmHg (80-105)
[2020-03-15 09:09] LABS: ABG TCO2 44
[2020-03-15 09:41] LABS: BAND NEUTROPHILS % (MANUAL) 2 %; HYPOCHROMASIA SLIGHT; LYMPHOCYTES % (MANUAL) 5 % (19-48); MONOCYTES % (MANUAL) 3 % (3.4-9.0); NEUTROPHILS % (MANUAL) 90 % (40-74)
[2020-03-15] MEDS ORDERED: MIDAZOLAM HCL 5MG/ML 10ML VIAL 100 ML BAG IV ONE (10:45)
[2020-03-15] MEDS: ROCURONIUM BROMIDE 250 MG in SODIUM CHLORIDE 0.9% 250ML 225 ML IV SCH ×3 (10:51→22:49)
--- NOTE | 2020-03-15 11:33 | Progress Note ---
DATE: SUBJECTIVE: The patient is afebrile. The patient remains on a PRVC mode of ventilation, rate of 34 with a tidal volume of 370 and the FiO2 of 100%. His PEEP is set at 14. He still has a chest tube in place on the left side that has some serosanguineous drainage, about 150 mL overnight. PHYSICAL EXAMINATION: VITAL SIGNS: Blood pressure is 163/64, saturation is 97% and heart rate is 120. HEENT: Shows no facial swelling or erythema. There is a nasogastric tube in place. There is tracheostomy site that looks clean. There is a PICC line. There is also a radial arterial line. CARDIAC: Reveals regular rate and rhythm with normal S1, S2. LUNGS: Auscultation of lungs reveals crackles at the bases. There is no wheezing. ABDOMEN: Soft and nontender. There is no rebound or guarding. EXTREMITIES: Shows no leg edema or calf tenderness. There is no cyanosis or clubbing. LABORATORY DATA: White blood cell count is 9.7, hemoglobin is 7.5, the platelet count is 393. BUN to creatinine ratio is 7 to 0.44. Other electrolytes are within normal limits and the albumin is 2.2. RADIOGRAPHIC DATA: Chest x-ray shows bilateral airspace opacities. IMPRESSION: 1. Acute respiratory failure. 2. Viral pneumonia and COVID-19 infection. 3. Left-sided pneumothorax has resolved. 4. Anemia. 5. Superficial venous thrombosis. PLAN: 1. Continue current ventilator settings. 2. Continue enteral feedings and advance as tolerated. 3. Lovenox. 4. Continue Versed, fentanyl, and rocuronium. 5. Continue to monitor chest tube. Drew Everett MD [facility]/MODL /[id number]
--- NOTE | 2020-03-15 12:19 | Consultation ---
DATE OF CONSULTATION: 03/15/2020 REASON FOR CONSULT: Respiratory insufficiency, COVID-19; requested by Dr. Raymundo Everett. SUBJECTIVE: The patient remains afebrile. Clinically, relatively stable, but still critically ill. FiO2 100%. PEEP is at 14. PRVC at 34 with tidal volume 370. Intubated and sedated. REVIEW OF SYSTEMS: Unobtainable because the patient is intubated and sedated. PHYSICAL EXAMINATION: VITAL SIGNS: Blood pressure 150/70, O2 saturation 97%, and heart rate 110. HEENT: No swelling. NG tube in place. CARDIAC: Regular rate and rhythm. Normal S1, S2. No rub or murmur. LUNGS: Coarse ventilator sounds bilaterally. ABDOMEN: Hypoactive bowel sounds. Soft and nontender. EXTREMITIES: No cyanosis, clubbing, or edema. LABORATORIES AND IMAGING: Chest x-ray shows bilateral pulmonary infiltrates and largely unchanged for chest tube in place in appropriate. There is no air leak in the chest tube on examination. White count yesterday 8.3 with hemoglobin 7.3 and hematocrit 22.5. INR 0.99. Sodium 142, potassium 3.7, BUN 7, and creatinine 0.44. IMPRESSION: Critically ill patient. Stable at present. Chest tube in place with minimal drainage and no air leak. I agree with the management. Missael Buckley MD [facility]/MODL /[id number]
--- NOTE | 2020-03-15 13:28 | NUR ---
Updates faxed to [facility] at [phone].
[2020-03-15] MEDS ORDERED: BISACODYL 10 MG SUPP PR ONE (13:45)
--- NOTE | 2020-03-15 16:10 | Progress Note ---
DATE: 03/15/2020 Medicine Progress Note SUBJECTIVE: The patient is still tracheostomy on the ventilator. Still pulse ox is 100%. Still no change. PHYSICAL EXAMINATION: VITAL SIGNS: Temperature is 96.8, pulse 75, respiratory rate is 34, blood pressure is 127/58, and pulse ox 100% on mechanical ventilator. GENERAL: Intubated and sedated. PULMONARY: Intubated, on tracheostomy, and sedated. CARDIOVASCULAR: Positive S1 and S2. No murmurs, rubs, or gallops appreciated. ABDOMEN: Soft, nondistended, and nontender to palpation. Bowel sounds present. MUSCULOSKELETAL: Unable to assess. NEUROLOGIC: Unable to assess. SKIN: Intact. Warm to touch. Good cap refill. EXTREMITIES: No edema. Good range of motion throughout. LABORATORY FINDINGS: Show white count 9.7, hemoglobin 7.5, hematocrit is 25.6, and platelets of 393. Chemistry; sodium 142, potassium 3.7, chloride 94, bicarb of 42, anion gap of 9.7, BUN is 7, and creatinine is 0.44. AST 123 and ALT 174. Calcium is 7.6. MICROBIOLOGY: All cultures were negative. IMAGING STUDIES: Chest x-ray this morning shows still increase in bilateral airspace opacities, compatible with multifocal pneumonia, possibly with superimposed pulmonary edema. Small bilateral pleural effusions. No pneumothorax appreciated. IMPRESSION: 1. Acute respiratory failure secondary to COVID-19 pneumonia, now on a tracheostomy and a mechanical ventilator. 2. Spontaneous pneumothorax, still with one chest tube in place, but no leakage appreciated. 3. Sepsis and leukocytosis secondary to coronavirus. 4. Right upper extremity thrombosis, on full-dose anticoagulation. 5. Anemia. PLAN: At this time, the patient is still on a trach, on a mechanical ventilator, still requiring significant amount of oxygen. Still has a chest tube in place. Hemoglobin is stable, labs are stable. Still working on LTAC once he is stable, cleared by Pulmonary Critical Care. Continue with steroids, antibiotics, and vitamins. Continue to follow with all consultants. MD BOB Burleson/MODL /[id number]
--- NOTE | 2020-03-15 18:16 | Progress Note ---
DATE: SUBJECTIVE: Mr. Smith remains in intensive care unit. OBJECTIVE: VITAL SIGNS: Temperature 96.8, heart rate 75, respirations 34. HEENT: He is not icteric. NECK: Supple. CHEST: Crackles. IMPRESSION AND PLAN: 1. Respiratory failure and pneumothorax. 2. Right upper extremity deep venous thrombosis. Continue supportive care as ordered, off antibiotic, continue with anticoagulation. MD JAKY Osman/HARPAL /[id number]
[2020-03-15 21:56] LABS: ABG PCO2 101 mmHg (35-45); ABG PH 7.27 (7.35-7.45)
[2020-03-15 21:57] LABS: ABG HCO3 47 mmol/L (22-26); ABG PO2 77 mmHg (80-105); ABG TCO2 50
[2020-03-16] VITALS (27 sets, daily range): BP systolic 128–177; BP diastolic 48–87
[2020-03-16] MEDS: INSULIN REGULAR, HUMAN 100 UNIT/1 ML 3ML VIAL SQ SCH ×4 (00:13→17:54)
[2020-03-16] MEDS: FENTANYL 2000MCG/NS 250 250 ML IV PRN ×5 (00:14→22:59)
[2020-03-16] MEDS: MIDAZOLAM HCL 50 MG in SODIUM CHLORIDE 0.9% 100 ML 90 ML IV PRN ×3 (00:15→12:14)
[2020-03-16] MEDS: ROCURONIUM BROMIDE 250 MG in SODIUM CHLORIDE 0.9% 250ML 225 ML IV SCH ×3 (05:49→21:10)
--- NOTE | 2020-03-16 05:51 | Diagnostic Imaging Report ---
EXAMINATION: CHEST SINGLE (PORTABLE) INDICATION: Respiratory failure. COMPARISON: Chest radiograph 03/14/2020. FINDINGS: LINES/TUBES:Tracheostomy, enteric tube, left chest tube, and left arm PICC appear unchanged. LUNGS: Slightly increased bilateral multifocal lower lung zone predominant airspace opacities. PLEURA:Small bilateral pleural effusions. No evidence of pneumothorax. MEDIASTINUM:The cardiomediastinal silhouette appears normal in size and shape. BONES/SOFT TISSUES:No acute osseous injury. ABDOMEN:No free air under the diaphragm. IMPRESSION: Slightly increased bilateral airspace opacities, compatible with multifocal pneumonia, possibly with superimposed pulmonary edema. Small bilateral pleural effusions. Lines and tubes as above. No evidence of pneumothorax. Signed by: Dr. Papo Montanez MD on 03/16/2020 5:47 AM
[2020-03-16 06:01] LABS: BASOPHILS % 0.3 % (0.0-1.0); EOSINOPHILS % 0.2 % (0.0-6.0); HEMATOCRIT 24.7 % (38.2-49.6); HEMOGLOBIN 7.1 g/dL (14.0-18.0); LYMPHOCYTES # (AUTO) 0.8 (1.0-3.2); LYMPHOCYTES % 7.2 % (18.0-39.1); MEAN CORPUSCULAR HEMOGLOBIN 29.8 pg (28-32); MEAN CORPUSCULAR HGB CONC 28.7 g/dL (31-35); MEAN CORPUSCULAR VOLUME 103.8 fL (81-99); MONOCYTES # (AUTO) 0.6 (0.2-0.8); NEUTROPHILS # (AUTO) 8.4 (2.1-6.9); NEUTROPHILS % 79.7 % (38.7-80.0); PLATELET COUNT 376 x10e3/uL (140-360); RED BLOOD COUNT 2.38 x10e6/uL (4.3-5.7); RED CELL DISTRIBUTION WIDTH 15.4 % (11.7-14.4)
[2020-03-16] MEDS: HYDRALAZINE HCL 20 MG/ML VIAL IV PRN (06:02)
[2020-03-16 06:27] LABS: ALANINE AMINOTRANSFERASE 150 IU/L (0-55); ALBUMIN 2.1 g/dL (3.5-5.0); ALBUMIN/GLOBULIN RATIO 0.6 (0.8-2.0); ALKALINE PHOSPHATASE 109 IU/L (40-150); ANION GAP 11.6 mmol/L (8-16); BLOOD UREA NITROGEN 7 mg/dL (7-26); BUN/CREATININE RATIO 16 (6-25); CALCIUM 7.8 mg/dL (8.4-10.2); CHLORIDE 96 mmol/L (98-107); CREATININE, SERUM 0.43 mg/dL (0.72-1.25); EST GLOMERULAR FILTRATION RATE > 60 ML/MIN (60-); GLUCOSE 119 mg/dL (74-118); POTASSIUM 3.6 mmol/L (3.5-5.1); SODIUM 147 mmol/L (136-145)
[2020-03-16 06:28] LABS: CARBON DIOXIDE 43 mmol/L (22-29)
[2020-03-16 08:09] LABS: ABG PCO2 91 mmHg (35-45); ABG PH 7.33 (7.35-7.45); ABG PO2 56 mmHg (80-105)
[2020-03-16 08:10] LABS: ABG HCO3 47 mmol/L (22-26); ABG TCO2 50
[2020-03-16] MEDS: ASCORBIC ACID 500 MG TAB PO SCH ×2 (08:10→20:55)
[2020-03-16] MEDS: CHOLECALCIFEROL 400 UNIT TAB PO SCH ×2 (08:10→20:55)
[2020-03-16] MEDS: ZINC SULFATE 220 MG CAP PO SCH (08:10)
[2020-03-16] MEDS: ENOXAPARIN INJ 80 MG/0.8 ML SYR SC SCH ×2 (08:10→20:55)
[2020-03-16] MEDS ORDERED: POTASSIUM CHLORIDE 20MEQ/15ML UDC NG ONE (08:15)
[2020-03-16] MEDS ORDERED: FUROSEMIDE INJ 10 MG/ML 2 ML VIAL IV ONE ×2 (10:30→10:45)
[2020-03-16] MEDS ORDERED: DEXAMETHASONE SOD PHOS 10 MG/1 ML VIAL IV ONE (10:45)
[2020-03-16] MEDS ORDERED: ACETAMINOPHEN 325 MG TAB PO ONE (10:45)
[2020-03-16] MEDS ORDERED: SODIUM CHLORIDE 0.9% 250ML 250 ML IV ONE (10:45)
[2020-03-16 11:41] LABS: ANISOCYTOSIS SLIGHT; LYMPHOCYTES % (MANUAL) 2 % (19-48); MONOCYTES % (MANUAL) 8 % (3.4-9.0); NEUTROPHILS % (MANUAL) 90 % (40-74); PLATELET ESTIMATE SLIGHTLY INCREASED; PLATELET MORPHOLOGY COMMENT NORMAL; POLYCHROMASIA FEW
[2020-03-16 11:42] LABS: RBC MORPHOLOGY COMMENT NORMAL
--- NOTE | 2020-03-16 11:52 | Progress Note ---
DATE: Pulmonary/Critical Care Progress Note SUBJECTIVE: The patient is still on a PRVC mode of ventilation at a rate of 34. His PEEP is set at 14 and his FiO2 is 100%. His tidal volume is 390. He remains on Versed, fentanyl and rocuronium. He has a left-sided chest tube in. There is still some drainage from the chest tube. PHYSICAL EXAMINATION: VITAL SIGNS: The blood pressure is 133/58 and the respiratory rate is 34. The pulse is 110. There is a tracheostomy site. It is sutured in place and looks clean. He has a PICC line in place. He also has a radial arterial line. There is a left-sided chest tube. The site is clean. CARDIAC: Reveals regular rate and rhythm with normal S1 and S2. LUNGS: Auscultation of lungs reveals crackles at the bases. There is no wheezing. ABDOMEN: Soft and nontender. There is no rebound or guarding. EXTREMITIES: Shows no leg edema or calf tenderness. There is no cyanosis or clubbing. SKIN: Shows no rashes. NEUROLOGICAL: Shows no focal abnormalities. LABORATORY DATA: White blood cell count is 10.6 and hemoglobin is 7.1. The platelet count is 376. The BUN to creatinine ratio is 7 to 0.43 and the carbon dioxide is 43. The sodium is 147. Albumin is 2.1. RADIOGRAPHIC DATA: Chest x-ray shows slightly increased bilateral airspace disease, possibly related to superimposed pulmonary edema. IMPRESSION: 1. Acute respiratory failure. 2. COVID and viral pneumonia. 3. Left-sided pneumothorax that has resolved. 4. Anemia secondary to chronic blood loss. 5. Hypokalemia. PLAN: 1. Continue current ventilator settings and monitor ABG. 2. Lasix IV now. 3. 1 unit of packed red blood cells followed by additional Lasix. 4. Continue enteral feedings and free water. 5. Continue chest tube because there is still some drainage. 6. Continue Lovenox. 7. Sliding scale insulin as needed. 8. Case discussed with nursing staff, Respiratory, Internal Medicine, and Infectious Disease. Greater than 35 minutes in direct critical care time. Drew Everett MD [facility]/HARPAL /[id number]
--- NOTE | 2020-03-16 12:12 | NUR ---
Updated clinicals faxed to [facility] at [phone]
[2020-03-16] MEDS ORDERED: POTASSIUM CHLORIDE 20MEQ/15ML UDC NG SCH (12:30)
--- NOTE | 2020-03-16 13:47 | NUR ---
this is infectious disease progress note Patient seen and examined chart reviewed All events reviewed discussed with the medical team The patient is still on a PRVC mode of ventilation at a rate of 34. His PEEP is set at 14 and his FiO2 is 100%. His tidal volume is 390. He remains on Versed, fentanyl and rocuronium. He has a left-sided chest tube in. There is still some drainage from the chest tube. PHYSICAL EXAMINATION: HEENT normocephalic VITAL SIGNS: The blood pressure is 133/58 and the respiratory rate is 34. The pulse is 110. There is a tracheostomy site. It is sutured in place and looks clean. He has a PICC line in place. He also has a radial arterial line. There is a left-sided chest tube. The site is clean. CARDIAC: Reveals regular rate and rhythm with normal S1 and S2. LUNGS: Auscultation of lungs reveals crackles at the bases. There is no wheezing. ABDOMEN: Soft and nontender. There is no rebound or guarding. EXTREMITIES: Shows no leg edema or calf tenderness. There is no cyanosis or clubbing. SKIN: Shows no rashes. NEUROLOGICAL: Shows no focal abnormalities. LABORATORY DATA: White blood cell count is 10.6 and hemoglobin is 7.1. The platelet count is 376. The BUN to creatinine ratio is 7 to 0.43 and the carbon dioxide is 43. The sodium is 147. Albumin is 2.1. RADIOGRAPHIC DATA: Chest x-ray shows slightly increased bilateral airspace disease, possibly related to superimposed pulmonary edema. IMPRESSION: 1. Acute respiratory failure. 2. COVID and viral pneumonia. 3. Left-sided pneumothorax that has resolved. 4. Anemia secondary to chronic blood loss. 5. Hypokalemia. PLAN: discussed with medical team no new recommendation of infectious disease point of view agree with supportive care and agree with diabetic control 1. Continue current ventilator settings and monitor ABG. 2. Lasix IV now. 3. 1 unit of packed red blood cells followed by additional Lasix. 4. Continue enteral feedings and free water. 5. Continue chest tube because there is still some drainage. 6. Continue Lovenox. 7. Sliding scale insulin as needed. 8. Case discussed with nursing staff, Respiratory, Internal Medicine, and Infectious Disease. Greater than 35 minutes in direct critical care time.
--- NOTE | 2020-03-16 14:27 | Progress Note ---
DATE: 03/16/2020 Medicine Progress Note SUBJECTIVE: The patient is still requiring significant amount of oxygen high pressures. Seems like today, he is much worse compared to yesterday. His O2 saturation is 90%. PHYSICAL EXAMINATION: VITAL SIGNS: Temperature 98, pulse 105, respiratory rate is 34, and blood pressure 135/57. He is 90% on a mechanical ventilator. GENERAL: He is on a tracheostomy, on sedation. PULMONARY: He is on a trach. He is on a ventilator. CARDIOVASCULAR: Positive S1 and S2. No murmurs, rubs, or gallops appreciated. ABDOMEN: Soft, nondistended, and nontender to palpation. Bowel sounds present. MUSCULOSKELETAL: Unable to assess. NEUROLOGIC: Unable to assess. SKIN: Intact. Warm to touch. Good cap refill. EXTREMITIES: Still has some trace edema appreciated LABORATORY DATA: Show white count is 10.5, hemoglobin 7.1, hematocrit is 24, and platelets of 376. Chemistry; sodium 147, potassium 3.6, chloride 96, bicarb 43, BUN is 7, creatinine is 0.43, glucose is 119, and calcium 7.8. MICROBIOLOGY: All cultures were negative. IMAGING STUDIES: Chest x-ray this morning still shows no change similar findings. IMPRESSION: 1. Acute respiratory failure secondary to COVID-19 pneumonia with a tracheostomy on a mechanical ventilator. 2. Spontaneous pneumothorax. He has one chest tube still in place. No leakage appreciated. 3. Sepsis with leukocytosis secondary to coronavirus. 4. Right upper extremity thrombosis, on full-dose anticoagulation. 5. Anemia. PLAN: At this time, the patient continues to be on a mechanical ventilator, on a trach. He is requiring significant amount of oxygen and high pressures. He still has one chest tube in place. Hemoglobin is 7.1, stable for now. Electrolytes are stable. We will continue to follow with Pulmonary Critical Care. We are still working on LTAC placement. Continue with steroids, antibiotics, and vitamins. His prognosis is very critical and guarded. The patient is very ill and sick. The family wants to continue with full code. Continue to follow with the consultants. MD BOB Burleson/HARPAL /[id number]
--- NOTE | 2020-03-16 15:39 | NUR ---
Nutrition Intervention Note RD Recommendation(s) for Physician: - Continue Vital AF 1.2 and recommend a goal rate of 55 ml/hr (provides 1584 kcal and 99 gm protein) - Water flushes and fluid management per MD Plan of Care: RD following, TF rec's, monitoring for tolerance and adequacy, tube feed recommendation Reason for Nutrition Involvement: follow up Primary Diagnose(s): acute respiratory distress due to COVID-19 PMH: no pertinent hx RD Assessment: 03/16 Follow up. Pt remains intubated and received a tracheostomy on 03/11. Pt is receiving tube feeding at 30 mL/hr per documentation. Will continue to monitor. 03/11: Follow up. Pt remains intubated. Pt is scheduled to receive a tracheostomy today. Per documentation, tube feed is currently off. Recommend resuming tube feeding when medically appropriate. Current tube feed recommendation remain appropriate. Will continue to monitor. 03/08: Follow up. Pt remains intubated, paralyzed on Rocuronium, and sedated on Propofol as well as Versed and Fentanyl. Pt with chest tubes x 2 due to pneumothorax. Possible trach placement per MD notes. TF at 50 ml/hr per ice guard skating rink. No recent BM documented. Chart reviewed. Current TF rec's remain appropriate. Will continue to monitor. 03/04: Follow up. Pt remains intubated. Per MD note, pt was prone overnight. Tube feed rate of Glucerna 1.2 was at 50 mL/hr this morning and propofol is not infusing per chart. Recommendations provided. Will continue to monitor. 03/01: Pt now intubated, sedated, and paralyzed. No pressors. Pt requiring proning, TF off currently per ice guard skating rink. Pt assessed and TF rec's provided. Pt may continue TF while being proned by being placed in reverse Trendelenburg position. TF rec's provided. (02/22) 54 YOM admitted for acute respiratory distress due to COVID-19. Pt evaluated today for LOS. Unable to enter pt's room due to current isolation precautions. No poor intake or wt loss reported per admit notes. Pt with 100% intake per chart. LBM 02/17, no GI distress reported by RN. Skin intact. Chart reviewed. Labs and meds reviewed. Will continue to monitor. GI: last recorded BM 03/16, soft, non-tender abdomen Skin: right knee wound Labs: 03/16: Na 147, BUN 7, Cr 0.43, Glu 119, Ca 7.8, Total Bili 1.7, AST 71, ALT 150 03/11: Na 137, K 4.1, BUN 9, Cr 0.47, Glu 64, Ca 7.9 03/08: Na 141, K 5, BUN 14, Cr 0.6, Gluc 167, POC GLuc 114-211 03/04: Na 142, K 4.1, BUN 12, Cr 0.55, Glu 88, Ca 8.1, AST 98, ALT 165 03/01: Na 138, K 4.5, BUN 16, Cr 0.58, gluc 102, POC Gluc 128-162 Meds: insulin, rocuronium, vitamin D, vitamin C, zinc sulfate, fentanyl, zofran, imodium Ht: 65 in Wt: 170 lbs (03/16) 151 lbs (151 lbs) 167.5 lb (03/08) 162 lbs (03/04) 167 lb (02/21) BMI: 27.8 kg/m2 (Weight used: 167 lbs) IBW: 136 lb Estimated Nutritional Needs: Calories: 3619-5764 (20-25 kcal/kg/d) Weight used: 167 lbs Protein: 87-134 (1.3-2 g/kg/d) Weight used: 167 lbs Diet Adequacy: not meeting calorie needs, not meeting protein needs Current Diet: TF is currently Vital AF 1.2 @ 30 mL/hr (provides 864 kcal, 54 g protein) Malnutrition Evaluation (02/23/20) The patient does not meet criteria for a specified degree of malnutrition at this time. Will re-evaluate at follow-up as appropriate. Unable to assess per current isolation precautions. Diet Education Needs Assessment: Diet education not indicated. Nutrition Care Level: Moderate Nutrition Diagnosis: Inadequate energy and protein intake related to intubation as evidenced by requiring EN. Goal: Patient will meet 75-100% of estimated needs by follow up Progress: goal not met Interventions: Tube feeding - Composition, Rate, Route Monitoring/Evaluation: Total energy intake, Total protein intake, Formula/Solution, Weight change Signed: Shweta Aguilera, RD, ALANA
--- NOTE | 2020-03-16 16:23 | NUR ---
ST Note: Pt remains intubated. Pt will benefit from re-eval of swallow safety once extubated. Will follow.
[2020-03-16] MEDS ORDERED: LIDOCAINE HCL 2% LOCAL 20 ML VIAL ONE (18:23)
--- NOTE | 2020-03-16 18:43 | Diagnostic Imaging Report ---
EXAMINATION: CHEST SINGLE (PORTABLE) INDICATION: Pneumonia ^desaturation ^[id number] ^[id number] COMPARISON: 03/16/2020 LINES/TUBES:Tracheostomy, enteric tube, left chest tube, and left arm PICC appear unchanged. LUNGS: Slightly increased bilateral multifocal lower lung zone predominant airspace opacities. PLEURA:Small bilateral pleural effusions. No evidence of pneumothorax. MEDIASTINUM:The cardiomediastinal silhouette appears normal in size and shape. BONES/SOFT TISSUES:No acute osseous injury. ABDOMEN:No free air under the diaphragm. IMPRESSION: Slightly increased bilateral airspace opacities, compatible with multifocal pneumonia, possibly with superimposed pulmonary edema. Small bilateral pleural effusions. Lines and tubes as above. No evidence of pneumothorax. Signed by: Dr. Amos Jiang M.D. on 03/16/2020 6:40 PM
[2020-03-17] VITALS (25 sets, daily range): BP systolic 112–192; BP diastolic 51–90
[2020-03-17] MEDS: INSULIN REGULAR, HUMAN 100 UNIT/1 ML 3ML VIAL SQ SCH ×4 (00:10→18:15)
[2020-03-17 03:19] LABS: ABG HCO3 48 mmol/L (22-26); ABG PCO2 89 mmHg (35-45); ABG PH 7.34 (7.35-7.45); ABG PO2 53 mmHg (80-105); ABG TCO2 50
[2020-03-17 04:51] LABS: BASOPHILS % 0.3 % (0.0-1.0); HEMATOCRIT 26.9 % (38.2-49.6); HEMOGLOBIN 7.7 g/dL (14.0-18.0); LYMPHOCYTES # (AUTO) 0.8 (1.0-3.2); LYMPHOCYTES % 10.3 % (18.0-39.1); MEAN CORPUSCULAR HEMOGLOBIN 30.4 pg (28-32); MEAN CORPUSCULAR HGB CONC 28.6 g/dL (31-35); MEAN CORPUSCULAR VOLUME 106.3 fL (81-99); MONOCYTES # (AUTO) 0.7 (0.2-0.8); MONOCYTES % 8.4 % (4.4-11.3); NEUTROPHILS # (AUTO) 5.8 (2.1-6.9); NEUTROPHILS % 71.7 % (38.7-80.0); PLATELET COUNT 353 x10e3/uL (140-360); RED BLOOD COUNT 2.53 x10e6/uL (4.3-5.7); RED CELL DISTRIBUTION WIDTH 16.7 % (11.7-14.4)
[2020-03-17] MEDS: MIDAZOLAM HCL 50 MG in SODIUM CHLORIDE 0.9% 100 ML 90 ML IV PRN ×4 (05:18→20:16)
[2020-03-17 05:22] LABS: ALANINE AMINOTRANSFERASE 153 IU/L (0-55); ALBUMIN 2.1 g/dL (3.5-5.0); ALBUMIN/GLOBULIN RATIO 0.5 (0.8-2.0); ALKALINE PHOSPHATASE 144 IU/L (40-150); ANION GAP 7.8 mmol/L (8-16); BLOOD UREA NITROGEN 10 mg/dL (7-26); BUN/CREATININE RATIO 23 (6-25); CALCIUM 7.7 mg/dL (8.4-10.2); CHLORIDE 93 mmol/L (98-107); CREATININE, SERUM 0.44 mg/dL (0.72-1.25); EST GLOMERULAR FILTRATION RATE > 60 ML/MIN (60-); GLUCOSE 103 mg/dL (74-118); POTASSIUM 3.8 mmol/L (3.5-5.1); SODIUM 146 mmol/L (136-145)
[2020-03-17 05:37] LABS: CARBON DIOXIDE 49 mmol/L (22-29)
[2020-03-17] MEDS: ROCURONIUM BROMIDE 250 MG in SODIUM CHLORIDE 0.9% 250ML 225 ML IV SCH ×3 (06:02→16:38)
[2020-03-17] MEDS ORDERED: POTASSIUM CHLORIDE 20MEQ/15ML UDC NG NR (07:45)
[2020-03-17 07:53] LABS: PHOSPHORUS 1.4 MG/DL (2.3-4.7)
[2020-03-17 08:24] LABS: BAND NEUTROPHILS % (MANUAL) 2 %; EOSINOPHILS % (MANUAL) 1 % (0-7); LYMPHOCYTES % (MANUAL) 6 % (19-48); MONOCYTES % (MANUAL) 4 % (3.4-9.0); MYELOCYTES % (MANUAL) 3 % (0-0); NEUTROPHILS % (MANUAL) 84 % (40-74); NUCLEATED RED BLOOD CELLS 1; POLYCHROMASIA FEW
[2020-03-17] MEDS: ENOXAPARIN INJ 80 MG/0.8 ML SYR SC SCH ×2 (08:24→20:53)
[2020-03-17] MEDS: ZINC SULFATE 220 MG CAP PO SCH (08:24)
[2020-03-17] MEDS: CHOLECALCIFEROL 400 UNIT TAB PO SCH ×2 (08:24→20:53)
[2020-03-17] MEDS: ASCORBIC ACID 500 MG TAB PO SCH ×2 (08:24→20:53)
[2020-03-17 08:25] LABS: ANISOCYTOSIS SLIGHT; PLATELET ESTIMATE ADEQUATE; PLATELET MORPHOLOGY COMMENT NORMAL
[2020-03-17 08:26] LABS: HYPOCHROMASIA SLIGHT; RBC MORPHOLOGY COMMENT ABNORMAL
[2020-03-17] MEDS: FENTANYL 2000MCG/NS 250 250 ML IV PRN ×3 (08:34→23:43)
--- NOTE | 2020-03-17 11:46 | Progress Note ---
DATE: Pulmonary Critical Care Progress Note SUBJECTIVE: The patient received packed red blood cells yesterday along with Lasix. He remains on a mechanical ventilator. He is on a PRVC at a rate of 34 with a tidal volume of 380 and an FiO2 of 100%. His PEEP is set at 14. He is still on Versed, fentanyl, and rocuronium. He has an enteral feeding tube and is receiving feedings as well as free water. He has left-sided chest tube. There is still some serosanguineous drainage. PHYSICAL EXAMINATION: VITAL SIGNS: The blood pressure is 177/72, saturations in the mid 90s. HEENT: No facial swelling or erythema. The oropharynx is normal. LYMPHATIC: No submandibular, cervical, or supraclavicular adenopathy. CARDIAC: Reveals regular rate and rhythm with normal S1, S2. LUNGS: Auscultation of lungs reveals rhonchorous breath sounds bilaterally. There is no wheezing. ABDOMEN: Soft and nontender. There is no rebound or guarding. EXTREMITIES: Shows edema. LABORATORY DATA: White blood cell count is 8 and hemoglobin is 7.7. The platelet count is 353. The BUN to creatinine ratio is normal. The carbon dioxide is 49 and the sodium is 146. The albumin is 2.1. RADIOGRAPHIC DATA: Chest x-ray shows bilateral airspace opacities. IMPRESSION: 1. Acute respiratory failure. 2. Coronavirus disease-19 and viral pneumonia. 3. Left-sided pneumothorax that has resolved. 4. Anemia secondary to chronic blood loss. 5. Myopathy of critical illness. PLAN: 1. Continue current antibiotics. 2. Continue Lovenox. 3. Continue current ventilator settings and monitor ABG. 4. Continue Versed, fentanyl, and rocuronium. 5. Case discussed with the night clerk auditor nursing, dayshift nursing, administration, Infectious Disease, and daughter. Greater than 35 minutes in direct critical care time. Drew Everett MD [facility]/MODL /[id number]
[2020-03-17 12:07] LABS: ABG PH 7.23 (7.35-7.45)
[2020-03-17 12:08] LABS: ABG PCO2 117 mmHg (35-45); ABG PO2 71 mmHg (80-105)
[2020-03-17 12:09] LABS: ABG HCO3 50 mmol/L (22-26); ABG TCO2 > 50
--- NOTE | 2020-03-17 13:24 | Diagnostic Imaging Report ---
EXAMINATION: CHEST SINGLE (PORTABLE) INDICATION: Pneumonia, respiratory failure COMPARISON: Multiple prior chest radiographs most recently 03/16/2020 FINDINGS: LINES/TUBES:Support lines and tubes unchanged. LUNGS:The lungs are moderately inflated. Unchanged bilateral multifocal airspace opacities. PLEURA:No pleural effusion or pneumothorax. MEDIASTINUM:The cardiomediastinal silhouette appears unchanged in size and shape. BONES/SOFT TISSUES:No acute osseous injury. ABDOMEN:No free air under the diaphragm. IMPRESSION: No significant interval change. Signed by: Katia Lo MD on 03/17/2020 1:21 PM
--- NOTE | 2020-03-17 14:58 | Progress Note ---
DATE: 03/17/2020 Medicine Progress Note SUBJECTIVE: The patient has no change. Still requiring significant amount of oxygen. I spoke with the uniform patrol police officer as well. It is difficult to prone the patient because he has a tracheostomy. He is still requiring significant amount of oxygen. PHYSICAL EXAMINATION: VITAL SIGNS: Temperature is 96.9, pulse 105, respiratory rate is 34, blood pressure 141/51, and pulse ox 92% on mechanical ventilator. GENERAL: He is trached on a mechanical ventilator. PULMONARY: Trached, mechanical ventilator. CARDIOVASCULAR: Positive S1 and S2. No murmurs, rubs, or gallops appreciated. ABDOMEN: Soft, nondistended, and nontender to palpation. Bowel sounds present. MUSCULOSKELETAL: Unable to assess. He is sedated. NEUROLOGIC: Unable to assess. He is sedated. SKIN: Intact. Warm to touch. Good cap refill. EXTREMITIES: He still has significant edema. LABORATORY DATA: White count 8, hemoglobin 7.7, hematocrit is 26.9, and platelets of 353. Chemistry; sodium is 146, potassium 3.8, chloride 93, bicarbonate 49, anion gap of 7.8, BUN is 10, creatinine is 0.44, glucose is 103, calcium is 7.7, phosphorus is 1.4, and magnesium was 2. AST 89 and ALT 153. Total protein 6.1. Repeat coronavirus not detected. MICROBIOLOGY: Blood cultures no growth. IMAGING STUDIES: Chest x-ray shows no significant interval change. IMPRESSION: 1. Acute respiratory failure secondary COVID-19 pneumonia with tracheostomy, on mechanical ventilator. 2. Spontaneous pneumothorax, has one chest tube in place with no leakage appreciated. 3. Sepsis with leukocytosis secondary to coronavirus. 4. Right upper extremity thromboses, on full-dose anticoagulation. 5. Anemia. 6. Metabolic alkalosis. PLAN: At this time, he still requires mechanical ventilator with high amounts of oxygen and high pressures. Still with a tracheostomy and has one chest tube in place. Labs reviewed. Bicarbonate is elevated. We will add Diamox to help downtrend that bicarbonate level. It seems to be more respiratory in nature with compensation of the bicarbonate. Continue to follow with Pulmonary Critical Care. Pulmonary Critical Care spoke with the daughter already today, Brian and discussed overall plan of care. Continue with steroids, antibiotics, and vitamins. Prognosis is very guarded. Continue to follow with the rest of the consultants. The patient is very ill. MD BOB Burleson/HARPAL /[id number]
--- NOTE | 2020-03-17 15:21 | Diagnostic Imaging Report ---
EXAMINATION: CHEST SINGLE (PORTABLE) INDICATION: Tracheostomy exchange. COMPARISON: Chest radiograph of 03/17/2020 FINDINGS: LINES/TUBES:Interval exchange of tracheostomy tube for a longer tracheostomy tube which terminates 2 cm above the briseida. Remaining support lines and tubes unchanged. LUNGS:The lungs are moderately inflated. Unchanged focal bilateral airspace opacities. PLEURA:No pleural effusion or pneumothorax. MEDIASTINUM:The cardiomediastinal silhouette appears unchanged in size and shape. BONES/SOFT TISSUES:No acute osseous injury. ABDOMEN:No free air under the diaphragm. IMPRESSION: Interval exchange of tracheostomy tube which terminates 2 cm above the briseida. Unchanged bilateral multifocal airspace opacities. The above findings were discussed with Dr. Torres on 03/17/2020 3:16 PM, who responded indicating that the communication was understood. Signed by: Katia Lo MD on 03/17/2020 3:18 PM
--- NOTE | 2020-03-17 16:05 | NUR ---
Temperature is 96.9, pulse 105, respiratory rate is 34, blood pressure 141/51, and pulse ox 92% on mechanical ventilator. GENERAL: He is trached on a mechanical ventilator. PULMONARY: Trached, mechanical ventilator. CARDIOVASCULAR: Positive S1 and S2. No murmurs, rubs, or gallops appreciated. ABDOMEN: Soft, nondistended, and nontender to palpation. Bowel sounds present. MUSCULOSKELETAL: Unable to assess. He is sedated. NEUROLOGIC: Unable to assess. He is sedated. SKIN: Intact. Warm to touch. Good cap refill. EXTREMITIES: He still has significant edema. LABORATORY DATA: White count 8, hemoglobin 7.7, hematocrit is 26.9, and platelets of 353. Chemistry; sodium is 146, potassium 3.8, chloride 93, bicarbonate 49, anion gap of 7.8, BUN is 10, creatinine is 0.44, glucose is 103, calcium is 7.7, phosphorus is 1.4, and magnesium was 2. AST 89 and ALT 153. Total protein 6.1. Repeat coronavirus not detected. MICROBIOLOGY: Blood cultures no growth. IMAGING STUDIES: Chest x-ray shows no significant interval change. IMPRESSION: [id number]
[2020-03-17] MEDS: ACETAZOLAMIDE SODIUM 500 MG/VIAL IV SCH ×2 (16:32→20:54)
--- NOTE | 2020-03-17 17:20 | Operative Report ---
DATE OF PROCEDURE: 03/17/2020 SURGEON: Mauricio Torres MD PREOPERATIVE DIAGNOSIS: COVID-19 pneumonia. POSTOPERATIVE DIAGNOSIS: COVID-19 pneumonia. PROCEDURE: Replacement of tracheostomy tube. ANESTHESIA: General. INDICATION: A 54-year-old male with history of COVID-19 pneumonia, 1 week status post tracheostomy tube. The patient has a leak at the tracheostomy tube connection to the ventilator; therefore, replacement indicated. DESCRIPTION OF PROCEDURE: The patient was in supine position in his ICU bed. Exchange is carried out at bedside. The patient is sedated and the Shiley 8 regular tracheostomy tube was then removed easily and a distal extended size 8 Shiley tracheostomy tube was then inserted without any difficulty into the trachea and connected to ventilator registering good tidal volume. Postprocedure chest x-ray was done. Mauricio Torres MD [facility]/MODL /[id number]
[2020-03-17 18:01] LABS: ABG PCO2 102 mmHg (35-45); ABG PH 7.26 (7.35-7.45); ABG PO2 57 mmHg (80-105)
[2020-03-17 18:03] LABS: ABG HCO3 46 mmol/L (22-26)
[2020-03-17 18:04] LABS: ABG TCO2 49
[2020-03-17] MEDS: PIPER-TAZ 3.375 GM 50 ML IV SCH (18:23)
--- NOTE | 2020-03-17 18:45 | Progress Note ---
DATE: SUBJECTIVE: Mr. Luis Barclay, this is day #28, the patient who is currently status post trach with the medical team. He is still extremely sick. OBJECTIVE: VITAL SIGNS: Temperature 96.9, heart rate 105. HEENT: Not icteric. CHEST: Crackles. HEART: S1, S2. ABDOMEN: Soft. IMPRESSION: Respiratory failure, on high oxygen demand, on high PEEP. Prognosis remains very guarded. His white count is 8. He is on vitamin D3. He is on Lovenox. He is on Tylenol. I am really concerned about aspiration. I am going to back on Zosyn. We will follow. MD JAKY Osman/MODL /[id number]
[2020-03-18] VITALS (22 sets, daily range): BP systolic 88–165; BP diastolic 41–78
[2020-03-18] MEDS: MIDAZOLAM HCL 50 MG in SODIUM CHLORIDE 0.9% 100 ML 90 ML IV PRN ×2 (00:31→22:18)
[2020-03-18] MEDS: INSULIN REGULAR, HUMAN 100 UNIT/1 ML 3ML VIAL SQ SCH ×4 (00:32→18:00)
[2020-03-18] MEDS: PIPER-TAZ 3.375 GM 50 ML IV SCH ×3 (02:02→18:00)
[2020-03-18 05:50] LABS: BASOPHILS % 0.5 % (0.0-1.0); EOSINOPHILS % 0.2 % (0.0-6.0); HEMATOCRIT 26.7 % (38.2-49.6); HEMOGLOBIN 7.4 g/dL (14.0-18.0); LYMPHOCYTES % 11.8 % (18.0-39.1); MEAN CORPUSCULAR HGB CONC 27.7 g/dL (31-35); MEAN CORPUSCULAR VOLUME 108.1 fL (81-99); MONOCYTES # (AUTO) 0.7 (0.2-0.8); MONOCYTES % 8.7 % (4.4-11.3); NEUTROPHILS # (AUTO) 5.9 (2.1-6.9); PLATELET COUNT 426 x10e3/uL (140-360); RED BLOOD COUNT 2.47 x10e6/uL (4.3-5.7); RED CELL DISTRIBUTION WIDTH 16.5 % (11.7-14.4)
[2020-03-18] MEDS: ACETAZOLAMIDE SODIUM 500 MG/VIAL IV SCH ×3 (05:57→22:00)
[2020-03-18 06:30] LABS: ANION GAP 9.4 mmol/L (8-16); BLOOD UREA NITROGEN 11 mg/dL (7-26); BUN/CREATININE RATIO 23 (6-25); CALCIUM 7.5 mg/dL (8.4-10.2); CARBON DIOXIDE 38 mmol/L (22-29); CHLORIDE 100 mmol/L (98-107); CREATININE, SERUM 0.48 mg/dL (0.72-1.25); EST GLOMERULAR FILTRATION RATE > 60 ML/MIN (60-); GLUCOSE 75 mg/dL (74-118); POTASSIUM 3.4 mmol/L (3.5-5.1); SODIUM 144 mmol/L (136-145)
[2020-03-18] MEDS ORDERED: POTASSIUM CHLORIDE 20MEQ/15ML UDC NG SCH (08:00)
[2020-03-18] MEDS: ZINC SULFATE 220 MG CAP PO SCH (09:00)
[2020-03-18 09:04] LABS: HYPOCHROMASIA SLIGHT
[2020-03-18 09:05] LABS: POLYCHROMASIA FEW
[2020-03-18 09:06] LABS: ANISOCYTOSIS SLIGHT; PLATELET ESTIMATE ADEQUATE; PLATELET MORPHOLOGY COMMENT FEW LARGE
[2020-03-18] MEDS: ENOXAPARIN INJ 80 MG/0.8 ML SYR SC SCH ×2 (09:07→21:50)
[2020-03-18] MEDS: CHOLECALCIFEROL 400 UNIT TAB PO SCH ×2 (09:07→21:50)
[2020-03-18] MEDS: ASCORBIC ACID 500 MG TAB PO SCH ×2 (09:07→21:50)
[2020-03-18 09:11] LABS: ABG HCO3 38 mmol/L (22-26); ABG PCO2 97 mmHg (35-45); ABG PO2 76 mmHg (80-105); ABG TCO2 41
--- NOTE | 2020-03-18 12:58 | Progress Note ---
DATE: SUBJECTIVE: The patient is still on a mechanical ventilator. His trach was changed to Shiley XLT yesterday. He is currently on a PRVC mode of ventilation at a rate of 34 with a tidal volume of 380 and a PEEP of 14. His FiO2 is set at 100%. He remains on rocuronium, Versed, and fentanyl. PHYSICAL EXAMINATION: VITAL SIGNS: The patient is afebrile. The blood pressure is 107/49, saturation was 90%, and the pulse is 107. HEENT: No facial swelling or erythema. CARDIAC: Reveals regular rate and rhythm with normal S1, S2. LUNGS: Auscultation of lungs reveals rhonchorous breath sounds bilaterally. There is no wheezing. ABDOMEN: Soft and nontender. There is no rebound or guarding. EXTREMITIES: No leg edema or calf tenderness. There is no cyanosis or clubbing. SKIN: No rashes. NEUROLOGICAL: No focal abnormalities. The patient is sedated. LABORATORY DATA: White blood cell count is 8.4 and hemoglobin is 7.4. The platelet count is 426. The BUN to creatinine ratio is normal. Other electrolytes are within normal limits and the albumin is 2.1. IMPRESSION: 1. Acute respiratory failure. 2. Coronavirus disease-19 and viral pneumonia. 3. Left-sided pneumothorax that has resolved. 4. Anemia secondary to chronic blood loss. PLAN: 1. Placed the patient in prone position today. 2. Continue Lovenox. 3. Continue current ventilator settings and monitor ABG. 4. Continue Versed, fentanyl, and rocuronium. Drew Everett MD [facility]/BARBARAL /[id number]
--- NOTE | 2020-03-18 14:49 | Progress Note ---
DATE: 03/18/2020 Medicine Progress Note SUBJECTIVE: The patient is not doing very well at this time. He is requiring significant amount of oxygen. His oxygen saturation is 90%. PHYSICAL EXAMINATION: VITAL SIGNS: Temperature 99.1, pulse 107, respiratory rate is 34, blood pressure 107/49, and pulse ox 90%. He is on a mechanical ventilator, intubated. GENERAL: Tracheostomy, sedated. CARDIOVASCULAR: Positive S1 and S2. No murmurs, rubs, or gallops appreciated. PULMONARY: Tracheostomy, sedated. ABDOMEN: Soft, nondistended, and nontender to palpation. Bowel sounds present. MUSCULOSKELETAL: Unable to assess. NEUROLOGIC: Unable to assess. SKIN: Intact. Warm to touch. Good cap refill. EXTREMITIES: No edema. Good range of motion throughout. LABORATORY DATA: CBC reviewed. Hemoglobin 7.4. His chemistry reviewed. His potassium is 3.4, replaced. His bicarbonate decreased to 38. IMPRESSION: 1. Acute respiratory failure secondary to COVID-19 pneumonia, tracheostomy, on mechanical ventilator. 2. Spontaneous pneumothorax with one chest tube in place with no leakage appreciated. 3. Sepsis with leukocytosis secondary to coronavirus. 4. Right upper extremity thromboses, on full-dose anticoagulation. 5. Anemia. 6. Metabolic alkalosis. PLAN: At this time, the patient is in a prone position. His oxygen requirement is significant. He is on sedation. We will continue with Diamox, which has helped his bicarbonate level. Continue with steroids, antibiotics, and vitamins. He is on sedation. Continue to follow with Pulmonary Critical Care, ID, and the rest of the consultants. His tracheostomy was exchanged yesterday by Surgery. Overall, prognosis is very guarded. He is very ill and he is very in critical condition. MD BOB Burleson/HARPAL /[id number]
--- NOTE | 2020-03-18 15:59 | NUR ---
he patient is still on a mechanical ventilator. His trach was changed to Shiley XLT yesterday. He is currently on a PRVC mode of ventilation at a rate of 34 with a tidal volume of 380 and a PEEP of 14. His FiO2 is set at 100%. He remains on rocuronium, Versed, and fentanyl. PHYSICAL EXAMINATION: VITAL SIGNS: The patient is afebrile. The blood pressure is 107/49, saturation was 90%, and the pulse is 107. HEENT: No facial swelling or erythema. CARDIAC: Reveals regular rate and rhythm with normal S1, S2. LUNGS: Auscultation of lungs reveals rhonchorous breath sounds bilaterally. There is no wheezing. ABDOMEN: Soft and nontender. There is no rebound or guarding. EXTREMITIES: No leg edema or calf tenderness. There is no cyanosis or clubbing. SKIN: No rashes. NEUROLOGICAL: No focal abnormalities. The patient is sedated. LABORATORY DATA: White blood cell count is 8.4 and hemoglobin is 7.4. The platelet count is 426. The BUN to creatinine ratio is normal. Other electrolytes are within normal limits and the albumin is 2.1. [id number]
[2020-03-18] MEDS: ROCURONIUM BROMIDE 250 MG in SODIUM CHLORIDE 0.9% 250ML 225 ML IV SCH ×2 (17:45→22:17)
--- NOTE | 2020-03-18 18:20 | Progress Note ---
DATE: SUBJECTIVE: Mr. Smith who remained in intensive care unit. This is day #29. He remains on the ventilator. Trach was changed to Shiley XLT, is currently on PRVC. He remains on Versed drip and fentanyl. Could not obtain review of systems. OBJECTIVE: VITAL SIGNS: Basically unchanged, is afebrile. HEENT: He is not icteric. NECK: Supple. CHEST: Few rhonchi. COR: S1, S2. ABDOMEN: Soft. IMPRESSION: Respiratory failure. COVID-19. Left-sided pneumothorax, anemia. His white count is 8.4, hemoglobin 7.4. Blood cultures, no growth. Currently on Zosyn, which was started on , concerned about aspiration pneumonia. PLAN: To finish 7 days of Zosyn. We will follow. MD JAKY Osman/MODL /[id number]
--- NOTE | 2020-03-18 20:31 | Diagnostic Imaging Report ---
Examination: Single AP view of the chest. COMPARISON: 03/17/2020 INDICATION: Restorative stress, pneumothorax DISCUSSION: Lines/tubes: Reported tracheostomy. Enteric tube with the distal tip of the [id number]. Left PICC line with tip over the SVC. Left chest tube removed. Lungs: Stable multifocal pneumonia. Pleura: No pneumothorax. Heart and mediastinum: The heart and the mediastinum are unremarkable. Bones and soft tissues: No acute bony abnormalities. IMPRESSION: 1. Stable multifocal pneumonia. No visualized pneumothorax. Signed by: Dr. Cain Figueroa M.D. on 03/18/2020 8:27 PM
[2020-03-18] MEDS ORDERED: SODIUM CHLORIDE 0.9% 500ML 500 ML IV ONE (22:00)
[2020-03-18] MEDS: FENTANYL 2000MCG/NS 250 250 ML IV PRN (22:16)
[2020-03-18] MEDS: NOREPINEPHRINE 8 MG/D5W 250 ML 250 ML IV PRN (22:17)
[2020-03-19] VITALS (60 sets, daily range): BP systolic 88–135; BP diastolic 45–91
[2020-03-19] MEDS: PIPER-TAZ 3.375 GM 50 ML IV SCH ×3 (02:04→18:28)
[2020-03-19] MEDS: MIDAZOLAM HCL 50 MG in SODIUM CHLORIDE 0.9% 100 ML 90 ML IV PRN (05:51)
[2020-03-19] MEDS: ACETAZOLAMIDE SODIUM 500 MG/VIAL IV SCH ×2 (06:00→21:38)
[2020-03-19] MEDS: INSULIN REGULAR, HUMAN 100 UNIT/1 ML 3ML VIAL SQ SCH ×4 (06:26→18:30)
[2020-03-19] MEDS: CHOLECALCIFEROL 400 UNIT TAB PO SCH ×2 (09:42→21:39)
[2020-03-19] MEDS: ZINC SULFATE 220 MG CAP PO SCH (09:42)
[2020-03-19] MEDS: ASCORBIC ACID 500 MG TAB PO SCH ×2 (09:42→21:39)
[2020-03-19] MEDS: ENOXAPARIN INJ 80 MG/0.8 ML SYR SC SCH (09:43)
[2020-03-19] MEDS: ROCURONIUM BROMIDE 250 MG in SODIUM CHLORIDE 0.9% 250ML 225 ML IV SCH ×2 (10:00→22:03)
--- NOTE | 2020-03-19 11:33 | Progress Note ---
DATE: SUBJECTIVE: The patient is afebrile. He is now on Levophed at 15 mcg. He was placed in the prone position yesterday, but desaturations persisted and had to be switched back to the supine position. He received an additional 500 mL fluid bolus. PHYSICAL EXAMINATION: VITAL SIGNS: The patient is afebrile, blood pressure is 107/50, and heart rate is 112. HEENT: Shows no facial swelling or erythema. CARDIAC: Reveals regular rate and rhythm with normal S1 and S2. LUNGS: Auscultation of lungs reveals rhonchorous breath sounds bilaterally. There is no wheezing. ABDOMEN: Soft and nontender. There is no rebound or guarding. EXTREMITIES: Show no leg edema or calf tenderness. There is no cyanosis or clubbing. SKIN: Shows no rashes. NEUROLOGICAL: Shows no focal abnormalities. LABORATORY DATA: White blood cell count is 8.4, hemoglobin 7.4, and platelet count is 426. The BUN to creatinine ratio is 11 and 0.48 and potassium is 3.4. The other electrolytes are within normal limits. Albumin is 2.1. IMPRESSION: 1. Acute respiratory failure. 2. Coronavirus disease 2019 and viral pneumonia. 3. Anemia secondary to chronic blood loss. 4. Hypertension. 5. Hypokalemia. PLAN: 1. Continue current ventilator settings. Increase tidal volume to 390 to correct high CO2. 2. Continue enteral feedings. 3. Wean Levophed. 4. If the patient is stable, consider CT scan to evaluate for fibrosis in the lungs. 5. Continue Lovenox. Drew Everett MD [facility]/MODL /[id number]
[2020-03-19 14:19] LABS: ABG HCO3 32 mmol/L (22-26); ABG PCO2 97 mmHg (35-45); ABG PH 7.13 (7.35-7.45); ABG PO2 54 mmHg (80-105); ABG TCO2 35
--- NOTE | 2020-03-19 16:45 | Progress Note ---
DATE: 03/19/2020 Medicine Progress Note SUBJECTIVE: The patient is still at the same state. He is still trached, on a mechanical ventilator and was struggling the keep his oxygen saturation high. PHYSICAL EXAMINATION: VITAL SIGNS: Temperature is 98.6, pulse is 119, respiratory rate is 34, blood pressure is 111/57, and his last O2 sats with 87% on a mechanical ventilator by his trach. GENERAL: Tracheostomy, sedated. PULMONARY: Tracheostomy, sedated. CARDIOVASCULAR: Positive S1 and S2. No murmurs, rubs, or gallops. GI: Abdomen soft, nondistended, and nontender to palpation. Bowel sounds present. MUSCULOSKELETAL: Unable to assess. NEUROLOGIC: Unable to assess. SKIN: Intact. Warm to touch. Good capillary refill. EXTREMITIES: He does have edema appreciated throughout. LABORATORY DATA: White count 8.4, hemoglobin 7.4, hematocrit 26.7, and platelets of 426. Chemistry; sodium 144, potassium 3.4, chloride 100, bicarb is 38, anion gap of 9.4, BUN is 11, creatinine is 0.48, calcium is 7.5, phosphorus 1.4. All cultures were no growth. IMAGING STUDIES: No imaging studies today. IMPRESSION: 1. Acute respiratory failure secondary COVID-19 pneumonia, tracheostomy, on a mechanical ventilator. 2. Spontaneous pneumothorax with the chest tube removed. 3. Sepsis with leukocytosis secondary to coronavirus. 4. Right upper extremity thromboses on full-dose anticoagulation. 5. Anemia. 6. Metabolic alkalosis. PLAN: At this time, the patient is still trached, sedated, on a mechanical ventilator. We are still having difficulty with increase in his oxygenation. He is requiring significant amount of pressure support via the ventilator. I will go ahead and add some Diamox. Steroids, antibiotics, and vitamins. Pulmonary Critical Care and ID are following. We will continue to follow very closely with the rest of the consultants. MD BOB Burleson/MODL /[id number]
--- NOTE | 2020-03-19 17:45 | Progress Note ---
DATE: SUBJECTIVE: Mr. Smith remains in intensive care unit, remains on the ventilator. He is on Levophed 16 mcg. OBJECTIVE: HEENT: Normocephalic. NECK: Supple. CHEST: Crackles. HEART: S1, S2. ABDOMEN: Soft. IMPRESSION: Respiratory failure, sepsis, septic shock, anemia. PLAN: Wean off Levophed. He is currently on Zosyn. We will follow. We will add vancomycin. Urmila Encarnacion MD [facility]/MODL /[id number]
[2020-03-19 21:11] LABS: ABG HCO3 35 mmol/L (22-26); ABG PCO2 114 mmHg (35-45); ABG PO2 58 mmHg (80-105)
[2020-03-19 21:12] LABS: ABG TCO2 38
--- NOTE | 2020-03-19 22:13 | Diagnostic Imaging Report ---
Examination: Single AP view of the chest. COMPARISON: 03/18/2020 INDICATION: Respiratory failure. DISCUSSION: Lines/tubes: Tracheostomy tube with distal tip approximately 1.3 cm proximal to the briseida. Enteric tube extends below the diaphragm with the distal tip of the [id number]. Left PICC line with tip over the SVC. Lungs: Stable multifocal pneumonia. Pleura: No pneumothorax. Heart and mediastinum: The heart and the mediastinum are unremarkable. Bones and soft tissues: No acute bony abnormalities. Degenerative changes in the thoracic spine. IMPRESSION: 1. No significant interval change in bilateral multifocal pneumonia. Signed by: Dr. Raymundo Hutchison M.D. on 03/19/2020 10:09 PM
[2020-03-20] VITALS (14 sets, daily range): BP systolic 96–146; BP diastolic 51–72
--- NOTE | 2020-03-20 00:25 | Progress Note ---
DATE: 03/19/2020 REASON FOR PROGRESS NOTE: COVID-19, respiratory insufficiency. REQUESTING PHYSICIAN: Drew Everett MD SUBJECTIVE: The patient is afebrile. On Levophed intravenously. He was in prone position yesterday, but now back to supine. PHYSICAL EXAMINATION: VITAL SIGNS: Blood pressure 107/50, heart rate 110. HEENT: No swelling or erythema. CARDIAC: Regular rate and rhythm. Normal S1 and S2. No S3, S4, rub, or murmur. LUNGS: Coarse ventilator sounds bilaterally. ABDOMEN: Hypoactive bowel sounds. No masses. EXTREMITIES: No cyanosis, clubbing, or edema. SKIN: No rashes or nonhealing ulcers. NEUROLOGIC: Intubated and sedated. LABORATORY DATA: WBC 8.4, hemoglobin 7.4, and platelet count 126. Creatinine 0.48. Chest x-ray is reviewed and is unchanged. IMPRESSION: Critically ill with respiratory failure. I agree with current management. MD ANDREWS HinojosaL/MODL /[id number]
[2020-03-20] MEDS: MIDAZOLAM HCL 50 MG in SODIUM CHLORIDE 0.9% 100 ML 90 ML IV PRN ×2 (00:39→09:40)
[2020-03-20] MEDS: INSULIN REGULAR, HUMAN 100 UNIT/1 ML 3ML VIAL SQ SCH ×3 (00:50→12:00)
[2020-03-20] MEDS: PIPER-TAZ 3.375 GM 50 ML IV SCH ×2 (01:33→09:40)
--- NOTE | 2020-03-20 05:34 | NUR ---
AT 0445 PATIENT WAS TRANSFERRED FROM CICU BED 16 TO ICU ROOM 196. TWO RT'S, ICU CHARGE NURSE, AND THREE OTHER RNS PRESENT FOR TRANSFER.
--- NOTE | 2020-03-20 06:24 | Diagnostic Imaging Report ---
Examination: Single AP view of the chest. COMPARISON: 03/19/2020 INDICATION: Respiratory failure. DISCUSSION: Lines/tubes: Tracheostomy tube with distal tip approximately 1.3 cm proximal to the briseida. Enteric tube extends below the diaphragm with the distal tip of the [id number]. Left PICC line with tip projected on the SVC proximal to the cavoatrial junction, unchanged.. Lungs: Stable multifocal patchy airspace disease with some sparing of the upper lobes, unchanged. Pleura: No pneumothorax. Heart and mediastinum: The heart and the mediastinum are unremarkable. Bones and soft tissues: No acute bony abnormalities. Degenerative changes in the thoracic spine. IMPRESSION: 1. No significant interval change in bilateral multifocal pneumonia. Stable supporting tubes and PICC. Signed by: Dr. Raymundo Hutchison M.D. on 03/20/2020 6:21 AM
[2020-03-20] MEDS: ACETAZOLAMIDE SODIUM 500 MG/VIAL IV SCH ×2 (06:30→14:00)
[2020-03-20 07:05] LABS: BASOPHILS # (AUTO) 0.1 (0.0-0.1); BASOPHILS % 0.6 % (0.0-1.0); EOSINOPHILS # (AUTO) 0.2 (0.0-0.4); EOSINOPHILS % 1.4 % (0.0-6.0); HEMATOCRIT 28.5 % (38.2-49.6); HEMOGLOBIN 7.7 g/dL (14.0-18.0); LYMPHOCYTES # (AUTO) 0.8 (1.0-3.2); LYMPHOCYTES % 7.7 % (18.0-39.1); MEAN CORPUSCULAR HEMOGLOBIN 30.2 pg (28-32); MEAN CORPUSCULAR VOLUME 111.8 fL (81-99); MONOCYTES # (AUTO) 0.8 (0.2-0.8); MONOCYTES % 7.5 % (4.4-11.3); NEUTROPHILS % 73.9 % (38.7-80.0); PLATELET COUNT 371 x10e3/uL (140-360); RED BLOOD COUNT 2.55 x10e6/uL (4.3-5.7); RED CELL DISTRIBUTION WIDTH 16.9 % (11.7-14.4)
[2020-03-20 07:23] LABS: ANION GAP 9.4 mmol/L (8-16); BLOOD UREA NITROGEN 15 mg/dL (7-26); BUN/CREATININE RATIO 23 (6-25); CALCIUM 7.8 mg/dL (8.4-10.2); CARBON DIOXIDE 34 mmol/L (22-29); CHLORIDE 102 mmol/L (98-107); CREATININE, SERUM 0.66 mg/dL (0.72-1.25); EST GLOMERULAR FILTRATION RATE > 60 ML/MIN (60-); GLUCOSE 103 mg/dL (74-118); POTASSIUM 3.4 mmol/L (3.5-5.1); SODIUM 142 mmol/L (136-145)
[2020-03-20 08:02] LABS: HYPOCHROMASIA SLIGHT; RBC MORPHOLOGY COMMENT ABNORMAL
[2020-03-20] MEDS: CHOLECALCIFEROL 400 UNIT TAB PO SCH (09:12)
[2020-03-20] MEDS: ZINC SULFATE 220 MG CAP PO SCH (09:12)
[2020-03-20] MEDS: ASCORBIC ACID 500 MG TAB PO SCH (09:12)
[2020-03-20] MEDS: NOREPINEPHRINE 8 MG/D5W 250 ML 250 ML IV PRN (09:41)
[2020-03-20 11:00] LABS: ABG HCO3 34 mmol/L (22-26); ABG PCO2 91 mmHg (35-45); ABG PH 7.17 (7.35-7.45); ABG PO2 43 mmHg (80-105); ABG TCO2 37
[2020-03-20] MEDS ORDERED: ENOXAPARIN SOD INJ 60 MG/0.6 ML SYR SC SCH (13:36)
--- NOTE | 2020-03-20 14:13 | NUR ---
Family (patients and daughter) informed primary RN that they wish to withdraw care on patient. Dr. Syed melendrez informed and gave orders for terminal extubation and pain medications. RT informed of situation.
[2020-03-20] MEDS ORDERED: MORPHINE SULFATE 2 MG/ML SYR 1ML IV PRN (14:15)
[2020-03-20] MEDS ORDERED: LORAZEPAM INJ 2 MG/ML VIAL IV PRN (14:15)
[2020-03-20] MEDS ORDERED: MIDAZOLAM HCL 5MG/ML 10ML VIAL 100 ML IV PRN (14:30)
--- NOTE | 2020-03-20 14:54 | NUR ---
1400: Patient family bedside for visit. 14:15: Per pt daughter Phoebe, family members have requested terminal wean of care. Dr. Everett, medical charge entry specialist notified. RT paged. 14:25: Medication drips discontinued. 14:30: Pt disconnected from mechanical ventillation. Morphine and ativan administered at this time per family request. 14:40: pronounced by Dr. Everett. 14:50: [facility] called, spoke to Vickie Worthy. . Patient not a candidate due to COVID-19. Addendum: 03/20/20 at 1715 by Zulma Bain RN 1630: Post-mortem care 1700: Spoke with [facility] about patient pick out hand.
--- NOTE | 2020-03-20 16:53 | Progress Note ---
DATE: SUBJECTIVE: Mr. Deny Smith remains in intensive care unit, intubated and sedated with vitals stable. PHYSICAL EXAMINATION: GENERAL: He is intubated and sedated. VITAL SIGNS: Stable. HEENT: Normocephalic. NECK: Supple. CHEST: Few crackles bilateral. HEART: S1, S2. No S3 or S4. No murmurs. ABDOMEN: Soft. IMPRESSION: Coronavirus disease-19, respiratory failure, on vasopressors. He is on norepinephrine, Zosyn, vitamin D. Continue anticoagulation. We will follow. MD JAKY Osman/MODL /[id number]
--- NOTE | 2020-03-20 17:10 | NUR ---
instructor of education visited with pt's and family , offered calpain presence , grief support and prayers. The family expressed grief appropriately. The family expressed olga In God and and accepting God's will and also expressed grief over the loss. Heavy Line Technician provided pastoral support to extended family outside the hospital and they were able to watch the body from outside the window . The family appreciated instructor of education presence CHAPLAIN Adán
--- NOTE | 2020-03-21 01:25 | Discharge Summary ---
DATE OF : 03/20/2020. TIME OF : 1440. FINAL DIAGNOSES: 1. Acute respiratory failure secondary to coronavirus disease 2019 pneumonia. 2. Sepsis secondary to coronavirus disease 2019. 3. Viral pneumonia. 4. Right upper extremity thromboses. 5. Anemia. 6. Family withdrew care, made comfort measures only. 7. Acute respiratory distress syndrome. CONSULTANTS: Pulmonary Critical Care, ID, CT Surgery, and General Surgery. LABORATORY DATA: White count 10.7, hemoglobin 7.7, hematocrit 28.5, and platelets of 371. Chemistry; sodium 142, potassium 3.4, chloride 102, bicarb 34, anion gap of 9.4, BUN 15, creatinine is 0.66, glucose 103, calcium is 7.8. SEROLOGY: On admission, he had coronavirus positive and then repeat shows nondetectable. MICROBIOLOGY: 11/27 blood cultures no growth. IMAGING STUDIES: Chest x-ray on 03/20/2020, showed no significant interval change, shows bilateral multifocal pneumonia diffusely. He had a venous Doppler of bilateral upper extremities that showed no evidence of any thromboses, but that venous Doppler was performed on 03/09/2020. He did have a venous Doppler on 02/27/2020, that showed an acute partially occlusive venous thromboses of the right cephalic vein. HOSPITAL COURSE: This is a 54-year-old male, who came in with complaints of cough, congestion, fever, and underlying shortness of breath, in which he was diagnosed with COVID-19 pneumonia on lab findings. The patient was admitted initially to the COVID Unit and he initially required room air and then progressively became very hypoxic and required nasal cannula and was upgraded eventually to a face mask and high-flow oxygen and Vapotherm. The patient was apparently sick 2 weeks prior to the hospital admission and was on hydroxychloroquine and ivermectin, in which he was diagnosed in [place]. The patient then presented to our facility due to worsening symptoms, needing further evaluation. Pulmonary Critical Care and ID were involved in this patient's care. The patient was maintained on broad-spectrum IV antibiotics, full-dose anticoagulation, steroids, and vitamins as well. Blood cultures were found to be negative. At some point, he did have a venous Doppler and found to have an acute right upper extremity thromboses. While in the COVID unit, the patient progressively got worse and was sent to the ICU on Vapotherm and face mask. The patient continued to become very tachypneic, desaturated, in which he had to be intubated. At some point in the ICU, the patient was hypotensive, requiring IV pressors for blood pressure support. The patient maintained intubated for significant period of time and maintained on steroids, antibiotics, and vitamins and was being managed accordingly by Pulmonary Critical Care and ID. At some point, CT Surgery was consulted as well for further assistance. The patient had spontaneous pneumothorax, of note had [address], in which CT Surgery was consulted for further management and care. At some point, the chest tubes were removed during the hospital course. Since the patient was intubated for significant period of time, requiring significant amount of oxygen requirement, the patient needed a tracheostomy, in which General Surgery was consulted. A tracheostomy was performed during the hospital stay. Throughout his hospital course, several conversations were held with the Pulmonary Critical Care doctor and the patient's daughter, Nadine, who is a respiratory therapist in [place], in which we discussed with her and updated her on a daily basis in relation to her father. Her father continued to decompensate throughout the hospital course. At some point, his oxygen saturation would desaturate even with very minor movement. I had spoken to her on several occasions as well, in which she did not want to make her father DNR/DNI. She wanted to continue with full code. On 03/19/2020, in the evening, the patient continued to decompensate, in which he required significant amount of oxygen requirement, in which we notified the family and they came in and saw the patient, Mr. Smith. On 03/20/2020, Nadine, who is a daughter including her mother and all her siblings have agreed to withdraw care and make him comfort measures only. The patient at 1440, and condolences were given to the family. The patient progressively got worse and was becoming very hypoxic despite on the ventilator and several different mechanics were changed and despite that, the family finally agreed to comfort measures only and the patient appropriately at 1440. Condolences were given to the family at bedside. DISPOSITION: To hung. Otherwise, I spoke with the family prior to comfort measures only and they have agreed with the gang leader as well as me as well and they made their final decision as a family to make comfort measures only otherwise. MD BOB Burleson/HARPAL /[id number]
[2020-04-11] MEDS ORDERED: MIDAZOLAM HCL 5MG/ML 10ML VIAL 100 ML IV PRN (21:45)
== END 2020-03-20 19:00 | disposition expired | DRG 4 ==
LOC: ER 09:20 → ERHOLD 13:51 → IMCU 19:30 → ICU 02-21 11:11 → COVIDICU 03-02 18:44 → ICU 03-20 05:16
PROVIDERS: ADMIT Internal Medicine; ATTEND Internal Medicine
PROC: 8E0ZXY6 Isolation (ICD-10-PCS; 2020-02-18)
PROC: 3E0436Z Introduction of Nutritional Substance into Central Vein, Percutaneous Approach (ICD-10-PCS; 2020-02-25)
PROC: 02HV33Z Insertion of Infusion Device into Superior Vena Cava, Percutaneous Approach (ICD-10-PCS; 2020-02-25)
PROC: B548ZZA Ultrasonography of Superior Vena Cava, Guidance (ICD-10-PCS; 2020-02-25)
PROC: 5A1955Z Respiratory Ventilation, Greater than 96 Consecutive Hours (ICD-10-PCS; principal; 2020-02-26)
PROC: 0BH18EZ Insertion of Endotracheal Airway into Trachea, Via Natural or Artificial Opening Endoscopic (ICD-10-PCS; 2020-02-26)
PROC: 03HY32Z Insertion of Monitoring Device into Upper Artery, Percutaneous Approach (ICD-10-PCS; 2020-02-26)
PROC: 4A133B1 Monitoring of Arterial Pressure, Peripheral, Percutaneous Approach (ICD-10-PCS; 2020-02-26)
PROC: 4A133J1 Monitoring of Arterial Pulse, Peripheral, Percutaneous Approach (ICD-10-PCS; 2020-02-26)
PROC: 0W9B30Z Drainage of Left Pleural Cavity with Drainage Device, Percutaneous Approach (ICD-10-PCS; 2020-03-04)
PROC: 0W9B30Z Drainage of Left Pleural Cavity with Drainage Device, Percutaneous Approach (ICD-10-PCS; 2020-03-05)
PROC: 30233N1 Transfusion of Nonautologous Red Blood Cells into Peripheral Vein, Percutaneous Approach (ICD-10-PCS; 2020-03-07)
PROC: 0B110F4 Bypass Trachea to Cutaneous with Tracheostomy Device, Open Approach (ICD-10-PCS; 2020-03-11)
PROC: 30233N1 Transfusion of Nonautologous Red Blood Cells into Peripheral Vein, Percutaneous Approach (ICD-10-PCS; 2020-03-16)
PROC: 0B21XFZ Change Tracheostomy Device in Trachea, External Approach (ICD-10-PCS; 2020-03-17)
DX: A41.89 Other specified sepsis (principal); J12.89 Other viral pneumonia; J96.01 Acute respiratory failure with hypoxia; U07.1 COVID-19; J80 Acute respiratory distress syndrome; J93.0 Spontaneous tension pneumothorax; J69.0 Pneumonitis due to inhalation of food and vomit; J15.9 Unspecified bacterial pneumonia; R65.21 Severe sepsis with septic shock; E44.0 Moderate protein-calorie malnutrition; D62 Acute posthemorrhagic anemia; E87.3 Alkalosis; I82.611 Acute embolism and thrombosis of superficial veins of right upper extremity; G72.81 Critical illness myopathy; I83.90 Asymptomatic varicose veins of unspecified lower extremity; I10 Essential (primary) hypertension; E87.6 Hypokalemia; E78.5 Hyperlipidemia, unspecified; Z82.49 Family history of ischemic heart disease and other diseases of the circulatory system; Z83.3 Family history of diabetes mellitus; E86.0 Dehydration; R07.89 Other chest pain; D64.9 Anemia, unspecified; D50.0 Iron deficiency anemia secondary to blood loss (chronic); R13.10 Dysphagia, unspecified
CPT/HCPCS: 36415; 36569; 36600; 71045; 74018; 74230; 80048; 80053; 80076; 80202; 82550; 82553; 82805; 82948; 83605; 83735; 84100; 84484; 85007; 85014; 85018; 85025; 85027; 85610; 85730; 86850; 86900; 86920; 87040; 93005; 93306; 93926; 93970; 94002; 94003; 94640; 96361; 96365; 96366; 96372; 99284; C1769; J0330; J0360; J0456; J0692; J0696; J1100; J1650; J1817; J1940; J2001; J2060; J2250; J2270; J2405; J2543; J2560; J2920; J2997; J3370; J7030; J7040; J7050; J7121; P9016; P9047; U0002